=== PATIENT | female | born 1955 | race Caucasian/White ===

== ENCOUNTER → 2024-03-16 10:53 | Outpatient (REF) | payer OTHER, SELFPAY | LOC: RAD 10:53 | PROVIDERS: ATTENDING PHYSICIAN Family Medicine | DX: Z78.9 Other specified health status (principal); R14.0 Abdominal distension (gaseous) | CPT/HCPCS: 76700 ==

== ENCOUNTER 2024-07-06 23:08 | Inpatient (IN) | payer OTHER, SELFPAY ==
[2024-07-06 14:05] VITALS: BP 112/51
[2024-07-06 14:09] VITALS: BP 109/51
--- NOTE | 2024-07-06 14:13 | ED.GENMED ---
ED Provider Triage
<Matt Mitchell PA-C - Last Filed: 07/06/24 14:15>
-
Patient seen by provider in Triage?: Seen in Triage
68 yo female presents due to worsening diffuse edema over the past week or more. Lasix was increased 3d ago by PCP to 80mg daily however edema has not improved. No CP/SOB. Still urinating well. Prior hx of ETOH use, sober since April
Diffuse anasarca from BLE to abdomen. No resp distress. Likely abdominopelvic ascites
Check basic labs. No hx of CHF.
History of Present Illness
<Matt Mitchell PA-C - Last Filed: 07/06/24 14:15>
General
Chief Complaint: Swelling
Time Seen by Provider: 07/06/24 18:56
<Ryan Tuttle MD - Last Filed: 07/07/24 03:02>
General
Source: patient
Exam Limitations: none
History of Present Illness
History of Present Illness:
68-year-old female 2 weeks of progressive leg swelling. Also some swelling in her abdomen. Seen by her primary physician and started on doxycycline and double her dose of Lasix. However symptoms were worse today and was advised to go to the ER.
No chest pain or shortness of breath. No fever.
Past History
<Ryan Tuttle MD - Last Filed: 07/07/24 03:02>
Past History
ED Past Medical History: GERD, HTN, Hypercholesterolemia, Valvular disease, Psychiatric and Other (Neuropathy)
ED Past Surgical History: Gynecological and Other (Cataracts)
Review of Systems
<Ryan Tuttle MD - Last Filed: 07/07/24 03:02>
Review of Systems
All Other Systems: Not applicable
Constitutional: Denies fever
Respiratory: Reports no symptoms
Cardiac: Reports no symptoms
Phy Exam
<Ryan Tuttle MD - Last Filed: 07/07/24 03:02>
Physical Exam
Physical Exam:
GENERAL: Alert and oriented in no apparent distress
EYE: Orbits normal.
NECK: Supple, no significant adenopathy.
ENT: Pharynx without erythema
CARDIAC: Regular rate and rhythm without any obvious murmurs.
LUNGS: Bilateral rales
ABDOMEN: Soft, without focal tenderness or distention
NEUROLOGICAL: Alert and oriented , grossly non-focal
SKIN: Warm and dry, ecchymotic areas shininess to the lower extremity.
MUSCULOSKELETAL: Significant lower extremity pitting edema
PSYCH: Normal and appropriate interaction.
Scores
<Ryan Tuttle MD - Last Filed: 07/07/24 03:02>
Heart Failure Risk
Heart Failure Risk Score: Yes
History of Stroke or TIA: No
History of intubation for respiratory distress: No
Heart rate on ED arrival >/= 110: No
SaO2 <90% on arrival on room air: No
HR >/=110 during 3min walk test (or too ill to perform test): Yes
ECG has acute ischemic changes: No
Urea >/=12mmol/L (BUN 33.6mg/dL): Yes
Serum CO2>/=35mmol/L: No
Troponin I or T elevated to [place] Level (0.4mg/dL): No
NT-proBNP >/=5,000ng/L (5,000pg/ml): No
HF Risk Score: 3
Admission Status: HIGH RISK 15.9% Consider SNF treatment or admission to hospital
Course
<Matt Mitchell PA-C - Last Filed: 07/06/24 14:15>
Orders/Labs/Results
Orders:
Orders
07/06/24 Breakfast
Cholesterol Lowering
At Your Request: Full Participation
Fluid Restriction: 1200 mL/day (40 oz)
Cholesterol Lowering: Sodium, 2 Gram
07/06/24 14:27
Complete Blood Count/With Diff Urgent
Comprehensive Metabolic Panel Urgent
NT-proBNP Urgent
Comment: ADDON
07/06/24 19:03
Add On- LAB Urgent
Tests Added?: probnp
CXR2 [CR Chest - 2 Views ] Urgent
Comment:
Reason For Exam: fluid retention
US Abdomen Complete/Upper Urgent
Comment:
Reason For Exam: Fluid retention/renal insufficiency
07/06/24 19:04
IV Insert/Care/Rem.- Treatment PRN
07/06/24 19:18
Urinalysis Reflex To Culture Urgent
Date Specimen was Collected: 07/06/24
Time Specimen was Collected: 14:16
07/06/24 22:08
Potassium Chloride [KCl] 40 meq Dextrose 5%/Water 250 ml [D5w] 250 ml IV NOW
07/06/24 22:11
Admit/Transfer Patient As Directed
Co-Sign Provider:
Level of Care: Inpatient admission
Assign to:: Telemetry
Physician / Group: shalonda gamble
Diagnosis: ascites
Reason for Telemetry: Other
Other Reason for Telemetry: chf
Date to Stop Telemetry: 07/08/24
Time to Stop Telemetry: 11:00
Reason for Hospitalization: ascites
CHF
Expected length of stay greater than two midnights?: Yes
ELOS- Estimated Length of Stay in days: 3
I certify the patient meets the requirements for IP care: Yes
07/06/24 22:12
Code Status As Directed
Resuscitation Status: Full Code
PRN Pain Medication Management As Directed
May give lesser potent ordered pain med per pt: Yes
preference::
Protocol:: Medication orders for pain may be administered in a
manner that supports deferring to patient preference
when the pt is:
- Requesting an ordered lesser potent pain medication.
Least to most potent pain medications are defined
as: acetaminophen < NSAID < tramadol < opioids
(morphine, oxycodone, hydromorphone).
- Requesting a lesser dose of the same medication IF
ORDERED.
- Requesting a less intrusive route of administration
if both routes are prescribed by the provider (PO <
IV).
07/06/24 22:53
Peripheral Venous Lwr Ext Bilat US [US Periph Venous LOWER Ext Felix] Urgent
Comment:
Reason For Exam: edema
07/06/24 23:17
Echo 2D MMode Color/Doppler Routine
Reason for Study: heart failure
CARDIOLOGY CONSULT Routine
Consulting Provider: Sean Alexander
Was physician already notified: No
Reason for consult: anasarca/CHf
Consult Notification Routine
Specialty to Notify: Cardiology
Consult Notification Routine
Specialty to Notify: IRAD (Interventional Radiology)
Consult Notification Routine
Specialty to Notify: Nephrology
HF DIETARY CONSULT Routine
HF EDUCATOR CONSULT Routine
Comment:
IRAD CONSULT Routine
Consulting Provider: Lizandro Leal
Was physician already notified: No
Reason for Consult/Procedure: paracentesis
Acknowledgement that appropriate orders are entered: Yes
NEPHROLOGY CONSULT Routine
Consulting Provider: Sarah Yen
Was physician already notified: No
Reason for consult: nancy
Body Fluid Albumin Routine
Fluid Source: Peritoneal (Ascites)
Body Fluid Amylase Routine
Fluid Source: Peritoneal (Ascites)
Body Fluid Cell Count Routine
What is the Body Fluid: peritoneal fluid
Comment: post procedure
Body Fluid LDH Routine
Fluid Source: Peritoneal (Ascites)
Body Fluid Protein Routine
Fluid Source: Peritoneal (Ascites)
Fluid Culture with Gram Stain Routine
NORBERTO Source: Peritoneal Fluid
Specimen Description:
Comment: Post Procedure
Gram Stain Routine
NORBERTO Source: Peritoneal Fluid
Specimen Description:
Comment: Post Procedure
Activity As Directed
Activity Level: As Tolerated
Intake/ Output As Directed
Frequency: Per unit guidelines
Patient Education As Directed
Type: CHF folder
Comment: give on admission. Document in Interdisciplinary Education record
Pneumatic Compression Sleeves As Directed
Type: Thigh high
Sleep Apnea Assessment by RN As Directed
Comment:
Physician Instructions:
Vital Signs As Directed
Frequency: Other
Additional Instructions:: Q12 or per unit guidelines if more frequent.
Weight As Directed
Frequency: Daily
Type of Scale: Standing Scale
Comment: Daily morning weight. If unable to stand, use balanced bed scale.
Weight As Directed
Frequency: Once
Type of Scale: Standing Scale
Comment: Upon Admission. If unable to stand, use balanced bed scale.
IRAD Cytology Routine
Source: Peritoneal Fluid
Clinical Impression: ascites
Pulse Ox/cont/shift [RESP] Routine
Quantity: 1
Special Instructions: Daily pulse oximetry at rest. If greater than 92% at rest also obtain pulse oximetry
while ambulating as tolerated.
DX Deep Vein Thrombosis Video Routine
07/07/24 06:00
Cardiovascular Evaluation IN AM
Complete Blood Count/No Diff IN AM
TSH Reflex To Free T4 IN AM
07/07/24 08:00
Metoprolol Xl [Toprol Xl] 50 mg PO DAILY
Pregabalin [Lyrica] 150 mg PO BID
Rosuvastatin Calcium [Crestor] 20 mg PO DAILY
07/07/24 22:00
Melatonin 3 mg PO HS
07/08/24 06:00
Basic Metabolic Panel IN AM
07/08/24 11:00
DC Protocol for Telemetry ONCE
07/09/24 06:00
Basic Metabolic Panel IN AM
Abnormal Lab Results
07/06/24
14:27
RBC 2.69 L 10^6/uL
(4.20-5.40)
Hgb 7.9 L g/dL
(12.0-16.0)
Hct 22.5 L %
(37.0-47.0)
RDW 16.1 H %
(11.5-14.5)
MPV 12.2 H fL
(7.4-10.4)
Absolute Monos (auto) 0.7 H 10^3/uL
(0.1-0.6)
Potassium 2.9 L mmol/L
(3.5-5.1)
Carbon Dioxide 21 L mmol/L
(22-30)
BUN 34 H mg/dl
(7-17)
Creatinine 2.2 H mg/dL
(0.6-1.0)
Calcium 7.7 L mg/dl
(8.4-10.2)
Total Bilirubin 1.5 H mg/dl
(0.2-1.3)
AST 85 H U/L
(14-36)
Alkaline Phosphatase 239 H U/L
(38-126)
Total Protein 6.1 L g/dl
(6.3-8.2)
Albumin 2.9 L g/dl
(3.5-5.0)
07/06/24 14:27
07/06/24 14:27
Vital Signs
Initial and Last Documented VS:
Initial Vital Signs
Temp Pulse BP Pulse Ox
97.9 F 78 112/51 95
07/06/24 14:05 07/06/24 14:05 07/06/24 14:05 07/06/24 14:05
Last Documented Vital Signs
Temp Pulse Resp BP Pulse Ox
98.5 F 78 18 108/49 98
07/06/24 23:30 07/07/24 02:00 07/07/24 02:00 07/07/24 02:00 07/06/24 23:38
<Ryan Tuttle MD - Last Filed: 07/07/24 03:02>
Orders/Labs/Results
Orders:
Orders
07/06/24 Breakfast
Cholesterol Lowering
At Your Request: Full Participation
Fluid Restriction: 1200 mL/day (40 oz)
Cholesterol Lowering: Sodium, 2 Gram
07/06/24 14:27
Complete Blood Count/With Diff Urgent
Comprehensive Metabolic Panel Urgent
NT-proBNP Urgent
Comment: ADDON
07/06/24 19:03
Add On- LAB Urgent
Tests Added?: probnp
CXR2 [CR Chest - 2 Views ] Urgent
Comment:
Reason For Exam: fluid retention
US Abdomen Complete/Upper Urgent
Comment:
Reason For Exam: Fluid retention/renal insufficiency
07/06/24 19:04
IV Insert/Care/Rem.- Treatment PRN
07/06/24 19:18
Urinalysis Reflex To Culture Urgent
Date Specimen was Collected: 07/06/24
Time Specimen was Collected: 14:16
07/06/24 22:08
Potassium Chloride [KCl] 40 meq Dextrose 5%/Water 250 ml [D5w] 250 ml IV NOW
07/06/24 22:11
Admit/Transfer Patient As Directed
Co-Sign Provider:
Level of Care: Inpatient admission
Assign to:: Telemetry
Physician / Group: shalonda gamble
Diagnosis: ascites
Reason for Telemetry: Other
Other Reason for Telemetry: chf
Date to Stop Telemetry: 07/08/24
Time to Stop Telemetry: 11:00
Reason for Hospitalization: ascites
CHF
Expected length of stay greater than two midnights?: Yes
ELOS- Estimated Length of Stay in days: 3
I certify the patient meets the requirements for IP care: Yes
07/06/24 22:12
Code Status As Directed
Resuscitation Status: Full Code
PRN Pain Medication Management As Directed
May give lesser potent ordered pain med per pt: Yes
preference::
Protocol:: Medication orders for pain may be administered in a
manner that supports deferring to patient preference
when the pt is:
- Requesting an ordered lesser potent pain medication.
Least to most potent pain medications are defined
as: acetaminophen < NSAID < tramadol < opioids
(morphine, oxycodone, hydromorphone).
- Requesting a lesser dose of the same medication IF
ORDERED.
- Requesting a less intrusive route of administration
if both routes are prescribed by the provider (PO <
IV).
07/06/24 22:53
Peripheral Venous Lwr Ext Bilat US [US Periph Venous LOWER Ext Felix] Urgent
Comment:
Reason For Exam: edema
07/06/24 23:17
Echo 2D MMode Color/Doppler Routine
Reason for Study: heart failure
CARDIOLOGY CONSULT Routine
Consulting Provider: Sean Alexander
Was physician already notified: No
Reason for consult: anasarca/CHf
Consult Notification Routine
Specialty to Notify: Cardiology
Consult Notification Routine
Specialty to Notify: IRAD (Interventional Radiology)
Consult Notification Routine
Specialty to Notify: Nephrology
HF DIETARY CONSULT Routine
HF EDUCATOR CONSULT Routine
Comment:
IRAD CONSULT Routine
Consulting Provider: Lizandro Leal
Was physician already notified: No
Reason for Consult/Procedure: paracentesis
Acknowledgement that appropriate orders are entered: Yes
NEPHROLOGY CONSULT Routine
Consulting Provider: Sarah Yen
Was physician already notified: No
Reason for consult: nancy
Body Fluid Albumin Routine
Fluid Source: Peritoneal (Ascites)
Body Fluid Amylase Routine
Fluid Source: Peritoneal (Ascites)
Body Fluid Cell Count Routine
What is the Body Fluid: peritoneal fluid
Comment: post procedure
Body Fluid LDH Routine
Fluid Source: Peritoneal (Ascites)
Body Fluid Protein Routine
Fluid Source: Peritoneal (Ascites)
Fluid Culture with Gram Stain Routine
NORBERTO Source: Peritoneal Fluid
Specimen Description:
Comment: Post Procedure
Gram Stain Routine
NORBERTO Source: Peritoneal Fluid
Specimen Description:
Comment: Post Procedure
Activity As Directed
Activity Level: As Tolerated
Intake/ Output As Directed
Frequency: Per unit guidelines
Patient Education As Directed
Type: CHF folder
Comment: give on admission. Document in Interdisciplinary Education record
Pneumatic Compression Sleeves As Directed
Type: Thigh high
Sleep Apnea Assessment by RN As Directed
Comment:
Physician Instructions:
Vital Signs As Directed
Frequency: Other
Additional Instructions:: Q12 or per unit guidelines if more frequent.
Weight As Directed
Frequency: Daily
Type of Scale: Standing Scale
Comment: Daily morning weight. If unable to stand, use balanced bed scale.
Weight As Directed
Frequency: Once
Type of Scale: Standing Scale
Comment: Upon Admission. If unable to stand, use balanced bed scale.
IRAD Cytology Routine
Source: Peritoneal Fluid
Clinical Impression: ascites
Pulse Ox/cont/shift [RESP] Routine
Quantity: 1
Special Instructions: Daily pulse oximetry at rest. If greater than 92% at rest also obtain pulse oximetry
while ambulating as tolerated.
DX Deep Vein Thrombosis Video Routine
07/07/24 06:00
Cardiovascular Evaluation IN AM
Complete Blood Count/No Diff IN AM
TSH Reflex To Free T4 IN AM
07/07/24 08:00
Metoprolol Xl [Toprol Xl] 50 mg PO DAILY
Pregabalin [Lyrica] 150 mg PO BID
Rosuvastatin Calcium [Crestor] 20 mg PO DAILY
07/07/24 22:00
Melatonin 3 mg PO HS
07/08/24 06:00
Basic Metabolic Panel IN AM
07/08/24 11:00
DC Protocol for Telemetry ONCE
07/09/24 06:00
Basic Metabolic Panel IN AM
Abnormal Lab Results
07/06/24
14:27
RBC 2.69 L 10^6/uL
(4.20-5.40)
Hgb 7.9 L g/dL
(12.0-16.0)
Hct 22.5 L %
(37.0-47.0)
RDW 16.1 H %
(11.5-14.5)
MPV 12.2 H fL
(7.4-10.4)
Absolute Monos (auto) 0.7 H 10^3/uL
(0.1-0.6)
Potassium 2.9 L mmol/L
(3.5-5.1)
Carbon Dioxide 21 L mmol/L
(22-30)
BUN 34 H mg/dl
(7-17)
Creatinine 2.2 H mg/dL
(0.6-1.0)
Calcium 7.7 L mg/dl
(8.4-10.2)
Total Bilirubin 1.5 H mg/dl
(0.2-1.3)
AST 85 H U/L
(14-36)
Alkaline Phosphatase 239 H U/L
(38-126)
Total Protein 6.1 L g/dl
(6.3-8.2)
Albumin 2.9 L g/dl
(3.5-5.0)
07/06/24 14:27
07/06/24 14:27
Vital Signs
Initial and Last Documented VS:
Initial Vital Signs
Temp Pulse BP Pulse Ox
97.9 F 78 112/51 95
07/06/24 14:05 07/06/24 14:05 07/06/24 14:05 07/06/24 14:05
Last Documented Vital Signs
Temp Pulse Resp BP Pulse Ox
98.5 F 78 18 108/49 98
07/06/24 23:30 07/07/24 02:00 07/07/24 02:00 07/07/24 02:00 07/06/24 23:38
<Ryan Tuttle MD - Last Filed: 07/07/24 03:02>
MDM/Problems Addressed
Differential Diagnosis Includes:
Increased anasarca/edema. Possible mild CHF. Bump in creatinine. Chronic anemia. Workup in progress.
<Ryan Tuttle MD - Last Filed: 07/07/24 03:02>
*Radiology
Radiology exam reviewed: preliminary read by ED provider (Questionable mild CHF. Questionable right hilar adenopathy) and radiology read reviewed (Moderate ascites)
*Pulse Oximetry
Patient hypoxic: no
*Critical Care Note
Total Time (30-74mins, 75-104mins- exclusive of procedures): Not Applicable
Data Reviewed
Review of Other/Old Records Reveals: Labs, Records and Testing
ED Attending Note
<Matt Mitchell PA-C - Last Filed: 07/06/24 14:15>
-
Portions of this chart may have been created with voice recognition software.� Occasional wrong word or��sound alike� substitutions may have occurred due to the inherent limitations of voice recognition software.
Discharge Plan
Departure
Patient Disposition: Admit
Date of Disposition: 07/06/24
Time of Disposition: 21:45
Presentation/result/management discussed w/ accepting MD/DO: Hospitalist
Discharge Problem:
Anasarca/ascites, New onset renal insufficiency, Possible mild CHF
Interventions
Interventions:
*Risk Screen - Suicide Last Done: 07/06/24 19:40
*General Assessment Last Done: 07/06/24 14:09
*Neglect/Abuse Screening Last Done: 07/06/24 19:40
*ED COVID-19 Vaccine History Last Done: 07/06/24 19:40
ED- Cardiac Assessment Last Done: 07/06/24 19:40
ED- Pulmonary Assessment Last Done: 07/06/24 19:40
ED-Skin Assessment Last Done: 07/06/24 19:39
[2024-07-06 15:04] LABS: % Basophils 0.5 % (0-2); % Eosinophils 1.1 % (0-6); % Immature Granulocytes 0.3 % (0-0.5); % Lymphocytes 27.6 % (20.5-51.1); % Neutrophils 62.5 % (42.2-75.2); ALT (SGPT) 24 U/L (0-35); Absolute Basophils 0.1 10^3/uL (0-0.2); Absolute Eosinophils 0.1 10^3/uL (0-0.7); Absolute Lymphocytes 2.6 10^3/uL (1.2-3.4); Absolute Monocytes 0.7 10^3/uL (0.1-0.6); Absolute Neutrophils 5.8 10^3/uL (1.4-6.5); Albumin 2.9 g/dl (3.5-5.0); Alkaline Phosphatase 239 U/L (38-126); Blood Urea Nitrogen 34 mg/dl (7-17); Calcium 7.7 mg/dl (8.4-10.2); Carbon Dioxide 21 mmol/L (22-30); Chloride 103 mmol/L (98-107); Glucose 92 mg/dl (70-99); Hematocrit 22.5 % (37.0-47.0); Hemoglobin 7.9 g/dL (12.0-16.0); Mean Corp Hgb Conc. 35.1 g/dL (33.0-37.0); Mean Corpuscular Hgb 29.4 pg (27.0-31.0); Mean Corpuscular Volume 83.6 fL (81.0-99.0); Mean Platelet Volume 12.2 fL (7.4-10.4); Nucleated Red Blood Cells % 0 %; Platelet Count 183 10^3/uL (130-400); Potassium 2.9 mmol/L (3.5-5.1); Red Blood Cell Count 2.69 10^6/uL (4.20-5.40); Red Cell Dist. Width 16.1 % (11.5-14.5); Sodium 139 mmol/L (135-145); Total Bilirubin 1.5 mg/dl (0.2-1.3); Total Protein 6.1 g/dl (6.3-8.2); White Blood Cell Count 9.2 10^3/uL (4.8-10.8); eGFR 23.82
[2024-07-06 15:52] LABS: AST (SGOT) 85 U/L (14-36)
[2024-07-06 16:00] VITALS: BP 111/79
[2024-07-06 19:25] LABS: Urine Albumin Negative (Neg - Trace); Urine Bilirubin Negative (Negative); Urine Character Clear (Clear); Urine Color Yellow; Urine Glucose Negative (Negative); Urine Ketone Negative (Negative); Urine Leukocyte Negative (Negative); Urine Nitrite Negative (Negative); Urine Occult Blood Negative (Negative); Urine Urobilinogen Negative (Neg - 1+)
[2024-07-06 19:39] VITALS: BP 123/56
[2024-07-06 19:56] LABS: NT-proBNP 1110 pg/ml
--- NOTE | 2024-07-06 21:48 | HPS.HSE ---
Family Physician
-
Family Physician:
Chief Complaint
-
abdominal distention
History of Present Illness
68-year-old female with past medical history for CHF, GERD, hyperlipidemia, hypertension presented to us with 2 weeks of progressive leg swelling. Also some swelling in her abdomen. Seen by her primary physician and started on doxycycline and
doubled her dose of Lasix on Tuesday. however symptoms were worse today and was advised to go to the ER. No chest pain or shortness of breath. No fever, chills, runny nose or congestion. Patient denied headache, dizziness syncope. Patient denied
abdominal pain, nausea, vomiting, diarrhea. Patient denied dysuria hematuria.
Upon arrival noted to have BNP of 1100. Admitting for further management
Medical History
Past Medical History
Past Medical History: Reports Other
Additional Past Medical History:
Osteoporosis
Anxiety
Anemia
Hypertension
Mood disorder
Fatty liver
Cirrhosis of liver
GERD
Celiac disease alcohol abuse
Past Surgical History: Reports Other
Additional Past Surgical History:
Hysterectomy
Social History
Tobacco: Smoker
Alcohol: Former
Drug: None
Family History
Family History: Not pertinent
Allergies / Home Medications
Allergies reflects when Allergies were last updated in [facility].
Home Medications with original date entered in [facility]
Allergy/Medication List:
Allergies
Allergy/AdvReac Type Severity Reaction Status Date / Time
olmesartan [From Benicar] Allergy anemia Verified 07/06/24 14:12
Sulfa (Sulfonamide Allergy lip Verified 07/06/24 14:12
Antibiotics) Swelling
venlafaxine [From Effexor] Allergy Unknown Verified 07/06/24 14:12
Home Medications
loratadine 10 mg tablet 10 mg PO PRN PRN seasonal 05/30/18
pregabalin 100 mg capsule 150 mg PO BID Pain 04/30/20
furosemide 40 mg tablet 40 mg PO DAILY 30 days #30 tabs 01/05/22
melatonin 3 mg tablet 3 mg PO HS 30 days #0 tabs 01/05/22
pantoprazole 40 mg tablet,delayed release 40 mg PO DAILY 30 days #30 tabs 01/05/22
metoprolol succinate 50 mg tablet,extended release 24 hr 50 mg PO DAILY 07/22/22
rosuvastatin 20 mg tablet 20 mg PO DAILY 07/06/24
Review of Systems
-
Constitutional: Reports No Symptoms
EENT: Reports No Symptoms
Respiratory: Reports No Symptoms
Cardiac: Reports No Symptoms
Abdomen/GI: Reports Other (distention)
: Reports No Symptoms
Musculoskeletal: Reports Other (LE edema)
Skin: Reports No Symptoms
Neurological: Reports No Symptoms
Endocrine: Reports No Symptoms
Hematologic/Lymphatic: Reports No Symptoms
Psych: Reports No Symptoms
Physical Exam
Vital Signs
Vital Signs
Temp Pulse Resp BP Pulse Ox
98.3 F 67 20 123/56 92
07/06/24 19:39 07/06/24 19:39 07/06/24 19:39 07/06/24 19:39 07/06/24 19:39
Physical Exam
General: Well Developed, Well Nourished and No Apparent Distress
HEENT: NormoCephalic, Moist mucous membranes and Atraumatic
Respiratory: Clear
Cardiac: S1/S2 and Regular Rhythm; No Murmur or Rub
GI: Soft, Non Tender, Non Distended and Normal Bowel Sounds; No Organomegaly
Rectal: Deferred by Provider
Musculoskeletal: No Clubbing, No Cyanosis and Other (b/l LE red and swollen)
Skin: No Rash
Neuro: AO x 3 and Nonfocal/grossly intact
Psych: Calm
Laboratory Results
-
07/06/24 14:27
07/06/24 14:27
Laboratory Results
Total Bilirubin 1.5 mg/dl (0.2-1.3) H 07/06/24 14:27
AST 85 U/L (14-36) H 07/06/24 14:27
ALT 24 U/L (0-35) 07/06/24 14:27
Alkaline Phosphatase 239 U/L (38-126) H 07/06/24 14:27
Data Reviewed
-
Diagnostic Radiology: Report Reviewed by me
Lab Data: Labs Reviewed by me
Impression/Plan
-
#anasarca
#questionable CHF
-Chest x-ray pending
-BNP 1110
-hold lasix
-Strict GLEN
-Daily weight
-Fluid restriction
-Cardiology consult
-Obtain echocardiogram
# Moderate ascites
# Hepatic cirrhosis
-Abdominal ultrasound with impression of MODERATE ASCITES.
2. MODERATE HEPATIC CIRRHOSIS.
3. Mild gallbladder distention.
4. Mild chronic bilateral renal disease.
-IR consulted for paracentesis
# Anemia of chronic disease
-Hemoglobin stable at 7.9
-No active bleeding
-Continue to monitor
# Hypokalemia likely from fluid overload/diuretics
-Potassium 2.9
-Repleted with IV KCl
-BMP in am
# Acute kidney injury likely from fluid overload/diuretic
-Creatinine 2.2
-Diuretics
-Monitor BMP in a.m.'
-Nephrology consult
# Hyperlipidemia
-Statin
# Hypertension
-Metoprolol continued
# DVT prophylaxis
-SCDs
# CODE STATUS
-Full code
[2024-07-06 22:35] VITALS: BP 119/62
--- NOTE | 2024-07-06 23:04 | W.PN.UPDATE ---
Update Note
Progress Note Update
This note serves as an addendum to the H&P by basic sciences professor JAMILA
Page [employer]
HPI
68F current smoker HX Chr HFpEF, GERD, hyperlipidemia, hypertension, chr anemia , anxiety , liver cirrhosis, celiac dz , ETOH use disorder, seen at ER:
- 2 weeks of progressive leg swelling and some swelling in her abdomen.
- Seen by PCP started on doxycycline and doubled her dose of Lasix on Tuesday.
- symptoms were worse today and was advised to go to the ER.
ROS
No chest pain or shortness of breath.
No fever, chills, runny nose or congestion.
denied abdominal pain, nausea, vomiting, diarrhea.
Reviewed VS:
Vital Signs
Temp Pulse Resp BP Pulse Ox
98.3 F 73 15 119/62 92
07/06/24 19:39 07/06/24 22:45 07/06/24 22:45 07/06/24 22:35 07/06/24 22:45
01/05/22
07/22/22
07/06/24
Actual Weight 40.687 kg 50.3 kg 53.155 kg
PE
Gen: No Apparent Distress
HEENT:
Neck: supple
Lungs: CTA
Cor: Not oprthopnic, S1 S2 RRR No murmur
Abdomen:
PROBATION MANAGER:
MS: b/l LE erythematous edema
Psych: calm
Abnormal Lab Results
07/06/24
14:27
RBC 2.69 L
Hgb 7.9 L
Hct 22.5 L
RDW 16.1 H
MPV 12.2 H
Absolute Monos (auto) 0.7 H
Potassium 2.9 L
Carbon Dioxide 21 L
BUN 34 H
Creatinine 2.2 H
Calcium 7.7 L
Total Bilirubin 1.5 H
AST 85 H
Alkaline Phosphatase 239 H
Total Protein 6.1 L
Albumin 2.9 L
12/21/21 ECHO
Nl LVEF
Nl RV size and function
Trace-Mild MR
Mild TR
Estimated PASP 41 mmHg is mildly elevated Compared to prior study of 15 days ago (12/06/21) no change.
US Abdomen: MODERATE ASCITES.
ASSESSMENT & PLAN
Complex cardio, hepatorenal pathophysiology
Complex medial decision making
ESTRELLITA
DDx: Over diuresis with intervascular volume contraction vs. Cardio renal syndrome due to Chr HFpEF flare
- Current Creatinine 2.2
- Hold Lasix
- Trend Cr
- Nephrology consult
Progressive Sharon edema but denied dyspnea
Severe hypoalbuminemia Diff origin- synthetic dysfunction +/_ hemodilution due to anasarrca
DDX: suspect anasarca, extra vascular volume exapansion, Chr HFpEF flare
- current pro BNP is less than prior pro BNP
- SHARON US to be thorough
- ECHO
- Hold IV Diuresis for now due to ESTRELLITA
- CBC Card consult
Moderate ascites
Hepatic cirrhosis with synthetic dysfunction , hypoalbuminemia suspect anasarca plus Portal HTN
- IR consulted for paracentesis
Anemia of chronic disease
-Hemoglobin stable at 7.9
-No active bleeding
-Continue to trend Hgb
Hypokalemia likely from fluid overload/diuretics
-Potassium 2.9
-Repleted with IV KCl
-BMP in am
Hyperlipidemia
- Statin
Essential Hypertension
-Metoprolol continued
DVT Px: SCD
Full code
IP TLM
[2024-07-07] VITALS (20 sets, daily range): BP systolic 100–130; BP diastolic 49–65; BMI 20.5
[2024-07-07] MEDS: KCL 270 MEQ IV (00:18)
[2024-07-07] MEDS: MELATONIN 3 MG PO ×2 (01:06→22:42)
[2024-07-07 06:21] LABS: Hematocrit 21.3 % (37.0-47.0); Hemoglobin 7.3 g/dL (12.0-16.0); Mean Corp Hgb Conc. 34.3 g/dL (33.0-37.0); Mean Corpuscular Hgb 29.1 pg (27.0-31.0); Mean Corpuscular Volume 84.9 fL (81.0-99.0); Mean Platelet Volume 12.3 fL (7.4-10.4); Platelet Count 163 10^3/uL (130-400); Red Blood Cell Count 2.51 10^6/uL (4.20-5.40); Red Cell Dist. Width 16.1 % (11.5-14.5); White Blood Cell Count 7.8 10^3/uL (4.8-10.8)
[2024-07-07 06:35] LABS: ALT (SGPT) 22 U/L (0-35); AST (SGOT) 77 U/L (14-36); Albumin 2.5 g/dl (3.5-5.0); Alkaline Phosphatase 236 U/L (38-126); Blood Urea Nitrogen 35 mg/dl (7-17); Calcium 7.4 mg/dl (8.4-10.2); Carbon Dioxide 24 mmol/L (22-30); Chloride 104 mmol/L (98-107); Estimated Creatinine Clearance 18 ml/min; Glucose 72 mg/dl (70-99); HDL Cholesterol 62 mg/dl; LDL Cholesterol, Calculated 70 mg/dl; Potassium 3.4 mmol/L (3.5-5.1); Sodium 138 mmol/L (135-145); Total Bilirubin 2.1 mg/dl (0.2-1.3); Total Cholesterol 159 mg/dl (50-199); Total Protein 5.4 g/dl (6.3-8.2); Triglyceride 136 mg/dl (10-149); Very Low Density Lipoprotein 27 mg/dl (0-30); eGFR 25.19
[2024-07-07 07:05] LABS: TSH Reflex To Free T4 1.02 uIU/ml (0.47-4.68)
[2024-07-07] MEDS: TOPROL XL 50 MG PO (08:26)
[2024-07-07] MEDS: LYRICA 150 MG PO ×2 (08:30→20:37)
[2024-07-07] MEDS: CRESTOR PO (08:30)
--- NOTE | 2024-07-07 12:54 | W.CON.NEPH ---
Consultation
-
Date/Time Consultation Requested: 07/06/24 1857
Date/Time Consultation Performed: 07/07/24 1345
Requesting Provider: Clayton Jacobs
Performing Provider: Sarah Ring
Reason for Consultation: ESTRELLITA
Medical History
-
Chief Complaint: Abd distension
History of Present Illness:
68-year-old female with past medical history for CHF on lasix, GERD on PPI, hyperlipidemia on statin, hypertension metoprolol, liver cirrhosis on lactulose presented to ER on 07/06 with 2 weeks of progressive leg swelling. Also some swelling in her
abdomen, reportedly pt ran out of lactulose for 1week. Was Seen by her primary physician last week and started on doxycycline for cellulitis and doubled her dose of Lasix, resumed lactulose on Tuesday. Cultures were obtained at this visit from
right lower extremity wound which shows Proteus and enterococcus pansensitive. however symptoms were worse and was advised to go to the ER. No chest pain or shortness of breath. No fever, chills, runny nose or congestion. Patient denied headache,
dizziness syncope. Patient denied abdominal pain, nausea, vomiting, diarrhea. Patient denied dysuria hematuria. 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 Reports she is sober since April.
In ER cr noted at 2.2, last cr was 1 in 06/2023. k low at 2.9. hence nephrology consulted. BNP was high 1100.
Past Medical History
Osteoporosis
Anxiety
Anemia
Hypertension
Mood disorder
Cirrhosis of liver
GERD
Celiac disease alcohol abuse
Past Surgical History: Other (Hysterectomy)
Social History
Tobacco: Smoker
Alcohol: Former
Drug: None
Family History
Family History: Not Pertinent
Allergies / Home Medications
Allergy/AdvReac Type Severity Reaction Status Date / Time
olmesartan [From Benicar] Allergy anemia Verified 07/06/24 14:12
Sulfa (Sulfonamide Allergy lip Verified 07/06/24 14:12
Antibiotics) Swelling
venlafaxine [From Effexor] Allergy Unknown Verified 07/06/24 14:12
�Medication �Instructions �Recorded �Confirmed �Type
loratadine 10 mg tablet 10 mg PO PRN PRN seasonal 05/30/18 07/07/24 History
pregabalin 100 mg capsule 150 mg PO BID Pain 04/30/20 07/07/24 History
furosemide 40 mg tablet 40 mg PO DAILY 30 days #30 tabs 01/05/22 07/07/24 Rx
melatonin 3 mg tablet 3 mg PO HS 30 days #0 tabs 01/05/22 07/07/24 Rx
metoprolol succinate 50 mg 50 mg PO DAILY Blood Pressure 07/22/22 07/07/24 History
tablet,extended release 24 hr
rosuvastatin 20 mg tablet 20 mg PO DAILY High Cholesterol 07/06/24 07/07/24 History
alendronate 10 mg tablet 10 mg PO MO osteoporosis 07/07/24 07/07/24 History
cholecalciferol (vitamin D3) 25 25 mcg PO DAILY Supplement 07/07/24 07/07/24 History
mcg (1,000 unit) tablet (Vitamin
D3)
cyanocobalamin (vitamin B-12) 1,000 mcg PO DAILY Supplement 07/07/24 07/07/24 History
1,000 mcg tablet
diphenhydramine HCl 25 mg capsule 25 mg PO HS Allergies 07/07/24 07/07/24 History
(Benadryl)
doxycycline hyclate 100 mg capsule 100 mg PO BID Infection 07/07/24 07/07/24 History
lactulose 10 gram/15 mL oral 20 g PO Q48H hepatic encephalopathy 07/07/24 07/07/24 History
solution
omeprazole 20 mg capsule,delayed 20 mg PO DAILY Gastrointestinal 07/07/24 07/07/24 History
release Issue
Review of Systems
-
All complete 12 point review of system have been inquired and found negative other than stated in HPI
Physical Exam
Vital Signs
Vital Signs
Temp Pulse Resp BP Pulse Ox
98.6 F 90 16 130/64 98
07/07/24 11:17 07/07/24 10:05 07/07/24 10:05 07/07/24 08:26 07/06/24 23:38
Lab Results
WBC 7.8 10^3/uL (4.8-10.8) 07/07/24 05:14
RBC 2.51 10^6/uL (4.20-5.40) L 07/07/24 05:14
Hgb 7.3 g/dL (12.0-16.0) L 07/07/24 05:14
Hct 21.3 % (37.0-47.0) L 07/07/24 05:14
Plt Count 163 10^3/uL (130-400) 07/07/24 05:14
Sodium 138 mmol/L (135-145) 07/07/24 05:14
Potassium 3.4 mmol/L (3.5-5.1) L 07/07/24 05:14
Chloride 104 mmol/L (98-107) 07/07/24 05:14
Carbon Dioxide 24 mmol/L (22-30) 07/07/24 05:14
BUN 35 mg/dl (7-17) H 07/07/24 05:14
Creatinine 2.1 mg/dL (0.6-1.0) H 07/07/24 05:14
eGFR 25.19 07/07/24 05:14
Glucose 72 mg/dl (70-99) 07/07/24 05:14
Calcium 7.4 mg/dl (8.4-10.2) L 07/07/24 05:14
Pab-K-Zwubuwlmljd Pept 1110 pg/ml 07/06/24 14:27
Albumin 2.5 g/dl (3.5-5.0) L 07/07/24 05:14
CXR:
IMPRESSION:
1. Mild acute interstitial pulmonary edema.
2. Mild cardiomegaly.
3. Mild peripheral scarring in the right upper lobe.
4. Mild elevation of the right hemidiaphragm.
5. Multilevel cervical laminectomies and bilateral posterior instrumentation.
US abd:
IMPRESSION:
1. MODERATE ASCITES.
2. MODERATE HEPATIC CIRRHOSIS.
3. Mild gallbladder distention.
4. Mild chronic bilateral renal disease.
Physical Exam
General: Awake, Alert, Oriented, AOx3, No Distress and Nontoxic
HEENT: EOMI, Anicteric, Conjunctivae Clear and Facial Symmetry
Respiratory: Clear, Normal Excursion and Nonlabored Respirations (decreased)
Cardiac: S1/S2 and Regular Rate/Rhythm
Breast: Deferred by me
Abdomen: Soft, Nontender and Other (Distended)
Musculoskeletal: No Cyanosis and Edema (1+)
Skin: Other ( small area of raw skin right lower extremity, weeping noted erythema present but not warm or tender)
Neuro: Nonfocal/Grossly Intact
Psych: Mood/afflect pleasant and Appropriate
Data Reviewed
-
Radiology: Report Reviewed by me, Discussed with Patient and Discussed with Family
Labs: Labs Reviewed by me, Discussed with Patient and Discussed with Family
Assessment/Plan
-
IMP:
ESTRELLITA -cr at 1 in 06/2023
Hypokalemia
Progressive Sharon edema
Lower extremity cellulitis treated outpatient, wound culture shows Proteus, enterococcus from 06/2024
Severe hypoalbuminemia
Moderate ascites
Hepatic cirrhosis
Anemia of chronic disease
Hyperlipidemia
Essential Hypertension
Celiac
Osteoporosis
Anxiety
Plan:
A/w LE edema , abd distension with known h/o cirrhosis
ESTRELLITA-last cr 1 in 06/2023
[place] UA , check fena -suspect cardiorenal vs hepatorenal vs overdiuresis
no hydro on US, MRD changes with slightly small kidneys
will trial IV alb
replace k , hold lasix, low threshold to resume
check echo, CXR Noted wiht mild pulm edema-but she is on RA
BNP high but in setting of ETSRELLITA
paracentesis when able
Bp stable on BB
avoid nephrotoxins
monitor hb, check fe panel, prn transfusion
d/w pt and
--- NOTE | 2024-07-07 13:31 | CON.CAR ---
Consultation
Consultation Request
Date/Time Consultation Requested: 07/07/2024 12:30
Date/Time Consultation Performed: 07/07/2024 13: 00
Requesting Provider: Margo
Performing Provider: Arlet
Reason for Consultation: CHF
Medical History
-
Chief Complaint: Worsening lower extremity edema and abdominal distention
History of Present Illness:
Asha has a history of chronic diastolic CHF, hypertension, alcohol abuse (sober since April 2024). She presents with lower extremity edema and abdominal distention. She is found to have cirrhosis and renal insufficiency. Cardiology is
consulted for CHF. She denies shortness of breath at present. She denies weight gain as well
Past Medical History
Past Medical History: HTN and Other (See HPI, neuropathy, depression, pneumonia, fatty liver, colonic polyps, anemia, celiac disease, anxiety, osteoporosis)
Past Surgical History: Other (Hysterectomy partial due to endometriosis and fibroids, fusion surgery )
Social History
Tobacco: Smoker (3 to 4 cigarettes a day)
Alcohol: Former (Stop drinking April 2024)
Drug: None
Personal:
Living: With Family
Employment: Retired
Family History
Family History: Other (There is no family history of premature coronary artery disease)
Allergies / Home Medications
Allergy/AdvReac Type Severity Reaction Status Date / Time
olmesartan [From Benicar] Allergy anemia Verified 07/06/24 14:12
Sulfa (Sulfonamide Allergy lip Verified 07/06/24 14:12
Antibiotics) Swelling
venlafaxine [From Effexor] Allergy Unknown Verified 07/06/24 14:12
�Medication �Instructions �Recorded �Confirmed �Type
loratadine 10 mg tablet 10 mg PO PRN PRN seasonal 05/30/18 07/07/24 History
pregabalin 100 mg capsule 150 mg PO BID Pain 04/30/20 07/07/24 History
furosemide 40 mg tablet 40 mg PO DAILY 30 days #30 tabs 01/05/22 07/07/24 Rx
melatonin 3 mg tablet 3 mg PO HS 30 days #0 tabs 01/05/22 07/07/24 Rx
metoprolol succinate 50 mg 50 mg PO DAILY Blood Pressure 07/22/22 07/07/24 History
tablet,extended release 24 hr
rosuvastatin 20 mg tablet 20 mg PO DAILY High Cholesterol 07/06/24 07/07/24 History
alendronate 10 mg tablet 10 mg PO MO osteoporosis 07/07/24 07/07/24 History
cholecalciferol (vitamin D3) 25 25 mcg PO DAILY Supplement 07/07/24 07/07/24 History
mcg (1,000 unit) tablet (Vitamin
D3)
cyanocobalamin (vitamin B-12) 1,000 mcg PO DAILY Supplement 07/07/24 07/07/24 History
1,000 mcg tablet
diphenhydramine HCl 25 mg capsule 25 mg PO HS Allergies 07/07/24 07/07/24 History
(Benadryl)
doxycycline hyclate 100 mg capsule 100 mg PO BID Infection 07/07/24 07/07/24 History
lactulose 10 gram/15 mL oral 20 g PO Q48H hepatic encephalopathy 07/07/24 07/07/24 History
solution
omeprazole 20 mg capsule,delayed 20 mg PO DAILY Gastrointestinal 07/07/24 07/07/24 History
release Issue
Review of Systems
-
History Source: Patient
All other systems: Negative unless noted
Constitutional: No Symptoms
EENT: No Symptoms
Respiratory: No Symptoms
Cardiac: No Symptoms
Abdomen/GI: Other (Abdominal distention)
: No Symptoms
Musculoskeletal: Edema
Skin: No Symptoms
Neurological: Other (History of neuropathy)
Endocrine: No Symptoms
Hematologic/Lymphatic: No Symptoms
Physical Exam
Vital Signs
Temp Pulse Resp BP Pulse Ox
98.6 F 90 16 130/64 98
07/07/24 11:17 07/07/24 10:05 07/07/24 10:05 07/07/24 08:26 07/06/24 23:38
Lab Results
07/07/24 05:14
07/07/24 05:14
Vke-L-Yrjjpayfwyd Pept 1110 pg/ml 07/06/24 14:27
General: Well developed, well nourished in NAD.
Neck: Supple, no JVD, HJR, carotids +2 B/L, no bruits bilaterally.
Heart: Non displaced PMI, RRR, 2/6 basal systolic murmur, No S3, S4, no rubs.
Lungs: Scattered rhonchi
Abdomen: Distended
Extremities: Chronic venous stasis changes, mild lower extremity edema
Neuro: Grossly nonfocal, awake, alert and oriented x3.
Impression / Plan
-
Impression:
Anasarca
Cirrhosis of liver
Acute diastolic CHF
Stage IIIb renal insufficiency
Severe anemia
Hyperlipidemia
Hypertension
Echocardiogram 12/21/2021: Ejection fraction normal, PA systolic 41 mmHg
Plan:
Patient is volume overloaded but may be due to cirrhosis. Unclear whether diuretics will be helpful specially given renal insufficiency
Await nephrology input before giving Lasix
Check echocardiogram
Consider paracentesis
Data Reviewed
-
EKG: Tracing Personally Visualized and interpreted
Radiology: Report Reviewed by me
Ultrasound: Report Reviewed by me
Medical Tests (Nuc Med, Echo etc): Report Reviewed by me
Labs: Labs Reviewed by me
Old Records: Reviewed
[2024-07-07 13:57] LABS: Iron 85 ug/dl (37-170)
--- NOTE | 2024-07-07 14:04 | W.PN.HOSP.TC ---
Today's Communication/Plan
-
Monitor vital signs see plan
IR for Thora
Nephrology evaluation
Cardiology evaluation
Monitor volume status closely
Monitor renal function
Assessment / Plan
Assessment / Plan
General: Well Developed, Well Nourished and No Apparent Distress
HEENT: NormoCephalic, Moist mucous membranes and Atraumatic
Respiratory: Clear
Cardiac: S1/S2 and Regular Rhythm; No Murmur or Rub
GI: Soft, Non Tender, Distended and Normal Bowel Sounds
Musculoskeletal: Other (b/l LE red and swollen)
Neuro: AO x 3 and Nonfocal/grossly intact
Psych: Calm
anasarca
#questionable CHF
-Chest x-ray with mild acute interstitial pulmonary edema
-BNP 1110
-Lasix if okay with nephrology
-Strict GLEN
-Daily weight
-Fluid restriction
Cardiology evaluation
Echo
# Moderate ascites
# Hepatic cirrhosis
-Abdominal ultrasound with impression of MODERATE ASCITES.
2. MODERATE HEPATIC CIRRHOSIS.
3. Mild gallbladder distention.
4. Mild chronic bilateral renal disease.
-IR consulted for paracentesis
Patient does follow-up with GI outpatient
# Anemia of chronic disease
-No active bleeding
-Continue to monitor
# Hypokalemia
Replete
# Acute kidney injury likely from fluid overload, concern for hepatorenal
Monitor creatinine
Nephrology evaluation
# Hyperlipidemia
-Statin
# Hypertension
-Metoprolol continued
# DVT prophylaxis
-SCDs
# CODE STATUS
-Full code
I spent a total of 52 minutes with the patient or on the floor. More than 50% of this time involved counseling and coordination of care.
Anticipated Discharge: > 48 hours
Subjective/Interval History
-
Date of Service: July 07, 2024
denies pain
Objective Data
-
Labs:
Laboratory Results
07/07/24
05:14
WBC 7.8
Hgb 7.3 L
Hct 21.3 L
Plt Count 163
Sodium 138
Potassium 3.4 L
Chloride 104
Carbon Dioxide 24
BUN 35 H
Creatinine 2.1 H
Glucose 72
Calcium 7.4 L
Total Bilirubin 2.1 H
AST 77 H
ALT 22
Alkaline Phosphatase 236 H
Vital Signs:
Vital Signs
Temp Pulse Resp BP Pulse Ox
98.6 F 90 16 130/64 98
07/07/24 11:17 07/07/24 10:05 07/07/24 10:05 07/07/24 08:26 07/06/24 23:38
I&O
07/06/24 07/07/24 07/08/24
06:59 06:59 06:59
Intake Total 480 / 480
Balance 480 / 480
[2024-07-07 14:06] LABS: Percent Saturation 41 % (20-50); Total Iron Binding Capacity 205 ug/dl (265-497)
[2024-07-07 14:29] LABS: Ferritin 26.3 ng/ml (11.1-264.0)
[2024-07-07] MEDS: KCL ELIXIR 40 MEQ PO (15:01)
[2024-07-07 15:59] LABS: Folate 5.9 ng/ml (2.76-20); Vitamin B12 950 pg/ml (239-931)
--- NOTE | 2024-07-07 16:07 | CM ---
CM met with pt bedside
Pt resides with her spouse in a [place] with 2 DIANN
Pt notes she ambulates with use of a WW or SPC some days, some dayd she does not need a ADs
Spouse assists with LE care
Pt occasionally needs to be pushed in a wheelchair
Pt has hx at [facility] and [facility] ([place]?)
PCP- Flores Aragon
Rx- [facility]
PT will likely benefit from PT/OT once medically appropriate
Discharge Disposition- anticipate home, likely with VN, watch for higher needs
[2024-07-07] MEDS: FLEXBUMIN 100 IV (17:07)
[2024-07-08] VITALS (17 sets, daily range): BP systolic 88–120; BP diastolic 46–65; BMI 20.5
[2024-07-08] MEDS: FLEXBUMIN 100 IV ×3 (00:41→17:40)
[2024-07-08 06:46] LABS: % Basophils 0.8 % (0-2); % Eosinophils 1.7 % (0-6); % Immature Granulocytes 0.3 % (0-0.5); % Lymphocytes 35.9 % (20.5-51.1); % Monocytes 11.6 % (1.7-9.3); % Neutrophils 49.7 % (42.2-75.2); Absolute Basophils 0.1 10^3/uL (0-0.2); Absolute Eosinophils 0.1 10^3/uL (0-0.7); Absolute Lymphocytes 2.7 10^3/uL (1.2-3.4); Absolute Monocytes 0.9 10^3/uL (0.1-0.6); Absolute Neutrophils 3.8 10^3/uL (1.4-6.5); Hematocrit 19.1 % (37.0-47.0); Hemoglobin 6.8 g/dL (12.0-16.0); Mean Corp Hgb Conc. 35.6 g/dL (33.0-37.0); Mean Corpuscular Hgb 29.3 pg (27.0-31.0); Mean Corpuscular Volume 82.3 fL (81.0-99.0); Mean Platelet Volume 12.6 fL (7.4-10.4); Nucleated Red Blood Cells % 0 %; Platelet Count 128 10^3/uL (130-400); Red Blood Cell Count 2.32 10^6/uL (4.20-5.40); Red Cell Dist. Width 15.8 % (11.5-14.5); White Blood Cell Count 7.6 10^3/uL (4.8-10.8)
[2024-07-08 06:47] LABS: INR 1.53; PT 18.7 Sec (11.4-14.6)
[2024-07-08 06:48] LABS: APTT 42.3 Sec (23.4-35.0)
[2024-07-08 07:01] LABS: ALT (SGPT) 21 U/L (0-35); AST (SGOT) 75 U/L (14-36); Albumin 2.9 g/dl (3.5-5.0); Alkaline Phosphatase 239 U/L (38-126); Blood Urea Nitrogen 32 mg/dl (7-17); Carbon Dioxide 20 mmol/L (22-30); Chloride 106 mmol/L (98-107); Estimated Creatinine Clearance 21 ml/min; Glucose 78 mg/dl (70-99); Potassium 3.4 mmol/L (3.5-5.1); Sodium 136 mmol/L (135-145); Total Bilirubin 1.8 mg/dl (0.2-1.3); Total Protein 5.6 g/dl (6.3-8.2); eGFR 26.71
[2024-07-08] MEDS: CRESTOR 20 MG PO (08:08)
[2024-07-08] MEDS: TOPROL XL PO (08:09)
[2024-07-08] MEDS: LYRICA 150 MG PO (08:22)
--- NOTE | 2024-07-08 09:55 | W.PN.CARDCBS ---
Today's Communication / Plan
-
Nephrology managing diuretics
May be difficult to diurese as volume overload may be due to cirrhosis
Check echo
Impression / Plan
-
Impression:
Anasarca
Cirrhosis of liver
Acute diastolic CHF
Stage IIIb renal insufficiency
Severe anemia
Hyperlipidemia
Hypertension
Echocardiogram 12/21/2021: Ejection fraction normal, PA systolic 41 mmHg
Plan:
Likely volume overload due to cirrhosis
Nephrology is managing diuretic
Creatinine has improved slightly to 2.0
Check echocardiogram
Consider paracentesis
Progress Note - Laboratory Manager
Subjective
Date of Service: July 08, 2024
No complaints
Objective
Labs:
07/08/24 05:21
07/08/24 05:21
Labs
Hgb 6.8 g/dL (12.0-16.0) L* 07/08/24 05:21
Hct 19.1 % (37.0-47.0) L* 07/08/24 05:21
Plt Count 128 10^3/uL (130-400) L D 07/08/24 05:21
PT 18.7 Sec (11.4-14.6) H 07/08/24 05:21
INR 1.53 07/08/24 05:21
APTT 42.3 Sec (23.4-35.0) H 07/08/24 05:21
Sodium 136 mmol/L (135-145) 07/08/24 05:21
Potassium 3.4 mmol/L (3.5-5.1) L 07/08/24 05:21
BUN 32 mg/dl (7-17) H 07/08/24 05:21
Creatinine 2.0 mg/dL (0.6-1.0) H 07/08/24 05:21
Glucose 78 mg/dl (70-99) 07/08/24 05:21
Vital Signs and I&O:
Vital Signs
Temp Pulse Resp BP Pulse Ox
98.2 F 75 13 110/49 91
07/08/24 07:31 07/08/24 09:00 07/08/24 09:00 07/08/24 09:00 07/08/24 08:07
Vital Signs
Temp Pulse Resp BP Pulse Ox
98.2 F 75 13 110/49 91
07/08/24 07:31 07/08/24 09:00 07/08/24 09:00 07/08/24 09:00 07/08/24 08:07
Intake & Output
07/06/24 07/07/24 07/08/24 07/09/24
06:59 06:59 06:59 06:59
Intake Total 1000 / 1000 100 / 100
Balance 1000 / 1000 100 / 100
Physical Exam
Physical Exam
General: Well developed, well nourished in NAD.
Neck: Supple, no JVD, HJR, carotids +2 B/L, no bruits bilaterally.
Heart: Non displaced PMI, RRR, no murmurs, No S3, S4, no rubs.
Lungs: Scattered rhonchi
Extremities: No clubbing, cyanosis or edema bilaterally.
Neuro: Grossly nonfocal, awake, alert and oriented x3.
[2024-07-08 11:48] LABS: Body Fluid WBC 73 /CUMM
[2024-07-08 11:49] LABS: Body Fluid Mononuclear 94.6 %; Body Fluid Polymorphonuclear 5.4 %
[2024-07-08 12:01] LABS: Body Fluid Albumin < 1.0 g/dl; Body Fluid Amylase < 30 U/L; Body Fluid LDH < 90 U/L; Body Fluid Protein < 2.0 g/dl
[2024-07-08] MEDS: XIFAXAN 550 MG PO ×2 (12:38→20:37)
[2024-07-08] MEDS: NSS (PRESERVATIVE FREE) 10 ML IV ×2 (12:38→20:36)
[2024-07-08] MEDS: PROTONIX IV 40 MG IV ×2 (12:38→20:37)
--- NOTE | 2024-07-08 13:03 | W.PN.NEPH.PH ---
Today's Communication / Plan
-
see plan
Assessment/Plan
-
IMP:
ESTRELLITA -cr at 1 in 06/2023
Hypokalemia
Progressive Sharon edema
Lower extremity cellulitis treated outpatient, wound culture shows Proteus, enterococcus from 06/2024
Severe hypoalbuminemia
Moderate ascites
Hepatic cirrhosis
Anemia of chronic disease
Hyperlipidemia
Essential Hypertension
Celiac
Osteoporosis
Anxiety
Plan:
A/w LE edema , abd distension with known h/o cirrhosis
ESTRELLITA-last cr 1 in 06/2023
[place] UA , check fena-not done -suspect cardiorenal vs hepatorenal vs diuresis
no hydro on US, MRD changes with slightly small kidneys
cont IV alb today too
replace k , hold lasix, low threshold to resume
check echo, CXR on admit Noted wiht mild pulm edema-but she is on RA
BNP high but in setting of ESTRELLITA
paracentesis 1.8lit today
Bp stable on BB
avoid nephrotoxins
monitor hb, adequate fe stores, transfusion today
d/w GI-ok for octreotide, with concern of HRS , if FEna low add midodrine
d/w pt and
-
-
Date of Service: July 08, 2024
CC / HPI / ROS
-
Chief Complaint:
ESTRELLITA
History of Present Illness:
cr still high at 2, bicarb 20
BP soft, UOP not measured
wt no change, no fever
hb low 6.8
Review of Systems:
no cp or sob
s/p paracentesis 1.8 lit 07/08
edema improving
has diarrhea today
Labs
-
Labs:
WBC 7.6 10^3/uL (4.8-10.8) 07/08/24 05:21
RBC 2.32 10^6/uL (4.20-5.40) L 07/08/24 05:21
Hgb 6.8 g/dL (12.0-16.0) L* 07/08/24 05:21
Hct 19.1 % (37.0-47.0) L* 07/08/24 05:21
Plt Count 128 10^3/uL (130-400) L D 07/08/24 05:21
Sodium 136 mmol/L (135-145) 07/08/24 05:21
Potassium 3.4 mmol/L (3.5-5.1) L 07/08/24 05:21
Chloride 106 mmol/L (98-107) 07/08/24 05:21
Carbon Dioxide 20 mmol/L (22-30) L 07/08/24 05:21
BUN 32 mg/dl (7-17) H 07/08/24 05:21
Creatinine 2.0 mg/dL (0.6-1.0) H 07/08/24 05:21
eGFR 26.71 07/08/24 05:21
Glucose 78 mg/dl (70-99) 07/08/24 05:21
Calcium 8.0 mg/dl (8.4-10.2) L 07/08/24 05:21
Bsn-D-Vemkcfoqnox Pept 1110 pg/ml 07/06/24 14:27
Albumin 2.9 g/dl (3.5-5.0) L 07/08/24 05:21
Physical Exam
-
Vital Signs:
Vital Signs
Temp Pulse Resp BP Pulse Ox
98.4 F 78 18 106/52 93
07/08/24 11:27 07/08/24 11:25 07/08/24 11:25 07/08/24 11:25 07/08/24 11:27
Cardiovascular:: Regular rate and rhythm
Respiratory:: Bilateral: Rales (at bases)
Lung Excursion:: Normal
Abdomen:: Nontender, Soft and Tender (palpable mass in epigastrium )
Extremity Edema:: +1: Bilateral:
[place] Catheter: No
--- NOTE | 2024-07-08 13:07 | CON.GI ---
Consultation
-
Date/Time Consultation Requested: 07/08/2024 at 10:09am
Date/Time Consultation Performed: 07/08/2024 at 12:00pm
Requesting Provider: Dr Christensen
Performing Provider: Dr Vaca
Reason for Consultation: anemia Hbg 6.8
Medical History
Chief Complaint / HPI
Chief Complaint: swelling of legs and body
History of Present Illness:
Asha is a 68yo W with h/o celiac disease and ETOH cirrhosis decompensated by ascites who presents for progressive swelling of abdomen and legs. She is known to myself last seen in our GI office 06/06/24 by GI [facility] where labs were ordered and EGD
scheduled outpatient basis 07/18/24 for variceal screening. 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 She lives with . She denies seeing blood in stools. She is not on AC or chronic NSAIDs. She does have
h/o reflux and heartburn that was controlled on omeprazole daily basis. She denies odynophagia, dysphagia, nausea/vomiting, or abd pain. She does report 2 episodes of dark green stools today in diaper due to not being able to get out of bed easily
overnight.
Past Medical History
Past Medical History: Other (ETOH cirrhosis, ascites, GERD, Celiac disease, HTN, neuropathy, depression, h/o PSE, cecal AVMS, h/o colonic polyps)
Past Surgical History: Other (Hysterectomy, fusion at [facility] 2018 and 2017, several EGD/colonoscopies)
Social History
Tobacco: Former Smoker
Alcohol: Occasional (last was April 2024)
Drug: None
Personal:
Living: With Family
Family History
Family History: Other (Father dementia, siblings celiac, father and brother bladder cancer)
Allergies / Home Medications
Allergy/AdvReac Type Severity Reaction Status Date / Time
olmesartan [From Benicar] Allergy anemia Verified 07/06/24 14:12
Sulfa (Sulfonamide Allergy lip Verified 07/06/24 14:12
Antibiotics) Swelling
venlafaxine [From Effexor] Allergy Unknown Verified 07/06/24 14:12
�Medication �Instructions �Recorded
loratadine 10 mg tablet 10 mg PO PRN PRN seasonal 05/30/18
pregabalin 100 mg capsule 150 mg PO BID Pain 04/30/20
furosemide 40 mg tablet 40 mg PO DAILY 30 days #30 tabs 01/05/22
melatonin 3 mg tablet 3 mg PO HS 30 days #0 tabs 01/05/22
metoprolol succinate 50 mg 50 mg PO DAILY Blood Pressure 07/22/22
tablet,extended release 24 hr
rosuvastatin 20 mg tablet 20 mg PO DAILY High Cholesterol 07/06/24
alendronate 10 mg tablet 10 mg PO MO osteoporosis 07/07/24
cholecalciferol (vitamin D3) 25 25 mcg PO DAILY Supplement 07/07/24
mcg (1,000 unit) tablet (Vitamin
D3)
cyanocobalamin (vitamin B-12) 1,000 mcg PO DAILY Supplement 07/07/24
1,000 mcg tablet
diphenhydramine HCl 25 mg capsule 25 mg PO HS Allergies 07/07/24
(Benadryl)
doxycycline hyclate 100 mg capsule 100 mg PO BID Infection 07/07/24
lactulose 10 gram/15 mL oral 20 g PO Q48H hepatic encephalopathy 07/07/24
solution
omeprazole 20 mg capsule,delayed 20 mg PO DAILY Gastrointestinal 07/07/24
release Issue
Review of Systems
-
All other systems: A 12 pt ROS was Negative except as stated above in HPI
Vital Signs
Temp Pulse Resp BP Pulse Ox
98.4 F 78 18 106/52 93
07/08/24 11:27 07/08/24 11:25 07/08/24 11:25 07/08/24 11:25 07/08/24 11:27
Physical Exam
Exam
GEN: No acute distress, conversant, thin body habitus
HEENT: mild icteric, extraocular movements intact, clear oropharynx without exudates
GI: soft, non-distended, firm area in the LUQ, not tender to palpation, normal active bowel sounds, no hepatosplenomegaly
EXT: warm, well perfused, 2+ edema bilaterally with erythema up to knees bilaterally
NEURO: AAOx3, non-focal mild asterixis, diffuse spider angiomas over face chest and abdomen
Results
WBC 7.6 10^3/uL (4.8-10.8) 07/08/24 05:21
Hgb 6.8 g/dL (12.0-16.0) L* 07/08/24 05:
Hct 19.1 % (37.0-47.0) L* 07/08/24 05:
MCV 82.3 fL (81.0-99.0) 07/08/24 05:
Plt Count 128 10^3/uL (130-400) L D 07/08/24 05:21
Absolute Neuts (auto) 3.8 10^3/uL (1.4-6.5) 07/08/24 05:
PT 18.7 Sec (11.4-14.6) H 07/08/24 05:21
INR 1.53 07/08/24 05:
APTT 42.3 Sec (23.4-35.0) H 07/08/24 05:
Sodium 136 mmol/L (135-145) 07/08/24 05:21
Potassium 3.4 mmol/L (3.5-5.1) L 07/08/24 05:21
Chloride 106 mmol/L (98-107) 07/08/24 05:
Carbon Dioxide 20 mmol/L (22-30) L 07/08/24 05:21
BUN 32 mg/dl (7-17) H 07/08/24 05:21
Creatinine 2.0 mg/dL (0.6-1.0) H 07/08/24 05:
Calcium 8.0 mg/dl (8.4-10.2) L 07/08/24 05:21
Total Bilirubin 1.8 mg/dl (0.2-1.3) H 07/08/24 05:21
AST 75 U/L (14-36) H 07/08/24 05:21
ALT 21 U/L (0-35) 07/08/24 05:21
Alkaline Phosphatase 239 U/L (38-126) H 07/08/24 05:21
Diagnostic Image Results:
Abd US 07/06/2024 moderate ascites, cirrhosis mild GB distension, chronic bilateral renal disease
Prior GI Procedures:
-03/[address] Thomason, post-mucosectomy scars in the ascending colon; biopsies negative for dysplasia/malignancy, 5mm cecal polyp (tubular adenoma), 5mm AC polyp (tubular adenoma), and 4mm proximal AC polyp (benign tissue); internal
hemorrhoids. Repeat in 1 year
-07/2022 MR elastography cirrhosis normal iron content and fat quantification. Neg for HCC.
-07/[address] Thomason EMR 15mm sessile serrated adenoma of prox AC extending to cautery margin. 11mm polyp in mid AC, 10mm distal AC. Recall 6mo
-04/[address] Vaca gastritis, neg for Hpylori. random bx cannot rule in or out celiac. will check celiac serologies. could also be seen in NSAID injury.
-04/[address] Vaca IH, few ulcers at 30cm from anus on path vascular congestion and hyperplastic changes, 5mm AC TA polyp, 20mm AC polyp across from ICV tattooed and bx show superficial hyperplastic changes, small AVMs in cecum and AC s/p
APC.
Assessment / Plan
-
Asha is a 68yo W with h/o celiac disease and ETOH cirrhosis decompensated by ascites who presents for progressive swelling of abdomen and legs. GI consulted for worsening anemia. Her iron panel is suggestive of anemia of chronic disease and
stools today are dark green.
Impression
- Diffuse anasarca
Likely related to cirrhosis and ESTRELLITA
- ETOH cirrhosis MELD 23
Unfortunately relapsed with ETOH use last 04/2024
- Ascites
Paracentesis 07/08 with 1.6L removed
Neg for SBP
- Hepatic encephalopathy
- GERD
- ESTRELLITA
- Anemia without iron deficiency
Suggestive of anemia of chronic disease
- Celiac disease
- Tobacco use
- Depression
- Neuropathy
- h/o cecal AVMS
- H/o colonic polyps
Recommendations
- Monitor stool output thus far nonbloody
- Serial H/H agree with transfusion 1u PRBC today. Her iron panel more consistent with anemia of chronic disease.
- She has OP EGD scheduled with myself 07/18 can consider sooner if there is signs of bleeding on this admission
- Hold on diuretics given Cr 2.
- Agree with IV albumin
- Await FeNa
- Check celiac panel to ensure compliance to GF diet
- Start xifaximin given mild asterixis on exam today
- Resume PPI BID
- She does have firmness in LUQ upon palpation post paracentesis. Will d/w renal if ok to get MRI with ronald.
Will follow with you
Data Reviewed
-
Ultrasound: Report Reviewed by me
-
-
Thank you for consultation and allowing me to participate in the patient's care. Please call the mobile electronics installer GI physician during the after hours with any questions or concerns.
--- NOTE | 2024-07-08 13:51 | W.PN.HOSP.TC ---
Today's Communication/Plan
-
monitor vitals
See plan
Transfuse 1 unit PRBC and monitor
Continue to monitor renal function
CT ordered by GI
s/p para today
Assessment / Plan
Assessment / Plan
General: Well Developed, Well Nourished and No Apparent Distress
HEENT: NormoCephalic, Moist mucous membranes and Atraumatic
Respiratory: Clear
Cardiac: S1/S2 and Regular Rhythm; No Murmur or Rub
GI: Soft, Non Tender, Distended and Normal Bowel Sounds
Musculoskeletal: Other (b/l LE red and swollen)
Neuro: AO x 3 and Nonfocal/grossly intact
Psych: Calm
anasarca
#questionable CHF
-Chest x-ray with mild acute interstitial pulmonary edema
-BNP 1110
hold lasix for now
-Strict GLEN
-Daily weight
-Fluid restriction
Cardiology following
Echo
# Moderate ascites
# Hepatic cirrhosis
-Abdominal ultrasound with impression of MODERATE ASCITES.
2. MODERATE HEPATIC CIRRHOSIS.
3. Mild gallbladder distention.
4. Mild chronic bilateral renal disease.
-IR consulted for paracentesis; s/p para 1800 milliliters of ascitic fluid
Note GI consulted
# Anemia of chronic disease
Hemoglobin 6.8 today, transfuse 1 unit PRBC
-No active bleeding
-Continue to monitor
CT scheduled for EGD later this month
# Hypokalemia
Replete
Thrombocytopenia likely secondary to cirrhosis
# Acute kidney injury likely from fluid overload, concern for hepatorenal
Monitor creatinine
Nephrology following
Albumin
hold lyrica
Check urine lytes
# Hyperlipidemia
-Statin
# Hypertension
-Metoprolol continued
# DVT prophylaxis
-SCDs
# CODE STATUS
-Full code
I spent a total of 52 minutes with the patient or on the floor. More than 50% of this time involved counseling and coordination of care.
Anticipated Discharge: > 48 hours
Subjective/Interval History
-
Date of Service: July 08, 2024
denies nausea
Objective Data
-
Labs:
Laboratory Results
07/08/24
05:21
WBC 7.6
Hgb 6.8 L*
Hct 19.1 L*
Plt Count 128 L D
PT 18.7 H
INR 1.53
APTT 42.3 H
Sodium 136
Potassium 3.4 L
Chloride 106
Carbon Dioxide 20 L
BUN 32 H
Creatinine 2.0 H
Glucose 78
Calcium 8.0 L
Total Bilirubin 1.8 H
AST 75 H
ALT 21
Alkaline Phosphatase 239 H
Vital Signs:
Vital Signs
Temp Pulse Resp BP Pulse Ox
98.1 F 86 15 120/53 98
07/08/24 13:29 07/08/24 13:29 07/08/24 13:29 07/08/24 13:29 07/08/24 13:29
I&O
07/07/24 07/08/24 07/09/24
06:59 06:59 06:59
Intake Total 1000 / 1000 670 / 670
Balance 1000 / 1000 670 / 670
[2024-07-08] MEDS: KCL ELIXIR 40 MEQ PO (13:57)
[2024-07-08 14:04] LABS: Body Fluid Second Tech CMB
[2024-07-08] MEDS: OMNIPAQUE 50 ML PO (14:07)
[2024-07-08 14:23] LABS: Urine Sodium < 5 mmol/L (30-90)
--- NOTE | 2024-07-08 17:21 | EDRN ---
this pt did NOT receive full 1 unit of pRBCs. The amount of pRBCs volume remaining at 4 hout time limit - 25mls. the pt was off the floor for ordered CT scan imaging study at which time the pRBCs was NOT infusing due to CT scan needing to use this
pts IV access for CT scan imaging study.
[2024-07-08] MEDS: MELATONIN 3 MG PO (21:24)
[2024-07-08 22:11] LABS: Hematocrit 25.3 % (37.0-47.0); Hemoglobin 8.6 g/dL (12.0-16.0)
[2024-07-09] VITALS (7 sets, daily range): BP systolic 93–120; BP diastolic 43–71; BMI 19.3
[2024-07-09] MEDS: FLEXBUMIN 100 IV ×2 (00:04→09:19)
[2024-07-09 08:45] LABS: Ammonia < 9 umol/L (9-30)
[2024-07-09 09:09] LABS: Hematocrit 21.7 % (37.0-47.0); Hemoglobin 7.4 g/dL (12.0-16.0); Mean Corp Hgb Conc. 34.1 g/dL (33.0-37.0); Mean Corpuscular Hgb 28.7 pg (27.0-31.0); Mean Corpuscular Volume 84.1 fL (81.0-99.0); Red Blood Cell Count 2.58 10^6/uL (4.20-5.40); Red Cell Dist. Width 15.1 % (11.5-14.5); White Blood Cell Count 5.5 10^3/uL (4.8-10.8)
[2024-07-09] MEDS: TOPROL XL 50 MG PO (09:21)
[2024-07-09] MEDS: CRESTOR 20 MG PO (09:22)
[2024-07-09] MEDS: PROTONIX IV 40 MG IV ×2 (09:22→20:51)
[2024-07-09] MEDS: NSS (PRESERVATIVE FREE) 10 ML IV ×2 (09:22→20:52)
[2024-07-09] MEDS: XIFAXAN 550 MG PO ×2 (09:22→20:52)
[2024-07-09 09:28] LABS: ALT (SGPT) 18 U/L (0-35); AST (SGOT) 51 U/L (14-36); Albumin 3.2 g/dl (3.5-5.0); Alkaline Phosphatase 167 U/L (38-126); Blood Urea Nitrogen 31 mg/dl (7-17); Calcium 8.2 mg/dl (8.4-10.2); Carbon Dioxide 19 mmol/L (22-30); Chloride 109 mmol/L (98-107); Estimated Creatinine Clearance 23 ml/min; Glucose 79 mg/dl (70-99); Potassium 3.8 mmol/L (3.5-5.1); Sodium 138 mmol/L (135-145); Total Bilirubin 2.7 mg/dl (0.2-1.3); Total Protein 5.5 g/dl (6.3-8.2); eGFR 30.31
--- NOTE | 2024-07-09 09:49 | W.PN.CARDCBS ---
Addendum entered and electronically signed by Cullen Nice MD 07/09/24 15:23:
Echocardiogram unchanged with normal LV function., Sign off
Original Note:
Today's Communication / Plan
-
Nephrology managing diuretics
Check echo and sign off if echo okay
Impression / Plan
-
Impression:
Anasarca
Cirrhosis of liver
Acute diastolic CHF
Stage IIIb renal insufficiency
Severe anemia
Hyperlipidemia
Hypertension
Echocardiogram 12/21/2021: Ejection fraction normal, PA systolic 41 mmHg
Plan:
Volume overload due to cirrhosis and hepatorenal
Nephrology managing diuretics
Will check echocardiogram and sign off if echocardiogram is okay
Progress Note - Storage And Backup Administrator
Subjective
Date of Service: July 09, 2024
Feels better status post paracentesis of 1.8 L. Lost 12 pounds in the past 24 hours
Objective
Labs:
07/09/24 08:23
07/09/24 08:23
Labs
Hgb 7.4 g/dL (12.0-16.0) L 07/09/24 08:23
Hct 21.7 % (37.0-47.0) L 07/09/24 08:23
Plt Count 128 10^3/uL (130-400) L D 07/08/24 05:21
PT 18.7 Sec (11.4-14.6) H 07/08/24 05:21
INR 1.53 07/08/24 05:21
APTT 42.3 Sec (23.4-35.0) H 07/08/24 05:21
Sodium 138 mmol/L (135-145) 07/09/24 08:23
Potassium 3.8 mmol/L (3.5-5.1) 07/09/24 08:23
BUN 31 mg/dl (7-17) H 07/09/24 08:23
Creatinine 1.8 mg/dL (0.6-1.0) H 07/09/24 08:23
Glucose 79 mg/dl (70-99) 07/09/24 08:23
Vital Signs and I&O:
Vital Signs
Temp Pulse Resp BP Pulse Ox
98.1 F 84 14 112/43 97
07/09/24 07:37 07/09/24 09:21 07/09/24 07:37 07/09/24 09:21 07/09/24 07:37
Vital Signs
Temp Pulse Resp BP Pulse Ox
98.1 F 84 14 112/43 97
07/09/24 07:37 07/09/24 09:21 07/09/24 07:37 07/09/24 09:21 07/09/24 07:37
Intake & Output
07/07/24 07/08/24 07/09/24 07/10/24
06:59 06:59 06:59 06:59
Intake Total 1000 / 1000 895 / 895
Balance 1000 / 1000 895 / 895
Physical Exam
Physical Exam
General: Well developed, well nourished in NAD.
Neck: Supple, no JVD, HJR, carotids +2 B/L, no bruits bilaterally.
Heart: Non displaced PMI, RRR, no murmurs, No S3, S4, no rubs.
Lungs: Scattered rhonchi
Extremities: No clubbing, cyanosis or edema bilaterally.
Neuro: Grossly nonfocal, awake, alert and oriented x3.
--- NOTE | 2024-07-09 10:40 | W.PN.NEPH.PH ---
Today's Communication / Plan
-
Holding Lasix
Follow-up BMP
Assessment/Plan
-
IMP:
ESTRELLITA -cr at 1 in 06/2023
Hypokalemia
Progressive Sharon edema
Lower extremity cellulitis treated outpatient, wound culture shows Proteus, enterococcus from 06/2024
Severe hypoalbuminemia
Moderate ascites
Hepatic cirrhosis
Anemia of chronic disease
Hyperlipidemia
Essential Hypertension
Celiac
Osteoporosis
Anxiety
Coagulopathy
Plan:
Creatinine down to 1.8 from 2
Urine output not recorded
A/w LE edema , abd distension with known h/o cirrhosis
ESTRELLITA-last cr 1 in 06/2023
Price UA , check fena-not done -suspect cardiorenal vs hepatorenal vs diuresis
no hydro on US, MRD changes with slightly small kidneys
s/p IV albumin
replace k , holding lasix, low threshold to resume given volume overload
check echo, CXR on admit Noted wiht mild pulm edema-but she is on RA
BNP high but in setting of ESTRELLITA
paracentesis 1.8lit on 07/08/2024
Bp stable on BB
avoid nephrotoxins
monitor hb, adequate fe stores, s/p transfusion
d/w GI-ok for octreotide, with concern of HRS , fractional excretion was predictably low can add midodrine if bp drops
Unsure what else we can really offer at this point, if this is indeed hepatorenal syndrome with progressive renal failure she would not be a dialysis candidate
-
-
Date of Service: July 09, 2024
CC / HPI / ROS
-
Chief Complaint:
ESTRELLITA
History of Present Illness:
cr still high at 1.8, bicarb 20
BP soft, UOP not measured
wt no change, no fever
hb low 7.4
Review of Systems:
no cp or sob
s/p paracentesis 1.8 lit 07/08
edema improving
Labs
-
Labs:
WBC 5.5 10^3/uL (4.8-10.8) 07/09/24 08:23
RBC 2.58 10^6/uL (4.20-5.40) L 07/09/24 08:23
Hgb 7.4 g/dL (12.0-16.0) L 07/09/24 08:23
Hct 21.7 % (37.0-47.0) L 07/09/24 08:23
Sodium 138 mmol/L (135-145) 07/09/24 08:23
Potassium 3.8 mmol/L (3.5-5.1) 07/09/24 08:23
Chloride 109 mmol/L (98-107) H 07/09/24 08:23
Carbon Dioxide 19 mmol/L (22-30) L 07/09/24 08:23
BUN 31 mg/dl (7-17) H 07/09/24 08:23
Creatinine 1.8 mg/dL (0.6-1.0) H 07/09/24 08:23
eGFR 30.31 07/09/24 08:23
Glucose 79 mg/dl (70-99) 07/09/24 08:23
Calcium 8.2 mg/dl (8.4-10.2) L 07/09/24 08:23
Iyv-U-Hhgzidxkrnh Pept 1110 pg/ml 07/06/24 14:27
Albumin 3.2 g/dl (3.5-5.0) L 07/09/24 08:23
Physical Exam
-
Vital Signs:
Vital Signs
Temp Pulse Resp BP Pulse Ox
98.1 F 84 14 112/43 97
07/09/24 07:37 07/09/24 09:21 07/09/24 07:37 07/09/24 09:21 07/09/24 07:37
Cardiovascular:: Regular rate and rhythm
Respiratory:: Bilateral: Coarse
Lung Excursion:: Normal
Abdomen:: Distended
Extremity Edema:: None: Bilateral:
Hoover Catheter: No
[2024-07-09 11:25] LABS: Platelet Count 91 10^3/uL (130-400)
[2024-07-09 11:26] LABS: Mean Platelet Volume 12.4 fL (7.4-10.4)
[2024-07-09 11:27] LABS: % Basophils 0.4 % (0-2); % Immature Granulocytes 0.5 % (0-0.5); % Lymphocytes 27.1 % (20.5-51.1); % Monocytes 8.9 % (1.7-9.3); % Neutrophils 61.1 % (42.2-75.2); Absolute Eosinophils 0.1 10^3/uL (0-0.7); Absolute Lymphocytes 1.5 10^3/uL (1.2-3.4); Absolute Monocytes 0.5 10^3/uL (0.1-0.6); Absolute Neutrophils 3.4 10^3/uL (1.4-6.5); Nucleated Red Blood Cells % 0 %
--- NOTE | 2024-07-09 13:53 | W.PN.GI.CBS2 ---
Today's Communication / Plan
-
Results of CTAP d/w pt
CMP in 1 wk and serial paracentesis arranged for her OP basis
EGD OP on 07/18/2024
Hold diuretics
GI will sign off please call for ?
Assessment / Plan
-
Asha is a 68yo W with h/o celiac disease and ETOH cirrhosis decompensated by ascites who presents for progressive swelling of abdomen and legs. GI consulted for worsening anemia. Her iron panel is suggestive of anemia of chronic disease and
stools today are dark green.
Impression
- Diffuse anasarca
Likely related to cirrhosis and ESTRELLITA
- ETOH cirrhosis MELD 23
Unfortunately relapsed with ETOH use last 04/2024
- Ascites
Paracentesis 07/08 with 1.6L removed
Neg for SBP
- Hepatic encephalopathy
- GERD
- ESTRELLITA
- Anemia without iron deficiency
Suggestive of anemia of chronic disease
- Celiac disease
- Tobacco use
- Depression
- Neuropathy
- h/o cecal AVMS
- H/o colonic polyps
Recommendations
- Monitor stool output thus far nonbloody
- She has EGD scheduled OP 07/18/24
- Hold on diuretics given elevated Cr. Lab slip to be checked 1 wk post hosp d/c provided
- Agree with IV albumin
- C/w xifaximin and PPI BID
- C/w PPI
- CTAP without IV but oral contrast suggestive of colopathy in setting of cirrhosis no acute findings to explain abd firmness. D/w results with patient
Serial paracentesis OP will be arranged for her by my office. Lab slip to do in 1wk provided
She has FU with EGD 07/18 and office visit as well
Above d/w renal
GI will sign off please call for questions
Subjective
Subjective
Date of Service: July 09, 2024
No acute events overnight. Denies abd pain. BM with loose green stools.
Objective
Data Reviewed
Laboratory Data:
Laboratory Results
07/09/24 08:23
07/09/24 08:23
Laboratory Results
PT 18.7 Sec (11.4-14.6) H 07/08/24 05:21
INR 1.53 07/08/24 05:21
APTT 42.3 Sec (23.4-35.0) H 07/08/24 05:21
Total Bilirubin 2.7 mg/dl (0.2-1.3) H 07/09/24 08:23
AST 51 U/L (14-36) H 07/09/24 08:23
ALT 18 U/L (0-35) 07/09/24 08:23
Alkaline Phosphatase 167 U/L (38-126) H 07/09/24 08:23
Vital Signs and I&O:
Vital Signs
Temp Pulse Resp BP Pulse Ox
98.1 F 85 20 100/45 97
07/09/24 11:13 07/09/24 11:13 07/09/24 11:13 07/09/24 11:13 07/09/24 11:17
I&O
07/08/24 07/09/24 07/10/24
06:59 06:59 06:59
Intake Total 1000 / 1000 895 / 895
Balance 1000 / 1000 895 / 895
Physical Exam
Physical Exam
GEN: No acute distress, conversant, pleasant
HEENT: anicteric, extraocular movements intact, clear oropharynx without exudates
GI: soft, mildly-distended, not tender to palpation, normal active bowel sounds, no hepatosplenomegaly
EXT: warm, well perfused, no edema bilaterally
NEURO: AAOx3, non-focal
--- NOTE | 2024-07-09 14:05 | W.PN.HOSP.TC ---
Today's Communication/Plan
-
Hold diuretics, IV albumin per nephrology, BMP
IV PPI twice daily, rifaximin, CBC
Plan for OP EGD if remains stable
Assessment / Plan
Assessment / Plan
#Moderate ascites
#Concern for HRS-NAKI
#Hepatic cirrhosis C/B thrombocytopenia
-History of alcohol induced liver disease, MELD 23; Home regimen includes Lasix, no MRA
-Presented with anasarca, significant ascites, s/p paracentesis with 1.8 L
-Portal hypertensive etiology with SAAG 1.8 and ascites protein <2, no signs of SBP
-Renal function with creatinine near 2.0; urine studies with urine sodium <5
-Was started on IV PPI twice daily, rifaximin by gastroenterology
-Renal function slowly improving on IV albumin, diuretics held
-Has remained hemodynamically stable, no hypotension
-Per nephrology, not dialysis candidate
Plan
-Hold diuretics for now, continue with IV albumin per nephrology
-Consider midodrine/triple therapy if worsening renal function or hypotension
-Continue to trend BMP and UOP very closely
-Avoid nephrotoxic agents such as ARB/ANDREY, NSAIDs, IV contrast
-Trend daily CMP and CBC
#Anemia of chronic disease
#Possible UGIB now resolved
-High risk for UGIB with portal hypertension, no known history of varices
-Had iron studies earlier on hospitalization, consistent with AOCD, no signs of KASSIE
-Status post 1 unit of PRBC here, did have subsequent hemoglobin drop with no dark stools
-Currently on IV PPI therapy as above as well as rifaximin
-Has OP EGD scheduled for 07/18/2024
-Most recent hemoglobin 7.4, stool output green in color
Plan
-Continue IV PPI twice daily
-Trend CBC, supportive transfusion for hemoglobin <7
-Avoid unnecessary anticoagulants, SCDs for DVT prophylaxis
-If signs of rebleeding may need expedited EGD
#Questionable CHF
#Anasarca
-Presented with pulmonary edema and elevated BNP
-Suspect BNP elevated due to ESTRELLITA, anasarca secondary to portal hypertension
-Echocardiogram ordered with results pending
-Follow-up TTE, monitor volume status
-Consider resuming diuretics when renal function improved
#Hyperlipidemia
-No known history of ASCVD
-Home medications include high intensity rosuvastatin
#Hypertension
-Home regimen includes metoprolol succinate and Lasix
-Blood pressure normotensive though on soft side
-Continue to monitor, avoid hypotension
#Celiac's disease
-Diagnosed with serology and pathology previously
-Currently on gluten-free diet
-No clinical signs of flare at this time
#Tobacco use
-Encourage cessation
DVT prophylaxis: SCDs
Diet: Low-cholesterol, gluten-free
CODE STATUS: Full code
Anticipated Discharge: 24 - 48 hours
Subjective/Interval History
-
Date of Service: July 09, 2024
Seen and examined at the bedside. No acute events reported overnight. AFVSS this morning.
Received 1 unit of PRBC yesterday with repeat hemoglobin 8.6. AM CBC showed hemoglobin 7.4. Denies dark stools, states she is having dark green stools
Denies any acute complaints this
Objective Data
-
Labs:
Laboratory Results
07/09/24
08:23
WBC 5.5
Hgb 7.4 L
Hct 21.7 L
Plt Count 91 L D
Sodium 138
Potassium 3.8
Chloride 109 H
Carbon Dioxide 19 L
BUN 31 H
Creatinine 1.8 H
Glucose 79
Calcium 8.2 L
Total Bilirubin 2.7 H
AST 51 H
ALT 18
Alkaline Phosphatase 167 H
Vital Signs:
Vital Signs
Temp Pulse Resp BP Pulse Ox
98.1 F 85 20 100/45 97
07/09/24 11:13 07/09/24 11:13 07/09/24 11:13 07/09/24 11:13 07/09/24 11:17
I&O
07/08/24 07/09/24 07/10/24
06:59 06:59 06:59
Intake Total 1000 / 1000 895 / 895
Balance 1000 / 1000 895 / 895
Review of Systems
-
History Source: Patient
All other systems: Reviewed and negative
Physical Exam
-
General: Well Developed, No Apparent Distress, Comfortable and Other (Thin and frail appearing)
HEENT: Normocephalic, Atraumatic, Moist Mucous Membranes and Anicteric
Respiratory: Clear to Auscultation and Non Labored Respirations
Cardiac: Regular Rhythm and S1/S2; Negative Murmur, Rub or Gallop
GI: Soft, Nontender, Nondistended, Normal Bowel Sounds and No Hepatosplenomegaly
Musculoskeletal: No Clubbing, No Cyanosis and No Edema
Skin: Warm, Dry and Normal Turgor; Negative Rash or Jaundice
Neuro: AO x 3 and Nonfocal/Grossly Intact; Negative Tremors
Psych: Calm
Data Reviewed
-
Labs: Labs Reviewed by me, Discussed with Physician (GI) and Discussed with Patient
[2024-07-09 14:22] LABS: Transferrin 149 mg/dL (200-360)
[2024-07-09 20:26] LABS: Hematocrit 19.7 % (37.0-47.0); Hemoglobin 7.1 g/dL (12.0-16.0); Mean Corpuscular Hgb 29.3 pg (27.0-31.0); Mean Corpuscular Volume 81.4 fL (81.0-99.0); Mean Platelet Volume 12.1 fL (7.4-10.4); Platelet Count 94 10^3/uL (130-400); Red Blood Cell Count 2.42 10^6/uL (4.20-5.40); White Blood Cell Count 7.7 10^3/uL (4.8-10.8)
[2024-07-09] MEDS: MELATONIN 3 MG PO (20:52)
[2024-07-10 03:27] VITALS: BP 100/54
[2024-07-10 05:01] VITALS: BMI 19.1
[2024-07-10 07:00] VITALS: BP 96/42
[2024-07-10 07:46] LABS: % Basophils 0.5 % (0-2); % Eosinophils 2.8 % (0-6); % Immature Granulocytes 0.4 % (0-0.5); % Lymphocytes 31.3 % (20.5-51.1); % Monocytes 9.5 % (1.7-9.3); % Neutrophils 55.5 % (42.2-75.2); Absolute Eosinophils 0.2 10^3/uL (0-0.7); Absolute Lymphocytes 1.8 10^3/uL (1.2-3.4); Absolute Monocytes 0.5 10^3/uL (0.1-0.6); Absolute Neutrophils 3.2 10^3/uL (1.4-6.5); Hematocrit 20.5 % (37.0-47.0); Hemoglobin 7.4 g/dL (12.0-16.0); Mean Corp Hgb Conc. 36.1 g/dL (33.0-37.0); Mean Corpuscular Hgb 29.2 pg (27.0-31.0); Mean Platelet Volume 12.6 fL (7.4-10.4); Nucleated Red Blood Cells % 0 %; Platelet Count 90 10^3/uL (130-400); Red Blood Cell Count 2.53 10^6/uL (4.20-5.40); Red Cell Dist. Width 15.3 % (11.5-14.5); White Blood Cell Count 5.7 10^3/uL (4.8-10.8)
[2024-07-10 07:54] LABS: ALT (SGPT) 17 U/L (0-35); AST (SGOT) 56 U/L (14-36); Alkaline Phosphatase 166 U/L (38-126); Blood Urea Nitrogen 34 mg/dl (7-17); Calcium 7.9 mg/dl (8.4-10.2); Carbon Dioxide 19 mmol/L (22-30); Chloride 110 mmol/L (98-107); Estimated Creatinine Clearance 24 ml/min; Glucose 77 mg/dl (70-99); Potassium 3.8 mmol/L (3.5-5.1); Sodium 139 mmol/L (135-145); Total Bilirubin 2.2 mg/dl (0.2-1.3); Total Protein 5.3 g/dl (6.3-8.2); eGFR 32.46
[2024-07-10] MEDS: PROTONIX IV 40 MG IV ×2 (08:34→20:41)
[2024-07-10] MEDS: NSS (PRESERVATIVE FREE) 10 ML IV ×2 (08:34→20:42)
[2024-07-10] MEDS: TOPROL XL PO (08:36)
[2024-07-10] MEDS: XIFAXAN 550 MG PO ×2 (08:36→20:41)
[2024-07-10] MEDS: CRESTOR 20 MG PO (08:37)
--- NOTE | 2024-07-10 13:02 | CM ---
CM met with pt bedside- she anticipates dc later today
She is reuqesting VN to set up through [facility] for vitals and therapy
Referral made to VN/Maryellen Small
VN order requested
IMM verbally reviewed- copy provided
Discharge Disposition- home with [facility]- family will transport
--- NOTE | 2024-07-10 14:14 | VNURNOTE ---
Home Health Liaison met with patient at bedside to discuss [facility] nurse/therapy, visits, schedule and homebound status. Patient is agreeable and understands that visits at home will be 2-3 x per week to assess and teach medical management. [facility]
brochure provided with contact information. Patient is aware that [facility] will contact them for start of care in 1-2 days after discharge from .
[facility] referral completed in [facility].
--- NOTE | 2024-07-10 14:27 | W.PN.NEPH.PH ---
Today's Communication / Plan
-
Add midodrine 2.5 mg twice daily
Lasix held as patient remains hypotensive
Will reinitiate lower dose of Lasix likely 20 mg daily at discharge possibly tomorrow
Assessment/Plan
-
IMP:
ESTRELLITA -cr at 1 in 06/2023
Hypokalemia
Progressive Sharon edema
Lower extremity cellulitis treated outpatient, wound culture shows Proteus, enterococcus from 06/2024
Severe hypoalbuminemia
Moderate ascites
Hepatic cirrhosis
Anemia of chronic disease
Hyperlipidemia
Essential Hypertension
Celiac
Osteoporosis
Anxiety
Coagulopathy
Plan:
Creatinine down to 1.7 from 2
Patient remains hypotensive
will intiate midodrine 2.5mg BID
Urine output not recorded
A/w LE edema , abd distension with known h/o cirrhosis
[id number] cr 1 in 06/2023
[place] UA , check fena-not done -suspect cardiorenal vs hepatorenal vs diuresis
no hydro on US, MRD changes with slightly small kidneys
s/p IV albumin
check echo, CXR on admit Noted wiht mild pulm edema-but she is on RA
BNP high but in setting of ESTRELLITA
paracentesis 1.8lit on 07/08/2024
Bp stable on BB
avoid nephrotoxins
monitor hb, adequate fe stores, s/p transfusion
d/w GI-ok for octreotide, with concern of HRS , fractional excretion was predictably low can add midodrine if bp drops
Unsure what else we can really offer at this point, if this is indeed hepatorenal syndrome with progressive renal failure she would not be a dialysis candidate
-
-
Date of Service: July 10, 2024
CC / HPI / ROS
-
Chief Complaint:
ESTRELLITA
History of Present Illness:
cr still high at 1.7 bicarb 19
BP soft, UOP not measured
wt no change, no fever
hb low 7.4
Review of Systems:
no cp or sob
s/p paracentesis 1.8 lit 07/08
edema improving
Labs
-
Labs:
WBC 5.7 10^3/uL (4.8-10.8) 07/10/24 06:40
RBC 2.53 10^6/uL (4.20-5.40) L 07/10/24 06:40
Hgb 7.4 g/dL (12.0-16.0) L 07/10/24 06:40
Hct 20.5 % (37.0-47.0) L* 07/10/24 06:40
Plt Count 90 10^3/uL (130-400) L 07/10/24 06:40
Sodium 139 mmol/L (135-145) 07/10/24 06:40
Potassium 3.8 mmol/L (3.5-5.1) 07/10/24 06:40
Chloride 110 mmol/L (98-107) H 07/10/24 06:40
Carbon Dioxide 19 mmol/L (22-30) L 07/10/24 06:40
BUN 34 mg/dl (7-17) H 07/10/24 06:40
Creatinine 1.7 mg/dL (0.6-1.0) H 07/10/24 06:40
eGFR 32.46 07/10/24 06:40
Glucose 77 mg/dl (70-99) 07/10/24 06:40
Calcium 7.9 mg/dl (8.4-10.2) L 07/10/24 06:40
Uhd-L-Fyxazvwvqkn Pept 1110 pg/ml 07/06/24 14:27
Albumin 3.0 g/dl (3.5-5.0) L 07/10/24 06:40
Physical Exam
-
Vital Signs:
Vital Signs
Temp Pulse Resp BP Pulse Ox
97.5 F 74 18 96/42 94
07/10/24 07:00 07/10/24 08:36 07/10/24 07:00 07/10/24 08:36 07/10/24 10:16
Cardiovascular:: Regular rate and rhythm
Respiratory:: Bilateral: Coarse
Lung Excursion:: Normal
Abdomen:: Distended
Extremity Edema:: None: Bilateral:
Hoover Catheter: No
--- NOTE | 2024-07-10 14:44 | W.PN.HOSP.TC ---
Today's Communication/Plan
-
Hold diuretics and trend BMP/UOP
Avoid nephrotoxins
IV albumin/PO midodrine at nephrology's discretion
Case management consult for VN
Assessment / Plan
Assessment / Plan
#Concern for HRS-NAKI
#Moderate ascites S/P Paracentesis
#Hepatic cirrhosis C/B thrombocytopenia
-History of alcohol induced liver disease, MELD 23; Home regimen includes Lasix, no MRA
-S/P 1.8L para; Portal hypertensive etiology with SAAG 1.8, ascites protein <2; no signs of SBP
-Renal function peaked with creatinine near 2.0; urine studies with urine sodium <5
-Renal function now slowly improving; S/P IV albumin, diuretics remain held
-Has remained hemodynamically stable, BP this morning 96/42 mmHg
-Per nephrology, not dialysis candidate
-No signs of recurrent ascites off diuretic
Plan
-Continue to hold Lasix and other diuretics
-Consider midodrine and further IV albumin at nephrology's discretion
-Avoid nephrotoxic agents such as ARB/ANDREY, NSAIDs, IV contrast
-Trend BMP and UOP very close
#Anemia of chronic disease
#Possible UGIB (now resolved)
-High risk for UGIB with portal hypertension though no known history of varices
-Had iron studies earlier on hospitalization, consistent with AOCD, no signs of KASSIE
-Status post 1 unit of PRBC here, did have subsequent hemoglobin drop with no dark stools
-Transition IV PPI therapy to oral PPI therapy, continue rifaximin
-Most recent hemoglobin 7.4, stool output green in color
-Has OP EGD scheduled for 07/18/2024
#Questionable CHF
#Anasarca
-Presented with pulmonary edema and elevated BNP
-Suspect BNP elevated due to ESTRELLITA, anasarca secondary to portal hypertension
-Echocardiogram ordered with results pending
-Follow-up TTE, monitor volume status
-Consider resuming diuretics when renal function improved
#Hyperlipidemia
-No known history of ASCVD
-Home medications include high intensity rosuvastatin
#Hypertension
-Home regimen includes metoprolol succinate and Lasix
-Blood pressure normotensive though on soft side
-Continue to monitor, avoid hypotension
#Celiac's disease
-Diagnosed with serology and pathology previously
-Currently on gluten-free diet
-No clinical signs of flare at this time
#Tobacco use
-Encourage cessation
DVT prophylaxis: SCDs
Diet: Low-cholesterol, gluten-free
CODE STATUS: Full code
Anticipated Discharge: 24 - 48 hours
Subjective/Interval History
-
Date of Service: July 10, 2024
Seen and examined at the bedside. No acute events reported overnight. AFVSS this morning.
Hemoglobin stable, 7.4�7 0.1�7.4 on last 3 lab draw. Denies any dark stools or jarek blood in the stool. Denies any abdomen pain, chest pain or dyspnea.
Denies any acute complaints today. Questions when she is able to leave the hospital
Objective Data
-
Labs:
Laboratory Results
07/10/24
06:40
WBC 5.7
Hgb 7.4 L
Hct 20.5 L*
Plt Count 90 L
Sodium 139
Potassium 3.8
Chloride 110 H
Carbon Dioxide 19 L
BUN 34 H
Creatinine 1.7 H
Glucose 77
Calcium 7.9 L
Total Bilirubin 2.2 H
AST 56 H
ALT 17
Alkaline Phosphatase 166 H
Vital Signs:
Vital Signs
Temp Pulse Resp BP Pulse Ox
97.5 F 74 18 96/42 94
07/10/24 07:00 07/10/24 08:36 07/10/24 07:00 07/10/24 08:36 07/10/24 10:16
I&O
07/09/24 07/10/24 07/11/24
06:59 06:59 06:59
Intake Total
Balance
Review of Systems
-
History Source: Patient
All other systems: Reviewed and negative
Physical Exam
-
General: Well Developed, No Apparent Distress, Comfortable and Other (Thin appearing)
HEENT: Normocephalic, Atraumatic, Moist Mucous Membranes and Anicteric
Respiratory: Clear to Auscultation and Non Labored Respirations
Cardiac: Regular Rhythm, S1/S2 and Murmur (likely flow murmur); Negative Rub or Gallop
GI: Soft, Nontender, Normal Bowel Sounds, Distended (Mild, stable) and No Hepatosplenomegaly
Musculoskeletal: No Clubbing, No Cyanosis and No Edema
Skin: Warm, Dry, Lesions (Spider angioma on chest; no palmar erythema) and Normal Turgor; Negative Rash or Jaundice
Neuro: AO x 3 and Nonfocal/Grossly Intact; Negative Tremors
Psych: Calm
Data Reviewed
-
Labs: Labs Reviewed by me, Discussed with Physician ([employer]) and Discussed with Patient
[2024-07-10 15:00] VITALS: BP 101/48
[2024-07-10] MEDS: ProAmatine 2.5 MG PO (17:27)
[2024-07-10 19:36] VITALS: BP 112/53
[2024-07-10] MEDS: BENADRYL 25 MG PO (20:41)
[2024-07-10] MEDS: MELATONIN 3 MG PO (20:41)
[2024-07-10 23:05] VITALS: BP 113/52
[2024-07-11] MEDS: BENADRYL 25 MG PO (01:43)
[2024-07-11 03:13] VITALS: BP 126/59
[2024-07-11 06:00] VITALS: BMI 19.2
[2024-07-11 08:03] LABS: Hematocrit 20.5 % (37.0-47.0); Hemoglobin 7.2 g/dL (12.0-16.0); Mean Corp Hgb Conc. 35.1 g/dL (33.0-37.0); Mean Corpuscular Hgb 29.3 pg (27.0-31.0); Mean Corpuscular Volume 83.3 fL (81.0-99.0); Mean Platelet Volume 13.1 fL (7.4-10.4); Platelet Count 79 10^3/uL (130-400); Red Blood Cell Count 2.46 10^6/uL (4.20-5.40); Red Cell Dist. Width 15.5 % (11.5-14.5); White Blood Cell Count 5.2 10^3/uL (4.8-10.8)
[2024-07-11 08:06] VITALS: BP 119/60
[2024-07-11 08:20] LABS: ALT (SGPT) 19 U/L (0-35); AST (SGOT) 58 U/L (14-36); Albumin 2.9 g/dl (3.5-5.0); Alkaline Phosphatase 184 U/L (38-126); Blood Urea Nitrogen 30 mg/dl (7-17); Calcium 8.1 mg/dl (8.4-10.2); Carbon Dioxide 18 mmol/L (22-30); Chloride 110 mmol/L (98-107); Estimated Creatinine Clearance 25 ml/min; Glucose 72 mg/dl (70-99); Potassium 3.5 mmol/L (3.5-5.1); Sodium 139 mmol/L (135-145); Total Protein 5.4 g/dl (6.3-8.2); eGFR 34.91
[2024-07-11 09:18] LABS: % Basophils 0.6 % (0-2); % Eosinophils 3.1 % (0-6); % Immature Granulocytes 0.4 % (0-0.5); % Lymphocytes 32.9 % (20.5-51.1); % Monocytes 9.5 % (1.7-9.3); % Neutrophils 53.5 % (42.2-75.2); Absolute Eosinophils 0.2 10^3/uL (0-0.7); Absolute Lymphocytes 1.7 10^3/uL (1.2-3.4); Absolute Monocytes 0.5 10^3/uL (0.1-0.6); Absolute Neutrophils 2.8 10^3/uL (1.4-6.5); Nucleated Red Blood Cells % 0 %
[2024-07-11] MEDS: PROTONIX IV 40 MG IV (09:48)
[2024-07-11] MEDS: ProAmatine 2.5 MG PO ×3 (09:49→17:09)
[2024-07-11] MEDS: TOPROL XL 50 MG PO (09:49)
[2024-07-11] MEDS: CRESTOR 20 MG PO (09:49)
[2024-07-11] MEDS: XIFAXAN 550 MG PO (09:49)
[2024-07-11] MEDS: NSS (PRESERVATIVE FREE) 10 ML IV (09:49)
[2024-07-11 12:00] VITALS: BP 100/59
--- NOTE | 2024-07-11 13:55 | PN.CDI ---
CDI
- -
CDI:
Physician Documentation Request
Admit Date: 07/06/24 23:08
Dear Doctor Dexter,
Patient admitted with hepatic cirrhosis with ascites.
07/11 Nursing skin assessment, 'Stage 1 buttock pressure injury.'
Physician documentation of the type and location of wounds is required for compliant documentation. Based on the above clinical findings and your assessment, please provide the following in your progress note:
Location of the ulcer/wound, including laterality.
Type (etiology) of ulcer/wound:
- Pressure (decubitus) ulcer
- Other
- Unable to determine
For a pressure ulcer, please also include the stage* of the ulcer:
- Stage 1 - Skin intact, non-blanchable redness
- Stage 2 - Partial thickness loss of dermis, includes intact or open blister
- Stage 3 - Full thickness tissue not including bone, tendon or muscle
- Stage 4 - Full thickness tissue loss, including exposed bone, tendon or muscle
- Unstageable - Full thickness loss in which the base of the ulcer is covered by slough (yellow, avila, newberry, green or brown) and/or eschar (avila, brown or black) in the wound bed.
- Unable to determine
Use of terms such as suspected, likely, concern for, or probable (associated with a specific diagnosis that is being evaluated, monitored, or treated as if it exists) are acceptable and can be coded in the inpatient setting, when documented at the
time of discharge.
Thank you,
Caitlyn GAFFNEY,RN,CCDS
CDI Specialist
Available via tiger text
Please use your independent medical judgment in providing your response.
*Source: National Pressure Ulcer Advisory Panel (NPUAP)
--- NOTE | 2024-07-11 14:59 | W.PN.HOSP.TC ---
Addendum entered and electronically signed by Cullen Renteria DO 07/12/24 13:02:
CDI clarification: Stage I buttock pressure injury present
Original Note:
Today's Communication/Plan
-
Resume Lasix 20 mg starting tomorrow
Continue with midodrine 3 times daily
Continue PPI and rifaximin
BMP and CBC as OP
Discharge
Assessment / Plan
Assessment / Plan
#Concern for HRS-NAKI
#Moderate ascites S/P Paracentesis
#Hepatic cirrhosis C/B thrombocytopenia
-History of alcohol induced liver disease, MELD 23; Home regimen includes Lasix, no MRA
-S/P 1.8L para; Portal hypertensive etiology with SAAG 1.8, ascites protein <2; no signs of SBP
-Renal function peaked with creatinine near 2.0; urine studies with urine sodium <5
-Renal function now slowly improving; S/P IV albumin, diuretics remain held
-Has remained hemodynamically stable, BP this morning 96/42 mmHg
-Per nephrology, not dialysis candidate
-No signs of recurrent ascites off diuretic
-Resume Lasix at 20 mg upon discharge
-Continue with midodrine TID upon discharge
-Repeat BMP as OP
-Absolute EtOH cessation
#Anemia of chronic disease
#Possible UGIB (now resolved)
-High risk for UGIB with portal hypertension though no known history of varices
-Had iron studies earlier on hospitalization, consistent with AOCD, no signs of KASSIE
-Status post 1 unit of PRBC here, did have subsequent hemoglobin drop with no dark stools
-Transition IV PPI therapy to oral PPI therapy, continue rifaximin
-Most recent hemoglobin 7.2, stool output green in color
-Has OP EGD scheduled for 07/18/2024
-DC on twice daily pantoprazole and rifaximin
-Repeat CBC as OP
#Anasarca
-Likely associated with portal hypertension and ascites, no evidence of CHF here
#Hyperlipidemia
-No known history of ASCVD
-Home medications include high intensity rosuvastatin
#Hypertension
-Home regimen includes metoprolol succinate and Lasix
-Blood pressure normotensive though on soft side
-Continue to monitor, avoid hypotension
#Celiac's disease
-Diagnosed with serology and pathology previously
-Currently on gluten-free diet
-No clinical signs of flare at this time
#Tobacco use
-Encourage cessation
DVT prophylaxis: SCDs
Diet: Low-cholesterol, gluten-free
CODE STATUS: Full code
Anticipated Discharge: Today
Subjective/Interval History
-
Date of Service: July 11, 2024
Seen and examined at the bedside. No acute events reported overnight. AFVSS this morning
Hemoglobin stable, 7.4�7.1�7.4�7.2. Renal function continues to slowly improve with creatinine down to 1.5.
She denies any acute complaints. Asks when she can leave the hospital
Objective Data
-
Labs:
Laboratory Results
07/11/24
07:09
WBC 5.2
Hgb 7.2 L
Hct 20.5 L*
Plt Count 79 L
Sodium 139
Potassium 3.5
Chloride 110 H
Carbon Dioxide 18 L
BUN 30 H
Creatinine 1.6 H
Glucose 72
Calcium 8.1 L
Total Bilirubin 2.0 H
AST 58 H
ALT 19
Alkaline Phosphatase 184 H
Vital Signs:
Vital Signs
Temp Pulse Resp BP Pulse Ox
98.2 F 70 16 119/60 96
07/11/24 12:00 07/11/24 12:00 07/11/24 12:00 07/11/24 08:06 07/11/24 12:00
I&O
07/10/24 07/11/2407/12/25
06:59 06:59 06:59
Intake Total 480 / 480
Balance 480 / 480
Review of Systems
-
History Source: Patient
All other systems: Reviewed and negative
Physical Exam
-
General: Well Developed, No Apparent Distress, Comfortable, Appears Chronically Ill and Other (Thin)
HEENT: Normocephalic, Atraumatic, Moist Mucous Membranes and Anicteric
Respiratory: Clear to Auscultation and Non Labored Respirations
Cardiac: Regular Rhythm and S1/S2; Negative Murmur, Rub or Gallop
GI: Soft, Nontender, Nondistended, Normal Bowel Sounds and No Hepatosplenomegaly
Musculoskeletal: No Clubbing, No Cyanosis and No Edema
Skin: Warm, Dry, Normal Turgor and Other (Spider angioma); Negative Rash
Neuro: AO x 3 and Nonfocal/Grossly Intact; Negative Tremors
Psych: Calm
Data Reviewed
-
Labs: Labs Reviewed by me, Discussed with Physician (Manager [employer]) and Discussed with Patient
--- NOTE | 2024-07-11 15:41 | W.PN.NEPH.PH ---
Today's Communication / Plan
-
ok to resume lasix 40mg daily -home dose
Assessment/Plan
-
IMP:
ESTRELLITA -cr at 1 in 06/2023
Hypokalemia
Progressive Sharon edema
Lower extremity cellulitis treated outpatient, wound culture shows Proteus, enterococcus from 06/2024
Severe hypoalbuminemia
Moderate ascites
Hepatic cirrhosis
Anemia of chronic disease
Hyperlipidemia
Essential Hypertension
Celiac
Osteoporosis
Anxiety
Coagulopathy
Plan:
Creatinine down to 1.6 from 2
bp low but stable on midodrine 2.5mg BID
edema is much better
[place] UA ,low fena-suspect cardiorenal vs hepatorenal vs diuresis
no hydro on US, MRD changes with slightly small kidneys
s/p IV albumin
echo fine normal EF
BNP high but in setting of ESTRELLITA, on RA, ok to resume previous home dose 40mg lasix daily
paracentesis 1.8lit on 07/08/2024
monitor met acidosis -ok to add po bicarb if worse in out pt
avoid nephrotoxins
monitor hb, adequate fe stores, s/p transfusion
Unsure what else we can really offer at this point, if this is indeed hepatorenal syndrome with progressive renal failure she would not be a dialysis candidate
-
-
Date of Service: July 11, 2024
CC / HPI / ROS
-
Chief Complaint:
ESTRELLITA
History of Present Illness:
cr still high at 1.6 bicarb 18
BP better, UOP not measured
wt slightly up, no fever
hb low 7.2
Review of Systems:
no cp or sob
s/p paracentesis 1.8 lit 07/08
edema resolved
Labs
-
Labs:
WBC 5.2 10^3/uL (4.8-10.8) 07/11/24 07:09
RBC 2.46 10^6/uL (4.20-5.40) L 07/11/24 07:09
Hgb 7.2 g/dL (12.0-16.0) L 07/11/24 07:09
Hct 20.5 % (37.0-47.0) L* 07/11/24 07:09
Plt Count 79 10^3/uL (130-400) L 07/11/24 07:09
Sodium 139 mmol/L (135-145) 07/11/24 07:09
Potassium 3.5 mmol/L (3.5-5.1) 07/11/24 07:09
Chloride 110 mmol/L (98-107) H 07/11/24 07:09
Carbon Dioxide 18 mmol/L (22-30) L 07/11/24 07:09
BUN 30 mg/dl (7-17) H 07/11/24 07:09
Creatinine 1.6 mg/dL (0.6-1.0) H 07/11/24 07:09
eGFR 34.91 07/11/24 07:09
Glucose 72 mg/dl (70-99) 07/11/24 07:09
Calcium 8.1 mg/dl (8.4-10.2) L 07/11/24 07:09
Hyp-A-Zuabzyfbdtq Pept 1110 pg/ml 07/06/24 14:27
Albumin 2.9 g/dl (3.5-5.0) L 07/11/24 07:09
Physical Exam
-
Vital Signs:
Vital Signs
Temp Pulse Resp BP Pulse Ox
98.2 F 70 16 119/60 96
07/11/24 12:00 07/11/24 12:00 07/11/24 12:00 07/11/24 08:06 07/11/24 12:00
Cardiovascular:: Regular rate and rhythm
Lung Excursion:: Normal (decreased)
Abdomen:: Nontender and Soft
Extremity Edema:: None: Bilateral: (tarace)
Hoover Catheter: No
--- NOTE | 2024-07-12 17:54 | W.DCSUMMARY ---
Discharge Summary
Discharge Data
Date of Admission: 07/06/24
Date of Discharge: 07/11/24
-
Pending Results: No
Hospital Course
68-year-old female with hepatic cirrhosis secondary to JH C/B ascites and hepatic encephalopathy that presented to the hospital with acute on chronic anemia as well as ESTRELLITA.
Iron studies consistent with anemia of chronic disease however hemoglobin dropped to 6.8. Suspect multifactorial etiology with likely source of upper GI bleeding in the context of her portal hypertension. No known history of varices. Received 1
unit of PRBC with improvement to her hemoglobin. Had subsequent drop however then stabilized with hemoglobin near 7.4. Started on BID PPI therapy. Evaluated by gastroenterology, did not perform EGD as it appeared her bleeding had stopped, and she
had OP EGD scheduled for 07/18/2024 with her lead setter. At discharge was continued on PPI therapy and encouraged to follow-up with her gastroenterology. CBC was given for after discharge, results to be sent to PCP
ESTRELLITA was concerning for hepatorenal syndrome. Her Lasix was discontinued on arrival, was seen by nephrology who started IV albumin infusions. She subsequently had improvement to her renal function. Was borderline hypotensive secondary to her
hyperdynamic state from cirrhosis. Was started on midodrine with improvement of her blood pressure. Renal function downtrending throughout hospitalization. Following improvement to her hemodynamics she was resumed on Lasix regimen at discharge
with repeat BMP as an outpatient. Dose of Lasix was reduced to 40 mg. Per her senior policy associate she was on 80 mg with reduction to 40 mg just prior to her admission. Should follow-up with PCP and senior policy associate after discharge
Discharge Plan
-
Patient Disposition: Home (Routine Discharge)
Discharge Diagnosis/Procedures: Acute kidney injury
Anemia
Condition: Fair
Diet: No restrictions
Additional Diets: Avoid alcohol
Driving Restrictions: No driving for 24 hours
Bathing Restrictions: None
Blood Work: CBC and BMP to be performed on Tuesday
Other Services: PT and OT
Activity Restrictions/Additional Instructions:
After discharge from the hospital you should have a follow-up appointment with your family doctor. You should be seen in the office within 1 to 2 weeks of your discharge.
After discharge from the hospital you will need to schedule a follow-up appointment with gastroenterology. Referral provided below, please contact office to schedule
Instructions: Diet for adults with cirrhosis, Anemia overview
Referrals:
Jacob Kay DO [Family Provider] -
Miranda Vaca MD [Active] - (07/18/2024 for EGD in [facility] my office will call to let you know time day prior)
Additional Discharge Medication Instructions: Continue Lasix 40 mg daily
Start midodrine 2.5 mg 3 times daily
Stop omeprazole, start pantoprazole 40 mg twice daily
Start Xifaxan 550 mg twice daily
Prescriptions:
New
midodrine 2.5 mg Tablet
2.5 mg PO TID@0800,1300,1800 30 Days Qty: 90 0RF
Xifaxan 550 mg Tablet
550 mg PO BID 30 Days Qty: 60 0RF
pantoprazole 40 mg tablet,delayed release (DR/EC)
40 mg PO BID 30 Days Qty: 60 0RF
furosemide [Lasix] 40 mg tablet
40 mg PO DAILY 30 Days Qty: 30 0RF
Continued
loratadine 10 MG tablet
10 mg PO PRN PRN (Reason: seasonal)
pregabalin 100 MG capsule
150 mg PO BID
melatonin 3 mg Tablet
3 mg PO HS 30 Days Qty: 0 0RF
metoprolol succinate 50 mg Tablet Extended Release 24 Hr
50 mg PO DAILY
rosuvastatin 20 mg Tablet
20 mg PO DAILY
diphenhydramine HCl [Benadryl] 25 mg Capsule
25 mg PO HS
alendronate 10 mg Tablet
10 mg PO MO
cyanocobalamin (vitamin B-12) 1,000 mcg Tablet
1,000 mcg PO DAILY
lactulose 10 gram/15 mL Solution
20 g PO Q48H
cholecalciferol (vitamin D3) [Vitamin D3] 25 mcg (1,000 unit) Tablet
25 mcg PO DAILY
Discontinued
furosemide 40 mg Tablet
40 mg PO DAILY 30 Days Qty: 30 0RF
doxycycline hyclate 100 mg Capsule
100 mg PO BID
omeprazole 20 mg Capsule,Delayed Release(Dr/Ec)
20 mg PO DAILY
Discharge Orders:
Discharge Patient (As Directed); Ordered 07/11/24
Ordered By: Cullen Renteria
Discharge Date and Time
Discharge Date/Time: 07/11/24 18:18
Print Language: GERMAN
== END 2024-07-11 18:18 | disposition home or self-care (01) | DRG 433 ==
LOC: 1 ACUTE 23:08
PROVIDERS: Internal Medicine; Physician Assistant; Radiology Vascular & Interventional Radiology; Registered Nurse; Specialist; ADMITTING PHYSICIAN Internal Medicine; ATTENDING PHYSICIAN Internal Medicine; CONSULT PHYSICIAN Internal Medicine; CONSULT PHYSICIAN Internal Medicine Cardiovascular Disease; CONSULT PHYSICIAN Internal Medicine Gastroenterology; EMERGENCY PHYSICIAN Emergency Medicine; FAMILY PHYSICIAN Internal Medicine
PROC: 0W9G3ZX Drainage of Peritoneal Cavity, Percutaneous Approach, Diagnostic (ICD-10-PCS; 2024-07-08)
DX: K70.31 Alcoholic cirrhosis of liver with ascites (principal); N17.9 Acute kidney failure, unspecified; D63.8 Anemia in other chronic diseases classified elsewhere; E87.6 Hypokalemia; F17.210 Nicotine dependence, cigarettes, uncomplicated; K76.82 Hepatic encephalopathy; L89.301 Pressure ulcer of unspecified buttock, stage 1
CPT/HCPCS: 88305; 36430; 49083; 71046; 74176; 76700; 80053; 80061; 81003; 82042; 82140; 82150; 82248; 82570; 82607; 82728; 82746; 83540; 83550; 83615; 83880; 84157; 84300; 84443; 84466; 85014; 85018; 85025; 85027; 85610; 85730; 86850; 86900; 86901; 86920; 87015; 87070; 87205; 88112; 89051; 93306; 93970; 96365; 96366; 99285; 99406; J2916; P9016; P9047

== ENCOUNTER → 2024-07-18 06:18 | Day surgery (SDC) | payer OTHER, SELFPAY | LOC: GI 06:18 | PROVIDERS: ATTENDING PHYSICIAN Internal Medicine Gastroenterology; FAMILY PHYSICIAN Family Medicine | DX: D64.9 Anemia, unspecified (principal); K74.60 Unspecified cirrhosis of liver; I85.10 Secondary esophageal varices without bleeding; K31.819 Angiodysplasia of stomach and duodenum without bleeding | CPT/HCPCS: 43270; 43244 ==

== ENCOUNTER 2024-08-09 06:18 | Day surgery (SDC) | payer OTHER, SELFPAY | END 2024-08-09 12:24 | disposition home or self-care (01) | LOC: GI 06:18 | PROVIDERS: ATTENDING PHYSICIAN Internal Medicine Gastroenterology | DX: D64.9 Anemia, unspecified (principal); I85.00 Esophageal varices without bleeding; K76.6 Portal hypertension; K31.89 Other diseases of stomach and duodenum; K31.819 Angiodysplasia of stomach and duodenum without bleeding | CPT/HCPCS: 43235 ==

== ENCOUNTER 2024-08-30 12:51 | Inpatient (IN) | payer OTHER, SELFPAY ==
[2024-08-30] VITALS (40 sets, daily range): BP systolic 10–130; BP diastolic 48–70; BMI 19.7; BMI 20.1
[2024-08-30 10:27] LABS: ALT (SGPT) 29 U/L (0-35); AST (SGOT) 97 U/L (14-36); Alkaline Phosphatase 172 U/L (38-126); Blood Urea Nitrogen 31 mg/dl (7-17); Calcium 8.4 mg/dl (8.4-10.2); Carbon Dioxide 27 mmol/L (22-30); Chloride 104 mmol/L (98-107); Glucose 92 mg/dl (70-99); Potassium 4.1 mmol/L (3.5-5.1); Sodium 137 mmol/L (135-145); Total Bilirubin 1.5 mg/dl (0.2-1.3); Total Protein 5.8 g/dl (6.3-8.2); eGFR 28.41
[2024-08-30 10:31] LABS: % Basophils 0.4 % (0-2); % Eosinophils 2.1 % (0-6); % Immature Granulocytes 0.4 % (0-0.5); % Lymphocytes 26.2 % (20.5-51.1); % Monocytes 9.7 % (1.7-9.3); % Neutrophils 61.2 % (42.2-75.2); Absolute Eosinophils 0.1 10^3/uL (0-0.7); Absolute Lymphocytes 1.4 10^3/uL (1.2-3.4); Absolute Monocytes 0.5 10^3/uL (0.1-0.6); Absolute Neutrophils 3.3 10^3/uL (1.4-6.5); Hematocrit 15.3 % (37.0-47.0); Mean Corp Hgb Conc. 32.7 g/dL (33.0-37.0); Mean Corpuscular Hgb 27.9 pg (27.0-31.0); Mean Corpuscular Volume 85.5 fL (81.0-99.0); Mean Platelet Volume 11.2 fL (7.4-10.4); Nucleated Red Blood Cells % 0 %; Platelet Count 184 10^3/uL (130-400); Red Blood Cell Count 1.79 10^6/uL (4.20-5.40); Red Cell Dist. Width 16.6 % (11.5-14.5); White Blood Cell Count 5.3 10^3/uL (4.8-10.8)
--- NOTE | 2024-08-30 11:26 | CON.GI ---
Addendum entered and electronically signed by Sinai Montez MD 08/30/24 19:12:
I saw and examined the patient.
The LOGISTICS ENGINEER's note was reviewed and I agree with the note.
Comment: This is a 68-year-old female with past medical history as listed below including alcohol cirrhosis with ascites, esophageal varices status post banding in July, GAVE status post APC in July and on 08/09/2024 with .Do was sent to the
ER today for outpatient labs showing a hemoglobin of 4.8 and repeated in the ER and was 5. She did report 2 episodes of melena yesterday with dizziness. Today her bowel movement was brown she has been scheduled to receive 2 units of packed red
blood cells and also started on Protonix and octreotide drip. No nausea vomiting or hematemesis. Currently denies any abdominal pain. No signs of encephalopathy currently.
Assessment and plan acute blood loss anemia most likely from portal gastropathy or known GAVE or esophageal varices. Will schedule her for an urgent endoscopy after getting 2 units of packed red blood cells. Continue octreotide and Protonix drip.
Also was started on ceftriaxone will need antibiotics for a total of 7 days for prophylaxis.
Continue lactulose and Xifaxan
Ascites will get ultrasound tomorrow last para was on 07/08/2024 she is on Lasix as outpatient. She does have ESTRELLITA may need to hold Lasix and she was supposed to see renal as outpatient if worsening creatinine may need to see as inpatient unclear if
she was on Aldactone also or not.
GERD continue pantoprazole
Original Note:
Consultation
-
Date/Time Consultation Requested: 08/30/241114
Date/Time Consultation Performed: 08/30/241114
Requesting Provider: Dr Hull
Performing Provider: Dr. Montez/KRYS Moralez
Reason for Consultation: severe anemia, melena
Medical History
Chief Complaint / HPI
Chief Complaint: Hgb 4.8
History of Present Illness:
68-year-old female past medical history of celiac disease, alcoholic cirrhosis decompensated with ascites, (last paracentesis 07/08/2024) varices, portal hypertensive gastropathy, GAVE without bleeding status post APC on most recent endoscopy 08/09/2024
(previously sober) but relapse April 2024 however sober again. GERD, hypertension, neuropathy, depression, cecal AVMs, colon polyps, lower extremity edema who was sent into the emergency room by myself this morning for outpatient labs showing
hemoglobin less than 4.8. I called her this morning and she states that she had 2 episodes of melena yesterday with some dizziness. She was brought to the emergency room by her for further evaluation. This confirmed a hemoglobin of 5.0.
Her baseline hemoglobin is around 7. Her last food consumption was yesterday evening at dinner. The patient states that she had a bowel movement this morning that was brown. She denies any fevers, chills, nausea, vomiting, hematochezia, dysphagia
or dyne aphasia. No early satiety or unintentional weight loss. She denies any chest pain or shortness of breath. The patient was told to come in this morning. She did not take any of her home medications prior to arrival. We discussed prior to
and currently that she will be transfused, started Protonix drip and octreotide drip and plan for EGD today.
Past Medical History
Past Medical History: Other (ETOH cirrhosis, ascites, GERD, Celiac disease, HTN, neuropathy, depression, h/o PSE, cecal AVMS, h/o colonic polyps)
Past Surgical History: Other (Hysterectomy, fusion at [facility] 2019 and 2017, several EGD/colonoscopies)
Social History
Tobacco: Former Smoker
Alcohol: Occasional (last was April 2024)
Drug: None
Personal:
Living: With Family
Family History
Family History: Other (Father dementia, siblings celiac, father and brother bladder cancer)
Allergies / Home Medications
Allergy/AdvReac Type Severity Reaction Status Date / Time
olmesartan [From Benicar] Allergy anemia Verified 08/30/24 09:54
Sulfa (Sulfonamide Allergy lip Verified 08/30/24 09:54
Antibiotics) Swelling
venlafaxine [From Effexor] Allergy Unknown Verified 08/30/24 09:54
�Medication �Instructions �Recorded
loratadine 10 mg tablet 10 mg PO PRN PRN seasonal 05/30/18
pregabalin 100 mg capsule 150 mg PO BID Pain 04/30/20
melatonin 3 mg tablet 3 mg PO HS 30 days #0 tabs 01/05/22
metoprolol succinate 50 mg 50 mg PO DAILY Blood Pressure 07/22/22
tablet,extended release 24 hr
rosuvastatin 20 mg tablet 20 mg PO DAILY High Cholesterol 07/06/24
alendronate 10 mg tablet 10 mg PO MO osteoporosis 07/07/24
cholecalciferol (vitamin D3) 25 25 mcg PO DAILY Supplement 07/07/24
mcg (1,000 unit) tablet (Vitamin
D3)
cyanocobalamin (vitamin B-12) 1,000 mcg PO DAILY Supplement 07/07/24
1,000 mcg tablet
diphenhydramine HCl 25 mg capsule 25 mg PO HS Allergies 07/07/24
(Benadryl)
lactulose 10 gram/15 mL oral 20 g PO Q48H hepatic encephalopathy 07/07/24
solution
furosemide 40 mg tablet (Lasix) 40 mg PO DAILY Gastrointestinal 07/11/24
issue 1 month #30 tabs
midodrine 2.5 mg tablet 2.5 mg PO TID@0800,1300,1800 Blood 07/11/24
pressure 1 month #90 tabs
pantoprazole 40 mg tablet,delayed 40 mg PO BID Gastrointestinal 07/11/24
release issue 1 month #60 tabs
rifaximin 550 mg tablet (Xifaxan) 550 mg PO BID Gastrointestinal 07/11/24
issue 1 month #60 tabs
Review of Systems
-
All other systems: A 12 pt ROS was Negative except as stated above in HPI
Vital Signs
Temp Pulse Resp BP Pulse Ox
98.3 F 73 12 115/57 79
08/30/24 09:51 08/30/24 11:15 08/30/24 11:15 08/30/24 11:12 08/30/24 11:12
Physical Exam
Exam
General: No Apparent Distress
HEENT: Anicteric
Respiratory: Clear
Cardiac: Regular Rhythm
GI: Soft, Non Tender, Non Distended and Normal Bowel Sounds
Musculoskeletal: Edema (+1 lower extremity edema bilaterally)
Skin: Warm and Dry
Neuro: AO x 3
Psych: Calm
Results
WBC 5.3 10^3/uL (4.8-10.8) 08/30/24 10:03
Hgb 5.0 g/dL (12.0-16.0) L* 08/30/24 10:03
Hct 15.3 % (37.0-47.0) L* 08/30/24 10:03
MCV 85.5 fL (81.0-99.0) 08/30/24 10:03
Plt Count 184 10^3/uL (130-400) 08/30/24 10:03
Absolute Neuts (auto) 3.3 10^3/uL (1.4-6.5) 08/30/24 10:03
Sodium 137 mmol/L (135-145) 08/30/24 10:03
Potassium 4.1 mmol/L (3.5-5.1) 08/30/24 10:03
Chloride 104 mmol/L (98-107) 08/30/24 10:03
Carbon Dioxide 27 mmol/L (22-30) 08/30/24 10:03
BUN 31 mg/dl (7-17) H 08/30/24 10:03
Creatinine 1.9 mg/dL (0.6-1.0) H 08/30/24 10:03
Calcium 8.4 mg/dl (8.4-10.2) 08/30/24 10:03
Total Bilirubin 1.5 mg/dl (0.2-1.3) H 08/30/24 10:03
AST 97 U/L (14-36) H 08/30/24 10:03
ALT 29 U/L (0-35) 08/30/24 10:03
Alkaline Phosphatase 172 U/L (38-126) H 08/30/24 10:03
Diagnostic Image Results:
no imaging this admission
Prior GI Procedures:
--08/10/2024 EGD: FU of varices and anemia Findings: Grade I EV small not amenable to banding, PHG, GAVE s/p APC, normal duodenum. recall 4mo
--07/25/2024 EGD Anemia cirrhosis Findings: Grade II EV s/p banding x2, GAVE s/p APC. recall 4wks
--07/19/2024 labs: WBC 7.3, hemoglobin 7.5, hematocrit 22.2, platelets 170, sodium 141, potassium 4.0, chloride 105, CO2 20, BUN 19, creatinine 1.65, glucose 66
--07/11/2024 labs: WBC 5.2, hemoglobin 7.2, hematocrit 20.5, platelets 79, sodium 139, potassium 3.5, BUN 30, creatinine 1.6, calcium 8.1, total bilirubin 2.0, AST 58, ALT 19, alk phos 184, albumin 2.9
--07/08/2024 labs: WBC 7.6, hemoglobin 6.8, hematocrit 19.1, platelets 128, PT 18.7, INR 1.53, sodium 136, potassium 3.4, BUN 32, creatinine 2.0, total bilirubin 1.8, direct 1.0, AST 75, ALT 21, alk phos 239, triglycerides 136, total cholesterol 159,
LDL 70, B12 950, folate 5.9. Blood cultures x 1 negative.
---07/08/2024 CT of the abdomen pelvis without IV contrast: Hepatic cirrhosis with severe enlargement of the left lobe of the liver and mild atrophy of the right lobe of the liver. Moderate diffuse nodular contour. Small to moderate volume of upper
abdominal perihepatic ascites. Moderate edema in the pancreatic head and pancreaticoduodenal groove suggesting acute interstitial edematous pancreatitis. Alternatively this could be edema and non loculated fluid from hepatic cirrhosis. Moderate
pancolitis. Diagnostics are portal colopathy and/or acute infectious colitis. Mild chronic bilateral renal disease. Severe discogenic degenerative disc disease L1/L2. Previous laminectomies and bilateral posterior instrumentation L4-L5.
--07/08/2024 paracentesis: 1800 mL of ascitic fluid. Fluid WBC 73, PMN 5.4, total protein less than 2, albumin less than 1, LDH less than 90, amylase less than 30 .negative for malignancy
--03/2024 US Abdomen: Cirrhosis, trace perihepatic ascites, no suspicious focal hepatic lesion.
--03/[address] Thomason, post-mucosectomy scars in the ascending colon; biopsies negative for dysplasia/malignancy, 5mm cecal polyp (tubular adenoma), 5mm AC polyp (tubular adenoma), and 4mm proximal AC polyp (benign tissue); internal
hemorrhoids. Repeat in 1 year
--07/2022 MR elastography cirrhosis normal iron content and fat quantification. Neg for HCC.
--07/[address] Thomason EMR 15mm sessile serrated adenoma of prox AC extending to cautery margin. 11mm polyp in mid AC, 10mm distal AC. Recall 6mo
--04/[address] Vaca gastritis, neg for Hpylori. random bx cannot rule in or out celiac. will check celiac serologies. could also be seen in NSAID injury
--04/[address] Vaca IH, few ulcers at 30cm from anus on path vascular congestion and hyperplastic changes, 5mm AC TA polyp, 20mm AC polyp across from ICV tattooed and bx show superficial hyperplastic changes, small AVMs in cecum and AC
s/p APC.
Assessment / Plan
-
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
(previously sober) but relapse April 2024 however sober again. GERD, hypertension, neuropathy, depression, cecal AVMs, colon polyps, lower extremity edema who was sent into the emergency room by myself this morning for outpatient labs showing
hemoglobin less than 4.8. I called her this morning and she states that she had 2 episodes of melena yesterday with some dizziness. She was brought to the emergency room by her for further evaluation. This confirmed a hemoglobin of 5.0.
Currently at this time 3 IV lines have been placed. 1 for transfusion of blood products, the other for Protonix bolus and drip, the other for octreotide bolus and drip. Patient remains NPO. She did not take any of her home medications this
morning. Plan is for EGD today after blood products have been transfused. Patient typed crossed screened and blood consent has been signed. Patient's vital signs are stable. Patient's home medications include pantoprazole 40 mg twice a day,
Lasix 40 mg daily, lactulose 20 grams every other day, midodrine 2.5 mg 3 times a day, Xifaxan 550 mg twice a day, metoprolol succinate ER 50 mg daily from a GI perspective.
Impression:
Melena (none since yesterday)
Severe anemia, hemoglobin 5
History of grade 1 varices
History of portal hypertensive gastropathy
History of GAVE
Decompensated alcoholic cirrhosis with ascites (now sober), last paracentesis 07/08/2024
Celiac disease
History of adenomatous polyps due for repeat colonoscopy in December
ESTRELLITA --> patient was supposed to see Dr. Yen as outpatient
Plan:
-Transfused 2 units packed red blood cells
-Protonix bolus followed by drip
-Octreotide bolus followed by drip
-Ceftriaxone 1 g daily x 5 days
-EGD today, added on to schedule.
-Plan on ultrasound tomorrow to check for ascites
-CBC later today
-CBC, BMP, LFTs, PT/INR in a.m.
-Will need to add on patient home meds after EGD performed, has not had any of her meds today. Per IM.
-May require inpatient eval with Renal, consider as did not follow up as outpatient.
-Further recommendations to be forthcoming.
-
-
Thank you for consultation and allowing me to participate in the patient's care. Please call the hospice care transitions coordinator GI physician during the after hours with any questions or concerns.
[2024-08-30 11:35] LABS: INR 1.08; PT 14.6 Sec (11.4-14.6)
--- NOTE | 2024-08-30 11:35 | ED.GENMED ---
History of Present Illness
General
Chief Complaint: Abnormal Lab Value
Source: patient
Time Seen by Provider: 08/30/24 11:05
History of Present Illness
History of Present Illness:
68-year-old female presents to the emergency room after receiving a call at outpatient labs showing significant drop in her hemoglobin. Patient has history of alcoholic cirrhosis with varices. She has been experiencing some black tarry stools
recently. She has no chest pain or shortness of breath. She denies any abdominal pain. Patient is known to GI here and that is actually who called to, to come into the emergency room. Recent endoscopy confirmed the presence of varices.
Past History
Past History
ED Past Medical History: GERD, HTN, Hypercholesterolemia, Valvular disease, Psychiatric and Other (Neuropathy)
ED Past Surgical History: Gynecological and Other (Cataracts)
Phy Exam
Physical Exam
Physical Exam:
General: Awake, Alert, Oriented X3. No acute distress.
Vitals: unremarkable
Head: Atraumatic
Eyes: Pupils equal, EOMI, pale conjunctiva
Throat: Airway intact, no exudates
Neck: Trachea midline
Lungs: Clear and equal b/l
Heart: Regular rate, no murmurs
Abd: Soft, Nontender, No pulsatile mass
Neuro: Nonfocal
Skin: Warm, dry, no rash
Extremities: pulses equal b/l, no edema
Course
Orders/Labs/Results
Orders:
Orders
08/30/24 09:55
Electrocardiogram (*1) Urgent
Reason for Study: Other
Other Reason for Exam: low hgb
EKG- Treatment ONCE
08/30/24 Lunch
NPO
Allow oral meds: Yes
Allow clear liquids: No
08/30/24 10:03
Type+Screen Urgent
Complete Blood Count/With Diff Urgent
Comprehensive Metabolic Panel Urgent
08/30/24 11:17
PT/INR [Prothrombin Time] Urgent
08/30/24 11:25
Octreotide Acetate [Sandostatin] 600 mcg 0.9% Sodium Chloride 500 ml [Nss] 500 ml IV NOW
Pantoprazole [Protonix IV] 80 mg IV NOW STA
08/30/24 11:26
Blood Bank Products [* Blood Bank Products] Urgent
Blood Bank Products: *Packed RBC Leuko(PRBC's)
Quantity: 2
Transfuse Today: Yes
Reason: Bleeding
08/30/24 11:30
Pantoprazole 80 mg/100 ml Nss [Protonix] 80 mg in 100 ml IV Q10H
08/30/24 11:33
Octreotide [Sandostatin] 50 mcg IV NOW STA
Sterile Water [Sterile Water For Injection] 20 ml .ROUTE .STK-MED
08/30/24 11:34
Octreotide Acetate [Sandostatin] 600 mcg 0.9% Sodium Chloride 500 ml [Nss] 500 ml IV NOW
08/30/24 12:00
CefTRIAXone [Rocephin] 1,000 mg IV Q24H
Sterile Water [Sterile Water For Injection] 10 ml IV DAILY@NOON
08/30/24 12:05
Surgical Procedure As Directed
Surgical Procedure: EGD
08/30/24 12:06
Weight As Directed
Frequency: Daily
08/30/24 12:19
Admit/Transfer Patient As Directed
Co-Sign Provider:
Level of Care: Inpatient admission
Assign to:: IMU- Intermediate Care
Physician / Group: ibis lewis
Diagnosis: melana conc upper gi bleed, melena, sever anemia, ESTRELLITA
Reason for Hospitalization: melana conc upper gi bleed, melena, sever anemia, ESTRELLITA
Expected length of stay greater than two midnights?: Yes
ELOS- Estimated Length of Stay in days: 6
I certify the patient meets the requirements for IP care: Yes
Code Status As Directed
Resuscitation Status: Full Code
GASTROINTESTINAL CONSULT Routine
Consulting Provider: Sinai Montez
Was physician already notified: Yes
Reason for consult: gi bleed
08/30/24 12:26
Sterile Water [Sterile Water For Injection] 10 ml .ROUTE .STK-MED ONE
08/30/24 12:27
PRN Pain Medication Management As Directed
May give lesser potent ordered pain med per pt: Yes
preference::
Protocol:: Medication orders for pain may be administered in a
manner that supports deferring to patient preference
when the pt is:
- Requesting an ordered lesser potent pain medication.
Least to most potent pain medications are defined
as: acetaminophen < NSAID < tramadol < opioids
(morphine, oxycodone, hydromorphone).
- Requesting a lesser dose of the same medication IF
ORDERED.
- Requesting a less intrusive route of administration
if both routes are prescribed by the provider (PO <
IV).
08/30/24 22:00
CBC/No Diff [Complete Blood Count/No Diff] Routine
08/31/24 06:00
Basic Metabolic Panel IN AM
Complete Blood Count/No Diff IN AM
[id number] IN AM
Prothrombin Time IN AM
US Abdomen Complete/Upper IN AM
Comment:
Reason For Exam: eval for ascites
Abnormal Lab Results
08/30/24
10:03
RBC 1.79 L 10^6/uL
(4.20-5.40)
Hgb 5.0 L* g/dL
(12.0-16.0)
Hct 15.3 L* %
(37.0-47.0)
MCHC 32.7 L g/dL
(33.0-37.0)
RDW 16.6 H %
(11.5-14.5)
MPV 11.2 H fL
(7.4-10.4)
Monocytes % 9.7 H %
(1.7-9.3)
BUN 31 H mg/dl
(7-17)
Creatinine 1.9 H mg/dL
(0.6-1.0)
Total Bilirubin 1.5 H mg/dl
(0.2-1.3)
AST 97 H U/L
(14-36)
Alkaline Phosphatase 172 H U/L
(38-126)
Total Protein 5.8 L g/dl
(6.3-8.2)
Albumin 3.0 L g/dl
(3.5-5.0)
Crossmatch IS Only See Detail
08/30/24 10:03
08/30/24 10:03
Vital Signs
Initial and Last Documented VS:
Initial Vital Signs
Temp Pulse Resp BP Pulse Ox
98.3 F 76 16 120/50 98
08/30/24 09:51 08/30/24 09:51 08/30/24 09:51 08/30/24 09:51 08/30/24 09:51
Last Documented Vital Signs
Temp Pulse Resp BP Pulse Ox
97.9 F 75 12 98/50 94
08/30/24 12:08 08/30/24 13:15 08/30/24 13:15 08/30/24 13:00 08/30/24 13:15
MDM/Problems Addressed
Differential Diagnosis Includes:
Upper GI bleeding from gastric ulcer, gastritis, varices
MDM/Problems Addressed:
Patient presents with significant drop in hemoglobin as an outpatient. She is hemodynamically stable. She does have black stools suggesting upper GI bleed. Patient had a recent endoscopy which did show varices. Patient does have a history of
cirrhosis from alcohol. Patient is remarkably stable given her low hemoglobin. GI came quickly to the bedside to evaluate the patient. 2 units of blood ordered. Patient signed consent for blood.
Chronic conditions affecting care: Other (Cirrhosis, esophageal varices)
*Pulse Oximetry
Patient hypoxic: no
*EKG
Interpreted by ED Provider?: Yes
Interpretation: normal
Heart Rate: 79
Rate: normal
Rhythm: sinus
[place]inck[place]: normal axis
Interval: normal interval
QRS Pattern: normal QRS
Ischemia: non-specific ST changes
*Eeo Officer Interpretation
Rate: normal
Interpretation: normal
Rhythm: sinus
*Critical Care Note
Total Time (30-74mins, 75-104mins- exclusive of procedures): 33 min
comment:
Critical care statement: A total of 33 minutes of critical care time was provided for this patient. This includes management of unstable vital signs, evaluation of the patient at bedside, reviewing the patient�s pertinent medical records, discussion
with consultants, review of old EKGs and review of pertinent medical records. This time with separate from time utilized to perform the aforementioned documented procedures
ED Attending Note
-
Portions of this chart may have been created with voice recognition software.� Occasional wrong word or��sound alike� substitutions may have occurred due to the inherent limitations of voice recognition software.
Discharge Plan
Departure
Patient Disposition: Admit
Date of Disposition: 08/30/24
Time of Disposition: 11:35
Admit to: IMU
Presentation/result/management discussed w/ accepting MD/DO: Hospitalist
Condition: Serious
Discharge Problem:
Acute upper GI bleed, Cirrhosis
Interventions
Interventions:
*Risk Screen - Suicide Last Done: 08/30/24 09:51
*General Assessment Last Done: 08/30/24 11:15
*Neglect/Abuse Screening Last Done: 08/30/24 09:51
ED- Fall Risk Assessment Last Done: 08/30/24 11:15
*ED COVID-19 Vaccine History Last Done: 08/30/24 11:15
[2024-08-30] MEDS: PROTONIX 100 IV ×2 (11:39→22:28)
[2024-08-30] MEDS: PROTONIX IV 80 MG IV (11:40)
[2024-08-30] MEDS: SANDOSTATIN 50 MCG IV (11:47)
[2024-08-30] MEDS: SANDOSTATIN 500.6 MCG IV ×2 (11:59→22:28)
--- NOTE | 2024-08-30 12:14 | HPS.HSE ---
Addendum entered and electronically signed by Ciro Lopez MD 08/30/24 15:39:
I saw and examined the patient.
The [employer] or PA's note was reviewed and I agree with the note.
Comment:
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
08/09/2024 now presents after outpatient blood work showing hemoglobin of 4.8. Was informed by gastroenterology to arrive at the hospital. Admitted due to dark black stools yesterday and lightheadedness was associated with patient's symptoms.
Otherwise denies hematochezia, hematemesis, abdominal pain, palpitation, shortness of breath, chest pain. states mental status is at baseline. Remains afebrile, pulse 73, respiratory rate 22, blood pressure 104/55, saturating 97% on 2 L.
Hemoglobin in the ED was 5. Creatinine mildly jumped to 1.9 from 1.6 in July. LFTs chronically elevated.
Plan�transfused 2 units, repeat CBC every 12 hours. GI consulted. Continue PPI drip, octreotide drip, ceftriaxone. N.p.o. until after EGD. Resume home medications after EGD if cleared by GI. Ultrasound tomorrow to check for ascites. Follow-up
coags.
Original Note:
Family Physician
-
Family Physician: Erna Aragon
Chief Complaint
-
Anemia, black stools x 2 days
History of Present Illness
60-year-old female who had outpatient blood work showing hemoglobin of 4.8 however was 5 when she arrived in the emergency room. She was called by gastroenterology to come to the hospital for evaluation she did admit to 2 episodes of dark black
stools yesterday with some reported dizziness. She denies history of fevers, chills, nausea, vomiting, hematochezia, dysphagia, abdominal pain, chest pain, palpitations, cough, shortness of breath. She had 1 episode of mild epigastric pain while
in the ED which resolved. 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
08/09/2024 alcohol abuse previously sober relapsed April 2024 however sober since April 2024., Hepatic encephalopathy, fatty liver, GERD, orthostatic HTN/essential HTN, neuropathy, depression/anxiety/mood disorder, cecal AVMs, colon polyps,
chronic lower extremity edema.
Medical History
Past Medical History
Past Medical History: Reports Other
Additional Past Medical History:
Celiac disease
Alcohol abuse previously sober relapse April 2024 currently sober since April 2024
Alcoholic cirrhosis decompensated with Ascites-Last paracentesis 07/08/2024
Fatty liver
Esophageal varices
Portal hypertensive gastropathy
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
GERD
Mood disorder
Orthostatic HTN
Chronic lower extremity edema
Neuropathy
Depression
Anxiety
cecal AVMs
colon polyps
Osteoporosis
Past Surgical History: Reports Other
Additional Past Surgical History:
Hysterectomy
Social History
Tobacco: Smoker (1 quart a pack per day x 1 year prior 52 years 1 pack a day)
Alcohol: Former (Sober since April 2024)
Drug: None
Personal:
Living: With Family ( Kory)
Employment: Retired
Family History
Family History: Other (Both parents in 2021 mother history HTN, dementia, from COVID, father early dementia)
Allergies / Home Medications
Allergies reflects when Allergies were last updated in [facility].
Home Medications with original date entered in [facility]
Allergy/Medication List:
Allergies
Allergy/AdvReac Type Severity Reaction Status Date / Time
olmesartan [From Benicar] Allergy anemia Verified 08/30/24 09:54
Sulfa (Sulfonamide Allergy lip Verified 08/30/24 09:54
Antibiotics) Swelling
venlafaxine [From Effexor] Allergy Unknown Verified 08/30/24 09:54
Home Medications
loratadine 10 mg tablet 10 mg PO DAILYPRN PRN seasonal allergies 05/30/18
pregabalin 100 mg capsule 150 mg PO BID Pain 04/30/20
melatonin 3 mg tablet 3 mg PO HS 30 days #0 tabs 01/05/22
metoprolol succinate 50 mg tablet,extended release 24 hr 50 mg PO DAILY Blood Pressure 07/22/22
rosuvastatin 20 mg tablet 20 mg PO DAILY High Cholesterol 07/06/24
alendronate 10 mg tablet 10 mg PO BOCANEGRA osteoporosis 07/07/24
cholecalciferol (vitamin D3) 25 mcg (1,000 unit) tablet (Vitamin D3) 25 mcg PO DAILY Supplement 07/07/24
cyanocobalamin (vitamin B-12) 1,000 mcg tablet 1,000 mcg PO DAILY Supplement 07/07/24
diphenhydramine HCl 25 mg capsule (Benadryl) 25 mg PO HS Allergies 07/07/24
lactulose 10 gram/15 mL oral solution 20 g PO Q48H hepatic encephalopathy 07/07/24
furosemide 40 mg tablet (Lasix) 40 mg PO DAILY Gastrointestinal issue 1 month #30 tabs 07/11/24
midodrine 2.5 mg tablet 2.5 mg PO TID@0800,1300,1800 Blood pressure 1 month #90 tabs 07/11/24
pantoprazole 40 mg tablet,delayed release 40 mg PO BID Gastrointestinal issue 1 month #60 tabs 07/11/24
rifaximin 550 mg tablet (Xifaxan) 550 mg PO BID Gastrointestinal issue 1 month #60 tabs 07/11/24
escitalopram oxalate 10 mg tablet (Lexapro) 10 mg PO DAILY 08/30/24
Review of Systems
-
History Source: Patient and Family ( Kory at bedside)
A 12 point ROS was completed and negative except as noted: Yes
Constitutional: Denies Fever, Fatigue or Chills
EENT: Denies Sore Throat or Runny Nose
Respiratory: Denies Cough or Trouble Breathing
Cardiac: Denies Diaphoresis or Syncope
Abdomen/GI: Reports Abdominal Pain (1 episode of midepigastric pain while in ER) and Black Stools; Denies Nausea, Vomiting, Diarrhea, Constipated or Bloody Stools
: Denies Dysuria, Frequency, Flank Pain, Incontinence, Difficulty Voiding, Urgency or Dark Urine
Musculoskeletal: Reports Edema (+2 left lower extremity, +1 right lower extremity chronic for patient); Denies Joint Pain
Skin: Denies Itching or Rash
Neurological: Denies Dizzy, Headache or Weakness
Endocrine: Reports No Symptoms
Hematologic/Lymphatic: Reports No Symptoms
Psych: Reports Calm
Physical Exam
Vital Signs
Vital Signs
Temp Pulse Resp BP Pulse Ox
97.9 F 69 16 118/57 98
08/30/24 12:08 08/30/24 12:08 08/30/24 12:08 08/30/24 12:08 08/30/24 12:08
Physical Exam
General: Comfortable and Conversant; No Pain, Fever or Chills
HEENT: NormoCephalic, Anicteric, PERRLA, [place] Conjunctivae, No Ptosis and Other (Pale conjunctiva)
Respiratory: Clear; No Wheezes, Rales or Rhonchi
Cardiac: S1/S2, Regular Rhythm and Peripheral Edema (+2 left lower extremity, +1 right lower extremity chronic for patient); No Murmur, Rub or Gallop
Breast: Deferred by me
GI: Soft, Normal Bowel Sounds, Tender (Epigastric area) and Distended (Slight distention)
Rectal: Hem Positive (Black in ER)
Genito-urinary: Deferred by me
Musculoskeletal: No Clubbing, No Cyanosis, Edema, Left Lower Extremity (+2 chronic) and Edema, Right Lower Extremity (+1 chronic); No Edema, Left Upper Extremity or Edema, Right Upper Extremity
Skin: Warm and Dry; No Rash
Neuro: AO x 3, No Motor Deficits, Nonfocal/grossly intact, Cranial Nerves Intact and No Sensory Deficits; No Slurred Speech, Facial Droop, Tremors or Sedated
Psych: Calm
Laboratory Results
-
08/30/24 10:03
Laboratory Results
PT 14.6 Sec (11.4-14.6) 08/30/24 11:17
INR 1.08 08/30/24 11:17
Total Bilirubin 1.5 mg/dl (0.2-1.3) H 08/30/24 10:03
AST 97 U/L (14-36) H 08/30/24 10:03
ALT 29 U/L (0-35) 08/30/24 10:03
Alkaline Phosphatase 172 U/L (38-126) H 08/30/24 10:03
Impression/Plan
-
Impression/plan:
Admit to IMU
#Severe symptomatic anemia with melena concern GI bleed
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
#Esophageal varices
#Portal hypertensive gastropathy
Hgb 5, PLT 184
-Type and screen obtained, blood consent obtained in ER
-2 units PRBC
-N.p.o.
-IV PPI
-IV octreotide
-IV Rocephin 1 g x 5 days
-N.p.o. for EGD today
--May resume AFTER meds after EGD today
-Ultrasound abdomen complete
-H&H every 12 hours
-Follow CBC, CMP, check INR
#Ascites
#Alcoholic cirrhosis decompensated with Ascites-Last paracentesis 07/08/2024
Hx hepatic encephalopathy
-Plan for ultrasound tomorrow to check for ascites/fluid level 1 g x 5
-May continue lactulose 20 g p.o. every 48 H post EGD , check ammonia level per attending
-Continue Xifaxan 550 mg twice daily
#Orthostatic HTN
BP 118/57
-COnt metoprolol 50 mg daily with hold parameters
-Continue midodrine 2.5 mg
#CKD 3B
Creat 1.9 was 1.6 on 07/11/2024
-Patient follows with Dr. Yen
#Alcohol abuse previously sober relapse April 2024 currently -sober since April 2024
-No current concern for MSAs screen with protocol
-May resume B12 post EGD
#Fatty liver
#Nicotine abuse
07/07 pack/day x 1 year prior 52 years 1 pack/day
-Cessation advised
#GERD
-IV PPI drip
#Celiac disease hx
-When able to resume diet will place celiac diet
#Depression/anxiety
#Mood disorder
-Continue Lexapro 10 mg daily
#Chronic lower extremity edema
-Continue 40 mg Lasix
#Neuropathy
-Lyrica 150 mg twice daily
#HLD
cont Crestor 20 mg daily
Other PMH:
cecal AVMs
colon polyps
Osteoporosis-patient takes alendronate 10 mg p.o. Sundays, vitamin D3 25 mcg p.o. daily
DVT prophylaxis
-SCDs
Full code
[2024-08-30] MEDS: STERILE WATER FOR INJECTION 10 ML IV (12:27)
[2024-08-30] MEDS: ROCEPHIN 1000 MG IV (12:27)
[2024-08-30 16:47] LABS: Ammonia < 9 umol/L (9-30)
--- NOTE | 2024-08-30 19:51 | PTCARENOTE ---
Received phone call from PT's , very upset cursing and yelling at this nurse regarding why no doctor has called him, with results and plan of action regarding his , I explained multiple times that is is doing fine and stable,
however nurses can not give results out as its out of our scope of practice, verona cursed this nurse out and hung up on this nurse, deuce texted doctor asking if he could please call
[2024-08-30] MEDS: ProAmatine PO (20:09)
[2024-08-30] MEDS: XIFAXAN 550 MG PO (22:16)
[2024-08-30] MEDS: BENADRYL 25 MG PO (22:16)
[2024-08-30] MEDS: MELATONIN 3 MG PO (22:17)
[2024-08-30 22:52] LABS: Hematocrit 23.2 % (37.0-47.0); Hemoglobin 7.9 g/dL (12.0-16.0); Mean Corp Hgb Conc. 34.1 g/dL (33.0-37.0); Mean Corpuscular Hgb 28.9 pg (27.0-31.0); Mean Platelet Volume 11.5 fL (7.4-10.4); Platelet Count 156 10^3/uL (130-400); Red Blood Cell Count 2.73 10^6/uL (4.20-5.40); Red Cell Dist. Width 15.1 % (11.5-14.5); White Blood Cell Count 7.8 10^3/uL (4.8-10.8)
[2024-08-31] VITALS (12 sets, daily range): BP systolic 100–127; BP diastolic 48–80
[2024-08-31 06:11] LABS: INR 1.24; PT 16.2 Sec (11.4-14.6)
[2024-08-31 06:28] LABS: Hematocrit 21.4 % (37.0-47.0); Hemoglobin 7.3 g/dL (12.0-16.0); Mean Corp Hgb Conc. 34.1 g/dL (33.0-37.0); Mean Corpuscular Hgb 29.2 pg (27.0-31.0); Mean Corpuscular Volume 85.6 fL (81.0-99.0); Mean Platelet Volume 11.3 fL (7.4-10.4); Platelet Count 144 10^3/uL (130-400); Red Cell Dist. Width 15.2 % (11.5-14.5)
--- NOTE | 2024-08-31 06:49 | PTCARENOTE ---
Received patient from PACU on octreotide and protonix gtt. 3 liters NC. hgb rechecked at 2230 and 7.9. Patient sent with outstanding TAR to be completed. White sheet sent to blood bank.
[2024-08-31 07:11] LABS: ALT (SGPT) 33 U/L (0-35); AST (SGOT) 147 U/L (14-36); Albumin 2.6 g/dl (3.5-5.0); Alkaline Phosphatase 150 U/L (38-126); Blood Urea Nitrogen 28 mg/dl (7-17); Calcium 8.1 mg/dl (8.4-10.2); Carbon Dioxide 22 mmol/L (22-30); Chloride 108 mmol/L (98-107); Direct Bilirubin 0.6 mg/dl (0.0-0.4); Estimated Creatinine Clearance 25 ml/min; Glucose 111 mg/dl (70-99); Potassium 4.2 mmol/L (3.5-5.1); Sodium 137 mmol/L (135-145); Total Bilirubin 2.3 mg/dl (0.2-1.3); Total Protein 5.1 g/dl (6.3-8.2); eGFR 32.46
--- NOTE | 2024-08-31 08:01 | EDRN ---
Unit of blood started in the ED using the TAR on 08/30/2024. Patient was transferred to the GI LAB with blood transfusing. Unit Issue/ Transfusion form provided upon hand-off of care from ED to GI LAB. Unit of PRBC's completed on transfusion form
while in the GI LAB. TAR documentation completed by this RN with use of completed Transfusion Form provided by blood bank.
--- NOTE | 2024-08-31 08:15 | VNURNOTE ---
Chart reviewed. Patient is current with [facility] nursing. Will continue to follow hospital course and DC plans.
[2024-08-31] MEDS: SANDOSTATIN 500.6 MCG IV ×2 (09:57→21:47)
[2024-08-31] MEDS: LASIX PO ×2 (09:59→10:01)
[2024-08-31] MEDS: DUPHALAC/CHRONULAC 20 GRAMS PO (09:59)
[2024-08-31] MEDS: VITAMIN D3 (cholecalciferol) 25 MCG PO (09:59)
[2024-08-31] MEDS: LYRICA 150 MG PO (09:59)
[2024-08-31] MEDS: ProAmatine 2.5 MG PO ×3 (09:59→18:33)
[2024-08-31] MEDS: XIFAXAN 550 MG PO ×2 (09:59→19:41)
[2024-08-31] MEDS: TOPROL XL 50 MG PO (09:59)
[2024-08-31] MEDS: VITAMIN B-12 1000 MCG PO (09:59)
[2024-08-31] MEDS: CRESTOR 20 MG PO (09:59)
[2024-08-31] MEDS: LEXAPRO 10 MG PO (10:00)
[2024-08-31] MEDS: PROTONIX 100 IV (10:36)
[2024-08-31 11:25] LABS: Hemoglobin 7.6 g/dL (12.0-16.0)
[2024-08-31] MEDS: STERILE WATER FOR INJECTION 10 ML IV (12:50)
[2024-08-31] MEDS: ROCEPHIN 1000 MG IV (12:50)
--- NOTE | 2024-08-31 15:30 | W.PN.GI.CBS2 ---
Today's Communication / Plan
-
Full liquid diet
Monitor H&H
Assessment / Plan
-
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
(previously sober) but relapse April 2024 however sober again. GERD, hypertension, neuropathy, depression, cecal AVMs, colon polyps, lower extremity edema who was sent into the emergency room by myself this morning for outpatient labs showing
hemoglobin less than 4.8. I called her this morning and she states that she had 2 episodes of melena yesterday with some dizziness. She was brought to the emergency room by her for further evaluation. This confirmed a hemoglobin of 5.0.
Currently at this time 3 IV lines have been placed. 1 for transfusion of blood products, the other for Protonix bolus and drip, the other for octreotide bolus and drip. Patient remains NPO. She did not take any of her home medications this
morning. Plan is for EGD today after blood products have been transfused. Patient typed crossed screened and blood consent has been signed. Patient's vital signs are stable. Patient's home medications include pantoprazole 40 mg twice a day,
Lasix 40 mg daily, lactulose 20 grams every other day, midodrine 2.5 mg 3 times a day, Xifaxan 550 mg twice a day, metoprolol succinate ER 50 mg daily from a GI perspective.
Impression:
Melena / Severe anemia ( hb 5 )
History of grade 1 varices
History of portal hypertensive gastropathy
History of GAVE
Decompensated alcoholic cirrhosis with ascites (now sober), last paracentesis 07/08/2024
Celiac disease
History of adenomatous polyps due for repeat colonoscopy in December
ESTRELLITA --> patient was supposed to see Dr. Yen as outpatient
EGD 08/30/2024 Dr. Montez
Impression: - Grade I esophageal varices with no bleeding and no
stigmata of recent bleeding.
- Portal hypertensive gastropathy.
- Gastric antral vascular ectasia with
bleeding/oozing. Treated with argon plasma coagulation
(APC).
- A single non-bleeding angioectasia in the duodenum.
Plan:
-Hb stable this a.m. No further bleeding. Okay to advance to full liquid diet
-Will discontinue octreotide.
-Protonix 40 mg twice daily
-Continue antibiotics for total of 5 days
-Ultrasound abdomen-small volume ascites
-Patient is currently on Lasix 40 mg daily. Continue monitor renal function. Recommend nephrology eval while in the hospital
-Follow-up with GI/ hepatology as outpatient on discharge
Total Time Spent with Patient (in minutes): 35
Subjective
Subjective
Date of Service: August 31, 2024
Denies any GI bleeding
Objective
Data Reviewed
Laboratory Data:
Laboratory Results
08/31/24 05:43
Laboratory Results
PT 16.2 Sec (11.4-14.6) H 08/31/24 05:43
INR 1.24 08/31/24 05:43
Total Bilirubin 2.3 mg/dl (0.2-1.3) H D 08/31/24 05:43
AST 147 U/L (14-36) H 08/31/24 05:43
ALT 33 U/L (0-35) 08/31/24 05:43
Alkaline Phosphatase 150 U/L (38-126) H 08/31/24 05:43
Vital Signs and I&O:
Vital Signs
Temp Pulse Resp BP Pulse Ox
98.3 F 71 13 110/62 94
08/31/24 11:19 08/31/24 14:00 08/31/24 14:00 08/31/24 14:00 08/31/24 15:09
I&O
0208/31/24 09/01/24
06:59 06:59 06:59
Intake Total 500 / 500
Balance 500 / 500
Physical Exam
Physical Exam
GI: Soft, Non Distended and Non Tender
--- NOTE | 2024-08-31 15:39 | CM ---
Initial assessment and CM consult completed at bedside
Pharmacy verified: [facility] @ [address] [place]
Patient lives with spouse in [place] w/basement home; 2 steps to enter; railing present; does not go down to basement; bath has tub w/ shower and grab bar
PLOF: reported she is independent with personal care and ADLs; uses a [employer] PRN when ambulating; drives
History of SNF utilization @ [facility] (2022) and [facility] (unable to provide year); and home health w/ [facility] (2018)
DME: has an oxygen concentrator and portable O2 tank but does not use them; pulse oximeter
will transport home
Discharge plan to be determined pending hospital course; CM will monitor for needs
--- NOTE | 2024-08-31 17:00 | PTCARENOTE ---
Pt's assessment as documented. NSR on tele monitor. Sating mid 90's on 3LNC. To and from US via stretcher. updated via phone. Able to make needs known, call ko within reach.
--- NOTE | 2024-08-31 17:43 | W.PN.HOSP.TC ---
Today's Communication/Plan
-
fld
monitor hgb
Assessment / Plan
Assessment / Plan
Physical Exam
General: Comfortable and Conversant; No Pain, Fever or Chills
HEENT: NormoCephalic, Anicteric, PERRLA, [place] Conjunctivae, No Ptosis and Other (Pale conjunctiva)
Respiratory: Clear; No Wheezes, Rales or Rhonchi
Cardiac: S1/S2, Regular Rhythm and Peripheral Edema (+2 left lower extremity, +1 right lower extremity chronic for patient); No Murmur, Rub or Gallop
Breast: Deferred by me
GI: Soft, Normal Bowel Sounds, Tender (Epigastric area) and Distended (Slight distention)
Rectal: Hem Positive (Black in ER)
Genito-urinary: Deferred by me
Musculoskeletal: No Clubbing, No Cyanosis, Edema, Left Lower Extremity (+2 chronic) and Edema, Right Lower Extremity (+1 chronic); No Edema, Left Upper Extremity or Edema, Right Upper Extremity
Skin: Warm and Dry; No Rash
Neuro: AO x 3, No Motor Deficits, Nonfocal/grossly intact, Cranial Nerves Intact and No Sensory Deficits; No Slurred Speech, Facial Droop, Tremors or Sedated
Psych: Calm
# Melena
#Acute blood loss anemia
#History of portal hypertensive gastropathy
#History of GAVE
Status post 2 units PRBC
�Grade I esophageal varices with no bleeding and no stigmata of recent bleeding
- Gastric antral vascular ectasia with bleeding/oozing. Treated with argon plasma coagulation (APC).
-tolerated CLD, adv to FLD
- monitor hgb
-PPI BID
- abx - 5 days
- dc octreotide
-Ultrasound abdomen-small volume ascites
#Ascites
#Alcoholic cirrhosis decompensated with Ascites-Last paracentesis 07/08/2024
Hx hepatic encephalopathy
-May continue lactulose 20 g p.o. every 48 H post EGD , check ammonia level per attending
-Continue Xifaxan 550 mg twice daily
-lasix
#Orthostatic HTN
-2/2 to bleed probable
--COnt metoprolol 50 mg daily with hold parameters
-Continue midodrine 2.5 mg ,
#CKD 3B
Creat 1.9 was 1.6 on 07/11/2024
-Patient follows with Dr. Yen
#Alcohol abuse previously sober relapse April 2024 currently -sober since April 2024
-No current concern for MSAs screen with protocol
-May resume B12 post EGD
#Fatty liver
# Transaminitis
-see plan above
#Nicotine abuse
07/07 pack/day x 1 year prior 52 years 1 pack/day
-Cessation advised
#GERD
-PPI
#Celiac disease hx
-When able to resume diet will place celiac diet
#Depression/anxiety
#Mood disorder
-Continue Lexapro 10 mg daily
#Chronic lower extremity edema
-Continue 40 mg Lasix
#Neuropathy
-Lyrica 150 mg twice daily
#HLD
cont Crestor 20 mg daily
Other PMH:
cecal AVMs
colon polyps
Osteoporosis-patient takes alendronate 10 mg p.o. Sundays, vitamin D3 25 mcg p.o. daily
DVT prophylaxis
-SCDs
Full code
Anticipated Discharge: 24 - 48 hours
Subjective/Interval History
-
Date of Service: August 31, 2024
ful lliquid diet, apc yest
Objective Data
-
Labs:
Laboratory Results
08/31/24 08/31/24
05:43 11:02
WBC 6.0
Hgb 7.3 L 7.6 L
Hct 21.4 L 23.0 L
Plt Count 144
PT 16.2 H
INR 1.24
Sodium 137
Potassium 4.2
Chloride 108 H
Carbon Dioxide 22
BUN 28 H
Creatinine 1.7 H
Glucose 111 H
Calcium 8.1 L
Total Bilirubin 2.3 H D
AST 147 H
ALT 33
Alkaline Phosphatase 150 H
Vital Signs:
Vital Signs
Temp Pulse Resp BP Pulse Ox
99.2 F 71 13 110/62 94
08/31/24 15:53 08/31/24 14:00 08/31/24 14:00 08/31/24 14:00 08/31/24 15:09
I&O
08/30/24 08/31/24 09/01/24
06:59 06:59 06:59
Intake Total 500 / 500
Balance 500 / 500
Review of Systems
-
History Source: Patient
All other systems: Not reviewed unless documented
Physical Exam
-
General: Well Developed, No Apparent Distress, Comfortable, Appears Chronically Ill and Other (Thin)
HEENT: Normocephalic, Atraumatic, Moist Mucous Membranes and Anicteric
Respiratory: Clear to Auscultation and Non Labored Respirations
Cardiac: Regular Rhythm and S1/S2; Negative Murmur, Rub or Gallop
GI: Soft, Nontender, Nondistended, Normal Bowel Sounds and No Hepatosplenomegaly
Musculoskeletal: No Clubbing, No Cyanosis and No Edema
Skin: Warm, Dry, Normal Turgor and Other (Spider angioma); Negative Rash
Neuro: AO x 3 and Nonfocal/Grossly Intact; Negative Tremors
Psych: Calm
Data Reviewed
-
Ultrasound: Report Reviewed by me
Medical Tests (Nuc Med, Echo etc): Report Reviewed by me
Labs: Labs Reviewed by me
[2024-08-31] MEDS: PROTONIX IV 40 MG IV (19:41)
[2024-08-31] MEDS: NSS (PRESERVATIVE FREE) 10 ML IV (19:41)
[2024-08-31] MEDS: MELATONIN 3 MG PO (21:47)
[2024-08-31] MEDS: BENADRYL 25 MG PO (21:47)
[2024-08-31 23:18] LABS: Hemoglobin 7.9 g/dL (12.0-16.0)
--- NOTE | 2024-08-31 23:46 | PTCARENOTE ---
Received pt from [facility]. Pt aaox3, forgetful at times, able to make needs known. Repeat hgb 7.9. No signs of active bleeding. BP stable. Current BP 127/59, HR 77. SaO2 91% on 4LNC. Lungs diminished with scattered crackles. Call ko within
reach. Resting comfortably in bed at this time. Care ongoing.
[2024-09-01] VITALS (10 sets, daily range): BP systolic 110–136; BP diastolic 50–62; BMI 20.4
[2024-09-01 05:21] LABS: Hematocrit 24.2 % (37.0-47.0); Hemoglobin 7.9 g/dL (12.0-16.0); Mean Corp Hgb Conc. 32.6 g/dL (33.0-37.0); Mean Platelet Volume 11.9 fL (7.4-10.4); Platelet Count 159 10^3/uL (130-400); Red Blood Cell Count 2.72 10^6/uL (4.20-5.40); White Blood Cell Count 8.7 10^3/uL (4.8-10.8)
[2024-09-01 05:43] LABS: ALT (SGPT) 33 U/L (0-35); AST (SGOT) 133 U/L (14-36); Albumin 2.6 g/dl (3.5-5.0); Alkaline Phosphatase 146 U/L (38-126); Blood Urea Nitrogen 21 mg/dl (7-17); Calcium 7.9 mg/dl (8.4-10.2); Carbon Dioxide 20 mmol/L (22-30); Chloride 109 mmol/L (98-107); Estimated Creatinine Clearance 27 ml/min; Glucose 106 mg/dl (70-99); Potassium 4.1 mmol/L (3.5-5.1); Sodium 136 mmol/L (135-145); Total Bilirubin 1.4 mg/dl (0.2-1.3); Total Protein 5.2 g/dl (6.3-8.2); eGFR 34.91
[2024-09-01] MEDS: VITAMIN D3 (cholecalciferol) 25 MCG PO (09:28)
[2024-09-01] MEDS: ProAmatine 2.5 MG PO ×3 (09:28→17:49)
[2024-09-01] MEDS: CRESTOR 20 MG PO (09:28)
[2024-09-01] MEDS: XIFAXAN 550 MG PO ×2 (09:28→20:46)
[2024-09-01] MEDS: TOPROL XL 50 MG PO (09:29)
[2024-09-01] MEDS: LASIX 40 MG PO (09:29)
[2024-09-01] MEDS: LYRICA 150 MG PO (09:29)
[2024-09-01] MEDS: LEXAPRO 10 MG PO (09:29)
[2024-09-01] MEDS: VITAMIN B-12 1000 MCG PO (09:29)
[2024-09-01] MEDS: NSS (PRESERVATIVE FREE) 10 ML IV ×2 (09:29→20:46)
[2024-09-01] MEDS: PROTONIX IV 40 MG IV ×2 (09:30→20:46)
--- NOTE | 2024-09-01 11:28 | CM ---
Patient with Dx Melena, Acute blood loss anemia, ascites. O2 4L. Receiving IV Abx.
Patient states she has been renting an O2 concentrator and portable tanks through [employer], however she has not used O2 in years. Patient states she is unsure how many liters she was on and unsure how to use the O2 again- CM agrees to contact
[employer] prior to d/c if O2 needed. Patient wishes to resume [facility] at home.
Plan watch for home O2 needs.
Plan CM may need to contact [employer] to re-setup her home O2.
Plan home with possible O2 and resumption [facility].
[2024-09-01 12:01] LABS: COVID-19 Antigen Negative (Negative)
[2024-09-01] MEDS: ROCEPHIN 1000 MG IV (12:17)
[2024-09-01] MEDS: STERILE WATER FOR INJECTION 10 ML IV (12:17)
--- NOTE | 2024-09-01 13:47 | W.PN.GI.CBS2 ---
Today's Communication / Plan
-
Advance diet
Follow-up with GI ( ) as outpatient
Assessment / Plan
-
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
(previously sober) but relapse April 2024 however sober again. GERD, hypertension, neuropathy, depression, cecal AVMs, colon polyps, lower extremity edema who was sent into the emergency room by myself this morning for outpatient labs showing
hemoglobin less than 4.8. I called her this morning and she states that she had 2 episodes of melena yesterday with some dizziness. She was brought to the emergency room by her for further evaluation. This confirmed a hemoglobin of 5.0.
Currently at this time 3 IV lines have been placed. 1 for transfusion of blood products, the other for Protonix bolus and drip, the other for octreotide bolus and drip. Patient remains NPO. She did not take any of her home medications this
morning. Plan is for EGD today after blood products have been transfused. Patient typed crossed screened and blood consent has been signed. Patient's vital signs are stable. Patient's home medications include pantoprazole 40 mg twice a day,
Lasix 40 mg daily, lactulose 20 grams every other day, midodrine 2.5 mg 3 times a day, Xifaxan 550 mg twice a day, metoprolol succinate ER 50 mg daily from a GI perspective.
Impression:
Melena / Severe anemia ( hb 5 )
History of grade 1 varices
History of portal hypertensive gastropathy
History of GAVE
Decompensated alcoholic cirrhosis with ascites (now sober since 04/2024), last paracentesis 07/08/2024
Celiac disease
History of adenomatous polyps due for repeat colonoscopy in December
ESTRELLITA --> patient was supposed to see Dr. Yen as outpatient
EGD 08/30/2024 Dr. Montez
Impression: - Grade I esophageal varices with no bleeding and no
stigmata of recent bleeding.
- Portal hypertensive gastropathy.
- Gastric antral vascular ectasia with
bleeding/oozing. Treated with argon plasma coagulation
(APC).
- A single non-bleeding angioectasia in the duodenum.
Plan:
-Hb stable this a.m. No further bleeding. Okay to advance to low residual diet
-Protonix 40 mg twice daily
-Continue antibiotics for total of 5 days
-Continue Xifaxan /lactulose
-Ultrasound abdomen-small volume ascites . Patient is currently on Lasix 40 mg daily. Continue monitor renal function- stable. Discussed with medical team-they will arrange follow-up with aquarist as outpatient on discharge.
- No further recommendation at this point. Follow-up with Dr. Vaca as outpatient-message sent to the office. Will sign off.
Total Time Spent with Patient (in minutes): 35
Subjective
Subjective
Date of Service: September 01, 2024
Denies any GI bleeding. Tolerating liquid diet
Objective
Data Reviewed
Laboratory Data:
Laboratory Results
09/01/24 22:00
09/01/24 04:19
Laboratory Results
PT 16.2 Sec (11.4-14.6) H 08/31/24 05:43
INR 1.24 08/31/24 05:43
Total Bilirubin 1.4 mg/dl (0.2-1.3) H 09/01/24 04:19
AST 133 U/L (14-36) H 09/01/24 04:19
ALT 33 U/L (0-35) 09/01/24 04:19
Alkaline Phosphatase 146 U/L (38-126) H 09/01/24 04:19
Vital Signs and I&O:
Vital Signs
Temp Pulse Resp BP Pulse Ox
100.0 F 73 19 123/57 95
09/01/24 11:37 09/01/24 12:17 09/01/24 10:00 09/01/24 12:17 09/01/24 10:00
I&O
08/31/24 09/01/24 09/02/24
06:59 06:59 06:59
Intake Total 500 / 500
Balance 500 / 500
Physical Exam
Physical Exam
GI: Non Distended and Non Tender
--- NOTE | 2024-09-01 14:14 | W.PN.HOSP.TC ---
Today's Communication/Plan
-
LRD
CXR
add probnp
abx
Assessment / Plan
Assessment / Plan
Physical Exam
General: Comfortable and Conversant; No Pain, Fever or Chills
HEENT: NormoCephalic, Anicteric, PERRLA, [place] Conjunctivae, No Ptosis and Other (Pale conjunctiva)
Respiratory: Clear; No Wheezes, Rales or Rhonchi
Cardiac: S1/S2, Regular Rhythm and Peripheral Edema (+2 left lower extremity, +1 right lower extremity chronic for patient); No Murmur, Rub or Gallop
Breast: Deferred by me
GI: Soft, Normal Bowel Sounds, Tender (Epigastric area) and Distended (Slight distention)
Rectal: Hem Positive (Black in ER)
Genito-urinary: Deferred by me
Musculoskeletal: No Clubbing, No Cyanosis, Edema, Left Lower Extremity (+2 chronic) and Edema, Right Lower Extremity (+1 chronic); No Edema, Left Upper Extremity or Edema, Right Upper Extremity
Skin: Warm and Dry; No Rash
Neuro: AO x 3, No Motor Deficits, Nonfocal/grossly intact, Cranial Nerves Intact and No Sensory Deficits; No Slurred Speech, Facial Droop, Tremors or Sedated
Psych: Calm
# Melena
#Acute blood loss anemia
#History of portal hypertensive gastropathy
#History of GAVE
Status post 2 units PRBC
�Grade I esophageal varices with no bleeding and no stigmata of recent bleeding
- Gastric antral vascular ectasia with bleeding/oozing. Treated with argon plasma coagulation (APC).
-Advance to low residue diet
- monitor hgb
-PPI BID
- abx - 5 days
- dc octreotide
-Ultrasound abdomen-small volume ascites
#Ascites
#Alcoholic cirrhosis decompensated with Ascites-Last paracentesis 07/08/2024
Hx hepatic encephalopathy
-May continue lactulose 20 g p.o. every 48 H post EGD , check ammonia level per attending
-Continue Xifaxan 550 mg twice daily
-lasix
#Orthostatic HTN
-2/2 to bleed probable
--COnt metoprolol 50 mg daily with hold parameters
-Continue midodrine 2.5 mg , ,
#CKD 3B
Creat 1.9 was 1.6 on 07/11/2024
-Patient follows with Dr. Yen
�Can follow-up outpatient
#Hypoxia
� New although had O2 question time ago that she has not been using for a while
�Follow-up x-ray
� Wean O2 as tolerated
#Alcohol abuse previously sober relapse April 2024 currently -sober since April 2024
-No current concern for MSAs screen with protocol
-May resume B12 post EGD
#Fatty liver
# Transaminitis
-see plan above
#Nicotine abuse
1/4 pack/day x 1 year prior 52 years 1 pack/day
-Cessation advised
#GERD
-PPI
#Celiac disease hx
-When able to resume diet will place celiac diet
#Depression/anxiety
#Mood disorder
-Continue Lexapro 10 mg daily
#Chronic lower extremity edema
-Continue 40 mg Lasix
#Neuropathy
-Lyrica 150 mg twice daily
#HLD
cont Crestor 20 mg daily
Other PMH:
cecal AVMs
colon polyps
Osteoporosis-patient takes alendronate 10 mg p.o. Sundays, vitamin D3 25 mcg p.o. daily
DVT prophylaxis
-SCDs
Full code
Anticipated Discharge: 24 - 48 hours
Subjective/Interval History
-
Date of Service: September 01, 2024
Tolerating diet, advancing
Objective Data
-
Labs:
Laboratory Results
09/01/24 09/01/24 09/01/24
04:19 10:00 22:00
WBC 8.7
Hgb 7.9 L Cancelled Cancelled
Hct 24.2 L Cancelled Cancelled
Plt Count 159
Sodium 136
Potassium 4.1
Chloride 109 H
Carbon Dioxide 20 L
BUN 21 H
Creatinine 1.6 H
Glucose 106 H
Calcium 7.9 L
Total Bilirubin 1.4 H
AST 133 H
ALT 33
Alkaline Phosphatase 146 H
Vital Signs:
Vital Signs
Temp Pulse Resp BP Pulse Ox
100.0 F 73 19 123/57 95
09/01/24 11:37 09/01/24 12:17 09/01/24 10:00 09/01/24 12:17 09/01/24 10:00
I&O
08/31/24 09/01/24 09/02/24
06:59 06:59 06:59
Intake Total 500 / 500
Balance 500 / 500
Review of Systems
-
History Source: Patient
All other systems: Not reviewed unless documented
Data Reviewed
-
Ultrasound: Report Reviewed by me
Medical Tests (Nuc Med, Echo etc): Report Reviewed by me
Labs: Labs Reviewed by me
--- NOTE | 2024-09-01 16:23 | PTCARENOTE ---
Report given to Miles Crocker. Pt taken byt PCT to CXR then new room 317-1.
[2024-09-01 16:32] LABS: NT-proBNP 4320 pg/ml
[2024-09-01] MEDS: TYLENOL 650 MG PO (17:49)
[2024-09-01] MEDS: BENADRYL 25 MG PO (20:46)
[2024-09-01] MEDS: MELATONIN 3 MG PO (20:46)
[2024-09-01] MEDS: FLUSH (NSS) 1 FLUSH IV (20:47)
[2024-09-02 03:34] VITALS: BP 117/54
[2024-09-02 06:00] VITALS: BMI 20.8
[2024-09-02] MEDS: DUPHALAC/CHRONULAC 20 GRAMS PO (08:05)
[2024-09-02 08:06] LABS: Hematocrit 23.3 % (37.0-47.0); Hemoglobin 7.7 g/dL (12.0-16.0); Mean Corpuscular Hgb 29.4 pg (27.0-31.0); Mean Corpuscular Volume 88.9 fL (81.0-99.0); Mean Platelet Volume 11.9 fL (7.4-10.4); Platelet Count 147 10^3/uL (130-400); Red Blood Cell Count 2.62 10^6/uL (4.20-5.40); Red Cell Dist. Width 16.7 % (11.5-14.5); White Blood Cell Count 8.2 10^3/uL (4.8-10.8)
[2024-09-02] MEDS: XIFAXAN 550 MG PO ×2 (08:06→20:00)
[2024-09-02] MEDS: NSS (PRESERVATIVE FREE) 10 ML IV ×2 (08:06→19:59)
[2024-09-02] MEDS: LYRICA 150 MG PO (08:06)
[2024-09-02] MEDS: VITAMIN D3 (cholecalciferol) 25 MCG PO (08:06)
[2024-09-02] MEDS: CRESTOR 20 MG PO (08:06)
[2024-09-02] MEDS: LASIX 40 MG PO (08:06)
[2024-09-02] MEDS: VITAMIN B-12 1000 MCG PO (08:06)
[2024-09-02] MEDS: TOPROL XL 50 MG PO (08:06)
[2024-09-02] MEDS: ProAmatine 2.5 MG PO ×3 (08:06→17:03)
[2024-09-02] MEDS: PROTONIX IV 40 MG IV ×2 (08:07→19:59)
[2024-09-02] MEDS: LEXAPRO 10 MG PO (08:07)
[2024-09-02] MEDS: FLUSH (NSS) 2 FLUSH IV (08:09)
[2024-09-02 08:25] LABS: ALT (SGPT) 28 U/L (0-35); AST (SGOT) 66 U/L (14-36); Albumin 2.5 g/dl (3.5-5.0); Alkaline Phosphatase 155 U/L (38-126); Blood Urea Nitrogen 22 mg/dl (7-17); Calcium 7.7 mg/dl (8.4-10.2); Carbon Dioxide 22 mmol/L (22-30); Chloride 106 mmol/L (98-107); Estimated Creatinine Clearance 27 ml/min; Glucose 112 mg/dl (70-99); Potassium 3.7 mmol/L (3.5-5.1); Sodium 136 mmol/L (135-145); Total Bilirubin 1.2 mg/dl (0.2-1.3); Total Protein 5.2 g/dl (6.3-8.2); eGFR 34.91
[2024-09-02 08:26] VITALS: BP 119/60
[2024-09-02] MEDS: ROCEPHIN 1000 MG IV (12:02)
[2024-09-02] MEDS: STERILE WATER FOR INJECTION 10 ML IV (12:03)
[2024-09-02] MEDS: FLUSH (NSS) 1 FLUSH IV (12:04)
[2024-09-02 12:54] VITALS: BP 114/52
--- NOTE | 2024-09-02 13:19 | W.PN.HOSP.TC ---
Today's Communication/Plan
-
F/u Cultures
monitor fever curve, wbc
Duonebs
o2
Assessment / Plan
Assessment / Plan
Physical Exam
General: Comfortable and Conversant; No Pain, Fever or Chills
HEENT: NormoCephalic, Anicteric, PERRLA, [place] Conjunctivae, No Ptosis and Other (Pale conjunctiva)
Respiratory: Clear; No Wheezes, Rales or Rhonchi
Cardiac: S1/S2, Regular Rhythm and Peripheral Edema (+2 left lower extremity, +1 right lower extremity chronic for patient); No Murmur, Rub or Gallop
Breast: Deferred by me
GI: Soft, Normal Bowel Sounds, Tender (Epigastric area) and Distended (Slight distention)
Rectal: Hem Positive (Black in ER)
Genito-urinary: Deferred by me
Musculoskeletal: No Clubbing, No Cyanosis, Edema, Left Lower Extremity (+2 chronic) and Edema, Right Lower Extremity (+1 chronic); No Edema, Left Upper Extremity or Edema, Right Upper Extremity
Skin: Warm and Dry; No Rash
Neuro: AO x 3, No Motor Deficits, Nonfocal/grossly intact, Cranial Nerves Intact and No Sensory Deficits; No Slurred Speech, Facial Droop, Tremors or Sedated
Psych: Calm
# Melena
#Acute blood loss anemia
#History of portal hypertensive gastropathy
#History of GAVE
Status post 2 units PRBC
�Grade I esophageal varices with no bleeding and no stigmata of recent bleeding
- Gastric antral vascular ectasia with bleeding/oozing. Treated with argon plasma coagulation (APC).
-Advance to low residue diet
- monitor hgb
-PPI BID
- abx - 5 days
- dc octreotide
-Ultrasound abdomen-small volume ascites
#febrile episode
-unclear etiology
-f/u blood cultures
-no urinary symptoms
- Flu and COVID neg
-with hypoxia and cxr findings - f/u ct chest
#Ascites
#Alcoholic cirrhosis decompensated with Ascites-Last paracentesis 07/08/2024
Hx hepatic encephalopathy
-May continue lactulose 20 g p.o. every 48 H post EGD , check ammonia level per attending
-Continue Xifaxan 550 mg twice daily
-lasix
#Orthostatic HTN
-2/2 to bleed probable
--Cont metoprolol 50 mg daily with hold parameters
-Continue midodrine 2.5 mg , ,
#CKD 3B
Creat 1.9 was 1.6 on 07/11/2024
-Patient follows with Dr. Yen
�Can follow-up outpatient
#Hypoxia
#Tobacco use
#Probable COPD and COPD exacerbation
-1/4 pack/day x 1 year prior 52 years 1 pack/day
-No official dx of COPD
- Duonebs
-wean o2 as tolerated, on 2L
-will likely go on o2 and should be dced on Spiriva and albuterol prn
-cessation advised
#Alcohol abuse previously sober relapse April 2024 currently -sober since April 2024
-No current concern for MSAs screen with protocol
-May resume B12 post EGD
#Fatty liver
# Transaminitis
-see plan above
#GERD
-PPI
#Celiac disease hx
-When able to resume diet will place celiac diet
#Depression/anxiety
#Mood disorder
-Continue Lexapro 10 mg daily
#Chronic lower extremity edema
-Continue 40 mg Lasix
#Neuropathy
-Lyrica 150 mg twice daily
#HLD
cont Crestor 20 mg daily
Other PMH:
cecal AVMs
colon polyps
Osteoporosis-patient takes alendronate 10 mg p.o. Sundays, vitamin D3 25 mcg p.o. daily
DVT prophylaxis
-SCDs
Full code
Anticipated Discharge: Within 24 hours
Subjective/Interval History
-
Date of Service: September 02, 2024
spiked temp yesterday
mild upper lobe wheezing
Objective Data
-
Labs:
Laboratory Results
09/02/24
07:05
WBC 8.2
Hgb 7.7 L
Hct 23.3 L
Plt Count 147
Sodium 136
Potassium 3.7
Chloride 106
Carbon Dioxide 22
BUN 22 H
Creatinine 1.6 H
Glucose 112 H
Calcium 7.7 L
Total Bilirubin 1.2
AST 66 H
ALT 28
Alkaline Phosphatase 155 H
Vital Signs:
Vital Signs
Temp Pulse Resp BP Pulse Ox
98.9 F 68 20 114/52 98
09/02/24 12:54 09/02/24 12:54 09/02/24 12:54 09/02/24 12:54 09/02/24 12:54
I&O
09/01/24 09/02/24 09/03/24
06:59 06:59 06:59
Intake Total 500 / 500
Balance 500 / 500
Review of Systems
-
History Source: Patient
All other systems: Not reviewed unless documented
Physical Exam
-
General: Well Developed, No Apparent Distress, Comfortable, Appears Chronically Ill and Other (Thin)
HEENT: Normocephalic, Atraumatic, Moist Mucous Membranes and Anicteric
Respiratory: Clear to Auscultation and Non Labored Respirations
Cardiac: Regular Rhythm and S1/S2; Negative Murmur, Rub or Gallop
GI: Soft, Nontender, Nondistended, Normal Bowel Sounds and No Hepatosplenomegaly
Musculoskeletal: No Clubbing, No Cyanosis and No Edema
Skin: Warm, Dry, Normal Turgor and Other (Spider angioma); Negative Rash
Neuro: AO x 3 and Nonfocal/Grossly Intact; Negative Tremors
Psych: Calm
Data Reviewed
-
Ultrasound: Report Reviewed by me
Medical Tests (Nuc Med, Echo etc): Report Reviewed by me
Labs: Labs Reviewed by me
[2024-09-02 15:00] VITALS: BP 123/57
[2024-09-02] MEDS: DUONEB 3 ML INH ×2 (15:04→19:10)
[2024-09-02 20:31] VITALS: BP 128/56
[2024-09-02] MEDS: BENADRYL 25 MG PO (21:34)
[2024-09-02] MEDS: MELATONIN 3 MG PO (21:34)
[2024-09-02 23:14] VITALS: BP 104/41
[2024-09-03] MEDS: TYLENOL 650 MG PO ×2 (00:39→16:34)
[2024-09-03 02:58] VITALS: BP 105/37
[2024-09-03 02:59] VITALS: BMI 20.2
[2024-09-03] MEDS: DUONEB 3 ML INH ×4 (05:34→17:33)
[2024-09-03 07:17] LABS: Hematocrit 24.2 % (37.0-47.0); Hemoglobin 7.8 g/dL (12.0-16.0); Mean Corp Hgb Conc. 32.2 g/dL (33.0-37.0); Mean Platelet Volume 10.6 fL (7.4-10.4); Platelet Count 139 10^3/uL (130-400); Red Blood Cell Count 2.69 10^6/uL (4.20-5.40); Red Cell Dist. Width 17.2 % (11.5-14.5); White Blood Cell Count 6.3 10^3/uL (4.8-10.8)
--- NOTE | 2024-09-03 07:24 | W.PN.UPDATE ---
Update Note
Progress Note Update
Hospital follow up made for patient with Dr. Vaca on 10/10/24 at 10:30 am
[2024-09-03 07:30] LABS: ALT (SGPT) 24 U/L (0-35); AST (SGOT) 48 U/L (14-36); Albumin 2.5 g/dl (3.5-5.0); Alkaline Phosphatase 154 U/L (38-126); Blood Urea Nitrogen 18 mg/dl (7-17); Calcium 7.8 mg/dl (8.4-10.2); Carbon Dioxide 24 mmol/L (22-30); Chloride 107 mmol/L (98-107); Estimated Creatinine Clearance 28 ml/min; Glucose 102 mg/dl (70-99); Potassium 3.1 mmol/L (3.5-5.1); Sodium 139 mmol/L (135-145); Total Bilirubin 1.1 mg/dl (0.2-1.3); Total Protein 5.1 g/dl (6.3-8.2); eGFR 37.72
--- NOTE | 2024-09-03 07:39 | W.PN.HOSP.TC ---
Today's Communication/Plan
-
Add Doxycycline
Pulm consulted
Monitor fever curve, WBC
ANDREY Levels, Urine Eos, ESR, CRP
Assessment / Plan
Assessment / Plan
Physical Exam
General: Comfortable and Conversant; No Pain, Fever or Chills
HEENT: NormoCephalic, Anicteric, PERRLA, [place] Conjunctivae, No Ptosis and Other (Pale conjunctiva)
Respiratory: Clear; No Wheezes, Rales or Rhonchi
Cardiac: S1/S2, Regular Rhythm and Peripheral Edema (+2 left lower extremity, +1 right lower extremity chronic for patient); No Murmur, Rub or Gallop
Breast: Deferred by me
GI: Soft, Normal Bowel Sounds, Tender (Epigastric area) and Distended (Slight distention)
Rectal: Hem Positive (Black in ER)
Genito-urinary: Deferred by me
Musculoskeletal: No Clubbing, No Cyanosis, Edema, Left Lower Extremity (+2 chronic) and Edema, Right Lower Extremity (+1 chronic); No Edema, Left Upper Extremity or Edema, Right Upper Extremity
Skin: Warm and Dry; No Rash
Neuro: AO x 3, No Motor Deficits, Nonfocal/grossly intact, Cranial Nerves Intact and No Sensory Deficits; No Slurred Speech, Facial Droop, Tremors or Sedated
Psych: Calm
# Melena
#Acute blood loss anemia
#History of portal hypertensive gastropathy
#History of GAVE
Status post 2 units PRBC
�Grade I esophageal varices with no bleeding and no stigmata of recent bleeding
- Gastric antral vascular ectasia with bleeding/oozing. Treated with argon plasma coagulation (APC).
-Advance to low residue diet
- monitor hgb
-PPI BID
- abx - 5 days
- dc octreotide
-Ultrasound abdomen-small volume ascites
#febrile episode, recurrent
-unclear etiology - possible infectious v inflammatory including drug related
?Ground glass opacities/bronchiolitis on CT imaging
-Cont Ceftriaxone, add Doxycycline for ?bronchiolitis
-Pulm consulted
-Added eosinophils, ACEI, ESR, CRP
-f/u blood cultures
-no urinary symptoms
- Flu and COVID neg
#Ascites
#Alcoholic cirrhosis decompensated with Ascites-Last paracentesis 07/08/2024
Hx hepatic encephalopathy
-May continue lactulose 20 g p.o. every 48 H post EGD , check ammonia level per attending
-Continue Xifaxan 550 mg twice daily
-lasix
#Orthostatic HTN
-2/2 to bleed probable
--Cont metoprolol 50 mg daily with hold parameters
-Continue midodrine 2.5 mg
#CKD 3B
Creat 1.9 was 1.6 on 07/11/2024
-Patient follows with Dr. Yen
�Can follow-up outpatient
#Hypoxia
#Tobacco use
#Probable COPD and COPD exacerbation
#Bronchiolitis
#GGO
-1/4 pack/day x 1 year prior 52 years 1 pack/day
-No official dx of COPD
- Duonebs
-wean o2 as tolerated, on 2L
-will likely go on o2 and should be dced on home inhalers
-cessation advised
#Ground Glass Opacities
-abx
-Pulm consulted
-Added eosinophils, ACEI, ESR, CRP
#Hypokalemia
� Monitor and replete
#Alcohol abuse previously sober relapse April 2024 currently -sober since April 2024
-No current concern for MSAs screen with protocol
-May resume B12 post EGD
#Fatty liver
# Transaminitis
-see plan above
#GERD
-PPI
#Celiac disease hx
-When able to resume diet will place celiac diet
#Depression/anxiety
#Mood disorder
-Continue Lexapro 10 mg daily
#Chronic lower extremity edema
-Continue 40 mg Lasix
#Neuropathy
-Lyrica 150 mg twice daily
#HLD
cont Crestor 20 mg daily
Other PMH:
cecal AVMs
colon polyps
Osteoporosis-patient takes alendronate 10 mg p.o. Sundays, vitamin D3 25 mcg p.o. daily
DVT prophylaxis
-SCDs
Full code
Total time spent on today's encounter was 51 minutes which included time spent in counseling the patient/family regarding diagnosis and treatment plan as listed above, goals of care, and symptom management. Case was discussed with nursing staff,
specialists, and care coordinators/case management. All labs and imaging personally reviewed by me. Remainder the time spent in detailed review of previous records, lab data, imaging, and other medical provider documentation.
Anticipated Discharge: 24 - 48 hours
Subjective/Interval History
-
Date of Service: September 03, 2024
[place] temperature again overnight 101.2
Objective Data
-
Labs:
Laboratory Results
09/03/24
06:42
WBC 6.3
Hgb 7.8 L
Hct 24.2 L
Plt Count 139
Sodium 139
Potassium 3.1 L
Chloride 107
Carbon Dioxide 24
BUN 18 H
Creatinine 1.5 H
Glucose 102 H
Calcium 7.8 L
Total Bilirubin 1.1
AST 48 H
ALT 24
Alkaline Phosphatase 154 H
Vital Signs:
Vital Signs
Temp Pulse Resp BP Pulse Ox
97.6 F 69 18 105/37 94
09/03/24 07:29 09/03/24 07:29 09/03/24 07:29 09/03/24 02:58 09/03/24 07:29
I&O
09/02/24 09/03/24 09/04/24
06:59 06:59 06:59
Intake Total 500 / 500 480 / 480
Balance 500 / 500 480 / 480
Review of Systems
-
History Source: Patient
All other systems: Not reviewed unless documented
Physical Exam
-
General: Well Developed, No Apparent Distress, Comfortable, Appears Chronically Ill and Other (Thin)
HEENT: Normocephalic, Atraumatic, Moist Mucous Membranes and Anicteric
Respiratory: Clear to Auscultation and Non Labored Respirations
Cardiac: Regular Rhythm and S1/S2; Negative Murmur, Rub or Gallop
GI: Soft, Nontender, Nondistended, Normal Bowel Sounds and No Hepatosplenomegaly
Musculoskeletal: No Clubbing, No Cyanosis and No Edema
Skin: Warm, Dry, Normal Turgor and Other (Spider angioma); Negative Rash
Neuro: AO x 3 and Nonfocal/Grossly Intact; Negative Tremors
Psych: Calm
Data Reviewed
-
CT Scan: Report Reviewed by me
Labs: Labs Reviewed by me
[2024-09-03] MEDS: ProAmatine 2.5 MG PO ×3 (07:49→18:15)
[2024-09-03] MEDS: PROTONIX IV 40 MG IV ×2 (07:50→19:36)
[2024-09-03] MEDS: CRESTOR 20 MG PO (07:52)
[2024-09-03] MEDS: LYRICA 150 MG PO (07:52)
[2024-09-03] MEDS: VITAMIN B-12 1000 MCG PO (07:52)
[2024-09-03] MEDS: TOPROL XL 50 MG PO (07:52)
[2024-09-03] MEDS: NSS (PRESERVATIVE FREE) 10 ML IV ×2 (07:53→19:37)
[2024-09-03] MEDS: XIFAXAN 550 MG PO ×2 (07:53→19:37)
[2024-09-03] MEDS: LEXAPRO 10 MG PO (07:53)
[2024-09-03] MEDS: VITAMIN D3 (cholecalciferol) 25 MCG PO (07:53)
[2024-09-03] MEDS: LASIX 40 MG PO (07:53)
[2024-09-03] MEDS: KCL ELIXIR 40 MEQ PO ×2 (09:46→11:41)
[2024-09-03 10:49] VITALS: BP 113/45
[2024-09-03 11:10] LABS: Erythrocyte Sed Rate 46 mm/hour (0-20)
[2024-09-03] MEDS: ROCEPHIN 1000 MG IV (11:24)
[2024-09-03] MEDS: STERILE WATER FOR INJECTION 10 ML IV (11:24)
--- NOTE | 2024-09-03 11:42 | CM ---
Patient per nursing documentation has been functioning at an independent level within room. Will watch for OT/VN needs.
Plan: Case management will continue to follow and assist with discharge planning. Home, will watch for needs.
[2024-09-03] MEDS: VIBRAMYCIN 100 MG PO ×2 (13:06→19:37)
--- NOTE | 2024-09-03 13:53 | CON.PUL ---
Consultation
Consultation Request
Date/Time Consultation Requested: 09/03/24
Date/Time Consultation Performed: 09/03/24
Performing Provider: Karen
Reason for Consultation: H/o hypoxia
Medical History
-
History of Present Illness:
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
08/09/2024 admitted to for OP lab-hemoglobin of 4.8. Was informed by gastroenterology to arrive at the hospital. Admitted due to dark black stools yesterday and lightheadedness was associated with patient's symptoms. Plan�transfused 2 units, s/p
EGD 08/30/24 with two columns of grade I varices, being managed by GI.
She is 94% on RA, borderline hypoxemia noted. She has history of hypoxemia in past on prior admissions, last seen in our office in 2021.
No pulmonary complaints, feels well. Still smoking 4 cigs/day.
Past Medical History
Past Medical History: Other (see list below)
Social History
Tobacco: Smoker
Alcohol: None
Drug: None
Family History
Family History: Reviewed & Not Pertinent
Allergies / Home Medications
Allergies
Allergy/AdvReac Type Severity Reaction Status Date / Time
olmesartan [From Benicar] Allergy anemia Verified 08/30/24 09:54
Sulfa (Sulfonamide Allergy lip Verified 08/30/24 09:54
Antibiotics) Swelling
venlafaxine [From Effexor] Allergy Unknown Verified 08/30/24 09:54
Home Medications
�Medication �Instructions �Recorded �Confirmed �Last Taken �Type
loratadine 10 mg tablet 10 mg PO DAILYPRN PRN seasonal 05/30/18 08/30/24 03/21/23 11:00 History
allergies
pregabalin 100 mg capsule 150 mg PO BID Pain 04/30/20 08/30/24 08/29/24 History
melatonin 3 mg tablet 3 mg PO HS 30 days #0 tabs 01/05/22 08/30/24 08/29/24 Rx
metoprolol succinate 50 mg 50 mg PO DAILY Blood Pressure 07/22/22 08/30/24 08/29/24 History
tablet,extended release 24 hr
rosuvastatin 20 mg tablet 20 mg PO DAILY High Cholesterol 07/06/24 08/30/24 08/29/24 History
alendronate 10 mg tablet 10 mg PO BOCANEGRA osteoporosis 07/07/24 08/30/24 08/26/24 History
cholecalciferol (vitamin D3) 25 25 mcg PO DAILY Supplement 07/07/24 08/30/24 08/29/24 History
mcg (1,000 unit) tablet (Vitamin
D3)
cyanocobalamin (vitamin B-12) 1,000 mcg PO DAILY Supplement 07/07/24 08/30/24 08/29/24 History
1,000 mcg tablet
diphenhydramine HCl 25 mg capsule 25 mg PO HS Allergies 07/07/24 08/30/24 08/29/24 History
(Benadryl)
lactulose 10 gram/15 mL oral 20 g PO Q48H hepatic encephalopathy 07/07/24 08/30/24 Unknown History
solution
furosemide 40 mg tablet (Lasix) 40 mg PO DAILY Gastrointestinal 07/11/24 08/30/24 08/29/24 Rx
issue 1 month #30 tabs
midodrine 2.5 mg tablet 2.5 mg PO TID@0800,1300,1800 Blood 07/11/24 08/30/24 08/29/24 Rx
pressure 1 month #90 tabs
pantoprazole 40 mg tablet,delayed 40 mg PO BID Gastrointestinal 07/11/24 08/30/24 08/29/24 Rx
release issue 1 month #60 tabs
rifaximin 550 mg tablet (Xifaxan) 550 mg PO BID Gastrointestinal 07/11/24 08/30/24 08/29/24 Rx
issue 1 month #60 tabs
escitalopram oxalate 10 mg tablet 10 mg PO DAILY depression/anxiety 08/30/24 08/30/24 08/29/24 History
(Lexapro)
Review of Systems
-
History Source: Patient
All other systems: Negative unless noted
Vitals / Labs / Diagnostic Testing
Vital Signs
Temp Pulse Resp BP Pulse Ox
97.8 F 82 18 113/45 96
09/03/24 10:49 09/03/24 13:42 09/03/24 13:42 09/03/24 10:49 09/03/24 13:42
Lab Data
09/03/24 06:42
09/03/24 06:42
Microbiology
09/01/24 22:06 Blood/Venous Blood Culture - Preliminary
No Growth in 24 hours- Final report to follow
09/01/24 20:58 Blood/Venous Blood Culture - Preliminary
No Growth in 24 hours- Final report to follow
09/01/24 11:37 Nasal Swab Influenza Types A & B (NIKKI) - Final
Negative for Influenza A & B, NAAT
Negative results must be combined with clinical observations
and patient history.
Nucleic Acid Amplification test (NAAT)performed on the
[employer] platform.
Diagnostic Testing:
Physical Exam
-
HEENT: Normocephalic, Anicteric and Moist Mucous Membranes
Cardiovascular: S1/S2 and Regular Rhythm
Respiratory: Clear and Non-Labored Respirations
GI: Soft, Non Distended and Non Tender
Neurology: Awake, Alert, Oriented and No Motor Deficits
Skin: Warm, Dry and Good Color
General: Comfortable and Other (NAD)
Assessment
-
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
08/09/2024 admitted to for OP lab-hemoglobin of 4.8. Was informed by gastroenterology to arrive at the hospital. Admitted due to dark black stools yesterday and lightheadedness was associated with patient's symptoms. Plan�transfused 2 units, s/p
EGD 08/30/24 with two columns of grade I varices, being managed by GI.
She is 94% on RA, borderline hypoxemia noted. She has history of hypoxemia in past on prior admissions, last seen in our office in 2021. No pulmonary complaints, feels well. Still smoking 4 cigs/day.
We are consulted for re-establishing care.
Acute GIB
Acute blood loss anemia
Melena
Lightheadedness, without syncope
Borderline hypoxemia
GGO on CT
Conditions [employer]:
History of vent dependency- Reintubated 12-26; Extubated 12-27-21
Chronic HFpEF, chronic effusions
Chronic anemia
Alcoholic cirrhosis of liver with ascites
HTN
Cervical spine surgery, metallic rods
Smoker -- Ongoing, 50+ pack year
Last appt with dr. love 03/26/22
Hysterectomy:partial due to endometriosis and fibroids
H/o colonic polyps
h/o cecal AVMS
GERD
Pulmonary cachexia
E coli UTI
COVID negative x3 (10/09/19)
Plan:
She has a history of being on o2 intermittently in the past
Not on home O2 constantly
She was last seen in our office in 2021, had 6MWT without hypoxemia
She is 94% on RA
Offers no new complaints, she denies active respiratory complaints
CT Chest reviewed showing new GGOs
proBNP 4320 which could be due to recent transfusions in setting of HFpEF history
If not hypoxemia, can observe for now and follow UO
May consider gentle diuresis or resume on home PO dose
Would repeat imaging as OP to follow findings and w/u if indicated
EGD 08/30/24 - Two columns of grade I varices with no bleeding and no stigmata of recent bleeding were found in the distal esophagus. No red viv signs were present. Stigmata of prior treatment were evident. Mild portal hypertensive gastropathy was
found in the entire examined stomach. Mild gastric antral vascular ectasia with bleeding was present in the gastric antrum. Coagulation for hemostasis using argon plasma was successful. Estimated blood loss was minimal. A single small angioectasia
without bleeding was found in the second portion of the duodenum. The exam of the duodenum was otherwise normal.
GI following
Diet advanced--tolerating
PPI
Current smoker, ongoing use of 4 cigs/day
Smoking cessation encouraged
Would need to re-establish with us as OP again, we reviewed this together
Will place discharge instructions for us in chart
D/c planning when medically cleared by team
We will see again as needed
Diagnostic Data
LDCT 06/02/23- There is no parenchymal mass, discrete focal nodule or consolidation. Widespread areas of parenchymal consolidation bilaterally seen on prior study have virtually completely resolved. There is some mild predominantly bilateral lower
lobe subsegmental atelectasis and/or scarring.
CT Chest 09/02/24- Overall widespread prominence of pulmonary interstitium and widespread bilateral groundglass opacities predominantly centrally, most prominent in the upper lobes, especially the right upper lobe as well as tiny right pleural
effusion. Findings are somewhat nonspecific and may be inflammatory/infectious.. Some of several differential diagnostic possibilities include hypersensitivity pneumonitis, bronchiolitis and sarcoidosis. Small bilateral axillary lymph nodes majority
of which contain morphologically unremarkable fatty walter although some lymph nodes have increased in size in comparison to prior CT. Findings are indeterminate. Clinical correlation recommended.
Chest CT 12-31 IMPRESSION:
1). There is no pulmonary embolism
2). Worsening extensive diffuse bilateral pneumonia most prominent in both lower lobes.
3). Small right pleural effusion
4). Abdominal ascites.
CXR PA/lat 12-25, significant improvement of bilateral interstitial changes and GGOs
CXRs since adm up to 12-20
Abd US - IMPRESSION: Hepatomegaly with diffuse fatty infiltration of the liver. Small amount of ascites in the perihepatic region and in the gallbladder fossa. The gallbladder wall is thickened, likely due to the adjacent ascites fluid. There is
a negative sonographic Brewster's sign. No gallstones. Incomplete visualization of the pancreas. Small right pleural effusion noted during scanning.
CT chest s/c 12-20, no comparison CT IMPRESSION: Widespread pattern of opacities predominantly interlobular opacities and groundglass opacities with more confluent appearance in the upper lobes bilaterally left greater than right as well as smaller
in the lateral right lower lobe with accompanying small bilateral pleural effusions. Overall pattern is nonspecific although not typical for ARDS with the predominant upper lobe involvement. Findings may be inflammatory/infectious including
Pneumocystis and atypical mycobacterial. Some of several additional etiologies include alveolar proteinosis and pulmonary edema. No pneumothorax.
Echo: 12-06, LVEF 60 to 65%, normal regional wall motion. Normal diastolic function. Normal RV size and function. Trace MR. Mild to moderate TR, RVSP 35-40. No prior studies for comparison
Echo 12-21: Normal LV size, wall thickness and systolic function. Trace to mild MR. Mild TR. PASP 41. Normal RV size and function. IVC is of normal size and has normal respiratory variation. Compared to prior study from December 06 there is no
change.
VSE 12-21 IMPRESSION: No upper airway penetration or aspiration.
PFT's: N/A
Reports and relevant images were personally reviewed.
Total time spent on this consultation/encounter __75__ minutes which includes review of history, physical exam, medications, laboratory data, personal review of imaging, extensive review of outpatient records, discussion with care team and
respiratory therapy.
[2024-09-03 15:05] VITALS: BP 132/59
[2024-09-03 19:45] VITALS: BP 128/51
[2024-09-03] MEDS: MELATONIN 3 MG PO (21:17)
[2024-09-03] MEDS: BENADRYL 25 MG PO (21:17)
[2024-09-03 23:10] VITALS: BP 112/53
[2024-09-04] VITALS (10 sets, daily range): BP systolic 102–135; BP diastolic 42–60
--- NOTE | 2024-09-04 04:04 | PTCARENOTE ---
Patient's called, very agitated that attending doctor has not called to give an update regarding patient having fevers. Informed that this RN would pass information along to day shift RN for attending to call patient's . Plan
of care ongoing.
[2024-09-04] MEDS: DUONEB 3 ML INH ×4 (07:28→19:23)
[2024-09-04 07:34] LABS: Hematocrit 21.2 % (37.0-47.0); Hemoglobin 7.1 g/dL (12.0-16.0); Mean Corp Hgb Conc. 33.5 g/dL (33.0-37.0); Mean Corpuscular Hgb 29.3 pg (27.0-31.0); Mean Corpuscular Volume 87.6 fL (81.0-99.0); Mean Platelet Volume 12.3 fL (7.4-10.4); Platelet Count 132 10^3/uL (130-400); Red Blood Cell Count 2.42 10^6/uL (4.20-5.40); Red Cell Dist. Width 17.2 % (11.5-14.5); White Blood Cell Count 6.8 10^3/uL (4.8-10.8)
[2024-09-04 07:52] LABS: ALT (SGPT) 34 U/L (0-35); AST (SGOT) 94 U/L (14-36); Albumin 2.4 g/dl (3.5-5.0); Alkaline Phosphatase 199 U/L (38-126); Blood Urea Nitrogen 17 mg/dl (7-17); Calcium 7.7 mg/dl (8.4-10.2); Carbon Dioxide 24 mmol/L (22-30); Chloride 104 mmol/L (98-107); Estimated Creatinine Clearance 30 ml/min; Glucose 95 mg/dl (70-99); Potassium 4.5 mmol/L (3.5-5.1); Sodium 134 mmol/L (135-145); Total Bilirubin 1.1 mg/dl (0.2-1.3); Total Protein 4.9 g/dl (6.3-8.2); eGFR 40.98
[2024-09-04] MEDS: TYLENOL 650 MG PO ×2 (08:07→22:51)
[2024-09-04] MEDS: NSS (PRESERVATIVE FREE) 10 ML IV ×2 (08:56→20:25)
[2024-09-04] MEDS: XIFAXAN 550 MG PO ×2 (08:56→20:24)
[2024-09-04] MEDS: LYRICA 150 MG PO (08:57)
[2024-09-04] MEDS: LEXAPRO 10 MG PO (08:57)
[2024-09-04] MEDS: VITAMIN D3 (cholecalciferol) 25 MCG PO (08:57)
[2024-09-04] MEDS: ProAmatine 2.5 MG PO ×3 (08:57→17:23)
[2024-09-04] MEDS: CRESTOR 20 MG PO (08:57)
[2024-09-04] MEDS: VIBRAMYCIN 100 MG PO ×2 (08:57→20:24)
[2024-09-04] MEDS: VITAMIN B-12 1000 MCG PO (08:59)
[2024-09-04] MEDS: TOPROL XL PO (09:00)
[2024-09-04] MEDS: PROTONIX IV 40 MG IV ×2 (09:01→20:24)
[2024-09-04] MEDS: DUPHALAC/CHRONULAC 20 GRAMS PO (09:01)
[2024-09-04] MEDS: LASIX PO (09:01)
--- NOTE | 2024-09-04 09:29 | W.PN.HOSP.TC ---
Today's Communication/Plan
-
see A/P
Assessment / Plan
Assessment / Plan
A/P:
# Acute blood loss anemia with GIB/Melena
# History of portal hypertensive gastropathy
# History of GAVE
Status post 2 units PRBC, transfuse additional unit PRBC today 09/04 for drop in Hgb to 7.1
s/p EGD 08/30/2024 Dr. Montez: Grade I esophageal varices with no bleeding and no stigmata of recent bleeding. Gastric antral vascular ectasia with bleeding/oozing. Treated with PC. Portal hypertensive gastropathy. A single non-bleeding
angioectasia in the duodenum.
diet advanced to low residue diet and pt tolerated well
Cont PPI BID
abx ceftriaxone 5 days per GI
Off octreotide
Ultrasound abdomen-small volume ascites, cont Lasix 40 mg daily with holding parameter
# febrile episode, recurrent. Unclear etiology - possible infectious v inflammatory including drug related
# Ground glass opacities/bronchiolitis on CT imaging
Cont Ceftriaxone, added Doxycycline for ?bronchiolitis
Pulm consulted
Blood cultures negative, Flu/COVID negative
HIV was sent, follow up result
eosinophils, ACEI were sent, follow up if able
ID CS for persistent fever
# Ascites
# decompensated Alcoholic cirrhosis with Ascites
# Hx hepatic encephalopathy
# Fatty liver
# Transaminitis
Last paracentesis 07/08/2024
Continue lactulose 20 g p.o. every 48 H post EGD
Continue Xifaxan 550 mg twice daily
Lasix with holding parameter
ammonia level negative
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
metoprolol 50 mg daily with hold parameters
Continue midodrine 2.5 mg TID
# CKD 3B
Creat 1.4 today
Patient follows with Dr. Yen. Can follow-up outpatient
# Hypoxia
# Tobacco use
# Probable COPD and COPD exacerbation
# Bronchiolitis
# GGO
1/4 pack/day x 1 year, prior 52 years 1 pack/day
No official dx of COPD
Duonebs ATC and PRN
weaned to RA
cessation advised
# Hypokalemia
Monitor and replete
# Alcohol abuse
sober since April 2024
No current concern for MSAs screen with protocol
May resume B12 post EGD
# GERD
PPI
# Celiac disease hx
# Depression/anxiety
# Mood disorder
Continue Lexapro 10 mg daily
# Chronic lower extremity edema
Lasix
# Neuropathy
Lyrica 150 mg twice daily
# HLD
Crestor 20 mg daily
Other PMH:
cecal AVMs
colon polyps
Osteoporosis-patient takes alendronate 10 mg p.o. Sundays, vitamin D3 25 mcg p.o. daily
DVT prophylaxis: SCDs
Full code
DW RN
total time spent 51 min
Anticipated Discharge: > 48 hours
Subjective/Interval History
-
Date of Service: September 04, 2024
Objective Data
-
Labs:
Laboratory Results
09/04/24
06:59
WBC 6.8
Hgb 7.1 L
Hct 21.2 L
Plt Count 132
Sodium 134 L
Potassium 4.5 D
Chloride 104
Carbon Dioxide 24
BUN 17
Creatinine 1.4 H
Glucose 95
Calcium 7.7 L
Total Bilirubin 1.1
AST 94 H
ALT 34
Alkaline Phosphatase 199 H
Vital Signs:
Vital Signs
Temp Pulse Resp BP Pulse Ox
38.2 C H 89 14 102/42 90
09/04/24 07:35 09/04/24 07:35 09/04/24 07:35 09/04/24 07:35 09/04/24 07:35
I&O
09/03/24 09/04/24 09/05/24
06:59 06:59 06:59
Intake Total 480 / 480 1200 / 1200
Balance 480 / 480 1200 / 1200
Review of Systems
-
History Source: Patient
All other systems: Reviewed and negative
Physical Exam
-
General: Well Developed, No Apparent Distress, Comfortable, Conversant and Appears Chronically Ill
HEENT: Normocephalic, Atraumatic and Moist Mucous Membranes
Respiratory: Clear to Auscultation and Non Labored Respirations
Cardiac: Regular Rhythm, S1/S2 and Murmur; Negative Rub or Gallop
GI: Soft, Nontender, Nondistended and Normal Bowel Sounds
Musculoskeletal: No Clubbing, No Cyanosis and No Edema
Skin: Warm and Dry
Neuro: Awake, Alert, Oriented and Nonfocal/Grossly Intact
Psych: Calm and Intact Judgement/Insight
Data Reviewed
-
Labs: Labs Reviewed by me
[2024-09-04 11:30] LABS: Angiotensin-1-converting Enzym 58 U/L (16-85)
[2024-09-04] MEDS: STERILE WATER FOR INJECTION IV (11:48)
[2024-09-04 12:39] LABS: Body Fluid for Eosinophils No Eosinophils seen
--- NOTE | 2024-09-04 15:15 | CON.ID ---
Consultation
-
Date/Time Consultation Requested: 09/04/2024 0927
Date/Time Consultation Performed: 09/04/2024 1500
Requesting Provider: Dr. Starks
Performing Provider: Dr. Garcia
Reason for Consultation: Fevers
Chief Complaint / Past History
History of Present Illness
Asha Rosenbaum is a 68-year-old female being evaluated at the request of Dr. Starks in regards to fevers. History is obtained from chart review, along with patient interview.
The patient has a significant past medical history for cirrhosis, fatty liver and esophageal varices. She presented to [facility] on 08/30 secondary to reported anemia. The patient recently had been experiencing some black tarry stools, and
she underwent endoscopy on 08/09. Outpatient blood work revealed a hemoglobin of 4.8 and she was advised to go immediately to the emergency room for further evaluation. At admission she was not found to have a leukocytosis or fever, but developed a
fever on 09/01 to 101.7 degrees. Since that time she has had intermittent fevers, and Infectious Diseases asked to comment upon further workup.
In addition to being followed by GI, pulmonary has been consulted for hypoxemia. She does recall having sweats when fevers were recorded here as an inpatient. Currently she denies any abdominal pain. She denies any nausea or vomiting.
Past History
Additional Past Medical History:
Cirrhosis
Celiac disease
Fatty liver
Esophageal varices
Portal hypertension
Gastropathy
Hepatic encephalopathy
Additional Past Surgical History:
Hysterectomy
EGD
Colonoscopy
Allergy History:
olmesartan [From Benicar] Allergy (Verified 08/30/24 09:54)
anemia
Sulfa (Sulfonamide Antibiotics) Allergy (Verified 08/30/24 09:54)
lip Swelling
venlafaxine [From Effexor] Allergy (Verified 08/30/24 09:54)
Unknown
Medications Reviewed: Yes
Current Antibiotics:
Doxycycline
Xifaxan
Social History
Tobacco: Smoker
Alcohol: Former
Drug: None
Personal:
Living: With Family
Employment: Retired
Family History
Family History: Not Pertinent
Review of Systems
Vital Signs
Temp Pulse Resp BP Pulse Ox
98.2 F 84 16 113/49 95
09/04/24 15:01 09/04/24 15:04 09/04/24 15:04 09/04/24 15:01 09/04/24 15:01
Physical Exam
Physical Exam
Constitutional: No Acute Distress, Comfortable, Chronically Ill and Non-toxic
Eyes: No Conjunctival Hemorrhage and Sclera Anicteric
Oral: No Thrush and No Ulcers
Cardiovascular: S1/S2; Negative S3/S4
Pulmonary: Clear; Negative Wheezes or Rales
Gastrointestinal: Soft, Non Tender, Non Distended (Appears 'full'), Normal Bowel Sounds, No Rebound and No Guarding
Extremities: Negative Cyanosis or Erythema
Neurological: Awake
Psychological: Calm
Lab / Diagnostic Study Results
09/04/24 06:59
09/04/24 06:59
Abs Immat Gran (auto) 0.0 10^3/uL (0-0.05) 08/30/24 10:03
Absolute Neuts (auto) 3.3 10^3/uL (1.4-6.5) 08/30/24 10:03
Absolute Lymphs (auto) 1.4 10^3/uL (1.2-3.4) 08/30/24 10:03
Absolute Monos (auto) 0.5 10^3/uL (0.1-0.6) 08/30/24 10:03
Absolute Basos (auto) 0.0 10^3/uL (0-0.2) 08/30/24 10:03
Immature Gran % 0.4 % (0-0.5) 08/30/24 10:03
Neutrophils % 61.2 % (42.2-75.2) 08/30/24 10:03
Lymphocytes % 26.2 % (20.5-51.1) 08/30/24 10:03
Monocytes % 9.7 % (1.7-9.3) H 08/30/24 10:03
Eosinophils % 2.1 % (0-6) 08/30/24 10:03
Basophils % 0.4 % (0-2) 08/30/24 10:03
ESR 46 mm/hour (0-20) H 09/03/24 10:22
PT 16.2 Sec (11.4-14.6) H 08/31/24 05:43
INR 1.24 08/31/24 05:43
C-Reactive Protein 46.00 mg/L (0.0-10.00) H 09/03/24 10:22
Microbiology Results
Micro:
09/01/24 22:06 Blood Culture - Preliminary
Blood/Venous No Growth in 48 hours- Final report to follow
09/01/24 20:58 Blood Culture - Preliminary
Blood/Venous No Growth in 48 hours- Final report to follow
09/01/24 11:37 Influenza Types A & B (NIKKI) - Final
Nasal Swab Negative for Influenza A & B, NAAT
Negative results must be combined with clinical observations
and patient history.
Nucleic Acid Amplification test (NAAT)performed on the
[employer] platform.
Imaging:
09/02/2024 CT chest without contrast: Overall widespread prominence of pulmonary interstitium and widespread bilateral groundglass opacities predominantly centrally, most prominent in the upper lobes, especially the right upper lobe as well as tiny
right pleural effusion. Findings are somewhat nonspecific and may be inflammatory/infectious.. Some of several differential diagnostic possibilities include hypersensitivity pneumonitis, bronchiolitis and sarcoidosis. See full dictation for
additional detail. Film personally viewed.
Assessment / Plan
GI bleed
Esophageal varices
Profound anemia secondary to above
Fever ; improved.
pulmonary infiltrates
Cirrhosis
Celiac disease
Fatty liver
Portal hypertension
Gastropathy
Hx Hepatic encephalopathy
Recommendations:
At this time, patient has completed a 5-day course of ceftriaxone for prophylaxis given underlying variceal bleed.
It appears patient has been transition to doxycycline following pulm findings on CAT scan, although not clear whether infiltrates are infectious or not.
Temperatures have normalized at this time.
Would consider discontinuing further doxycycline with close observation.
Monitor white count, temperature curve, along with hemoglobin.
[2024-09-04 15:22] LABS: HIV Combo Negative (Negative)
[2024-09-04] MEDS: MELATONIN 3 MG PO (21:18)
[2024-09-04] MEDS: BENADRYL 25 MG PO (21:18)
[2024-09-05] VITALS (8 sets, daily range): BP systolic 102–136; BP diastolic 53–63; PULSE 88; BMI 20.1
[2024-09-05 00:02] LABS: IgE 26 kU/L (<=214)
[2024-09-05 07:21] LABS: % Basophils 0.5 % (0-2); % Eosinophils 4.5 % (0-6); % Immature Granulocytes 0.5 % (0-0.5); % Lymphocytes 21.3 % (20.5-51.1); % Monocytes 12.6 % (1.7-9.3); % Neutrophils 60.6 % (42.2-75.2); Absolute Eosinophils 0.3 10^3/uL (0-0.7); Absolute Lymphocytes 1.6 10^3/uL (1.2-3.4); Absolute Monocytes 0.9 10^3/uL (0.1-0.6); Absolute Neutrophils 4.4 10^3/uL (1.4-6.5); Hematocrit 26.6 % (37.0-47.0); Hemoglobin 8.9 g/dL (12.0-16.0); Mean Corp Hgb Conc. 33.5 g/dL (33.0-37.0); Mean Corpuscular Hgb 29.2 pg (27.0-31.0); Mean Corpuscular Volume 87.2 fL (81.0-99.0); Mean Platelet Volume 11.2 fL (7.4-10.4); Nucleated Red Blood Cells % 0 %; Platelet Count 148 10^3/uL (130-400); Red Blood Cell Count 3.05 10^6/uL (4.20-5.40); Red Cell Dist. Width 17.2 % (11.5-14.5); White Blood Cell Count 7.3 10^3/uL (4.8-10.8)
[2024-09-05] MEDS: DUONEB 3 ML INH ×4 (07:21→19:25)
[2024-09-05 08:14] LABS: ALT (SGPT) 38 U/L (0-35); AST (SGOT) 84 U/L (14-36); Albumin 2.7 g/dl (3.5-5.0); Alkaline Phosphatase 230 U/L (38-126); Blood Urea Nitrogen 17 mg/dl (7-17); Calcium 8.3 mg/dl (8.4-10.2); Carbon Dioxide 23 mmol/L (22-30); Chloride 106 mmol/L (98-107); Estimated Creatinine Clearance 28 ml/min; Glucose 85 mg/dl (70-99); Magnesium 1.5 mg/dl (1.6-2.3); Sodium 139 mmol/L (135-145); Total Bilirubin 1.8 mg/dl (0.2-1.3); Total Protein 5.3 g/dl (6.3-8.2); eGFR 37.72
[2024-09-05] MEDS: ProAmatine 2.5 MG PO ×3 (08:33→17:19)
[2024-09-05] MEDS: LEXAPRO 10 MG PO (08:33)
[2024-09-05] MEDS: VITAMIN D3 (cholecalciferol) 25 MCG PO (08:33)
[2024-09-05] MEDS: VITAMIN B-12 1000 MCG PO (08:33)
[2024-09-05] MEDS: CRESTOR 20 MG PO (08:33)
[2024-09-05] MEDS: VIBRAMYCIN 100 MG PO (08:33)
[2024-09-05] MEDS: XIFAXAN 550 MG PO ×2 (08:33→21:24)
[2024-09-05] MEDS: LASIX 40 MG PO (08:34)
[2024-09-05] MEDS: TOPROL XL 50 MG PO (08:34)
[2024-09-05] MEDS: PROTONIX IV 40 MG IV ×2 (08:35→21:24)
[2024-09-05] MEDS: NSS (PRESERVATIVE FREE) 10 ML IV ×2 (08:35→21:25)
[2024-09-05] MEDS: LYRICA 150 MG PO (08:40)
--- NOTE | 2024-09-05 10:21 | W.PN.HOSP.TC ---
Today's Communication/Plan
-
monitor temp curve (noted spiked fever again last night at 11 pm)
ID recc to observe off Abx
Assessment / Plan
Assessment / Plan
A/P:
# Acute blood loss anemia with GIB/Melena
# History of portal hypertensive gastropathy
# History of GAVE
Status post 2 units PRBC, transfuse additional unit PRBC today 09/04 for drop in Hgb to 7.1
s/p EGD 08/30/2024 Dr. Montez: Grade I esophageal varices with no bleeding and no stigmata of recent bleeding. Gastric antral vascular ectasia with bleeding/oozing. Treated with PC. Portal hypertensive gastropathy. A single non-bleeding
angioectasia in the duodenum.
diet advanced to low residue diet and pt tolerated well
Cont PPI BID
s/p abx ceftriaxone x5 days for ppx for variceal bleed
Off octreotide
Ultrasound abdomen-small volume ascites, cont Lasix 40 mg daily with holding parameter
# febrile episode, recurrent. Unclear etiology - possible infectious v inflammatory including drug related
# Ground glass opacities/bronchiolitis on CT imaging
pt was started with Ceftriaxone and added Doxycycline for ?bronchiolitis
ID consulted and recc to observe off Abx
Pulm consulted
Blood cultures negative, Flu/COVID negative, HIV Ag/Ab negative, ACEI WNL at 58
# Ascites
# decompensated Alcoholic cirrhosis with Ascites
# Hx hepatic encephalopathy
# Fatty liver
# Transaminitis
Last paracentesis 07/08/2024
Continue lactulose 20 g p.o. every 48 H post EGD
Continue Xifaxan 550 mg twice daily
Lasix with holding parameter
ammonia level negative
# Hypomagnesemia
replete IV
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
metoprolol 50 mg daily with hold parameters
Continue midodrine 2.5 mg TID
# CKD 3B
Creat 1.5 today, at baseline
Patient follows with Dr. Yen. Can follow-up outpatient
# Probable COPD and COPD exacerbation
# Bronchiolitis
# GGO
# Tobacco use, cessation advised
# Hypoxia, resolved
1/4 pack/day x 1 year, prior 52 years 1 pack/day
No official dx of COPD
Duonebs ATC and PRN
weaned to RA
# Hypokalemia
Monitor and replete
# Alcohol abuse
sober since April 2024
No current concern for MSAs screen with protocol
May resume B12 post EGD
# GERD
PPI
# Celiac disease hx
# Depression/anxiety
# Mood disorder
Continue Lexapro 10 mg daily
# Chronic lower extremity edema
Lasix
# Neuropathy
Lyrica 150 mg twice daily
# HLD
Crestor 20 mg daily
Other PMH:
cecal AVMs
colon polyps
Osteoporosis-patient takes alendronate 10 mg p.o. Sundays, vitamin D3 25 mcg p.o. daily
DVT prophylaxis: SCDs
Full code
Dispo: PT OT eval
DW ID and GI
d/w on the phone
total time spent 51 min
Anticipated Discharge: > 48 hours
Subjective/Interval History
-
Date of Service: September 05, 2024
Objective Data
-
Labs:
Laboratory Results
09/05/24
07:03
WBC 7.3
Hgb 8.9 L D
Hct 26.6 L
Plt Count 148
Sodium 139
Potassium 4.0
Chloride 106
Carbon Dioxide 23
BUN 17
Creatinine 1.5 H
Glucose 85
Calcium 8.3 L
Total Bilirubin 1.8 H
AST 84 H
ALT 38 H
Alkaline Phosphatase 230 H
Vital Signs:
Vital Signs
Temp Pulse Resp BP Pulse Ox
36.6 C 80 16 134/59 96
09/05/24 07:30 09/05/24 08:34 09/05/24 07:30 09/05/24 08:34 09/05/24 07:30
I&O
09/04/24 09/05/24 09/06/24
06:59 06:59 06:59
Intake Total 1200 / 1200 1869
Balance 1200 / 1200 1869
Review of Systems
-
History Source: Patient
All other systems: Reviewed and negative
Physical Exam
-
General: Well Developed, No Apparent Distress, Comfortable, Conversant and Appears Chronically Ill
HEENT: Normocephalic, Atraumatic and Moist Mucous Membranes
Respiratory: Clear to Auscultation and Non Labored Respirations
Cardiac: Regular Rhythm, S1/S2 and Murmur; Negative Rub or Gallop
GI: Soft, Nontender, Nondistended and Normal Bowel Sounds
Musculoskeletal: No Clubbing, No Cyanosis and No Edema
Skin: Warm and Dry
Neuro: Awake, Alert, Oriented and Nonfocal/Grossly Intact
Psych: Calm and Intact Judgement/Insight
Data Reviewed
-
Labs: Labs Reviewed by me
[2024-09-05] MEDS: MAGNESIUM SULFATE 50 IV (10:54)
--- NOTE | 2024-09-05 11:48 | W.PN.ID1 ---
Date of Service
Date of Service: September 05, 2024
Today's Communication
Monitor off abx.
Assessment / Plan
GI bleed
Esophageal varices
Profound anemia secondary to above
Fever ; improved.
pulmonary infiltrates
Cirrhosis
Celiac disease
Fatty liver
Portal hypertension
Gastropathy
Hx Hepatic encephalopathy
Recommendations:
Single temp noted overnight. WBC normal, with normal diff.
Continue off abx.
Monitor white count, temperature curve, along with hemoglobin.
Chief Complaint
-: Fever
Subjective / Review of Systems
Review of Systems: No Fever, No Chills and No Abdominal Pain
Vital Signs / Physical Exam
Vital Signs
Vital Signs
Temp Pulse Resp BP Pulse Ox
97.9 F 83 16 134/59 93
09/05/24 07:30 09/05/24 11:17 09/05/24 11:17 09/05/24 08:34 09/05/24 11:17
Physical Exam
Constitutional: No Acute Distress, Chronically Ill and Non-toxic
Eyes: Sclera Anicteric
Cardiovascular: S1/S2; Negative S3/S4
Pulmonary: Coarse and Non Labored
Gastrointestinal: Soft, Non Tender and Non Distended
Skin: Negative Rash or Jaundice
Neurological: Awake and Alert
Psychological: Calm
Objective Data
Lab Data
Lab Results
09/05/24 07:03
09/05/24 07:03
ESR 46 mm/hour (0-20) H 09/03/24 10:22
PT 16.2 Sec (11.4-14.6) H 08/31/24 05:43
INR 1.24 08/31/24 05:43
Estimated Creat Clear 28 ml/min 09/05/24 07:03
Total Bilirubin 1.8 mg/dl (0.2-1.3) H 09/05/24 07:03
AST 84 U/L (14-36) H 09/05/24 07:03
ALT 38 U/L (0-35) H 09/05/24 07:03
Alkaline Phosphatase 230 U/L (38-126) H 09/05/24 07:03
C-Reactive Protein 46.00 mg/L (0.0-10.00) H 09/03/24 10:22
Most recent labs reviewed.
Micro Results:
09/01/24 22:06 Blood Culture - Preliminary
Blood/Venous No Growth in 72 hours- Final report to follow
09/01/24 20:58 Blood Culture - Preliminary
Blood/Venous No Growth in 72 hours- Final report to follow
09/01/24 11:37 Influenza Types A & B (NIKKI) - Final
Nasal Swab Negative for Influenza A & B, NAAT
Negative results must be combined with clinical observations
and patient history.
Nucleic Acid Amplification test (NAAT)performed on the
[employer] platform.
Imaging:
09/02/2024 CT chest without contrast: Overall widespread prominence of pulmonary interstitium and widespread bilateral groundglass opacities predominantly centrally, most prominent in the upper lobes, especially the right upper lobe as well as tiny
right pleural effusion. Findings are somewhat nonspecific and may be inflammatory/infectious.. Some of several differential diagnostic possibilities include hypersensitivity pneumonitis, bronchiolitis and sarcoidosis. See full dictation for
additional detail. Film personally viewed.
--- NOTE | 2024-09-05 13:28 | PTCARENOTE ---
patient with episode of epistaxis with clot that resolved after a few seconds without intervention, tolerating diet, sat oob in chair for about 2 hours, vss, will continue to monitor.
--- NOTE | 2024-09-05 15:13 | CM ---
Patient still requiring acute level of care. At baseline physically.
Plan: Case management will continue to follow and assist with discharge planning. Home when stable.
[2024-09-05] MEDS: BENADRYL 25 MG PO (21:27)
[2024-09-05] MEDS: MELATONIN 3 MG PO (21:27)
[2024-09-06 03:16] VITALS: BP 116/52
[2024-09-06 07:15] VITALS: BP 125/102
[2024-09-06 07:16] LABS: % Basophils 0.8 % (0-2); % Eosinophils 5.4 % (0-6); % Immature Granulocytes 0.4 % (0-0.5); % Lymphocytes 20.5 % (20.5-51.1); % Neutrophils 59.9 % (42.2-75.2); Absolute Basophils 0.1 10^3/uL (0-0.2); Absolute Eosinophils 0.4 10^3/uL (0-0.7); Absolute Lymphocytes 1.6 10^3/uL (1.2-3.4); Absolute Neutrophils 4.7 10^3/uL (1.4-6.5); Hematocrit 26.3 % (37.0-47.0); Hemoglobin 8.8 g/dL (12.0-16.0); Mean Corp Hgb Conc. 33.5 g/dL (33.0-37.0); Mean Corpuscular Volume 86.8 fL (81.0-99.0); Mean Platelet Volume 11.4 fL (7.4-10.4); Nucleated Red Blood Cells % 0 %; Platelet Count 162 10^3/uL (130-400); Red Blood Cell Count 3.03 10^6/uL (4.20-5.40); Red Cell Dist. Width 17.1 % (11.5-14.5); White Blood Cell Count 7.8 10^3/uL (4.8-10.8)
[2024-09-06] MEDS: DUONEB 3 ML INH (07:37)
[2024-09-06] MEDS: DUPHALAC/CHRONULAC 20 GRAMS PO (07:40)
[2024-09-06] MEDS: VITAMIN B-12 1000 MCG PO (07:42)
[2024-09-06] MEDS: LASIX 40 MG PO (07:42)
[2024-09-06] MEDS: CRESTOR 20 MG PO (07:42)
[2024-09-06] MEDS: TOPROL XL 50 MG PO (07:42)
[2024-09-06] MEDS: VITAMIN D3 (cholecalciferol) 25 MCG PO (07:42)
[2024-09-06] MEDS: XIFAXAN 550 MG PO (07:42)
[2024-09-06] MEDS: LYRICA 150 MG PO (07:43)
[2024-09-06] MEDS: LEXAPRO 10 MG PO (07:43)
[2024-09-06] MEDS: NSS (PRESERVATIVE FREE) 10 ML IV (07:48)
[2024-09-06] MEDS: PROTONIX IV 40 MG IV (07:48)
[2024-09-06] MEDS: ProAmatine 2.5 MG PO (07:57)
[2024-09-06 08:01] VITALS: BMI 19.5
[2024-09-06 08:11] LABS: ALT (SGPT) 40 U/L (0-35); AST (SGOT) 69 U/L (14-36); Albumin 2.4 g/dl (3.5-5.0); Alkaline Phosphatase 254 U/L (38-126); Blood Urea Nitrogen 20 mg/dl (7-17); Calcium 8.3 mg/dl (8.4-10.2); Carbon Dioxide 26 mmol/L (22-30); Chloride 104 mmol/L (98-107); Estimated Creatinine Clearance 27 ml/min; Glucose 81 mg/dl (70-99); Potassium 4.1 mmol/L (3.5-5.1); Sodium 136 mmol/L (135-145); Total Bilirubin 1.7 mg/dl (0.2-1.3); eGFR 37.72
--- NOTE | 2024-09-06 08:21 | W.PN.HOSP.TC ---
Addendum entered and electronically signed by Rosemarie Starks MD 09/06/24 13:47:
total DC time 40 min
Original Note:
Today's Communication/Plan
-
see A/P
Assessment / Plan
Assessment / Plan
A/P:
# Acute blood loss anemia with GIB/Melena
# History of portal hypertensive gastropathy
# History of GAVE
Status post 2 units PRBC, transfuse additional unit PRBC today 09/04 for drop in Hgb to 7.1
s/p EGD 08/30/2024 Dr. Montez: Grade I esophageal varices with no bleeding and no stigmata of recent bleeding. Gastric antral vascular ectasia with bleeding/oozing. Treated with PC. Portal hypertensive gastropathy. A single non-bleeding
angioectasia in the duodenum.
diet advanced to low residue diet and pt tolerated well
Cont PPI BID
s/p abx ceftriaxone x5 days for variceal bleed ppx
Off octreotide
Ultrasound abdomen-small volume ascites, cont Lasix 40 mg daily with holding parameter
# febrile episode, recurrent. Unclear etiology - possible infectious v inflammatory including drug related
# Ground glass opacities/bronchiolitis on CT imaging
pt was on Ceftriaxone and added Doxycycline for ?bronchiolitis on CT
ID recc to observe off Abx
fever has resolved
Of note, blood cultures negative, Flu/COVID negative, HIV Ag/Ab negative, ACEI WNL at 58
# Ascites
# decompensated Alcoholic cirrhosis with Ascites
# Hx hepatic encephalopathy
# Fatty liver
# Transaminitis
Last paracentesis 07/08/2024
Continue lactulose 20 g p.o. every 48 H post EGD
Continue Xifaxan 550 mg twice daily
Lasix with holding parameter
ammonia level negative
# Hypomagnesemia
replete IV
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
metoprolol 50 mg daily with hold parameters
Continue midodrine 2.5 mg TID
# CKD 3B
Creat 1.5 today, at baseline
Patient follows with Dr. Yen. Can follow-up outpatient
# Probable COPD and COPD exacerbation
# Bronchiolitis
# GGO
# Tobacco use, cessation advised
# Hypoxia, resolved
1/4 pack/day x 1 year, prior 52 years 1 pack/day
No official dx of COPD
Duonebs ATC and PRN
weaned to RA
# Hypokalemia
Monitor and replete
# Alcohol abuse
sober since April 2024
No current concern for MSAs screen with protocol
May resume B12 post EGD
# GERD
PPI
# Celiac disease hx
# Depression/anxiety
# Mood disorder
Continue Lexapro 10 mg daily
# Chronic lower extremity edema
Lasix
# Neuropathy
Lyrica 150 mg twice daily
# HLD
Crestor 20 mg daily
Other PMH:
cecal AVMs
colon polyps
Osteoporosis-patient takes alendronate 10 mg p.o. Sundays, vitamin D3 25 mcg p.o. daily
DVT prophylaxis: SCDs
Full code
Dispo: HH
d/w
Anticipated Discharge: Today
Subjective/Interval History
-
Date of Service: September 06, 2024
Objective Data
-
Labs:
Laboratory Results
09/06/24
06:45
WBC 7.8
Hgb 8.8 L
Hct 26.3 L
Plt Count 162
Sodium 136
Potassium 4.1
Chloride 104
Carbon Dioxide 26
BUN 20 H
Creatinine 1.5 H
Glucose 81
Calcium 8.3 L
Total Bilirubin 1.7 H
AST 69 H
ALT 40 H
Alkaline Phosphatase 254 H
Vital Signs:
Vital Signs
Temp Pulse Resp BP Pulse Ox
36.9 C 89 16 125/102 91
09/06/24 07:15 09/06/24 07:39 09/06/24 07:39 09/06/24 07:15 09/06/24 07:39
I&O
09/05/24 09/06/24 09/07/24
06:59 06:59 06:59
Intake Total 1869 890 / 890
Balance 1869 890 / 890
Review of Systems
-
History Source: Patient
All other systems: Reviewed and negative
Physical Exam
-
General: Well Developed, No Apparent Distress, Comfortable, Conversant and Appears Chronically Ill
HEENT: Normocephalic, Atraumatic and Moist Mucous Membranes
Respiratory: Clear to Auscultation and Non Labored Respirations
Cardiac: Regular Rhythm, S1/S2 and Murmur; Negative Rub or Gallop
GI: Soft, Nontender, Nondistended and Normal Bowel Sounds
Musculoskeletal: No Clubbing, No Cyanosis and No Edema
Skin: Warm and Dry
Neuro: Awake, Alert, Oriented and Nonfocal/Grossly Intact
Psych: Calm and Intact Judgement/Insight
Data Reviewed
-
Labs: Labs Reviewed by me
--- NOTE | 2024-09-06 09:37 | CM ---
MD entered order for discharge.
Spoke with pt she said she was ready.
She said her Kory will drive her home.
Reviewed IMM pt agrees with dc and all questions answered regarding IMM.
PLAN Home with [facility]
[2024-09-06 10:12] VITALS: BP 133/44
--- NOTE | 2024-09-06 12:30 | W.DCSUMMARY ---
Discharge Summary
Discharge Data
Date of Admission: 08/30/24
Date of Discharge: 09/06/24
-
Pending Results: No
Hospital Course
Principal Diagnosis:
Acute blood loss anemia with GI bleed / melena likely due to gastric antral vascular ectasia with bleeding/oozing, treated with APC
Fever of unknown origin, resolved
Chronic Diagnoses:�
Decompensated Alcoholic cirrhosis with Ascites
History of portal hypertensive gastropathy
History of hepatic encephalopathy
Chronic kidney disease stage IIIb, creatinine at 1.5 which is at baseline
Probable COPD and COPD exacerbation
Bronchiolitis
Tobacco use, cessation advised
Alcohol abuse
Gastroesophageal reflux disease
Celiac disease
Depression/anxiety
Mood disorder, on Lexapro 10 mg daily
Chronic lower extremity edema
Neuropathy, on Lyrica 150 mg twice daily
Hyperlipidemia, on Crestor
Consultations:�
Infectious disease
Gastroenterology
Pulmonary
Procedures:�
s/p EGD 08/30/2024 Dr. Montez: Grade I esophageal varices with no bleeding and no stigmata of recent bleeding. Gastric antral vascular ectasia with bleeding/oozing. Treated with PC. Portal hypertensive gastropathy. A single non-bleeding
angioectasia in the duodenum.
Clinical course:�
This is a 68-year-old female, with past medical history as stated above, who presented with dark black stool.
Problem 1:
Acute blood loss anemia with GIB/Melena.
She received 3 units PRBC transfusion this admission. Her hemoglobin has improved to 8.8 on the day of discharge.
She underwent EGD on 08/30/[address] Montez.
EGD noted grade I esophageal varices with no bleeding and no stigmata of recent bleeding. Gastric antral vascular ectasia with bleeding/oozing, treated with APC. Portal hypertensive gastropathy. A single non-bleeding angioectasia in the duodenum.
Her diet was advanced back to solid low residue which she tolerated well.
She can continue with Protonix 40 mg twice daily going forward.
She received IV antibiotic ceftriaxone x5 days for variceal bleed prophylaxis while in the hospital.
Problem 2:
Fever of unknown origin, resolved.
Her blood cultures x2 were negative, Flu/COVID negative, HIV Ag/Ab negative.
Her CT chest noted groundglass opacities/possible bronchiolitis. Of note, ACEI was checked which was WNL at 58.
She was started with empiric doxycycline, and received it for 3 days while in the hospital.
Infectious disease was consulted, and recommended her to be observe off further antibiotic.
Her fever resolved uneventfully, and she was cleared to be discharged home.
As for the rest of her medical problems, they were stable during her hospital stay.
Discharge Plan
-
Patient Disposition: Home with Home Care
Discharge Diagnosis/Procedures: Acute blood loss anemia status post 3 units PRBC transfusion, status post EGD 08/30/2024 which noted Grade I esophageal varices with no bleeding and no stigmata of recent bleeding, Gastric antral vascular ectasia with
bleeding/oozing- treated with PC, Portal hypertensive gastropathy, A single non-bleeding angioectasia in the duodenum;
Fever (unclear etiology)- resolved;
Decompensated Alcoholic cirrhosis with Ascites
Condition: Fair
Diet: As tolerated
Activity: As tolerated
Driving Restrictions: Not until seen by your Dr
Referrals:
Erna Aragon DO [Family Provider] - in less than 1 week
Miranda Vaca MD [Active] - 10/10/24 10:30 am (hospital follow up)
Maura Jones DO [Active] - in six weeks (PFT)
Prescriptions:
Continued
loratadine 10 MG tablet
10 mg PO DAILYPRN PRN (Reason: seasonal allergies)
pregabalin 100 MG capsule
150 mg PO BID
melatonin 3 mg Tablet
3 mg PO HS 30 Days Qty: 0 0RF
metoprolol succinate 50 mg Tablet Extended Release 24 Hr
50 mg PO DAILY
rosuvastatin 20 mg Tablet
20 mg PO DAILY
diphenhydramine HCl [Benadryl] 25 mg Capsule
25 mg PO HS
alendronate 10 mg Tablet
10 mg PO BOCANEGRA
cyanocobalamin (vitamin B-12) 1,000 mcg Tablet
1,000 mcg PO DAILY
lactulose 10 gram/15 mL Solution
20 g PO Q48H
cholecalciferol (vitamin D3) [Vitamin D3] 25 mcg (1,000 unit) Tablet
25 mcg PO DAILY
midodrine 2.5 mg Tablet
2.5 mg PO TID@0800,1300,1800 30 Days Qty: 90 0RF
Xifaxan 550 mg Tablet
550 mg PO BID 30 Days Qty: 60 0RF
pantoprazole 40 mg tablet,delayed release (DR/EC)
40 mg PO BID 30 Days Qty: 60 0RF
furosemide [Lasix] 40 mg tablet
40 mg PO DAILY 30 Days Qty: 30 0RF
escitalopram oxalate [Lexapro] 10 mg Tablet
10 mg PO DAILY
Discharge Orders:
Discharge Patient (As Directed); Ordered 09/06/24
Ordered By: Rosemarie Starks
Discharge Date and Time
Discharge Date/Time: 09/06/24 10:45
Print Language: [place]AST [place]
== END 2024-09-06 10:45 | disposition home health service (06) | DRG 378 ==
LOC: 3 WEST ACU 12:51
PROVIDERS: Clinical Nurse Specialist Family Health; Nurse Practitioner; ADMITTING PHYSICIAN Internal Medicine; ATTENDING PHYSICIAN Internal Medicine; CONSULT PHYSICIAN Internal Medicine; CONSULT PHYSICIAN Internal Medicine Gastroenterology; EMERGENCY PHYSICIAN Emergency Medicine; FAMILY PHYSICIAN Family Medicine; OTHER PHYSICIAN Internal Medicine Infectious Disease
PROC: 0W3P8ZZ Control Bleeding in Gastrointestinal Tract, Via Natural or Artificial Opening Endoscopic (ICD-10-PCS; 2024-08-30)
PROC: 30233N1 Transfusion of Nonautologous Red Blood Cells into Peripheral Vein, Percutaneous Approach (ICD-10-PCS; 2024-08-30)
DX: K31.811 Angiodysplasia of stomach and duodenum with bleeding (principal); D62 Acute posthemorrhagic anemia; K76.6 Portal hypertension; I50.32 Chronic diastolic (congestive) heart failure; I13.0 Hypertensive heart and chronic kidney disease with heart failure and stage 1 through stage 4 chronic kidney disease, or unspecified chronic kidney disease; J44.1 Chronic obstructive pulmonary disease with (acute) exacerbation; N17.9 Acute kidney failure, unspecified; N39.0 Urinary tract infection, site not specified; R64 Cachexia; Z68.1 Body mass index [BMI] 19.9 or less, adult; F17.210 Nicotine dependence, cigarettes, uncomplicated; K70.31 Alcoholic cirrhosis of liver with ascites; K31.89 Other diseases of stomach and duodenum; N18.32 Chronic kidney disease, stage 3b; F10.10 Alcohol abuse, uncomplicated; K76.0 Fatty (change of) liver, not elsewhere classified; K21.9 Gastro-esophageal reflux disease without esophagitis; K90.0 Celiac disease; F32.A Depression, unspecified; F41.9 Anxiety disorder, unspecified; I85.10 Secondary esophageal varices without bleeding; G62.9 Polyneuropathy, unspecified; M81.0 Age-related osteoporosis without current pathological fracture; K63.5 Polyp of colon; E87.6 Hypokalemia; E78.00 Pure hypercholesterolemia, unspecified; E83.42 Hypomagnesemia; Z79.899 Other long term (current) drug therapy; Z80.52 Family history of malignant neoplasm of bladder
CPT/HCPCS: 36430; 71046; 71250; 76705; 80053; 81099; 82140; 82164; 82248; 82785; 83735; 83880; 85014; 85018; 85025; 85027; 85610; 85652; 86140; 86850; 86900; 86901; 86920; 87040; 87389; 87502; 87811; 93005; 94640; 96374; 96375; 97162; 97166; 99291; 99406; P9016

== ENCOUNTER 2024-10-17 20:58 | Inpatient (IN) | payer OTHER, SELFPAY ==
[2024-10-17] VITALS (11 sets, daily range): BP systolic 99–127; BP diastolic 47–73; BMI 20.4; BMI 21.8
[2024-10-17 19:42] LABS: % Basophils 0.2 % (0-2); % Eosinophils 2.7 % (0-6); % Immature Granulocytes 0.9 % (0-0.5); % Lymphocytes 20.6 % (20.5-51.1); % Monocytes 11.3 % (1.7-9.3); % Neutrophils 64.3 % (42.2-75.2); Absolute Eosinophils 0.2 10^3/uL (0-0.7); Absolute Immature Granulocytes 0.1 10^3/uL (0-0.05); Absolute Lymphocytes 1.4 10^3/uL (1.2-3.4); Absolute Monocytes 0.7 10^3/uL (0.1-0.6); Absolute Neutrophils 4.2 10^3/uL (1.4-6.5); Hematocrit 10.6 % (37.0-47.0); Hemoglobin 3.2 g/dL (12.0-16.0); Mean Corp Hgb Conc. 30.2 g/dL (33.0-37.0); Mean Corpuscular Volume 82.8 fL (81.0-99.0); Nucleated Red Blood Cells % 0 %; Platelet Count 120 10^3/uL (130-400); Red Blood Cell Count 1.28 10^6/uL (4.20-5.40); Red Cell Dist. Width 17.5 % (11.5-14.5); White Blood Cell Count 6.6 10^3/uL (4.8-10.8)
[2024-10-17 19:46] LABS: ALT (SGPT) 36 U/L (0-35); AST (SGOT) 73 U/L (14-36); Albumin 3.4 g/dl (3.5-5.0); Alkaline Phosphatase 148 U/L (38-126); Blood Urea Nitrogen 34 mg/dl (7-17); Calcium 8.5 mg/dl (8.4-10.2); Carbon Dioxide 20 mmol/L (22-30); Chloride 104 mmol/L (98-107); Glucose 97 mg/dl (70-99); Potassium 3.8 mmol/L (3.5-5.1); Sodium 138 mmol/L (135-145); Total Bilirubin 0.8 mg/dl (0.2-1.3); Total Protein 5.6 g/dl (6.3-8.2); eGFR 32.46
--- NOTE | 2024-10-17 19:56 | ED.GENMED ---
History of Present Illness
General
Chief Complaint: Rectal Bleeding
Source: patient and records
Exam Limitations: none
Time Seen by Provider: 10/17/24 19:38
History of Present Illness
History of Present Illness:
68yoF with a history of cirrhosis, CKD, COPD, and hyperlipidemia presenting for evaluation of rectal bleeding. Patient reports 2 large episodes of bright red rectal bleeding today. Patient has been feeling unwell over the past several days with
fatigue and thought that she may be catching a cold from her . She is also been experiencing exertional dyspnea and lightheadedness. No syncope. She denies any abdominal pain or rectal pain. No episodes of vomiting. Patient was
hospitalized in August 2024 for a GI bleed. Endoscopy at that time showed grade 1 esophageal varices as well as gastric antral vascular ectasia with bleeding/oozing.
Past History
Past History
ED Past Medical History: GERD, HTN, Hypercholesterolemia, Valvular disease, Psychiatric and Other (Neuropathy)
ED Past Surgical History: Gynecological and Other (Cataracts)
Phy Exam
General Physical Exam
General Presentation: mild distress
General Skin: warm, dry and pale
General Habitus: elderly
General Mental: alert
ENT Exam
ENT Exam: normocephalic
Cardiovascular Exam
Cardiovascular Exam: regular rate/rhythm
Pulmonary Exam
Pulmonary Exam: lungs clear, no respiratory distress, no rales, no crackles and no rhonchi
Gastrointestinal Exam
Gastrointestinal Exam: non tender, soft and non distended
Guaiac Status: trace positive (Stool light brown, hemoccult positive )
Neurological Exam
Neurological Exam: alert
Katie Coma Scale
Eye Opening: Spontaneous
Verbal Response: Oriented
Motor Response: Obeys Commands
GCS Total Score: 15
Skin Exam
Skin Exam: pallor
Psychiatric Exam
Psychiatric Exam: normal mood/affect
Course
Orders/Labs/Results
Orders:
Orders
10/17/24 Dinner
NPO
Allow oral meds: Yes
Allow clear liquids: Sips of Clears
10/17/24 19:17
Type+Screen Urgent
Complete Blood Count/With Diff Urgent
Comprehensive Metabolic Panel Urgent
10/17/24 19:48
Cardiac Monitoring- Treatment ONCE
10/17/24 19:54
Blood Bank Products [* Blood Bank Products] Urgent
Blood Bank Products: *Packed RBC Leuko(PRBC's)
Quantity: 2
Transfuse Today: Yes
Reason: Anemia
CefTRIAXone [Rocephin] 1,000 mg IV NOW STA
Pantoprazole [Protonix IV] 80 mg IV NOW STA
10/17/24 20:18
Octreotide Acetate [Sandostatin] 600 mcg 0.9% Sodium Chloride 500 ml [Nss] 500 ml IV NOW
10/17/24 20:20
PT/INR [Prothrombin Time] Urgent
PTT Urgent
10/17/24 20:32
Admit/Transfer Patient As Directed
Co-Sign Provider:
Level of Care: Inpatient admission
Assign to:: IMU- Intermediate Care
Physician / Group: hospitalist
Diagnosis: GI bleed
Reason for Hospitalization: GI bleed
Expected length of stay greater than two midnights?: Yes
ELOS- Estimated Length of Stay in days: 2
I certify the patient meets the requirements for IP care: Yes
PRN Pain Medication Management As Directed
May give lesser potent ordered pain med per pt: Yes
preference::
Protocol:: Medication orders for pain may be administered in a
manner that supports deferring to patient preference
when the pt is:
- Requesting an ordered lesser potent pain medication.
Least to most potent pain medications are defined
as: acetaminophen < NSAID < tramadol < opioids
(morphine, oxycodone, hydromorphone).
- Requesting a lesser dose of the same medication IF
ORDERED.
- Requesting a less intrusive route of administration
if both routes are prescribed by the provider (PO <
IV).
10/17/24 20:34
Code Status As Directed
Resuscitation Status: Full Code
10/17/24 21:41
Dextrose 5%/Lactringers 1000ML [D5lr] 1,000 ml IV 60 mls/hr
Ondansetron Injectable [Zofran] 4 mg IV Q6HPRN PRN
Pantoprazole 80 mg/100 ml Nss [Protonix] 80 mg in 100 ml IV Q10H
10/17/24 21:41
GASTROINTESTINAL CONSULT Routine
Consulting Provider: Ria Olson
Was physician already notified: Yes
Activity As Directed
Activity Level: With Assistance
INT (Intravenous Needle Therapy) As Directed
Comment: Place 2 IV catheters of the largest bore possible until stable
Pneumatic Compression Sleeves As Directed
Type: Knee high
Vital Signs As Directed
Frequency: Per unit guidelines
DX Deep Vein Thrombosis Video Routine
10/17/24 22:00
Lactulose [Duphalac/Chronulac] 20 grams PO Q48H
10/17/24 23:30
CBC/No Diff [Complete Blood Count/No Diff] Routine
10/18/24 06:00
Basic Metabolic Panel IN AM
Complete Blood Count/No Diff IN AM
Ferritin IN AM
Iron IN AM
Prothrombin Time IN AM
Total Iron Binding IN AM
10/18/24 08:00
Midodrine [ProAmatine] 2.5 mg PO TID@0800,1300,1800
Rifaximin [Xifaxan] 550 mg PO BID
10/18/24 11:55
H&H Q6H
10/18/24 17:55
H&H Q6H
10/18/24 20:00
CefTRIAXone [Rocephin] 1,000 mg IV Q24H
Abnormal Lab Results
10/17/24 10/17/24
19:17 20:20
RBC 1.28 L 10^6/uL
(4.20-5.40)
Hgb 3.2 L* g/dL
(12.0-16.0)
Hct 10.6 L* %
(37.0-47.0)
MCH 25.0 L pg
(27.0-31.0)
MCHC 30.2 L g/dL
(33.0-37.0)
RDW 17.5 H %
(11.5-14.5)
Plt Count 120 L 10^3/uL
(130-400)
MPV 13.0 H fL
(7.4-10.4)
Abs Immat Gran (auto) 0.1 H 10^3/uL
(0-0.05)
Absolute Monos (auto) 0.7 H 10^3/uL
(0.1-0.6)
Immature Gran % 0.9 H %
(0-0.5)
Monocytes % 11.3 H %
(1.7-9.3)
PT 15.8 H Sec
(11.4-14.6)
Carbon Dioxide 20 L mmol/L
(22-30)
BUN 34 H mg/dl
(7-17)
Creatinine 1.7 H mg/dL
(0.6-1.0)
AST 73 H U/L
(14-36)
ALT 36 H U/L
(0-35)
Alkaline Phosphatase 148 H U/L
(38-126)
Total Protein 5.6 L g/dl
(6.3-8.2)
Albumin 3.4 L g/dl
(3.5-5.0)
Crossmatch IS Only See Detail
10/17/24 19:17
10/17/24 19:17
Vital Signs
Initial and Last Documented VS:
Initial Vital Signs
Temp Pulse Resp BP Pulse Ox
98.8 F 92 16 122/47 95
10/17/24 19:10 10/17/24 19:10 10/17/24 19:10 10/17/24 19:10 10/17/24 19:10
Last Documented Vital Signs
Temp Pulse Resp BP Pulse Ox
100.2 F 90 22 116/55 94
10/17/24 22:53 10/17/24 22:26 10/17/24 22:26 10/17/24 22:26 10/17/24 22:26
MDM/Problems Addressed
Differential Diagnosis Includes:
68yoF here with BRBPR x2 today. C/o fatigue, exertional dyspnea, and lightheadedness. Hx of GI bleeds and cirrhosis. Vital signs stable. Patient is ill-appearing and pale but fortunately non-toxic. Stool is light brown on rectal exam.
Differential diagnosis includes but is not limited to: Lower GI bleed, brisk upper GI bleed, acute blood loss anemia
Labs obtained in triage and hemoglobin is 3.2. Creatinine 1.7 which is near baseline. Consent obtained and 2 units PRBCs ordered for transfusion. She was also initiated on IV Protonix, Rocephin, and an octreotide drip. GI notified and patient
admitted for further management.
*Critical Care Note
Total Time (30-74mins, 75-104mins- exclusive of procedures): 35
ED Attending Note
-
Portions of this chart may have been created with voice recognition software.� Occasional wrong word or��sound alike� substitutions may have occurred due to the inherent limitations of voice recognition software.
Discharge Plan
Departure
Patient Disposition: Admit
Date of Disposition: 10/17/24
Time of Disposition: 19:59
Presentation/result/management discussed w/ accepting MD/DO: Hospitalist
Discharge Problem:
GI bleed, Symptomatic anemia
Interventions
Interventions:
*Risk Screen - Suicide Last Done: 10/17/24 19:13
*General Assessment Last Done: 10/17/24 20:01
*Neglect/Abuse Screening Last Done: 10/17/24 19:13
*ED COVID-19 Vaccine History Last Done: 10/17/24 20:01
*Nursing Disposition Last Done: 10/17/24 21:52
FL-Daxyiy-Rcnhmnueaa Assessment Last Done: 10/17/24 20:35
ED- Cardiac Assessment Last Done: 10/17/24 20:35
ED- Pulmonary Assessment Last Done: 10/17/24 20:35
Discharge Date and Time
Discharge Date/Time: 10/17/24 21:52
--- NOTE | 2024-10-17 20:22 | HPS.HSE ---
Family Physician
-
Family Physician: Erna Aragon
Chief Complaint
-
Rectal bleeding
History of Present Illness
This is a 68-year-old with history of hepatic cirrhosis complicated by portal hypertensive gastropathy, hepatic encephalopathy, will as well as history of GERD, celiac disease, CKD with baseline creatinine of around 1.5, COPD, recent admission for
upper GI bleed found to have gastric antral vascular ectasia with patient had oozing treated with APC and on pantoprazole twice daily who presents to the emergency department today with 2 episodes of rectal bleeding.
Patient reported that she had 2 BMs that were bloody. She reports that it was blood mixed with stool. She did not see any melena. She denies any abdominal pain. She denies any nausea or vomiting. She reports feeling lightheaded now. There was
no loss of consciousness. After BMs she called her physician who were requested that she go to the emergency department. Patient reported that she took 1 dose of NSAIDs today but generally does not take NSAIDs. She denies any other thinners.
In the emergency department blood pressure was 122/70 pulse of 92 with oxygen saturation of 98. She was afebrile. She had a hemoglobin of 3.2 normal white count, platelets of 120. BUN and creatinine without formal 0.7, electrolytes were stable.
Medical History
Past Medical History
Past Medical History: Reports Other
Additional Past Medical History:
Celiac disease
Alcohol abuse previously sober relapse April 2024 currently sober since April 2024
Alcoholic cirrhosis decompensated with Ascites-Last paracentesis 07/08/2024
Fatty liver
Esophageal varices
Portal hypertensive gastropathy
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
GERD
Mood disorder
Orthostatic HTN
Chronic lower extremity edema
Neuropathy
Depression
Anxiety
cecal AVMs
colon polyps
Osteoporosis
Past Surgical History: Reports Other
Additional Past Surgical History:
Hysterectomy
Social History
Tobacco: Smoker (1 quart a pack per day x 1 year prior 52 years 1 pack a day)
Alcohol: Former (Sober since April 2024)
Drug: None
Personal:
Living: With Family ( Kory)
Employment: Retired
Family History
Family History: Other (Both parents in 2021 mother history HTN, dementia, from COVID, father early dementia)
Allergies / Home Medications
Allergies reflects when Allergies were last updated in [facility].
Home Medications with original date entered in [facility]
Allergy/Medication List:
Allergies
Allergy/AdvReac Type Severity Reaction Status Date / Time
olmesartan [From Benicar] Allergy anemia Verified 08/30/24 09:54
Sulfa (Sulfonamide Allergy lip Verified 08/30/24 09:54
Antibiotics) Swelling
venlafaxine [From Effexor] Allergy Unknown Verified 08/30/24 09:54
Home Medications
loratadine 10 mg tablet 10 mg PO DAILYPRN PRN seasonal allergies 05/30/18
melatonin 3 mg tablet 3 mg PO HS 30 days #0 tabs 01/05/22
metoprolol succinate 50 mg tablet,extended release 24 hr 50 mg PO DAILY Blood Pressure 07/22/22
rosuvastatin 20 mg tablet 20 mg PO HS High Cholesterol 07/06/24
alendronate 10 mg tablet 10 mg PO BOCANEGRA osteoporosis 07/07/24
cholecalciferol (vitamin D3) 25 mcg (1,000 unit) tablet (Vitamin D3) 25 mcg PO DAILY Supplement 07/07/24
cyanocobalamin (vitamin B-12) 1,000 mcg tablet 1,000 mcg PO DAILY Supplement 07/07/24
diphenhydramine HCl 25 mg capsule (Benadryl) 25 mg PO HS Allergies 07/07/24
lactulose 10 gram/15 mL oral solution 20 g PO Q48H hepatic encephalopathy 07/07/24
furosemide 40 mg tablet (Lasix) 40 mg PO DAILY Gastrointestinal issue 1 month #30 tabs 07/11/24
midodrine 2.5 mg tablet 2.5 mg PO TID@0800,1300,1800 Blood pressure 1 month #90 tabs 07/11/24
pantoprazole 40 mg tablet,delayed release 40 mg PO BID Gastrointestinal issue 1 month #60 tabs 07/11/24
rifaximin 550 mg tablet (Xifaxan) 550 mg PO BID Gastrointestinal issue 1 month #60 tabs 07/11/24
escitalopram oxalate 10 mg tablet (Lexapro) 10 mg PO DAILY depression/anxiety 08/30/24
folic acid 1 mg tablet 1 mg PO DAILY 10/17/24
pregabalin 150 mg capsule 150 mg PO BID 10/17/24
Review of Systems
-
History Source: Patient
Constitutional: Reports No Symptoms
EENT: Reports No Symptoms
Respiratory: Reports No Symptoms
Cardiac: Reports No Symptoms
Abdomen/GI: Reports Bloody Stools
: Reports No Symptoms
Musculoskeletal: Reports No Symptoms
Skin: Reports No Symptoms
Neurological: Reports No Symptoms
Endocrine: Reports No Symptoms
Hematologic/Lymphatic: Reports No Symptoms
Psych: Reports No Symptoms
Physical Exam
Vital Signs
Vital Signs
Temp Pulse Resp BP Pulse Ox
98.8 F 92 16 122/47 95
10/17/24 19:10 10/17/24 19:10 10/17/24 19:10 10/17/24 19:10 10/17/24 19:10
Physical Exam
General: Well Developed and No Apparent Distress
HEENT: NormoCephalic, Anicteric and Moist mucous membranes
Respiratory: Clear
Cardiac: S1/S2 and Regular Rhythm
Breast: Deferred by me
GI: Soft, Non Tender, Non Distended and Normal Bowel Sounds
Rectal: Brown and Hem Positive
Genito-urinary: Deferred by me
Musculoskeletal: No Clubbing, No Cyanosis and No Edema
Skin: Warm
Neuro: AO x 3 and Nonfocal/grossly intact
Hematologic/Lymphatic: No Lymphadenopathy
Psych: Calm
Laboratory Results
-
10/17/24 19:17
10/17/24 19:17
Laboratory Results
Total Bilirubin 0.8 mg/dl (0.2-1.3) 10/17/24 19:17
AST 73 U/L (14-36) H 10/17/24 19:17
ALT 36 U/L (0-35) H 10/17/24 19:17
Alkaline Phosphatase 148 U/L (38-126) H 10/17/24 19:17
Data Reviewed
-
Lab Data: Labs Reviewed by me
Old Records: Reviewed
Impression/Plan
-
IMPRESSION:
68 y.o female with cirrhosis, portal hypertension, grade I varices, recent admission for GI bleed with melena found to have gastric antral vascular ectasia with bleeding and oozing s/p APC who now presents with Hgb of 3.2 after 2 episodes of bloody
bowel movements. BP 120 systolic and non-tachycardic. She is alert and oriented x 3. Heme + brown on rectal exam. No additional BM here in ED. NO abdominal pain, nausea or vomiting. No abdominal distension. No encephalopathy.
PLAN:
Rectal Bleeding - Suspect lower Gi bleed. No thinners, not particularly coagulopathic. HD stable so far.
- admit to IMU
- transfusing 2 units prbc stat
- goal Hgb 7, will repeat cbc in 3 - 4 hours and transfuse prn
- ppi gtt
- continue octreotide for now
- NPO, IV fluids
- ceftriaxone for GI bleed ppx in cirrhosis
- holding po meds for now unless stated otherwise
- d5 lr 75/hr for now, holding lasix
- GI consulted and aware
Cirrhosis - rectal bleeding less likely gastric varices, no significant ascites
- management as above
- holding lasix
- lactulose/rifaximin continued for now
DVT PPX - SCD
Code status - full code
[2024-10-17] MEDS: PROTONIX IV 80 MG IV (20:27)
[2024-10-17] MEDS: ROCEPHIN 1000 MG IV (20:27)
[2024-10-17 20:36] LABS: INR 1.21; PT 15.8 Sec (11.4-14.6)
[2024-10-17 20:37] LABS: APTT 29.6 Sec (23.4-35.0)
[2024-10-17] MEDS: SANDOSTATIN 500.6 MCG IV (20:41)
[2024-10-17] MEDS: DUPHALAC/CHRONULAC 20 GRAMS PO (22:29)
[2024-10-17] MEDS: PROTONIX 100 IV (22:32)
[2024-10-17] MEDS: TYLENOL 650 MG PO (23:48)
[2024-10-18] VITALS (23 sets, daily range): BP systolic 83–133; BP diastolic 44–67
--- NOTE | 2024-10-18 00:06 | PTCARENOTE ---
pt noted to have fever just prior to hanging second unit of blood. TT nightshift LOCATION MANAGER Dagoberto Francois, orders obtained for tylenol, LOCATION MANAGER gave 'ok' to hang second unit. 15min vitals obtained and stable, no change in temperature noted.
[2024-10-18] MEDS: D5LR 1000 IV (02:33)
[2024-10-18 04:44] LABS: Hematocrit 14.4 % (37.0-47.0); Hemoglobin 4.7 g/dL (12.0-16.0); Mean Corp Hgb Conc. 32.6 g/dL (33.0-37.0); Mean Corpuscular Hgb 26.4 pg (27.0-31.0); Mean Corpuscular Volume 80.9 fL (81.0-99.0); Red Blood Cell Count 1.78 10^6/uL (4.20-5.40); Red Cell Dist. Width 16.7 % (11.5-14.5); White Blood Cell Count 8.2 10^3/uL (4.8-10.8)
[2024-10-18 04:48] LABS: INR 1.28; PT 16.6 Sec (11.4-14.6)
[2024-10-18 04:54] LABS: Blood Urea Nitrogen 35 mg/dl (7-17); Calcium 7.8 mg/dl (8.4-10.2); Carbon Dioxide 23 mmol/L (22-30); Chloride 109 mmol/L (98-107); Estimated Creatinine Clearance 20 ml/min; Glucose 128 mg/dl (70-99); Iron 62 ug/dl (37-170); Potassium 4.3 mmol/L (3.5-5.1); Sodium 140 mmol/L (135-145); eGFR 28.41
[2024-10-18 05:04] LABS: Percent Saturation 17 % (20-50); Total Iron Binding Capacity 352 ug/dl (265-497)
--- NOTE | 2024-10-18 05:12 | PTCARENOTE ---
Addendum entered by Coty Ornelas RN 10/18/24 05:14:
No bloody BMs this shift. VSS at this time
Original Note:
hgb noted to be critical at 4.7, major assembly lineman SAIL FINISHER HAND notified. 2 units PRBCs to be ordered per SAIL FINISHER HAND
[2024-10-18 05:29] LABS: Ferritin 9.2 ng/ml (11.1-264.0)
[2024-10-18 06:51] LABS: Mean Platelet Volume 12.3 fL (7.4-10.4); Platelet Count 79 10^3/uL (130-400)
--- NOTE | 2024-10-18 07:30 | PTCARENOTE ---
Order received for stat labs. Unable to obtain at this time due to unit of blood currently infusing- Dr Francois notified.
[2024-10-18] MEDS: PROTONIX 100 IV ×2 (07:34→17:00)
--- NOTE | 2024-10-18 08:17 | CON.GI ---
Addendum entered and electronically signed by Ria Olson MD 10/18/24 16:48:
I saw and examined the patient.
The PA's note was reviewed and I agree with the note.
-- Rectal bleeding/severe acute anemia/multiple admissions with GI bleed-admission Hb 3.2 ( prior hb 09/2024- 8.8 ) . s/p 4 units PRBC since admission. Likely lower GI bleeding- prior hx of cecal AVM . last colonoscopy 2022. Last EGD
08/2024-reviewed. Grade 1 varices. Bleeding GAVE+. BUN normal this admission.
-- Decompensated liver cirrhosis secondary to alcohol -ascites/varices/GAVE /HE in the past. MELD-Na 10/18- . follow with
-- Fever spike+
-- ESTRELLITA on CKD
-- Elevated lipase. Denies any abdominal pain. Denies any recent alcohol use. Getting CT abdomen/pelvis
plan
Continue monitor H&H. Maintain Hb above 7
Daily MELD score
Continue Protonix drip/octreotide started by medical team for now
Waiting on CT abdomen ordered by medical team. If ascites will recommend paracentesis to rule out SBP
Continue IV antibiotics
Sepsis workup as per medical team
NPO for now
Continue monitor renal function. Nephrology evaluation if worsening
Hold off on diuretic
Continue rifaximin for now. Hold off on lactulose with lower GI bleeding.
Patient requires repeat EGD/colonoscopy with severe anemia. Currently holding off on it with fever spikes and requiring more transfusion today (waiting 4th unit. Last Hb 4.7). Timing to be determined
(Currently scheduled to have outpatient EGD/colonoscopy with Dr. Vaca next month)
Original Note:
Consultation
-
Date/Time Consultation Requested: 10/17/242140
Date/Time Consultation Performed: 10/18/24 55
Requesting Provider: Dr. Cosntantino
Performing Provider: Dr. Olson / Ekaterina Huerta PA-C
Reason for Consultation: anemia
Medical History
Chief Complaint / HPI
Chief Complaint: anemia
History of Present Illness:
This is a 68-year-old female with a past medical history of alcoholic cirrhosis decompensated with ascites, (last paracentesis 07/08/2024), esophageal varices, portal hypertensive gastropathy, GAVE, GERD, celiac disease, HTN, CKD, neuropathy,
depression, cecal AVMs, and colon polyps who was recently admitted at the end of August into September (08/29 to 09/06/2024) for GI bleed secondary to GAVE with bleeding seen on EGD 08/30/24, treated with APC, with hemoglobin at that time as low as 4.8
requiring transfusion with 3 units PRBCs. Hgb had improved to 8.8 on discharge then. She had 2 episodes of rectal bleeding yesterday and felt very weak with dyspnea on exertion so returned to the ER where labs showed a profound anemia with
hemoglobin of 3.2. The bleeding was described as bright red blood, mixed with stool, and 'filled the toilet bowl with blood.' Patient was transfused 2 units PRBCs, repeat Hgb 4.7. A third unit is transfusing at the time of my exam, and a fourth unit
has been ordered as well. She had no further episodes of rectal bleeding since admission. She has remained hemodynamically stable. Labs showed no leukocytosis, although patient did have a fever (up to 102.9) earlier today; now normal temperature.
Interestingly, she had a similar presentation with fever of unknown origin during her last admission with all infectious workup negative, and she was consulted by ID. Rocephin already initiated now, for SBP prophylaxis. Lactic acid pending. Other
labs showing a mild transaminitis (AST 73, ALT 36), and elevation in alk phos (148) with normal total bilirubin (0.8). CBC showed no leukocytosis, WBC 6.6, platelets 120, PT 15.8 and INR 1.21. BUN mildly elevated (34) and creatinine 1.7 (close to
her baseline). Vitamin B12/folate normal.
She has been started on PPI gtt, octreotide. Lactulose and Xifaxan continued as well. She currently has no abdominal pain, nausea, vomiting or diarrhea. She takes no blood thinners and generally avoids NSAIDs, but admits to taking Advil yesterday
for a headache.
Past Medical History
Past Medical History: Other (ETOH cirrhosis, ascites, GERD, Celiac disease, HTN, neuropathy, depression, h/o PSE, cecal AVMS, h/o colonic polyps)
Past Surgical History: Other (Hysterectomy, fusion at [place] 2018 and 2017, several EGD/colonoscopies)
Social History
Tobacco: Former Smoker
Alcohol: None (last was April 2024)
Drug: None
Personal:
Living: With Family
Family History
Family History: Other (Father dementia, siblings celiac, father and brother bladder cancer)
Allergies / Home Medications
Allergy/AdvReac Type Severity Reaction Status Date / Time
olmesartan [From Benicar] Allergy anemia Verified 08/30/24 09:54
Sulfa (Sulfonamide Allergy lip Verified 08/30/24 09:54
Antibiotics) Swelling
venlafaxine [From Effexor] Allergy patient Verified 10/17/24 21:43
states
this may
have
caused
respiratory
failure
�Medication �Instructions �Recorded
loratadine 10 mg tablet 10 mg PO DAILYPRN PRN seasonal 05/30/18
allergies
melatonin 3 mg tablet 3 mg PO HS 30 days #0 tabs 01/05/22
metoprolol succinate 50 mg 50 mg PO DAILY Blood Pressure 07/22/22
tablet,extended release 24 hr
rosuvastatin 20 mg tablet 20 mg PO HS High Cholesterol 07/06/24
alendronate 10 mg tablet 10 mg PO BOCANEGRA osteoporosis 07/07/24
cholecalciferol (vitamin D3) 25 25 mcg PO DAILY Supplement 07/07/24
mcg (1,000 unit) tablet (Vitamin
D3)
cyanocobalamin (vitamin B-12) 1,000 mcg PO DAILY Supplement 07/07/24
1,000 mcg tablet
diphenhydramine HCl 25 mg capsule 25 mg PO HS Allergies 07/07/24
(Benadryl)
lactulose 10 gram/15 mL oral 20 g PO Q48H hepatic encephalopathy 07/07/24
solution
furosemide 40 mg tablet (Lasix) 40 mg PO DAILY Gastrointestinal 07/11/24
issue 1 month #30 tabs
midodrine 2.5 mg tablet 2.5 mg PO TID@0800,1300,1800 Blood 07/11/24
pressure 1 month #90 tabs
pantoprazole 40 mg tablet,delayed 40 mg PO BID Gastrointestinal 07/11/24
release issue 1 month #60 tabs
rifaximin 550 mg tablet (Xifaxan) 550 mg PO BID Gastrointestinal 07/11/24
issue 1 month #60 tabs
escitalopram oxalate 10 mg tablet 10 mg PO DAILY depression/anxiety 08/30/24
(Lexapro)
folic acid 1 mg tablet 1 mg PO DAILY 10/17/24
pregabalin 150 mg capsule 150 mg PO BID 10/17/24
Review of Systems
-
History Source: Patient
All other systems: A 12 pt ROS was Negative except as stated above in HPI
Vital Signs
Temp Pulse Resp BP Pulse Ox
98.4 F 80 17 91/47 96
10/18/24 07:38 10/18/24 07:38 10/18/24 07:38 10/18/24 07:38 10/18/24 06:04
Physical Exam
Exam
General: No Apparent Distress and Comfortable
Respiratory: Clear
Cardiac: Regular Rhythm
GI: Soft, Non Tender, Non Distended and Normal Bowel Sounds
Rectal: Other (brown, heme positive stool on ER exam)
Skin: Warm and Dry
Neuro: AO x 3
Psych: Calm
Results
WBC 8.2 10^3/uL (4.8-10.8) 10/18/24 04:16
Hgb 4.7 g/dL (12.0-16.0) L* D 10/18/24 04:16
Hct 14.4 % (37.0-47.0) L* 10/18/24 04:16
MCV 80.9 fL (81.0-99.0) L 10/18/24 04:16
Plt Count 79 10^3/uL (130-400) L D 10/18/24 04:16
Absolute Neuts (auto) 4.2 10^3/uL (1.4-6.5) 10/17/24 19:17
PT 16.6 Sec (11.4-14.6) H 10/18/24 04:16
INR 1.28 10/18/24 04:16
APTT 29.6 Sec (23.4-35.0) 10/17/24 20:20
Sodium 140 mmol/L (135-145) 10/18/24 04:16
Potassium 4.3 mmol/L (3.5-5.1) 10/18/24 04:16
Chloride 109 mmol/L (98-107) H 10/18/24 04:16
Carbon Dioxide 23 mmol/L (22-30) 10/18/24 04:16
BUN 35 mg/dl (7-17) H 10/18/24 04:16
Creatinine 1.9 mg/dL (0.6-1.0) H 10/18/24 04:16
Calcium 7.8 mg/dl (8.4-10.2) L 10/18/24 04:16
Total Bilirubin 0.8 mg/dl (0.2-1.3) 10/17/24 19:17
AST 73 U/L (14-36) H 10/17/24 19:17
ALT 36 U/L (0-35) H 10/17/24 19:17
Alkaline Phosphatase 148 U/L (38-126) H 10/17/24 19:17
Diagnostic Image Results:
No imaging this admission
Prior GI Procedures:
--08/30/2024 EGD: Acute post hemorrhagic anemia, Melena, h/o cirrhosis and varices s/p banding in 07/2024 and GAVE s/p APC 08/09/2425. Grade I esophageal varices with no bleeding and no stigmata of recent bleeding. Portal hypertensive gastropathy. Gastric
antral vascular ectasia with bleeding/oozing. Treated with APC. Non-bleeding duodenal AVM.
--08/10/2024 EGD: FU of varices and anemia Findings: Grade I EV small not amenable to banding, PHG, GAVE s/p APC, normal duodenum. recall 4mo
--07/25/2024 EGD Anemia cirrhosis Findings: Grade II EV s/p banding x2, GAVE s/p APC. recall 4wks
--07/19/2024 labs: WBC 7.3, hemoglobin 7.5, hematocrit 22.2, platelets 170, sodium 141, potassium 4.0, chloride 105, CO2 20, BUN 19, creatinine 1.65, glucose 66
--07/11/2024 labs: WBC 5.2, hemoglobin 7.2, hematocrit 20.5, platelets 79, sodium 139, potassium 3.5, BUN 30, creatinine 1.6, calcium 8.1, total bilirubin 2.0, AST 58, ALT 19, alk phos 184, albumin 2.9
--07/08/2024 labs: WBC 7.6, hemoglobin 6.8, hematocrit 19.1, platelets 128, PT 18.7, INR 1.53, sodium 136, potassium 3.4, BUN 32, creatinine 2.0, total bilirubin 1.8, direct 1.0, AST 75, ALT 21, alk phos 239, triglycerides 136, total cholesterol 159,
LDL 70, B12 950, folate 5.9. Blood cultures x 1 negative.
---07/08/2024 CT of the abdomen pelvis without IV contrast: Hepatic cirrhosis with severe enlargement of the left lobe of the liver and mild atrophy of the right lobe of the liver. Moderate diffuse nodular contour. Small to moderate volume of upper
abdominal perihepatic ascites. Moderate edema in the pancreatic head and pancreaticoduodenal groove suggesting acute interstitial edematous pancreatitis. Alternatively this could be edema and non loculated fluid from hepatic cirrhosis. Moderate
pancolitis. Diagnostics are portal colopathy and/or acute infectious colitis. Mild chronic bilateral renal disease. Severe discogenic degenerative disc disease L1/L2. Previous laminectomies and bilateral posterior instrumentation L4-L5.
--07/08/2024 paracentesis: 1800 mL of ascitic fluid. Fluid WBC 73, PMN 5.4, total protein less than 2, albumin less than 1, LDH less than 90, amylase less than 30 .negative for malignancy
--03/2024 US Abdomen: Cirrhosis, trace perihepatic ascites, no suspicious focal hepatic lesion.
--03/[address] Thomason, post-mucosectomy scars in the ascending colon; biopsies negative for dysplasia/malignancy, 5mm cecal polyp (tubular adenoma), 5mm AC polyp (tubular adenoma), and 4mm proximal AC polyp (benign tissue); internal
hemorrhoids. Repeat in 1 year
--07/2022 MR elastography cirrhosis normal iron content and fat quantification. Neg for HCC.
--07/[address] Thomason EMR 15mm sessile serrated adenoma of prox AC extending to cautery margin. 11mm polyp in mid AC, 10mm distal AC. Recall 6mo
--04/[address] Vaca gastritis, neg for Hpylori. random bx cannot rule in or out celiac. will check celiac serologies. could also be seen in NSAID injury
--04/[address] Vaca IH, few ulcers at 30cm from anus on path vascular congestion and hyperplastic changes, 5mm AC TA polyp, 20mm AC polyp across from ICV tattooed and bx show superficial hyperplastic changes, small AVMs in cecum and AC
s/p APC.
Assessment / Plan
-
68-year-old female with a past medical history of alcoholic cirrhosis decompensated with ascites, (last paracentesis 07/08/2024), esophageal varices, portal hypertensive gastropathy, GAVE, GERD, celiac disease, HTN, CKD, neuropathy, depression, cecal
AVMs, and colon polyps who was recently admitted at the end of August into September (08/29 to 09/06/2024) for GI bleed secondary to GAVE with bleeding seen on EGD 08/30/24, treated with APC, who now presents with rectal bleeding and significant
symptomatic anemia with Hgb of 3.2. At this time, 4 units of PRBCs have been ordered. Repeat Hgb pending.
IMPRESSION / PLAN:
Acute blood loss anemia - secondary to GAVE/portal gastropathy vs esophageal varices vs possible lower GI bleeding as well due to cecal AVMs
- transfuse to try to keep Hgb above 7
- trend Hgb closely; monitor for recurrent bleeding
- continue PPI gtt, octreotide, Rocephin IV
- endoscopic evaluation when stable - await pending repeat Hgb after transfusion complete - to discuss timing further with Dr. Olson
Fever - 102.9 earlier today, now 98.8
- continue infectious workup; consider ID consult
History of HE
- no evidence of hepatic encephalopathy at this time
- continue lactulose and Xifaxan
All other medical issues managed per hospitalist team. We will follow.
-
-
Thank you for consultation and allowing me to participate in the patient's care. Please call the section gang GI physician during the after hours with any questions or concerns.
--- NOTE | 2024-10-18 08:23 | W.PN.HOSP.TC ---
Today's Communication/Plan
-
see PN
Assessment / Plan
Assessment / Plan
68yo F with PMHx of osteoporosis, alcoholic livwer cirrhosis, hepatic encephalopathy, chronic hypotension, HLD, varices, GAVE, GERD, cecal AVM, lower extremety chonic edema came with 2 episodes of bloody bowel movement and found Hgb of 3.2 with
dissiness on ambulation. Also complained of few days feeling generally unwell, contributing it to possible common cold since her was sick with the same symptoms 1 week ago.
A/P:
#Acute blood loss symptomatic anemia with PMHx of GAVE anc cecal AVM with iron deficiency and Hx of b12 and folate deficiency
#Esophageal varicies
#Chronic transaminitits and Alk.phos elevation
#Hx of hepatic encephalopathy
Serial Hgb, transfuse to keep Hgb >7
PPI drip, Octreotide drip
GI consult
Iron, Folate IV
CHeck B12, folate
Ceftriaxone for SBP ppx
FOllow LFT
Bili WNL, mo abd pain at this time
cont lactulose
check ammonia
avoid antiplatelets, anticoag and NSAIDs
check lipase and lactate
#Thrombocytopenia
recurrent 2/2 liver cirrhosis
#Fever
with Hx of pulmonary infiltrates and possible FUO on last admission with lymphadenopathy
patient is unaware of fever, so questionable duration
Check XR, UA, Bcx, US abd for ascites and will schedule paracentesis if present
Pansca, ID consult if unremarkable
#ESTRELLITA on CKD stage 3b
Most likely 2/2 anemia
Cr baseline 1.9
Hydrate, transfuse and follow Cr
#Chronic hypotension
increase midodrine
#Osteoporosis
#HLD
#Neuropathy
cont home meds
DVT ppx SCDs
Full code
I have spent at least 55min reviewing chart, test results, communication with consultants and providing direct patient care
Anticipated Discharge: > 48 hours
Subjective/Interval History
-
Date of Service: October 18, 2024
Objective Data
-
Labs:
Laboratory Results
10/17/24 10/17/24 10/18/24
20:20 23:30 04:16
WBC Cancelled 8.2
Hgb Cancelled 4.7 L* D
Hct Cancelled 14.4 L*
Plt Count Cancelled 79 L D
PT 15.8 H 16.6 H
INR 1.21 1.28
APTT 29.6
Sodium 140
Potassium 4.3
Chloride 109 H
Carbon Dioxide 23
BUN 35 H
Creatinine 1.9 H
Glucose 128 H
Calcium 7.8 L
10/18/24 10/18/24
11:55 17:55
WBC
Hgb Pending Pending
Hct Pending Pending
Plt Count
PT
INR
APTT
Sodium
Potassium
Chloride
Carbon Dioxide
BUN
Creatinine
Glucose
Calcium
Vital Signs:
Vital Signs
Temp Pulse Resp BP Pulse Ox
98.4 F 80 17 91/47 96
10/18/24 07:38 10/18/24 07:38 10/18/24 07:38 10/18/24 07:38 10/18/24 06:04
I&O
10/17/24 10/18/24 10/19/24
06:59 06:59 06:59
Intake Total 1490 / 1490 0 / 0
Balance 1490 / 1490 0 / 0
Review of Systems
-
History Source: Patient
All other systems: Reviewed and negative
Physical Exam
-
General: No Apparent Distress and Comfortable
HEENT: Other (chronic anisocoria - L>R pupil)
Respiratory: Negative Wheezes
Cardiac: Regular Rhythm
GI: Soft, Nontender and Distended
Genito-urinary: No Costovertebral Tender
Musculoskeletal: No Clubbing, No Cyanosis, Edema, Right Lower Extrem and Edema, Left Lower Extrem
Skin: Warm
Neuro: Awake, Alert, Oriented and AO x 3
Psych: Calm and Confused (mildly)
[2024-10-18] MEDS: NSS 500 IV (08:36)
[2024-10-18] MEDS: SANDOSTATIN 500.6 MCG IV ×2 (09:05→20:54)
[2024-10-18] MEDS: XIFAXAN 550 MG PO ×2 (09:06→19:44)
--- NOTE | 2024-10-18 09:16 | VNURNOTE ---
Chart reviewed. Patient is current with [facility] nursing, PT. Will continue to follow hospital course and DC plans.
[2024-10-18] MEDS: FOLVITE 50.2 MG IV (09:44)
[2024-10-18 11:12] LABS: COVID-19 Antigen Negative (Negative)
[2024-10-18 12:14] LABS: Folate > 20.0 ng/ml (2.76-20); Vitamin B12 941 pg/ml (239-931)
[2024-10-18] MEDS: FERRLECIT 110 MG IV (13:26)
[2024-10-18] MEDS: ProAmatine 5 MG PO ×2 (13:26→18:25)
--- NOTE | 2024-10-18 14:16 | PTCARENOTE ---
2U of PRBC's infused; pt tolerated well. BP labile, MD aware. Weaned to 4L NC, sats in the mid 90's. IVF, Octreotide and Protonix gtts infusing. Remains NPO. Pt educated on plan of care. updated via phone. Ringing appropriately, call ko
within reach. Bed alarm in place for safety.
[2024-10-18 14:47] LABS: Lipase 933 U/L (23-300)
--- NOTE | 2024-10-18 15:10 | W.PN.UPDATE ---
Update Note
Progress Note Update
Elevated lipase without abdominal pain. Will order CT abd to confirm or r/o pancreatitis. With ascites and signs of pulmonary edema on XR - will postpone fluids until criteria for pancreatitis met
--- NOTE | 2024-10-18 15:41 | PHA.VAN.IN ---
Assessment
- Assessment
Renal Function: Unknown baseline
Concomitant Antimicrobials: piperacillin/tazobactam
Plan
- Plan
Initial / Loading Dose: 1500mg - once after blood cultures collected
Maintenance Regimen: dosing by level
Monitoring: random 10/19 0600
MRSA Screen: Ordered per protocol
Pharmacokinetics Vancomycin I
- -
Patient Age: 68
Patient Sex: Female
Vancomycin Day #: 1
Indication: Other
Requesting Provider: Dr. Francois
Pertinent Antimicrobial Allergies:
sulfonamide antibiotics - lip swelling
Height / Weight:
Height 5 ft
Actual Weight 50.6 kg
Pertinent Past Medical History: CKD
- Vital Signs / Lab Results
Temp Pulse Resp BP Pulse Ox
99.7 F 83 22 100/53 98
10/18/24 13:13 10/18/24 14:00 10/18/24 14:00 10/18/24 14:00 10/18/24 14:00
Lab Results - Hematology
10/17/24 10/17/24 10/18/24
19:17 23:30 04:16
WBC 6.6 Cancelled 8.2
Lab Results - Chemistry
10/17/24 10/18/24
19:17 04:16
BUN 34 H 35 H
Creatinine 1.7 H 1.9 H
Estimated Creat Clear 20
Albumin 3.4 L
Microbiology Results
10/18/24 10:39 Influenza Types A & B (NIKKI) - Final
Nasal Swab Negative for Influenza A & B, NAAT
Negative results must be combined with clinical observations
and patient history.
Nucleic Acid Amplification test (NAAT)performed on the
[employer] platform.
[2024-10-18 16:05] LABS: Hematocrit 26.3 % (37.0-47.0); Hemoglobin 8.9 g/dL (12.0-16.0)
[2024-10-18] MEDS: D5LR IV (16:09)
[2024-10-18 16:10] LABS: Ammonia 24 umol/L (9-30); Lactic Acid 2.7 mmol/L (0.7-2.0)
--- NOTE | 2024-10-18 16:30 | CM ---
Patient with Dx Acute blood loss symptomatic anemia s/p transfusions. O2 4L. NPO. Receiving IVF, IV Abx, IV Iron, IV Octreotide.
Spoke with patient's Cullen;
Pt resides with her spouse in a with 2 [address].
Pt is independent for ADLs and ambulates using her RW, however she is weak and not walking well due to neuropathey.
assists her as needed.
DME - RW, SPC, w/c, portable O2.
[facility] with [facility]
Prior [facility]
PCP- Flores Aragon
Rx- [facility]
Patient will need PT/OT Evals when stabilized---> message to Dr Francois.
Plan follow patient's diet status and mobility.
Plan TBD.
[2024-10-18] MEDS: D5/0.9% SODIUM CHLORIDE 1000 IV (16:54)
[2024-10-18] MEDS: VANCOCIN 530 MG IV (16:55)
--- NOTE | 2024-10-18 17:11 | PTCARENOTE ---
Pt to CT and US via stretcher.
[2024-10-18] MEDS: ZOSYN 50 IV ×2 (18:23→23:01)
[2024-10-18] MEDS: LYRICA 150 MG PO (19:44)
[2024-10-18] MEDS: TESSALON PERLES 200 MG PO (20:56)
[2024-10-18] MEDS: TYLENOL 650 MG PO (20:59)
[2024-10-18] MEDS: CRESTOR 20 MG PO (21:00)
[2024-10-18 21:31] LABS: Hematocrit 22.2 % (37.0-47.0); Hemoglobin 7.7 g/dL (12.0-16.0)
[2024-10-18 21:39] LABS: Lactic Acid 1.5 mmol/L (0.7-2.0)
[2024-10-19] VITALS (25 sets, daily range): BP systolic 16–145; BP diastolic 43–87; BMI 21.8
[2024-10-19] MEDS: ProAmatine 10 MG PO (00:25)
--- NOTE | 2024-10-19 02:12 | PTCARENOTE ---
IVF, octreotide, protonix gtts running per orders. Pt maintained NPO, but was able to tolerate meds whole with sips of water per orders. BPs soft, stat dose midodrine given per [employer] orders. Continues with MAP <65, [employer] notified. Pt denies symptoms
at this time. Continues with 4L O2, SaO2 93%.
[2024-10-19] MEDS: PROTONIX 100 IV (03:51)
[2024-10-19 04:25] LABS: % Basophils 0.4 % (0-2); % Eosinophils 3.7 % (0-6); % Immature Granulocytes 0.8 % (0-0.5); % Lymphocytes 11.2 % (20.5-51.1); % Monocytes 7.6 % (1.7-9.3); % Neutrophils 76.3 % (42.2-75.2); Absolute Eosinophils 0.3 10^3/uL (0-0.7); Absolute Immature Granulocytes 0.1 10^3/uL (0-0.05); Absolute Lymphocytes 0.9 10^3/uL (1.2-3.4); Absolute Monocytes 0.6 10^3/uL (0.1-0.6); Absolute Neutrophils 6.4 10^3/uL (1.4-6.5); Hematocrit 22.2 % (37.0-47.0); Hemoglobin 7.3 g/dL (12.0-16.0); Mean Corp Hgb Conc. 32.9 g/dL (33.0-37.0); Mean Corpuscular Hgb 28.3 pg (27.0-31.0); Mean Platelet Volume 12.8 fL (7.4-10.4); Nucleated Red Blood Cells % 0 %; Platelet Count 88 10^3/uL (130-400); Red Blood Cell Count 2.58 10^6/uL (4.20-5.40); Red Cell Dist. Width 16.6 % (11.5-14.5); White Blood Cell Count 8.3 10^3/uL (4.8-10.8)
[2024-10-19 04:49] LABS: ALT (SGPT) 27 U/L (0-35); AST (SGOT) 47 U/L (14-36); Albumin 2.4 g/dl (3.5-5.0); Alkaline Phosphatase 103 U/L (38-126); Blood Urea Nitrogen 40 mg/dl (7-17); Calcium 7.2 mg/dl (8.4-10.2); Carbon Dioxide 20 mmol/L (22-30); Chloride 113 mmol/L (98-107); Estimated Creatinine Clearance 18 ml/min; Glucose 123 mg/dl (70-99); Lipase 868 U/L (23-300); Potassium 3.9 mmol/L (3.5-5.1); Sodium 142 mmol/L (135-145); Total Protein 4.5 g/dl (6.3-8.2); eGFR 25.19
[2024-10-19 04:50] LABS: Vancomycin Random 19.1 ug/ml
[2024-10-19] MEDS: ZOSYN 50 IV ×4 (05:20→23:11)
[2024-10-19] MEDS: CALCIUM GLUCONATE 100 IV (06:14)
[2024-10-19 06:47] LABS: Reticulocyte Count 2.2 % (0.4-2.8)
[2024-10-19 07:07] LABS: Direct Bilirubin 0.9 mg/dl (0.0-0.4); LDH 243 U/L (120-246)
[2024-10-19 07:44] LABS: Urine Albumin 2+ (Neg - Trace); Urine Bilirubin Negative (Negative); Urine Character Clear (Clear); Urine Color Amber; Urine Glucose Negative (Negative); Urine Ketone Negative (Negative); Urine Leukocyte Negative (Negative); Urine Nitrite Negative (Negative); Urine Occult Blood 1+ (Negative); Urine Urobilinogen Negative (Neg - 1+)
[2024-10-19] MEDS: DUONEB 3 ML INH (08:01)
[2024-10-19] MEDS: LASIX 40 MG IV (08:09)
[2024-10-19] MEDS: FOLVITE 50.2 MG IV (08:10)
[2024-10-19] MEDS: LYRICA 150 MG PO ×2 (08:10→21:22)
[2024-10-19] MEDS: XIFAXAN 550 MG PO ×2 (08:10→21:22)
[2024-10-19] MEDS: ProAmatine 5 MG PO ×3 (08:10→18:11)
[2024-10-19] MEDS: D5/0.9% SODIUM CHLORIDE IV (08:20)
[2024-10-19 08:53] LABS: Urine Sodium 6 mmol/L (30-90)
[2024-10-19 08:54] LABS: Urine Squamous Cell 21-25 /LPF (Few)
[2024-10-19 08:55] LABS: Urine Amorphous Seen
[2024-10-19 08:57] LABS: Urine Red Blood Cell 0-2 /HPF (0-2); Urine White Cell 0-2 /HPF (0-5)
[2024-10-19] MEDS: SANDOSTATIN 500.6 MCG IV (09:51)
--- NOTE | 2024-10-19 10:42 | W.PN.GI.CBS2 ---
Today's Communication / Plan
-
Plan for tentative EGD today. Agree with continuing IV abx and pursuing MRI/MRCP for further evaluation. Rest of care as outlined below.
Assessment / Plan
-
Ms. Putnam is a 68-year-old female with a past medical history of alcoholic cirrhosis decompensated with ascites, (last paracentesis 07/08/2024), esophageal varices, portal hypertensive gastropathy, GAVE, GERD, celiac disease, HTN, CKD, neuropathy,
depression, cecal AVMs, and colon polyps who was recently admitted at the end of August into September (08/29 to 09/06/2024) for GI bleed secondary to GAVE with bleeding seen on EGD 08/30/24, treated with APC, who now presents with rectal bleeding and
significant symptomatic anemia with Hgb of 3.2. At this time, 4 units of PRBCs have been ordered. Repeat Hgb pending.
#Severe Acute Anemia
#Acute Blood Loss Anemia
#Multiple Admissions with GI Bleeding
#Hx of GAVE (s/p prior endoscopic therapy)
#Hx of Grade 1 EV
Rectal bleeding/severe acute anemia/multiple admissions with GI bleed-admission Hb 3.2 ( prior hb 09/2024- 8.8 ) . s/p 4 units PRBC since admission. Likely lower GI bleeding- prior hx of cecal AVM . last colonoscopy 2022. Last EGD 08/2024-reviewed.
Grade 1 varices. Bleeding GAVE+. Doubt brisk UGIB however given her history of cirrhosis and multiple transfusions would consider an EGD to definitively r/o UGIB.
Recommendations:
- Keep NPO
- Ensure two large bore IVs
- Trend Hgb with serial CBC, transfuse for goal Hgb > 7.0
- Continue IV Protonix and IV Octreotide gtt
- IV antibiotics
- Given that patient has received total of 4 uPRBCs will consider sooner EGD to r/o brisk UGIB
- Consider tentative EGD pending clinical course once patient comes back from IR for potential paracentesis
#Fevers
#Biliary Dilation
Concern for sepsis given persistent fevers and now slight bump in LFTs and recent CT imaging revealing mild CBD dilatation concerning for choledocholihtiasis although denies any abdominal pain. However, given previously elevated lipase and bump in
LFTs concern for potential biliary source
- Monitor fever curve
- Continue IV Abx, monitor blood cultures
- Continue to trend serial LFTs with fractionated T Bili
- Doubt SBP as without significant ascites on US and CT imaging
- Agree with MRI/MRCP WWO contrast for further evaluation
#Decompensated EtOH Cirrhosis
Decompensations include-ascites/varices/GAVE /HE in the past. MELD-Na . follow with
- Trend daily MELD 3.0 labs q daily
- Hold diuretics, monitor renal function
- Consider IV albumin along with Nephrology consult if renal function worsens
- Hold off on lactulose for now, continue rifaximin
- Plan for EGD pending her clinical course
- Strict avoidance of all NSAIDs, minimize/avoid benzos/narcotics
Subjective
Subjective
Date of Service: October 19, 2024
- Fever of 100.5 yesterday evening around 1900
- CT Abd/pelvis w/out contrast 10/18/24: Bibasilar consolidations, more pronounced on the right and favored to represent pneumonia, cirrhotic morphology of the liver with small volume ascites and splenomegaly, mildly distended CBD up to 8.5 mm,
cardiomegaly
- Slight rise in T Bili on AM labs
Resting comfortably in bed, denies any melena or overtly bloody stools overnight. Still with fevers but no other chills or other constitutional symptoms. Remains on IV Protonix and IV Octreotide. Continues to deny any abdominal pain or
nausea/vomiting.
Objective
Data Reviewed
Laboratory Data:
Laboratory Results
PT 16.6 Sec (11.4-14.6) H 10/18/24 04:16
INR 1.28 10/18/24 04:16
APTT 29.6 Sec (23.4-35.0) 10/17/24 20:20
Total Bilirubin 2.0 mg/dl (0.2-1.3) H D 10/19/24 04:09
AST 47 U/L (14-36) H 10/19/24 04:09
ALT 27 U/L (0-35) 10/19/24 04:09
Alkaline Phosphatase 103 U/L (38-126) 10/19/24 04:09
Lipase 868 U/L (23-300) H 10/19/24 04:09
Vital Signs and I&O:
Vital Signs
Temp Pulse Resp BP Pulse Ox
98.5 F 90 24 126/66 98
10/19/24 10:30 10/19/24 10:30 10/19/24 10:30 10/19/24 10:30 10/19/24 10:30
I&O
10/18/24 10/19/24 10/20/24
06:59 06:59 06:59
Intake Total 1490 / 1490 3232 / 3232
Balance 1490 / 1490 3232 / 3232
Physical Exam
Physical Exam
HEENT: Anicteric, Moist mucous membranes and Other
Cardiology: Other (Tachycardic on tele)
Pulmonary: Other (Normal WOB)
GI: Soft, Non Distended and Non Tender
Extremities: No Edema
Neuro: Non Focal
--- NOTE | 2024-10-19 11:43 | W.CON.NEPH ---
Consultation
-
Date/Time Consultation Requested: 10/19/24 0550
Date/Time Consultation Performed: 10/19/24 1130
Requesting Provider: Gary Grimes
Performing Provider: Sarah Ring
Reason for Consultation: ESTRELLITA with CKD
Medical History
-
Chief Complaint: Rectal bleeding
History of Present Illness:
68-year-old female with past medical history of hepatic cirrhosis complicated by portal hypertensive gastropathy on metoprolol, hepatic encephalopathy on lactulose, Xifaxan, as well as history of GERD, celiac disease, CKD with baseline creatinine of
around 1.5, COPD, recent admission for upper GI bleed found to have gastric antral vascular ectasia with patient had oozing treated with APC and on pantoprazole twice daily who presents to the emergency department on 10/17 with 2 episodes of rectal
bleeding. On admit hb was low at 3.2 and total had 4 PRBC so far. Her cr on admit was at 1.7 now at 2.1 hence nephrology consulted.
She also maintained on midodrine low dose, also takes metoprolol too. BP were low on 10/18 and now improved.
She is planning for EGD today. She also has fever since admit with out definitive source currently on abx. Blood cx neg. Marika also have mild pancreatitis lipase at 933 on admit and maintains on IVF.
She offers no cp or sob. No active abd pain. no n/v.
Past Medical History
Osteoporosis
Anxiety
Anemia
Hypertension
Mood disorder
Cirrhosis of liver
GERD
Celiac disease alcohol abuse
Past Surgical History: Other (Hysterectomy)
Social History
Tobacco: Smoker
Alcohol: Former (since apr 2024)
Drug: None
Personal:
Living: With Family
Employment: Retired
Family History
Both parents in 2021 mother history HTN, dementia, from [facility], father early dementia
Family History: Not Pertinent
Allergies / Home Medications
Allergy/AdvReac Type Severity Reaction Status Date / Time
olmesartan [From Benicar] Allergy anemia Verified 08/30/24 09:54
Sulfa (Sulfonamide Allergy lip Verified 08/30/24 09:54
Antibiotics) Swelling
venlafaxine [From Effexor] Allergy patient Verified 10/17/24 21:43
states
this may
have
caused
respiratory
failure
�Medication �Instructions �Recorded �Confirmed �Type
loratadine 10 mg tablet 10 mg PO DAILYPRN PRN seasonal 05/30/18 10/17/24 History
allergies
melatonin 3 mg tablet 3 mg PO HS 30 days #0 tabs 01/05/22 10/17/24 Rx
metoprolol succinate 50 mg 50 mg PO DAILY Blood Pressure 07/22/22 10/17/24 History
tablet,extended release 24 hr
rosuvastatin 20 mg tablet 20 mg PO HS High Cholesterol 07/06/24 10/17/24 History
alendronate 10 mg tablet 10 mg PO BOCANEGRA osteoporosis 07/07/24 10/17/24 History
cholecalciferol (vitamin D3) 25 25 mcg PO DAILY Supplement 07/07/24 10/17/24 History
mcg (1,000 unit) tablet (Vitamin
D3)
cyanocobalamin (vitamin B-12) 1,000 mcg PO DAILY Supplement 07/07/24 10/17/24 History
1,000 mcg tablet
diphenhydramine HCl 25 mg capsule 25 mg PO HS Allergies 07/07/24 10/17/24 History
(Benadryl)
lactulose 10 gram/15 mL oral 20 g PO Q48H hepatic encephalopathy 07/07/24 10/17/24 History
solution
furosemide 40 mg tablet (Lasix) 40 mg PO DAILY Gastrointestinal 07/11/24 10/17/24 Rx
issue 1 month #30 tabs
midodrine 2.5 mg tablet 2.5 mg PO TID@0800,1300,1800 Blood 07/11/24 10/17/24 Rx
pressure 1 month #90 tabs
pantoprazole 40 mg tablet,delayed 40 mg PO BID Gastrointestinal 07/11/24 10/17/24 Rx
release issue 1 month #60 tabs
rifaximin 550 mg tablet (Xifaxan) 550 mg PO BID Gastrointestinal 07/11/24 10/17/24 Rx
issue 1 month #60 tabs
escitalopram oxalate 10 mg tablet 10 mg PO DAILY depression/anxiety 08/30/24 10/17/24 History
(Lexapro)
folic acid 1 mg tablet 1 mg PO DAILY Supplement 10/17/24 10/17/24 History
pregabalin 150 mg capsule 150 mg PO BID Neurological 10/17/24 10/17/24 History
Condition
Review of Systems
-
All other systems: Negative unless noted
Physical Exam
Vital Signs
Vital Signs
Temp Pulse Resp BP Pulse Ox
98.5 F 90 24 126/66 98
10/19/24 10:30 10/19/24 10:30 10/19/24 10:30 10/19/24 10:30 10/19/24 10:30
Lab Results
WBC 8.3 10^3/uL (4.8-10.8) 10/19/24 04:09
RBC 2.58 10^6/uL (4.20-5.40) L 10/19/24 04:09
Plt Count 88 10^3/uL (130-400) L 10/19/24 04:09
eGFR 25.19 10/19/24 04:09
Albumin 2.4 g/dl (3.5-5.0) L 10/19/24 04:09
Abnormal Lab Results
10/18/24 10/19/24 10/19/24
21:20 04:09 04:39
RBC 2.58 L
Hgb 7.7 L 7.3 L
Hct 22.2 L 22.2 L
MCHC 32.9 L
RDW 16.6 H
Plt Count 88 L
MPV 12.8 H
Abs Immat Gran (auto) 0.1 H
Absolute Lymphs (auto) 0.9 L
Immature Gran % 0.8 H
Neutrophils % 76.3 H
Lymphocytes % 11.2 L
Chloride 113 H
Carbon Dioxide 20 L
BUN 40 H
Creatinine 2.1 H
Glucose 123 H
Calcium 7.2 L
Total Bilirubin 2.0 H D
Direct Bilirubin 0.9 H
AST 47 H
Total Protein 4.5 L
Albumin 2.4 L
Lipase 868 H
Ur Occult Blood Reflex 1+ A
Urine Sodium 6 L
Urine Albumin (Reflex) 2+ A
10/19/24
15:45
RBC
Hgb 8.0 L
Hct 24.6 L
MCHC
RDW
Plt Count
MPV
Abs Immat Gran (auto)
Absolute Lymphs (auto)
Immature Gran %
Neutrophils %
Lymphocytes %
Chloride 112 H
Carbon Dioxide 20 L
BUN 40 H
Creatinine 2.1 H
Glucose 127 H
Calcium 7.5 L
Total Bilirubin
Direct Bilirubin
AST
Total Protein
Albumin
Lipase
Ur Occult Blood Reflex
Urine Sodium
Urine Albumin (Reflex)
Physical Exam
General: Awake, Alert, Oriented, AOx3, No Distress and Nontoxic
HEENT: EOMI, Conjunctivae Clear, Ear/Nose Intact and Facial Symmetry
Respiratory: Clear, Normal Excursion and Nonlabored Respirations
Cardiac: S1/S2 and Regular Rate/Rhythm
Breast: Deferred by me
Abdomen: Soft, Nontender and Nondistended
Musculoskeletal: No Cyanosis and No Edema
Skin: No Rash
Neuro: Nonfocal/Grossly Intact
Psych: Appropriate
Data Reviewed
-
Labs: Labs Reviewed by me and Discussed with Patient
Assessment/Plan
-
IMP:
Estrellita with CKD3-baseline cr mid 1s-1.5
Acute blood loss symptomatic anemia with
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
Hx of b12 and folate deficiency
Esophageal varicies
liver cirrhosis
Chronic transaminitis and Alk.phos elevation
Hx of hepatic encephalopathy
Acute pancreatitis
Indirect bilirubinemia
Thrombocytopenia
Chronic hypotension
Neuropathy
hypoalbuminemia
Hyperlipidemia
Osteoporosis
Anxiety
Plan:
A/w GIB, anemia hb 3.2 s/p 4 PRBCs
UA bland with low U na suggest prerenal, can not r/o HRS
CT with out hydro, follow bladder scan
cotn IVF, could try alb too
Bp are better today, midodrine dose up at 5mg TID and holding BB
holding lasix too
mild non gap met acidosis -stable
for EGD today
abx per primary
follow labs in am
d/w pt
avoid nephrotoxins
--- NOTE | 2024-10-19 11:56 | CM ---
Addendum entered by Breann Argueta RN 10/19/24 12:04:
Plan watch for any O2 needs at d/c.
Plan follow patient's diet status and mobility.
Plan follow up after seen by PT/OT.
Original Note:
Patient with Dx Acute blood loss anemia s/p transfusions, concern for sepsis, Decompensated EtOH Cirrhosis. Plan EGD today. O2 4L. NPO. Receiving IVF, IV Abx, IV Iron, IV Octreotide. Per nursing; forgetful. PT/OT Evals pending.
CM Consult: Advanced Directive
Met with patient and provided Advanced Directive - left at bedside.
Patient is current with [facility].
CM continuing to follow for d/c needs.
Plan follow patient's diet status and mobility.
Plan follow up after seen by PT/OT.
--- NOTE | 2024-10-19 12:35 | PHA.VAN.FU ---
Vancomycin Assessment / Plan
- Assessment
Renal Function: SCR Increasing (1.9->2.1)
WBC's are: WNL (8.3)
In the past 24 hrs, patient has been: Febrile (100.5)
Concomitant Antimicrobials: Piperacillin/Tazobactam, Rifaximin
- Assessment - Therapeutic Drug Monitoring
Random Level: 19.1 ~11H after 1500mg loading dose 10/18/24
- Dosing Plan
Dosing by Level: Hold off on dosing today
- Monitoring Plan
Random Level: 10/20/24 0600
- Follow Up
Pharmacy will continue to follow.
Vancomycin Follow UP
- -
Patient Age: 68
Patient Sex: Female
Vancomycin Day #: 2
Indication: Other
Requesting Provider: Dr. Francois
Pertinent Antimicrobial Allergies:
sulfonamide antibiotics - lip swelling
Height / Weight:
Height 5 ft
Actual Weight 50.6 kg
Pertinent Past Medical History: CKD
- Vital Signs / Lab Results
Temp Pulse Resp BP Pulse Ox
99.0 F 90 24 126/66 98
10/19/24 11:51 10/19/24 10:30 10/19/24 10:30 10/19/24 10:30 10/19/24 10:30
Lab Results - Hematology
10/17/24 10/17/24 10/18/24
19:17 23:30 04:16
WBC 6.6 Cancelled 8.2
10/19/24
04:09
WBC 8.3
Lab Results - Chemistry
10/17/24 10/18/24 10/19/24
19:17 04:16 04:09
BUN 34 H 35 H 40 H
Creatinine 1.7 H 1.9 H 2.1 H
Estimated Creat Clear 20 18
Albumin 3.4 L 2.4 L
10/18/24 10/18/24
15:46 21:20
Lactic Acid 2.7 H 1.5
Lab Results - Urine
10/19/24
04:39
Urine Nitrite (Reflex) Negative
Leukocyte Esterase Rfl Negative
Ur Squamous Epith Cells 21-25
Microbiology Results
10/18/24 21:01 Nasal Screen MRSA (PCR) - Final
Nose
10/19/24 04:39 Legionella Urinary Antigen - Final
Urine Negative for Legionella pneumophila Serogroup 1 antigen.
A negative result does not rule out the possiblity of
Legionella infection due to other serogroups or species of
Legionella. Clinical correlation is recommended.
Streptococcus pneumoniae Antigen (M - Final
Negative for Streptococcus pneumoniae antigen.
A negative result does not exclude infection with
Streptococcus pneumoniae. Clinical correlation is
recommended.
10/18/24 10:39 Influenza Types A & B (NIKKI) - Final
Nasal Swab Negative for Influenza A & B, NAAT
Negative results must be combined with clinical observations
and patient history.
Nucleic Acid Amplification test (NAAT)performed on the
[employer] platform.
Therapeutic Drug Monitoring
Random Vancomycin 19.1 ug/ml 10/19/24 04:09
--- NOTE | 2024-10-19 13:44 | PTCARENOTE ---
pt returned from EGD, no signs of active bleeding. Spoke w/ dr. baez, after recheck H&H, give 1unit PRBCs if HGB if 7.3 or less
--- NOTE | 2024-10-19 14:17 | W.PN.HOSP.TC ---
Today's Communication/Plan
-
Stop Vanco
follow fever curve
MRCP
cont PPI
Assessment / Plan
Assessment / Plan
68yo F with PMHx of osteoporosis, alcoholic livwer cirrhosis, hepatic encephalopathy, chronic hypotension, HLD, varices, GAVE, GERD, cecal AVM, lower extremety chonic edema came with 2 episodes of bloody bowel movement and found Hgb of 3.2 with
dissiness on ambulation. Also complained of few days feeling generally unwell, contributing it to possible common cold since her was sick with the same symptoms 1 week ago.
A/P:
#Acute blood loss symptomatic anemia with PMHx of GAVE anc cecal AVM with iron deficiency and Hx of b12 and folate deficiency
#Esophageal varicies
#Chronic transaminitis and Alk.phos elevation
#Hx of hepatic encephalopathy
Serial Hgb, transfuse to keep Hgb >7
PPI drip, Octreotide drip
GI consult: S/P EGD on 10/19/24 - no bleeding seen
Iron, Folate IV
not deficient in B12, folate
FOllow LFT
Bili WNL, mo abd pain at this time
ammonia WNL
Cont Rifaximin
avoid antiplatelets, anticoag and NSAIDs
#Acute pancreatitis
IVF
follow Lipase
#Indirect bilirubinemia
#Thrombocytopenia
recurrent 2/2 liver cirrhosis
MRCP
Zosyn
#Fever, cannot exclude CAP with unspecified organism
MRSA neg -stop Vanco
with Hx of pulmonary infiltrates and possible FUO on last admission with lymphadenopathy
patient is unaware of fever, so questionable duration
Not enough fluid for paracentesis
XR with possible pneumonitis
UA neg for UTI
#ESTRELLITA on CKD stage 3b
Most likely 2/2 anemia
Cr baseline 1.9
Hydrate, transfuse and follow Cr
#Chronic hypotension
increase midodrine
#Osteoporosis
#HLD
#Neuropathy
cont home meds
DVT ppx SCDs
Full code
I have spent at least 55min reviewing chart, test results, communication with consultants, family and providing direct patient care
Anticipated Discharge: > 48 hours
Subjective/Interval History
-
Date of Service: October 19, 2024
Objective Data
-
Labs:
Laboratory Results
10/19/24 10/19/24 10/19/24
04:09 14:00 22:00
WBC 8.3
Hgb 7.3 L Pending Pending
Hct 22.2 L Pending Pending
Plt Count 88 L
Sodium 142 Pending
Potassium 3.9 Pending
Chloride 113 H Pending
Carbon Dioxide 20 L Pending
BUN 40 H Pending
Creatinine 2.1 H Pending
Glucose 123 H Pending
Calcium 7.2 L Pending
Total Bilirubin 2.0 H D
AST 47 H
ALT 27
Alkaline Phosphatase 103
Vital Signs:
Vital Signs
Temp Pulse Resp BP Pulse Ox
100.8 F H 90 24 124/58 97
10/19/24 13:13 10/19/24 13:15 10/19/24 13:15 10/19/24 13:15 10/19/24 13:15
I&O
10/18/24 10/19/24 10/20/24
06:59 06:59 06:59
Intake Total 1490 / 1490 3232 / 3232
Balance 1490 / 1490 3232 / 3232
Review of Systems
-
History Source: Patient
All other systems: Reviewed and negative
Physical Exam
-
General: Comfortable
HEENT: Normocephalic
Respiratory: Clear to Auscultation
GI: Soft, Nontender and Distended
Neuro: Awake, Alert, Oriented and AO x 3
Psych: Calm
[2024-10-19] MEDS: PROTONIX IV (14:31)
[2024-10-19] MEDS: FERRLECIT 110 MG IV (15:01)
[2024-10-19 16:04] LABS: Blood Urea Nitrogen 40 mg/dl (7-17); Calcium 7.5 mg/dl (8.4-10.2); Carbon Dioxide 20 mmol/L (22-30); Chloride 112 mmol/L (98-107); Estimated Creatinine Clearance 18 ml/min; Glucose 127 mg/dl (70-99); Potassium 3.8 mmol/L (3.5-5.1); Sodium 143 mmol/L (135-145); eGFR 25.19
[2024-10-19 16:06] LABS: Hematocrit 24.6 % (37.0-47.0)
[2024-10-19] MEDS: NSS (PRESERVATIVE FREE) 10 ML IV (18:10)
[2024-10-19] MEDS: PROTONIX IV 40 MG IV (18:11)
[2024-10-19] MEDS: D5/0.9% SODIUM CHLORIDE 1000 IV (21:21)
[2024-10-19] MEDS: TYLENOL 650 MG PO (21:22)
[2024-10-19] MEDS: CRESTOR 20 MG PO (21:22)
[2024-10-19] MEDS: DUPHALAC/CHRONULAC 20 GRAMS PO (21:23)
[2024-10-19] MEDS: MELATONIN 5 MG PO (22:04)
[2024-10-19 22:56] LABS: Hematocrit 21.5 % (37.0-47.0); Hemoglobin 7.3 g/dL (12.0-16.0)
[2024-10-20] VITALS (16 sets, daily range): BP systolic 97–135; BP diastolic 44–84; PULSE 81; O2SAT 98–99
[2024-10-20] MEDS: SANDOSTATIN 500.6 MCG IV ×2 (00:57→08:57)
--- NOTE | 2024-10-20 02:15 | PTCARENOTE ---
Pt maintained on IVF, octreotide gtt. Transported to MRI and back accompanied by this RN. Pt with lg liq brown stool on BP. Hygiene care performed. Pt c/o inability to sleep, states that she normally takes benadryl and melatonin KRYS SANDRA notified,
melatonin given per MAR. Call ko within reach. Pt able to make needs known.
[2024-10-20 04:23] LABS: % Basophils 0.6 % (0-2); % Immature Granulocytes 0.6 % (0-0.5); % Lymphocytes 16.9 % (20.5-51.1); % Monocytes 9.1 % (1.7-9.3); % Neutrophils 69.8 % (42.2-75.2); Absolute Eosinophils 0.2 10^3/uL (0-0.7); Absolute Lymphocytes 1.1 10^3/uL (1.2-3.4); Absolute Monocytes 0.6 10^3/uL (0.1-0.6); Absolute Neutrophils 4.6 10^3/uL (1.4-6.5); Hematocrit 23.8 % (37.0-47.0); Hemoglobin 7.6 g/dL (12.0-16.0); Mean Corp Hgb Conc. 31.9 g/dL (33.0-37.0); Mean Corpuscular Hgb 27.5 pg (27.0-31.0); Mean Corpuscular Volume 86.2 fL (81.0-99.0); Mean Platelet Volume 11.9 fL (7.4-10.4); Nucleated Red Blood Cells % 0.3 %; Platelet Count 96 10^3/uL (130-400); Red Blood Cell Count 2.76 10^6/uL (4.20-5.40); Red Cell Dist. Width 17.3 % (11.5-14.5); White Blood Cell Count 6.6 10^3/uL (4.8-10.8)
[2024-10-20 04:49] LABS: ALT (SGPT) 24 U/L (0-35); AST (SGOT) 39 U/L (14-36); Albumin 2.5 g/dl (3.5-5.0); Alkaline Phosphatase 108 U/L (38-126); Blood Urea Nitrogen 39 mg/dl (7-17); Calcium 7.2 mg/dl (8.4-10.2); Carbon Dioxide 19 mmol/L (22-30); Chloride 116 mmol/L (98-107); Estimated Creatinine Clearance 18 ml/min; Glucose 139 mg/dl (70-99); Potassium 3.5 mmol/L (3.5-5.1); Sodium 146 mmol/L (135-145); Total Bilirubin 1.7 mg/dl (0.2-1.3); Total Protein 4.7 g/dl (6.3-8.2); eGFR 23.82
[2024-10-20] MEDS: NSS (PRESERVATIVE FREE) 10 ML IV ×2 (05:18→17:36)
[2024-10-20] MEDS: PROTONIX IV 40 MG IV ×2 (05:18→17:36)
[2024-10-20] MEDS: ZOSYN 50 IV ×3 (05:18→21:03)
[2024-10-20] MEDS: ROBITUSSIN 200 MG PO (06:28)
[2024-10-20] MEDS: FLEXBUMIN 100 IV ×3 (08:15→19:40)
[2024-10-20] MEDS: D5W 1000 IV (08:16)
[2024-10-20] MEDS: FOLVITE 50.2 MG IV (08:20)
--- NOTE | 2024-10-20 08:51 | VATNOTE ---
Right arm swelling, two PIV's leaking, one painful. All d/c'd limb alert bracelet applied. Primary RN to contact md for ultrasound. Distal circulation intact.
[2024-10-20] MEDS: LYRICA 150 MG PO ×2 (09:12→19:40)
[2024-10-20] MEDS: XIFAXAN 550 MG PO ×2 (09:13→19:40)
[2024-10-20] MEDS: ProAmatine 5 MG PO (09:13)
--- NOTE | 2024-10-20 10:03 | W.PN.NEPH.PH ---
Today's Communication / Plan
-
follow labs
monitor UOP
Assessment/Plan
-
IMP:
Izzy with CKD3-baseline cr mid 1s-1.5
Acute blood loss symptomatic anemia with
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
Hx of b12 and folate deficiency
Esophageal varicies
liver cirrhosis
Chronic transaminitis and Alk.phos elevation
Hx of hepatic encephalopathy
Acute pancreatitis
Indirect bilirubinemia
Thrombocytopenia
Chronic hypotension
Neuropathy
hypoalbuminemia
Hyperlipidemia
Osteoporosis
Anxiety
Plan:
A/w GIB, anemia hb 3.2 s/p 4 PRBCs
UA bland with low U na suggest prerenal, can not r/o HRS
CT with out hydro, follow bladder scan
cr cont to increase slowly to 2.2, UOP not measured
wheezing on exam today, CXR no sig change await for report, BNP pending
s/p lasix per primary and off IVF , agree IV alb per GI
Bp stable, cont midodrine 5mg TID and holding BB
mild non gap met acidosis -stable
evolving mild hypernatremia-monitor , encourage free water intake
follow h/h , s/p EGD no active bleeding
avoid nephrotoxins
abx per primary
dose meds renally
follow labs in am
d/w pt and GI
-
-
Date of Service: October 20, 2024
CC / HPI / ROS
-
Chief Complaint:
IZZY with CKD
History of Present Illness:
cr up at 2.2, UOP not measured
BP stable , low grade fever last night
bicarb at 19
Review of Systems:
no cp or sob
no abd pain
no n/v
Labs
-
Labs:
WBC 6.6 10^3/uL (4.8-10.8) 10/20/24 03:59
RBC 2.76 10^6/uL (4.20-5.40) L 10/20/24 03:59
Plt Count 96 10^3/uL (130-400) L 10/20/24 03:59
Sodium 146 mmol/L (135-145) H 10/20/24 03:59
Potassium 3.5 mmol/L (3.5-5.1) 10/20/24 03:59
Chloride 116 mmol/L (98-107) H 10/20/24 03:59
Carbon Dioxide 19 mmol/L (22-30) L 10/20/24 03:59
BUN 39 mg/dl (7-17) H 10/20/24 03:59
Creatinine 2.2 mg/dL (0.6-1.0) H 10/20/24 03:59
eGFR 23.82 10/20/24 03:59
Glucose 139 mg/dl (70-99) H 10/20/24 03:59
Calcium 7.2 mg/dl (8.4-10.2) L 10/20/24 03:59
Albumin 2.5 g/dl (3.5-5.0) L 10/20/24 03:59
Physical Exam
-
Vital Signs:
Vital Signs
Temp Pulse Resp BP Pulse Ox
97.7 F 71 14 106/61 98
10/20/24 07:00 10/20/24 06:00 10/20/24 06:00 10/20/24 06:00 10/20/24 06:00
Cardiovascular:: Regular rate and rhythm
Respiratory:: Bilateral: Wheeze
Lung Excursion:: Normal
Abdomen:: Nontender and Soft
Extremity Edema:: None: Bilateral:
Hoover Catheter: No
[2024-10-20] MEDS: LASIX 40 MG IV (10:04)
--- NOTE | 2024-10-20 11:05 | W.PN.GI.CBS2 ---
Today's Communication / Plan
-
MRI/MRCP (-) for large CBD stone, LFTs improving and continue IV abx. Concern for worsening renal function and started 48 hr IV albumin challenge and discussed with Nephrology this AM. No signs of recurrent GI bleeding. See rest of note as detailed
below.
Assessment / Plan
-
Ms. Putnam is a 68-year-old female with a past medical history of alcoholic cirrhosis decompensated with ascites, (last paracentesis 07/08/2024), esophageal varices, portal hypertensive gastropathy, GAVE, GERD, celiac disease, HTN, CKD, neuropathy,
depression, cecal AVMs, and colon polyps who was recently admitted at the end of August into September (08/29 to 09/06/2024) for GI bleed secondary to GAVE with bleeding seen on EGD 08/30/24, treated with APC, who now presents with rectal bleeding and
significant symptomatic anemia with Hgb of 3.2.
#Severe Acute Anemia
#Acute Blood Loss Anemia
#Multiple Admissions with GI Bleeding
#Hx of GAVE (s/p prior endoscopic therapy)
#Hx of Grade 1 EV
Rectal bleeding/severe acute anemia/multiple admissions with GI bleed-admission Hb 3.2 ( prior hb 09/2024- 8.8 ) and s/p 4 units PRBC since admission. Likely lower GI bleeding- prior hx of cecal AVM given her presentation and last colonoscopy 2022
with previous cecal AVM. Last EGD 08/2024-reviewed. Grade 1 varices. Bleeding GAVE+. S/p recent EGD on 10/19 which was unrevealing given her transfusion requirements and without any bleeding varices, old/fresh blood or other significant findings
throughout the examined upper GI tract to account for her blood loss. No further signs of recurrent hematochezia or rectal bleeding since admission.
Recommendations:
- Okay for CLD today, may ADAT to 2 gm Na+ restricted diet
- Trend Hgb with serial CBC, transfuse for goal Hgb > 7.0
- Continue IV Protonix and empiric IV Octreotide gtt
- IV antibiotics for 7-day course given GIB
- If recurrent hematochezia, would consider tagged RBC scan as would avoid further IV contrast with CTA given her renal function
- Would benefit from a colonoscopy this admission, however given her persistent fevers and tenuous renal function would defer pursuing this at this time
- Currently, is scheduled to have an outpatient EGD/Colonoscopy with Dr. Vaca next month
- Monitor for signs of recurrent GI bleeding while inpatient and notify GI on-call
- Strict avoidance of all NSAIDs
#Fevers
#Biliary Dilation
Concern for sepsis given persistent fevers and now slight bump in LFTs and recent CT imaging revealing mild CBD dilatation concerning for choledocholithiasis although denies any abdominal pain. However, given previously elevated lipase and bump in
LFTs concern for potential biliary source.
- S/p MRI/MRCP 10/19/24 (limited due to patient movement) distended gallbladder and CBD dilation up to 9 mm without intrahepatic biliary ductal dilatation; no obvious intraluminal filling defect within the CBD, however small filling defects or CBD
stenosis difficult to exclude; cirrhotic liver morphology with mild ascites and splenomegaly, no hydronephrosis; R pleural effusion and bibasilar pulmonary consolidation
- LFTs improving along with T Bili
- Elevated lipase, but without abdominal pain or imaging. Thus, does not meet criteria for pancreatitis
- Rest of infectious w/u has been unrevealing with (-) blood cultures, and unremarkable prior imaging. No appreciable ascites on US to r/o SBP and much less likely
- Continue IV Zosyn, ensure renally-dosed
- Would consider eventual EUS this admission pending her clinical course, will discuss with Dr. Thomason
- No plans for an ERCP at this time
#Decompensated EtOH Cirrhosis
Patient follows closely with Dr. Vaca and felt to have decompensated EtOH cirrhosis but has been abstaining since 04/2024. MELD-Na on admission 10/18. Main decompensations largely driven by ascites, varices (previous badning), GAVE, along with
HE. No other new decompensations although concern for worsening renal function
- Trend daily MELD 3.0 labs q daily
- HOLD all diuretics given worsening renal function
- Started IV Albumin challenge 25% 25 grams q 6 hrs for 48 hour challenge
- Continue Midodrine 5 mg TiD for chronic hypotension, defer starting Octreotide until 48 albumin challenge completed
- No appreciable ascites to perform paracentesis, thus low c/f SBP
- HCC: No suspicious lesions on recent MRI although limited due to motion, will obtain AFP
- HE: Continue Rifaximin for now, will restart lactulose if without further signs of overt GI bleeding tomorrow
- Will review prior outpatient GI records as it appears she has not had a formal OLT evaluation in the past
- Strict avoidance of all NSAIDs, minimize/avoid benzos/narcotics
- Would benefit from formal OLT evaluation as well as outpatient
#ESTRELLITA on CKD
Baseline Home Theater Expert appears to have fluctuated between 1s -1.5. Etiology seems suspicious for pre-renal given urine studies (low U Na) along with GI bleeding and previous received diuretics versus sepsis. Much less likely ATN. Given worsening renal
function some concern for HRS.
- Started IV Albumin challenge (10/20 - )
- IV 25% Albumin 25 grams q 6 hours for 48 hours
- Hold of on further IVF given pulmonary edema seen on recent MRI and CXR
- Continue Midodrine 5 mg TiD given chronic hypotension, but defer Octreotide at this time until completion of IV Albumin
- HOLD all diuretics, stop lasix
- Please track strict I/Os while inpatient
- Ensure all medications are renally-dosed
- Nephrology consulted, appreciate recs. D/w Nephrology as well this AM given worsening renal function, would defer transfer at this time pending completion of IV albumin challenge. However, if renal function continues to decline and concern for
evolving HRS would have low threshold to transfer to OLT center
Discussed plan with both patient, Nephrology along with primary internal medicine team this AM.
Subjective
Subjective
Date of Service: October 20, 2024
- S/p previous EGD 10/19 without any obvious EV or signs of GI bleeding
- MRI/MRCP 10/19/24- Impression: (limited due to patient movement) distended gallbladder and CBD dilation up to 9 mm without intrahepatic biliary ductal dilatation; no obvious intraluminal filling defect within the CBD, however small filling defects
or CBD stenosis difficult to exclude; cirrhotic liver morphology with mild ascites and splenomegaly, no hydronephrosis; R pleural effusion and bibasilar pulmonary consolidation
- Worsening renal function based on labs with Home Theater Expert 2.2, no recent I/Os
- Still persistently febrile without leukocytosis, down-trending LFTs
- Otherwise, no acute events overnight
Resting comfortably and reports feeling better this AM. Denies any abdominal pain, nausea/vomiting, or any further bloody stools. Reports having brown bowel movements. Reports making urine and using the bathroom but no recent I/Os. No other fevers,
chills, or other constitutional and/or localizing symptoms.
Objective
Data Reviewed
Laboratory Data:
Laboratory Results
10/20/24 03:59
Laboratory Results
PT 16.6 Sec (11.4-14.6) H 10/18/24 04:16
INR 1.28 10/18/24 04:16
APTT 29.6 Sec (23.4-35.0) 10/17/24 20:20
Total Bilirubin 1.7 mg/dl (0.2-1.3) H 10/20/24 03:59
AST 39 U/L (14-36) H 10/20/24 03:59
ALT 24 U/L (0-35) 10/20/24 03:59
Alkaline Phosphatase 108 U/L (38-126) 10/20/24 03:59
Lipase 868 U/L (23-300) H 10/19/24 04:09
Vital Signs and I&O:
Vital Signs
Temp Pulse Resp BP Pulse Ox
97.7 F 71 14 106/61 98
10/20/24 07:00 10/20/24 06:00 10/20/24 06:00 10/20/24 06:00 10/20/24 06:00
I&O
10/19/24 10/20/24 10/21/24
06:59 06:59 06:59
Intake Total 3232 / 3232 1612 / 1612
Balance 323 / 3232 1612 / 161
Physical Exam
Physical Exam
HEENT: Anicteric and Other (Dry MM)
Cardiology: Normal Sinus Rhythm
Pulmonary: Other (Normal WOB on room air)
GI: Soft, Non Distended and Non Tender
Extremities: No Edema and Warm
Neuro: Non Focal and Other (AAOx3 ; no asterixis)
[2024-10-20 11:31] LABS: NT-proBNP 18000 pg/ml
[2024-10-20] MEDS: DUONEB 3 ML INH ×3 (11:31→18:26)
--- NOTE | 2024-10-20 12:23 | W.PN.HOSP.TC ---
Today's Communication/Plan
-
lasix
watch electrolytes and kidney function
duoneb
cont Abx
Assessment / Plan
Assessment / Plan
68yo F with PMHx of osteoporosis, alcoholic livwer cirrhosis, hepatic encephalopathy, chronic hypotension, HLD, varices, GAVE, GERD, cecal AVM, lower extremety chonic edema came with 2 episodes of bloody bowel movement and found Hgb of 3.2 with
dissiness on ambulation. Also complained of few days feeling generally unwell, contributing it to possible common cold since her was sick with the same symptoms 1 week ago.
Developed ESTRELLITA with pulmonary edema, concern for hepatorenal vs cardiorenal syndrome
A/P:
#Acute blood loss symptomatic anemia with PMHx of GAVE anc cecal AVM with iron deficiency and Hx of b12 and folate deficiency
#Esophageal varicies
#Chronic transaminitis and Alk.phos elevation
#Hx of hepatic encephalopathy
Serial Hgb, transfuse to keep Hgb >7
PPI drip, Octreotide drip
GI consult: S/P EGD on 10/19/24 - no bleeding seen. Colonoscopy deferred due to fevers, ESTRELLITA and stable Hgb. Might need EUS
Iron, Folate IV
not deficient in B12, folate
FOllow LFT
Bili WNL, mo abd pain at this time
ammonia WNL
Cont Rifaximin
avoid antiplatelets, anticoag and NSAIDs
#Acute respiratory insufficiency with pulmonary edema
Lasix
follow Cr
Echo
Daily weight and follow electrolytes
#ESTRELLITA on CKD stage 3b
Mild hypernatremia
cannot r/o HRS vs cardiorenal - for albumin infusion. If worsening - GI recommended transfer to tertiary facility
Most likely 2/2 anemia
Cr baseline 1.5 as per foamite mixer
#Acute pancreatitis
resolving. No abd pain
#Indirect bilirubinemia
#Thrombocytopenia
recurrent 2/2 liver cirrhosis
MRCP
Zosyn
#Fever, cannot exclude CAP with unspecified organism
MRSA neg -stop Vanco
with Hx of pulmonary infiltrates and possible FUO on last admission with lymphadenopathy
patient is unaware of fever, so questionable duration
Not enough fluid for paracentesis
XR with possible pneumonitis
UA neg for UTI
#Chronic hypotension
increase midodrine
#Osteoporosis
#HLD
#Neuropathy
cont home meds
DVT ppx SCDs
Full code
I have spent at least 55min reviewing chart, test results, communication with consultants, family and providing direct patient care
Anticipated Discharge: > 48 hours
Subjective/Interval History
-
Date of Service: October 20, 2024
Objective Data
-
Labs:
Laboratory Results
10/20/24
03:59
WBC 6.6
Hgb 7.6 L
Hct 23.8 L
Plt Count 96 L
Sodium 146 H
Potassium 3.5
Chloride 116 H
Carbon Dioxide 19 L
BUN 39 H
Creatinine 2.2 H
Glucose 139 H
Calcium 7.2 L
Total Bilirubin 1.7 H
AST 39 H
ALT 24
Alkaline Phosphatase 108
Vital Signs:
Vital Signs
Temp Pulse Resp BP Pulse Ox
97.4 F 79 16 125/64 99
10/20/24 11:05 10/20/24 11:32 10/20/24 11:32 10/20/24 10:00 10/20/24 11:32
I&O
10/19/24 10/20/24 10/21/24
06:59 06:59 06:59
Intake Total 3232 / 3232 1612 / 1612
Balance 3232 / 3232 1612 / 1612
Review of Systems
-
History Source: Patient
All other systems: Reviewed and negative
Respiratory: Reports Trouble Breathing
Physical Exam
-
General: Respiratory Distress
HEENT: Normocephalic
Respiratory: Rales and Crackles
GI: Soft, Nontender and Nondistended
Musculoskeletal: No Clubbing, No Cyanosis and No Edema
Skin: Warm
Neuro: Awake, Alert, Oriented and AO x 3
Psych: Calm
[2024-10-20 12:56] LABS: Lipase 646 U/L (23-300)
[2024-10-20] MEDS: ProAmatine PO ×2 (14:42→17:13)
[2024-10-20] MEDS: FERRLECIT 110 MG IV (16:09)
[2024-10-20] MEDS: MELATONIN 5 MG PO (19:45)
--- NOTE | 2024-10-20 20:00 | PTCARENOTE ---
Received patient at 1900. Pt. currently in bed. Awake, alert, and oriented. Denies pain/discomfort. Afebrile. Heart rhythm sinus. Blood pressure normotensive. Currently on nasal cannula. Lungs sound diminished. Clear liquid diet. Voiding without
issue. Skin as documented. Discussed plan of care. Vital signs stable at this time.
[2024-10-20] MEDS: CRESTOR 20 MG PO (21:10)
[2024-10-21] VITALS (17 sets, daily range): BP systolic 120–188; BP diastolic 59–82; BMI 24.2
[2024-10-21] MEDS: FLEXBUMIN 100 IV ×4 (01:09→18:04)
[2024-10-21] MEDS: ZOSYN 50 IV ×3 (03:07→19:55)
[2024-10-21 04:49] LABS: Hematocrit 21.7 % (37.0-47.0); Mean Corp Hgb Conc. 32.3 g/dL (33.0-37.0); Mean Corpuscular Hgb 27.9 pg (27.0-31.0); Mean Corpuscular Volume 86.5 fL (81.0-99.0); Mean Platelet Volume 11.3 fL (7.4-10.4); Platelet Count 88 10^3/uL (130-400); Red Blood Cell Count 2.51 10^6/uL (4.20-5.40); Red Cell Dist. Width 17.9 % (11.5-14.5)
[2024-10-21] MEDS: PROTONIX IV 40 MG IV ×2 (05:05→18:04)
[2024-10-21] MEDS: NSS (PRESERVATIVE FREE) 10 ML IV (05:05)
[2024-10-21 05:15] LABS: ALT (SGPT) 20 U/L (0-35); AST (SGOT) 30 U/L (14-36); Albumin 3.6 g/dl (3.5-5.0); Alkaline Phosphatase 89 U/L (38-126); Blood Urea Nitrogen 31 mg/dl (7-17); Calcium 7.5 mg/dl (8.4-10.2); Carbon Dioxide 19 mmol/L (22-30); Chloride 112 mmol/L (98-107); Estimated Creatinine Clearance 20 ml/min; Glucose 97 mg/dl (70-99); Magnesium 1.8 mg/dl (1.6-2.3); Sodium 145 mmol/L (135-145); Total Bilirubin 1.8 mg/dl (0.2-1.3); Total Protein 5.4 g/dl (6.3-8.2); eGFR 28.41
[2024-10-21] MEDS: CALCIUM GLUCONATE 100 IV (05:54)
--- NOTE | 2024-10-21 05:59 | W.PN.UPDATE ---
Update Note
Progress Note Update
lab results noted, repleted potassium and calcium. Hgb noted to be 7.0, no active bleeding. stable VS. Consent in chart, type and screen, will order 1 unit of PRBC's.
[2024-10-21] MEDS: KCL 270 MEQ IV ×2 (06:28→12:57)
--- NOTE | 2024-10-21 06:47 | W.PN.GI.CBS2 ---
Today's Communication / Plan
-
Renal function improving with IV albumin challenge. Stop any further IVF given pulmonary edema/anasarca. Cautious with over transfusions as without signs of recurrent overt GI bleeding. Continue infectious w/u and empiric IV abx. See rest of care as
outlined below.
Assessment / Plan
-
Ms. Putnam is a 68-year-old female with a past medical history of alcoholic cirrhosis decompensated with ascites, (last paracentesis 07/08/2024), esophageal varices, portal hypertensive gastropathy, GAVE, GERD, celiac disease, HTN, CKD, neuropathy,
depression, cecal AVMs, and colon polyps who was recently admitted at the end of August into September (08/29 to 09/06/2024) for GI bleed secondary to GAVE with bleeding seen on EGD 08/30/24, treated with APC, who now presents with rectal bleeding and
significant symptomatic anemia with Hgb of 3.2.
#Severe Acute Anemia
#Acute Blood Loss Anemia
#Multiple Admissions with GI Bleeding
#Hx of GAVE (s/p prior endoscopic therapy)
#Hx of Grade 1 EV
Rectal bleeding/severe acute anemia/multiple admissions with GI bleed-admission Hb 3.2 ( prior hb 09/2024- 8.8 ) and s/p 4 units PRBC since admission. Likely lower GI bleeding- prior hx of cecal AVM given her presentation and last colonoscopy 2022
with previous cecal AVM. Last EGD 08/2024-reviewed. Grade 1 varices. Bleeding GAVE+. S/p recent EGD on 10/19 which was unrevealing given her transfusion requirements and without any bleeding varices, old/fresh blood or other significant findings
throughout the examined upper GI tract to account for her blood loss. No further signs of recurrent hematochezia or rectal bleeding since admission.
Recommendations:
- Okay for CLD today, may ADAT to 2 gm Na+ restricted diet
- Trend Hgb with serial CBC, transfuse for goal Hgb > 7.0
- Continue IV Protonix, stop IV Octreotide
- IV antibiotics for 7-day course given GIB
- Ordered additional 1 uPRBC given Hgb of 7. Would avoid over-transfusions given c/f anasarca and pulmonary edema
- If recurrent hematochezia, would consider tagged RBC scan as would avoid further IV contrast with CTA given her renal function
- Would benefit from a colonoscopy this admission, however given her persistent fevers and tenuous renal function would defer pursuing this at this time along with her respiratory status. Would consider an eventual colonoscopy later this week
- Currently, is scheduled to have an outpatient EGD/Colonoscopy with Dr. Vaca next month
- Monitor for signs of recurrent GI bleeding while inpatient and notify GI on-call
- Strict avoidance of all NSAIDs
#Fevers
#C/f CAP
#Biliary Dilation
Concern for sepsis given persistent fevers and now slight bump in LFTs and recent CT imaging revealing mild CBD dilatation concerning for choledocholithiasis although denies any abdominal pain. However, given previously elevated lipase and bump in
LFTs concern for potential biliary source versus CAP given previous pulmonary infiltrates and possible FUO on last admission with lymphadenopathy. CXR with concern for potential pneumonitis
- S/p MRI/MRCP 10/19/24 (limited due to patient movement) distended gallbladder and CBD dilation up to 9 mm without intrahepatic biliary ductal dilatation; no obvious intraluminal filling defect within the CBD, however small filling defects or CBD
stenosis difficult to exclude; cirrhotic liver morphology with mild ascites and splenomegaly, no hydronephrosis; R pleural effusion and bibasilar pulmonary consolidation
- LFTs improving along with T Bili
- Elevated lipase, but without abdominal pain or imaging. Thus, does not meet criteria for pancreatitis
- Rest of infectious w/u has been unrevealing with (-) blood cultures, and unremarkable prior imaging. No appreciable ascites on US to r/o SBP and much less likely
- Continue IV Zosyn, ensure renally-dosed
- No plans for an ERCP at this time, would consider EUS an eventual this admission if LFTs rise or ongoing concern for potential biliary source
- ID has been consulted appreciate recs
#Decompensated EtOH Cirrhosis
Patient follows closely with Dr. Vaca and felt to have decompensated EtOH cirrhosis but has been abstaining since 04/2024. MELD-Na on admission 10/18. Main decompensations largely driven by ascites, varices (previous badning), GAVE, along with
HE. No other new decompensations although concern for worsening renal function
- Trend daily MELD 3.0 labs q daily
- HOLD all diuretics given worsening renal function
- Continue IV Albumin challenge 25% 25 grams q 6 hrs for 48 hour challenge
- Stop all IVF given anasarca and pulmonary edema
- Continue Midodrine 5 mg TiD for chronic hypotension, defer starting Octreotide until 48 albumin challenge completed
- No appreciable ascites to perform paracentesis, thus low c/f SBP
- HCC: No suspicious lesions on recent MRI although limited due to motion, will obtain AFP
- HE: Continue Rifaximin for now, okay to resume lactulose. Titrate to 2-3 BMs while inpatient
- Will review prior outpatient GI records as it appears she has not had a formal OLT evaluation in the past
- Strict avoidance of all NSAIDs, minimize/avoid benzos/narcotics
- Would benefit from formal OLT evaluation as well as outpatient
#ESTRELLITA on CKD- Improving
Baseline Tape Recording Machine Operator appears to have fluctuated between 1s -1.5. Etiology seems suspicious for pre-renal given urine studies (low U Na) along with GI bleeding and previous received diuretics versus sepsis. Much less likely ATN. Given worsening renal
function some concern for HRS.
- Started IV Albumin challenge (10/20 - )
- IV 25% Albumin 25 grams q 6 hours for 48 hours
- Hold of on further IVF given pulmonary edema seen on recent MRI and CXR
- Continue Midodrine 5 mg TiD given chronic hypotension, but defer Octreotide at this time until completion of IV Albumin
- HOLD all diuretics, stop lasix
- Please track strict I/Os while inpatient, reports making adequate UOP
- Ensure all medications are renally-dosed
- Nephrology consulted, appreciate recs. D/w Nephrology as well given worsening renal function, would defer transfer at this time pending completion of IV albumin challenge. However, if renal function continues to decline and concern for evolving
HRS would have low threshold to transfer to OLT center
Discussed plan with both patient and primary internal medicine team this AM.
Subjective
Subjective
Date of Service: October 21, 2024
- Started on IV Albumin challenge on 10/20, no UOP documented
- Repeat AM labs with Tape Recording Machine Operator 2.2 -> 1.9 along with slight drift in Hgb but roughly stable with Hgb 7.3 -> 7.6 -> 7.0 without signs of overt GI bleeding
- Remains on IV abx, no recent fevers in over 48 hours, blood cultures remain NGTD x 48 hrs
- Otherwise, no acute events overnight
Feeling well and continues to deny any abdominal pain, nausea or vomiting. Still with SOB and ongoing dry cough. Denies any chest pain. No other fevers, chills or night sweats and reports feeling better. Denies any rectal bleeding or bloody stools.
Having brown BMs and reports making good UOP.
Objective
Data Reviewed
Laboratory Data:
Laboratory Results
10/21/24 04:38
10/21/24 04:38
Laboratory Results
PT 16.6 Sec (11.4-14.6) H 10/18/24 04:16
INR 1.28 10/18/24 04:16
APTT 29.6 Sec (23.4-35.0) 10/17/24 20:20
Magnesium 1.8 mg/dl (1.6-2.3) 10/21/24 04:38
Total Bilirubin 1.8 mg/dl (0.2-1.3) H 10/21/24 04:38
AST 30 U/L (14-36) 10/21/24 04:38
ALT 20 U/L (0-35) 10/21/24 04:38
Alkaline Phosphatase 89 U/L (38-126) 10/21/24 04:38
Lipase 646 U/L (23-300) H 10/20/24 03:59
Vital Signs and I&O:
Vital Signs
Temp Pulse Resp BP Pulse Ox
99.4 F 85 20 151/59 96
10/21/24 03:00 10/21/24 06:22 10/21/24 06:22 10/21/24 06:22 10/21/24 06:22
I&O
10/19/24 10/20/24 10/21/24
06:59 06:59 06:59
Intake Total 3232 / 3232 1612 / 1612 758.7 / 758.7
Balance 3232 / 3232 1612 / 1612 758.7 / 758.7
Physical Exam
Physical Exam
HEENT: Anicteric and Moist mucous membranes
Cardiology: Other (RR on tele)
Pulmonary: Other (Normal WOB on supplemental O2)
GI: Soft, Distended and Non Tender
Extremities: Warm
Neuro: Non Focal and Other (AAOx3 ; no asterixis)
[2024-10-21 07:35] LABS: % Neutrophils 57.8 % (42.2-75.2)
[2024-10-21 07:36] LABS: % Basophils 0.4 % (0-2); % Eosinophils 4.4 % (0-6); % Immature Granulocytes 0.6 % (0-0.5); % Lymphocytes 24.8 % (20.5-51.1); Absolute Eosinophils 0.2 10^3/uL (0-0.7); Absolute Lymphocytes 1.2 10^3/uL (1.2-3.4); Absolute Monocytes 0.6 10^3/uL (0.1-0.6); Absolute Neutrophils 2.9 10^3/uL (1.4-6.5); Nucleated Red Blood Cells % 0 %
[2024-10-21] MEDS: DUONEB 3 ML INH ×4 (07:42→20:59)
--- NOTE | 2024-10-21 08:14 | W.PN.HOSP.TC ---
Today's Communication/Plan
-
replete electrolytes
cont Zosyn pending ID and sputum Cx
Transfuse 1 unit
Call GI for possible colonoscopy this admission
Lasix, pending Echo
Wean off O2
Assessment / Plan
Assessment / Plan
68yo F with PMHx of osteoporosis, alcoholic liver cirrhosis, hepatic encephalopathy, chronic hypotension, HLD, varices, GAVE, GERD, cecal AVM, lower extremely chronic edema came with 2 episodes of bloody bowel movement and found Hgb of 3.2 with
dizziness on ambulation.
Developed ESTRELLITA with pulmonary edema, concern for hepatorenal vs cardiorenal syndrome and cannot rule out pneumonia
A/P:
#Acute blood loss symptomatic anemia with PMHx of GAVE anc cecal AVM with iron deficiency and Hx of b12 and folate deficiency
#Esophageal varices
#Chronic transaminitis and Alk.phos elevation
#Hx of hepatic encephalopathy
Serial Hgb, transfuse to keep Hgb >7, s/p 6 units PRBC
PPI drip, Octreotide drip
GI consult: S/P EGD on 10/19/24 - no bleeding seen. Colonoscopy deferred due to fevers, ESTRELLITA, since Hgb still dropping - might still need it
Iron, Folate IV
not deficient in B12, folate
FOllow LFT
Bili WNL, mo abd pain at this time
ammonia WNL
Cont Rifaximin
avoid antiplatelets, anticoag and NSAIDs
#Fever, cannot exclude CAP with unspecified organism
MRSA neg -stop Vanco
with Hx of pulmonary infiltrates and possible FUO on last admission with lymphadenopathy
patient is unaware of fever, so questionable duration
Not enough fluid for paracentesis
XR with possible pneumonitis
UA neg for UTI
Zosyn (MRSA screen neg)
Bcx NTD
Sputum Cx if able
ID consult
#Acute respiratory insufficiency with pulmonary edema
Lasix
follow Cr
Echo
Daily weight and follow electrolytes
#ESTRELLITA on CKD stage 3b
#Mild hypernatremia
#Hypocalcemia
#Hypokalemia
Replete electrolytes
Cr improving with diuresis and after albumin
Cr baseline 1.5 as per drug department worker
possibly ESTRELLITA developed on the basis of severe anemia
#R cephalic vein thrombosis
superficial vein thrombosis 2/2 peripheral catheter - avoid R extremity for IV
Risk for AC overweights benefit with superficial thrombosis (as AC in such cases debatable) and recent severe anemia
#Acute pancreatitis
resolving. No abd pain
#Indirect bilirubinemia
#Thrombocytopenia
recurrent 2/2 liver cirrhosis
MRCP: poor imaging, no gross findings of cholecystitis or choledocholithiasis
Zosyn
#Chronic hypotension
increase midodrine
#Osteoporosis
#HLD
#Neuropathy
cont home meds
DVT ppx SCDs
Full code
I have spent at least 55min reviewing chart, test results, communication with consultants, family and providing direct patient care
Anticipated Discharge: > 48 hours
Subjective/Interval History
-
Date of Service: October 21, 2024
Objective Data
-
Labs:
Laboratory Results
10/21/24
04:38
WBC 5.0
Hgb 7.0 L
Hct 21.7 L
Plt Count 88 L
Sodium 145
Potassium 3.0 L
Chloride 112 H
Carbon Dioxide 19 L
BUN 31 H
Creatinine 1.9 H
Glucose 97
Calcium 7.5 L
Total Bilirubin 1.8 H
AST 30
ALT 20
Alkaline Phosphatase 89
Vital Signs:
Vital Signs
Temp Pulse Resp BP Pulse Ox
99.4 F 86 16 151/59 96
10/21/24 03:00 10/21/24 07:43 10/21/24 07:43 10/21/24 06:22 10/21/24 07:43
I&O
10/20/24 10/21/24 10/22/24
06:59 06:59 06:59
Intake Total 1612 / 1612 758.7 / 758.7
Balance 1612 / 1612 758.7 / 758.7
Review of Systems
-
History Source: Patient
All other systems: Reviewed and negative
Respiratory: Reports Cough
Physical Exam
-
General: No Apparent Distress
Respiratory: Crackles
Cardiac: Regular Rhythm
GI: Soft, Nontender and Nondistended
Musculoskeletal: No Clubbing, No Cyanosis and No Edema
Neuro: Awake, Alert, Oriented and AO x 3
Psych: Calm
[2024-10-21] MEDS: LYRICA 150 MG PO ×2 (08:38→19:55)
[2024-10-21] MEDS: LASIX 40 MG IV (08:38)
[2024-10-21] MEDS: ProAmatine 5 MG PO (08:38)
[2024-10-21] MEDS: FOLVITE 50.2 MG IV (08:38)
[2024-10-21] MEDS: XIFAXAN 550 MG PO ×2 (08:39→19:55)
--- NOTE | 2024-10-21 10:34 | PTCARENOTE ---
Assumed care of patient this morning. She is aaox3. Pt denies any pain. I recieved her on 6L NC, pt titrated to 4L. While patient is stationary, SPO2 stable but when patient is mobile, spo2 drops to 86-87%. Pt ordered a unit of PRBCs this morning,
currently infusing, no reactions noted. Pt urinating in BSC, pt is OOB x1, but patient is weak. Assessment, care and VS as charted.
[2024-10-21 11:40] LABS: Haptoglobin 119 mg/dL (30-200)
--- NOTE | 2024-10-21 12:18 | W.PN.NEPH.PH ---
Today's Communication / Plan
-
recheck labs later, replace k prn
additional dose of lasix if needed
Assessment/Plan
-
IMP:
Izzy with CKD3-baseline cr mid 1s-1.5
Acute blood loss symptomatic anemia with
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
Hx of b12 and folate deficiency
Esophageal varicies
liver cirrhosis
Chronic transaminitis and Alk.phos elevation
Hx of hepatic encephalopathy
Acute pancreatitis
Indirect bilirubinemia
Thrombocytopenia
Chronic hypotension
Neuropathy
hypoalbuminemia
Hyperlipidemia
Osteoporosis
Anxiety
Plan:
A/w GIB, anemia hb 3.2 s/p 4 PRBCs
UA bland with low U na suggest prerenal, can not r/o HRS
CT with out hydro, follow bladder scan
cr improving to 1.9 today, UOP not measured
wheezing on exam still, cxr shows pulm edema-cont diuresis and nebs
wt is sig high not sure if accurate
replace k, recheck labs later today
IV alb per GI
Bp are high, hold midodrine
mild non gap met acidosis -stable
mild hypernatremia-monitor
PRBC today for anemia, on IV Fe course per primary
avoid nephrotoxins
abx per primary
dose meds renally
d/w pt and nursing
-
-
Date of Service: October 21, 2024
CC / HPI / ROS
-
Chief Complaint:
IZZY with CKD
History of Present Illness:
cr down to 1.9, UOP not measured
BP high , no fever
bicarb at 19
Review of Systems:
no cp , has cough and wheezing
no abd pain
no n/v
Labs
-
Labs:
WBC 5.0 10^3/uL (4.8-10.8) 10/21/24 04:38
RBC 2.51 10^6/uL (4.20-5.40) L 10/21/24 04:38
Hgb 7.0 g/dL (12.0-16.0) L 10/21/24 04:38
Hct 21.7 % (37.0-47.0) L 10/21/24 04:38
Plt Count 88 10^3/uL (130-400) L 10/21/24 04:38
Sodium 145 mmol/L (135-145) 10/21/24 04:38
Potassium 3.0 mmol/L (3.5-5.1) L 10/21/24 04:38
Chloride 112 mmol/L (98-107) H 10/21/24 04:38
Carbon Dioxide 19 mmol/L (22-30) L 10/21/24 04:38
BUN 31 mg/dl (7-17) H 10/21/24 04:38
Creatinine 1.9 mg/dL (0.6-1.0) H 10/21/24 04:38
eGFR 28.41 10/21/24 04:38
Glucose 97 mg/dl (70-99) 10/21/24 04:38
Calcium 7.5 mg/dl (8.4-10.2) L 10/21/24 04:38
Yhm-D-Yxwrucaxvii Pept 34267 pg/ml 10/20/24 03:59
Albumin 3.6 g/dl (3.5-5.0) 10/21/24 04:38
Physical Exam
-
Vital Signs:
Vital Signs
Temp Pulse Resp BP Pulse Ox
98.2 F 91 16 186/70 98
10/21/24 09:48 10/21/24 11:28 10/21/24 11:28 10/21/24 09:48 10/21/24 11:28
Cardiovascular:: Regular rate and rhythm
Respiratory:: Bilateral: Wheeze
Lung Excursion:: Normal
Abdomen:: Distended, Nontender and Soft
Extremity Edema:: None: Bilateral:
Hoover Catheter: No
--- NOTE | 2024-10-21 12:46 | PTCARENOTE ---
Patient more short of breath than this morning, lungs sound slightly more coarse with crackles. Patient remains 4L NC SPO2 is 95%. Patient reports she feels no more short of breath than she has the past couple of days but crackles/wheezing is
audible. Lungs with wheezing despite respiratory treatment at 1200. BP is also elevated but the BP cuff is on her calf due to clot in R arm and IV's in left. She is also slightly tachycardic, HRs 100s was 80s-90s this morning. TT to ,
orders for Lasix and steroids.
[2024-10-21] MEDS: SOLU-MEDROL PF 40 MG IV (12:57)
[2024-10-21] MEDS: LASIX 60 MG IV (12:57)
[2024-10-21] MEDS: FERRLECIT 110 MG IV (15:28)
--- NOTE | 2024-10-21 15:44 | W.PN.UPDATE ---
Update Note
Progress Note Update
Informed by RN that pt now has swelling in her left upper extremity.
Check LUE US for DVT eval.
--- NOTE | 2024-10-21 15:57 | PTCARENOTE ---
L arm slightly swollen, medial aspect near elbow. Both IV's patent, confirmed by VAT team coming to bedside. VAT team contacted hospitalist infrastructure solutions architect and order for US of L arm.
--- NOTE | 2024-10-21 16:21 | VATNOTE ---
Left medial upper arm swelling, new since this AM, not near PIV site. PIV flushing and painless. Distal circulation intact. Dr Starks aware, US ordered.
[2024-10-21 16:37] LABS: Blood Urea Nitrogen 25 mg/dl (7-17); Calcium 8.1 mg/dl (8.4-10.2); Carbon Dioxide 20 mmol/L (22-30); Chloride 113 mmol/L (98-107); Estimated Creatinine Clearance 23 ml/min; Glucose 138 mg/dl (70-99); Potassium 4.8 mmol/L (3.5-5.1); Sodium 146 mmol/L (135-145); eGFR 32.46
[2024-10-21] MEDS: CRESTOR 20 MG PO (21:55)
[2024-10-21] MEDS: DUPHALAC/CHRONULAC 20 GRAMS PO (21:55)
[2024-10-22] VITALS (15 sets, daily range): BP systolic 82–171; BP diastolic 56–81; BMI 23.2
[2024-10-22] MEDS: FLEXBUMIN 100 IV ×3 (01:40→23:28)
[2024-10-22] MEDS: SOLU-MEDROL PF 40 MG IV ×2 (01:40→23:28)
[2024-10-22] MEDS: ZOSYN 50 IV ×2 (05:35→20:27)
[2024-10-22] MEDS: NSS (PRESERVATIVE FREE) 10 ML IV ×2 (05:57→17:14)
[2024-10-22] MEDS: PROTONIX IV 40 MG IV ×2 (05:57→17:14)
--- NOTE | 2024-10-22 06:10 | W.PN.GI.CBS2 ---
Today's Communication / Plan
-
No further signs of GI bleeding over weekend, s/p 5 uPRBCs this admission. Avoid over-transfusions given pulmonary edema/cirrhosis, okay to transfuse for goal Hgb > 7.0. Will consider colonoscopy later this week if respiratory status and renal
function continue to improve. See rest of care as outlined below.
Assessment / Plan
-
Ms. Putnam is a 68-year-old female with a past medical history of alcoholic cirrhosis decompensated with ascites, (last paracentesis 07/08/2024), esophageal varices, portal hypertensive gastropathy, GAVE, GERD, celiac disease, HTN, CKD, neuropathy,
depression, cecal AVMs, and colon polyps who was recently admitted at the end of August into September (08/29 to 09/06/2024) for GI bleed secondary to GAVE with bleeding seen on EGD 08/30/24, treated with APC, who now presents with rectal bleeding and
significant symptomatic anemia with Hgb of 3.2 and concern for worsening renal function with ESTRELLITA.
#Severe Acute Anemia
#Acute Blood Loss Anemia
#Multiple Admissions with GI Bleeding
#Hx of GAVE (s/p prior endoscopic therapy) #Hx of Grade 1 EV
#Hx of Bleeding Cecal AVM
Rectal bleeding/severe acute anemia/multiple admissions with GI bleed-admission Hb 3.2 ( prior hb 09/2024- 8.8 ) and s/p total of 5 units PRBC since admission. Likely lower GI bleeding- prior hx of cecal AVM given her presentation and last
colonoscopy 2022 with previous cecal AVM. Last EGD 08/2024-reviewed. Grade 1 varices. Bleeding GAVE+. S/p recent EGD on 10/19 which was unrevealing given her transfusion requirements and without any bleeding varices, old/fresh blood or other
significant findings throughout the examined upper GI tract to account for her blood loss. No further signs of recurrent hematochezia or rectal bleeding since admission.
Recommendations:
- Okay for for 2 gm Na+ restricted diet today
- Trend Hgb with serial CBC, transfuse for goal Hgb > 7.0
- Continue empiric IV PPI BiD
- IV antibiotics for 7-day course given GIB
- S/p additional 1 uPRBC on 10/21 with stable CBC (s/p 5 uPRBCs this admission)
- If recurrent hematochezia, would consider tagged RBC scan as would avoid further IV contrast with CTA given her renal function
- Would benefit from a colonoscopy this admission, if respiratory status and renal function continue to improve will consider prepping tomorrow for Colonoscopy on Tuesday, 10/24
- Monitor for signs of recurrent GI bleeding while inpatient and notify GI on-call
- Strict avoidance of all NSAIDs
#Fevers- Resolved
#C/f CAP
#Biliary Dilation
Concern for sepsis given persistent fevers and now slight bump in LFTs and recent CT imaging revealing mild CBD dilatation concerning for choledocholithiasis although denies any abdominal pain. However, given previously elevated lipase and bump in
LFTs concern for potential biliary source versus sepsis 2/2 CAP given previous pulmonary infiltrates and possible FUO on last admission with lymphadenopathy. CXR with concern for potential pneumonitis
- S/p MRI/MRCP 10/19/24 (limited due to patient movement) distended gallbladder and CBD dilation up to 9 mm without intrahepatic biliary ductal dilatation; no obvious intraluminal filling defect within the CBD, however small filling defects or CBD
stenosis difficult to exclude; cirrhotic liver morphology with mild ascites and splenomegaly, no hydronephrosis; R pleural effusion and bibasilar pulmonary consolidation
- LFTs improving along with T Bili
- Elevated lipase, but without abdominal pain or imaging. Thus, does not meet criteria for pancreatitis
- Rest of infectious w/u has been unrevealing with (-) blood cultures, and unremarkable prior imaging. No appreciable ascites on US to r/o SBP and much less likely
- Continue IV Zosyn, ensure renally-dosed for suspected pneumonia
- No plans for an ERCP at this time, would consider EUS an eventual this admission if LFTs rise or ongoing concern for potential biliary source but less likely. Would consider an EUS as an outpatient
#Decompensated EtOH Cirrhosis
Patient follows closely with Dr. Vaca and felt to have decompensated EtOH cirrhosis but has been abstaining since 04/2024. MELD-Na on admission 10/18. Main decompensations largely driven by ascites, varices (previous badning), GAVE, along with
HE. No other new decompensations although concern for worsening renal function
- Trend daily MELD 3.0 labs q daily
- HOLD all diuretics given worsening renal function
- S/p 48 hr IV Albumin challenge 25% 25 grams q 6 hrs for 48 hour challenge (10/20-10/21)
- Will give additional IV Albumin for 24 hrs given ongoing renal recovery
- Stop all IVF given anasarca and pulmonary edema, careful diuresis as needed with IV lasix as needed
- Continue Midodrine 5 mg TiD for chronic hypotension, defer starting Octreotide
- No appreciable ascites to perform paracentesis, thus low c/f SBP. Consider repeat paracentesis tomorrow prior to colonoscopy
- HCC: No suspicious lesions on recent MRI although limited due to motion, will obtain AFP
- HE: Continue Rifaximin for now, okay to continue lactulose. Titrate to 2-3 BMs while inpatient
- She has never had a prior formal OLT evaluation in the past, has abstained from EtOH since 04/2024. Would benefit from an OLT evaluation as an outpatient
- Strict avoidance of all NSAIDs, minimize/avoid benzos/narcotics
#Nonoliguric ESTRELLITA on CKD- Improving
Baseline Software Technician appears to have fluctuated between 1s -1.5. Etiology seems suspicious for pre-renal given urine studies (low U Na) along with GI bleeding and previous received diuretics versus sepsis. Much less likely ATN. Given worsening renal
function some concern for HRS. Now with improving renal function and making adequate UOP
- S/p 48 hr IV albumin challenge (10/20-10/21)
- Given additional IV albumin today for 24 hrs
- Continue Midodrine 5 mg TiD given chronic hypotension
- Hold all oral diuretics
- Please track strict I/Os while inpatient, reports making adequate UOP
- Ensure all medications are renally-dosed
- Nephrology consulted, appreciate recs
Discussed plan with both patient and primary internal medicine team this AM. GI will continue to follow.
Subjective
Subjective
Date of Service: October 22, 2024
- Renal function improving with Software Technician 2.2 -> 1.9 -> 1.7
- RUE US 10/20/24 with distal cephalic nonocclusive thrombus
- Receiving intermittent lasix as needed given pulmonary edema on 4L NC
- Previously ordered 1 uPBRC for Hgb 7s without signs of recurrent GI bleeding, repeat CBC with Hgb 7.7
Feeling well, resting comfortably this AM. Notes significant improvement in regards to her breathing and improving cough, on less supplemental O2 this AM. Continues to deny any further bloody bowel movements or rectal bleeding or other abdominal
pain.
Objective
Data Reviewed
Laboratory Data:
Laboratory Results
PT 16.6 Sec (11.4-14.6) H 10/18/24 04:16
INR 1.28 10/18/24 04:16
APTT 29.6 Sec (23.4-35.0) 10/17/24 20:20
Magnesium 1.8 mg/dl (1.6-2.3) 10/21/24 04:38
Total Bilirubin 1.8 mg/dl (0.2-1.3) H 10/21/24 04:38
AST 30 U/L (14-36) 10/21/24 04:38
ALT 20 U/L (0-35) 10/21/24 04:38
Alkaline Phosphatase 89 U/L (38-126) 10/21/24 04:38
Lipase 646 U/L (23-300) H 10/20/24 03:59
Vital Signs and I&O:
Vital Signs
Temp Pulse Resp BP Pulse Ox
98.5 F 88 16 167/67 98
10/22/24 03:39 10/21/24 21:00 10/21/24 21:00 10/21/24 20:00 10/21/24 21:43
I&O
10/20/24 10/21/24 10/22/24
06:59 06:59 06:59
Intake Total 1612 / 1612 758.7 / 758.7 840 / 840
Output Total 1000 / 1000
Balance 1612 / 1612 758.7 / 758.7 -160 / -160
Physical Exam
Physical Exam
HEENT: Anicteric and Moist mucous membranes
Cardiology: Other (RR on tele)
Pulmonary: Other (Normal WOB on supplemental O2)
GI: Soft, Non Distended and Non Tender
Extremities: No Edema
Neuro: Non Focal
[2024-10-22 06:15] LABS: % Basophils 0.4 % (0-2); % Immature Granulocytes 1.7 % (0-0.5); % Lymphocytes 16.7 % (20.5-51.1); % Monocytes 3.9 % (1.7-9.3); % Neutrophils 77.3 % (42.2-75.2); Absolute Lymphocytes 0.4 10^3/uL (1.2-3.4); Absolute Monocytes 0.1 10^3/uL (0.1-0.6); Absolute Neutrophils 1.8 10^3/uL (1.4-6.5); Hematocrit 23.6 % (37.0-47.0); Hemoglobin 7.7 g/dL (12.0-16.0); Mean Corp Hgb Conc. 32.6 g/dL (33.0-37.0); Mean Corpuscular Hgb 28.7 pg (27.0-31.0); Mean Corpuscular Volume 88.1 fL (81.0-99.0); Mean Platelet Volume 12.5 fL (7.4-10.4); Nucleated Red Blood Cells % 0.9 %; Platelet Count 83 10^3/uL (130-400); Red Blood Cell Count 2.68 10^6/uL (4.20-5.40); Red Cell Dist. Width 18.4 % (11.5-14.5); White Blood Cell Count 2.3 10^3/uL (4.8-10.8)
[2024-10-22] MEDS: DUONEB 3 ML INH ×2 (07:40→19:45)
[2024-10-22 07:47] LABS: ALT (SGPT) 15 U/L (0-35); AST (SGOT) 27 U/L (14-36); Albumin 4.1 g/dl (3.5-5.0); Alkaline Phosphatase 81 U/L (38-126); Blood Urea Nitrogen 23 mg/dl (7-17); Calcium 8.2 mg/dl (8.4-10.2); Carbon Dioxide 22 mmol/L (22-30); Chloride 113 mmol/L (98-107); Estimated Creatinine Clearance 21 ml/min; Glucose 151 mg/dl (70-99); Magnesium 1.7 mg/dl (1.6-2.3); Potassium 3.7 mmol/L (3.5-5.1); Sodium 148 mmol/L (135-145); Total Protein 5.8 g/dl (6.3-8.2); eGFR 30.12
[2024-10-22] MEDS: FOLVITE 50.2 MG IV (08:13)
[2024-10-22] MEDS: XIFAXAN 550 MG PO ×2 (08:14→20:26)
[2024-10-22] MEDS: LYRICA 150 MG PO ×2 (08:14→20:26)
[2024-10-22] MEDS: LASIX 60 MG IV (08:14)
[2024-10-22] MEDS: DUONEB INH ×2 (11:49→16:34)
[2024-10-22] MEDS: ZOSYN IV (12:00)
[2024-10-22] MEDS: FERRLECIT IV ×2 (13:30→14:00)
[2024-10-22] MEDS: SOLU-MEDROL PF IV (13:30)
--- NOTE | 2024-10-22 13:53 | W.PN.HOSP.TC ---
Today's Communication/Plan
-
IRAD consult for PICC vs IJ placement to continue IV treatments; VAT US unavailable
continue current treatment as outlined by GI/Nephrology
Assessment / Plan
Assessment / Plan
68yo F with PMHx of osteoporosis, alcoholic liver cirrhosis, hepatic encephalopathy, chronic hypotension, HLD, varices, GAVE, GERD, cecal AVM, lower extremely chronic edema came with 2 episodes of bloody bowel movement and found Hgb of 3.2 with
dizziness on ambulation.
Developed ESTRELLITA with pulmonary edema, concern for hepatorenal vs cardiorenal syndrome and cannot rule out pneumonia
A/P:
#Acute blood loss symptomatic anemia with PMHx of GAVE and cecal AVM with iron deficiency and Hx of b12 and folate deficiency
#Esophageal varices
#Chronic transaminitis and Alk.phos elevation
#Hx of hepatic encephalopathy
- s/p 5 units PRBC in total
- s/p Octreotide drip
- continue PPI IV BID
- GI following
- s/p EGD 10/19: no bleeding seen
- Colonoscopy in 48 hours
- continue IV iron
- continue Folate
- continue Rifaximin
Febrile illness
- Possible pneumonia vs pneumonitis on CXR
- continue Zosyn x 7 days
- UA, Bcx negative. MRSA negative
Acute respiratory insufficiency with pulmonary edema
- IV Lasix; requires intensive monitoring of I/Os, weights, lytes
- Echo: pending
ESTRELLITA on CKD stage 3b
Mild hypernatremia
Hypocalcemia
Hypokalemia
- Replete electrolytes
- cr improving with diuresis and after albumin
- Cr baseline 1.8 as per international affairs vice president
- possibly ESTRELLITA developed on the basis of severe anemia
- Nephrology following
bilateral cephalic vein thrombosis
- pursue PICC via VAT vs IR for excess
- warm compresses
- risk of AC outweighs benefits (recent anemia, GI bleed)
Acute pancreatitis
- resolving. No abd pain
Indirect bilirubinemia
Thrombocytopenia
- recurrent 2/2 liver cirrhosis
- MRCP: poor imaging, no gross findings of cholecystitis or choledocholithiasis
- continue Zosyn x 7 days
Chronic hypotension
- midodrine
Osteoporosis
HLD
Neuropathy
- cont home meds
DVT ppx: SCDs
Code: Full
Anticipated Discharge: > 48 hours
Subjective/Interval History
-
Date of Service: October 22, 2024
denies any complaints
Objective Data
-
Labs:
Laboratory Results
10/22/24
05:39
WBC 2.3 L*
Hgb 7.7 L
Hct 23.6 L
Plt Count 83 L
Sodium 148 H
Potassium 3.7
Chloride 113 H
Carbon Dioxide 22
BUN 23 H
Creatinine 1.8 H
Glucose 151 H
Calcium 8.2 L
Total Bilirubin 2.0 H
AST 27
ALT 15
Alkaline Phosphatase 81
Vital Signs:
Vital Signs
Temp Pulse Resp BP Pulse Ox
97.4 F 91 18 147/66 94
10/22/24 11:05 10/22/24 10:59 10/22/24 10:59 10/22/24 10:59 10/22/24 10:59
I&O
10/21/24 10/22/24 10/23/24
06:59 06:59 06:59
Intake Total 758.7 / 758.7 840 / 840
Output Total 1000 / 1000
Balance 758.7 / 758.7 -160 / -160
Physical Exam
-
General: No Apparent Distress
HEENT: Normocephalic and Atraumatic
Respiratory: Negative Wheezes
Cardiac: Regular Rhythm and S1/S2
GI: Soft and Nontender
Genito-urinary: No Costovertebral Tender
Musculoskeletal: No Edema
Neuro: AO x 3
Psych: Calm
Data Reviewed
-
Total Time Spent with Patient (in minutes): 44
Labs: Labs Reviewed by me
--- NOTE | 2024-10-22 14:00 | PTCARENOTE ---
Assumed care of patient at 0645. Assessment completed and documented in shift assessment.
Patient is AAOx3, pleasant and cooperative. CRAIG. On 4L humidified nasal cannula. Lungs coarse/rhonchorous throughout. SWAN. SR on monitor. OOB 1-person assist with RW to BSC voiding with . Ordered clears -> upgraded to 2 gram Na.
Post peripheral ultrasound to LUE, concern for thrombus. Both IV's removed. Patient ordered for PICC.
--- NOTE | 2024-10-22 15:13 | VNURNOTE ---
[facility] liaison called patient's cell #- no answer. Liaison spoke with patient's spouse Cullen. Inquired if they would like [facility] to resume services if plan is DC to home. Spouse confirmed they would like to resume [facility] services. Inquired about home
oxygen. Spouse wasn't sure of DME company and confirmed that patient has a portable 02 tank at home. He wasn't sure if home concentrator was picked up 'because she never uses it.' This author reached out to [facility]. Confirmed with rep
that patient is current with them and collections has been calling them to settle outstanding balances. She confirmed patient still has home 02 concentrator and portable tank.
--- NOTE | 2024-10-22 16:11 | CM ---
Patient with Hx alcoholic liver cirrhosis with Dx Acute blood loss anemia, febrile illness - possible PNA, ESTRELLITA, pancreatitis, thrombosis forearm. Plan PICC vs IJ placement. O2 4L. Receiving IV Abx, IV Iron, IV Lasix, IV Albumin, IV Solumedrol.
PT/OT 10/20; recommend skilled rehab v home PT.
Spoke with Dr Link; plan for colonoscioy Wed. Patient will probably be ready for d/c on 10/26.
Met with patient and discussed SNF for short term rehab vs home with resumption VN. Patient states she would prefer to go to SNF and chooses [facility] where she went previously.
Phone call to Cullen, patient's ; left message requesting callback for d/c planning, to confirm he agrees with SNF rehab.
Spoke with [facility]; referral placed.
Plan continue to follow patient's progress with PT/OT.
Plan follow up with [facility] for acceptance.
--- NOTE | 2024-10-22 16:48 | W.PN.NEPH.PH ---
Today's Communication / Plan
-
follow lab s
Assessment/Plan
-
IMP:
Izzy with CKD3-baseline cr mid 1s-1.5
Acute blood loss symptomatic anemia with
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
Hx of b12 and folate deficiency
Esophageal varicies
liver cirrhosis
Chronic transaminitis and Alk.phos elevation
Hx of hepatic encephalopathy
Acute pancreatitis
Indirect bilirubinemia
Thrombocytopenia
Chronic hypotension
Neuropathy
hypoalbuminemia
Hyperlipidemia
Osteoporosis
Anxiety
Plan:
A/w GIB, anemia hb 3.2 s/p 4 PRBCs
UA bland with low U na suggest prerenal, can not r/o HRS
CT with out hydro, follow bladder scan
cr improving to 1.8 today, UOP not measured
improving wt on daily lasix per primary
hypernatremia-increase free water intake
IV alb per GI
Bp are high, holding midodrine
mild non gap met acidosis -improving
h/h stable on IV Fe course per primary
bilat sup vein thrombosis now with IJ line for access
avoid nephrotoxins
abx per primary
dose meds renally
d/w pt and nursing
-
-
Date of Service: October 22, 2024
CC / HPI / ROS
-
Chief Complaint:
IZZY with CKD
History of Present Illness:
cr down to 1.8, UOP not measured, nonoliguric
BP high improving , no fever
bicarb at 22 better
wt is down
Review of Systems:
no cp , no sob today
no abd pain
no n/v
Labs
-
Labs:
WBC 2.3 10^3/uL (4.8-10.8) L* 04/21/25 05:39
RBC 2.68 10^6/uL (4.20-5.40) L 10/22/24 05:39
Hgb 7.7 g/dL (12.0-16.0) L 10/22/24 05:39
Hct 23.6 % (37.0-47.0) L 10/22/24 05:39
Plt Count 83 10^3/uL (130-400) L 10/22/24 05:39
Sodium 148 mmol/L (135-145) H 10/22/24 05:39
Potassium 3.7 mmol/L (3.5-5.1) 10/22/24 05:39
Chloride 113 mmol/L (98-107) H 10/22/24 05:39
Carbon Dioxide 22 mmol/L (22-30) 10/22/24 05:39
BUN 23 mg/dl (7-17) H 10/22/24 05:39
Creatinine 1.8 mg/dL (0.6-1.0) H 10/22/24 05:39
eGFR 30.12 10/22/24 05:39
Glucose 151 mg/dl (70-99) H 10/22/24 05:39
Calcium 8.2 mg/dl (8.4-10.2) L 10/22/24 05:39
Hyw-C-Ucccshqzbbm Pept 42087 pg/ml 10/20/24 03:59
Albumin 4.1 g/dl (3.5-5.0) 10/22/24 05:39
Physical Exam
-
Vital Signs:
Vital Signs
Temp Pulse Resp BP Pulse Ox
97.9 F 82 16 144/57 100
10/22/24 15:50 10/22/24 16:30 10/22/24 16:30 10/22/24 16:30 10/22/24 16:30
Cardiovascular:: Regular rate and rhythm
Respiratory:: Bilateral: Coarse
Lung Excursion:: Normal
Abdomen:: Distended, Nontender and Soft
Extremity Edema:: None: Bilateral:
Hoover Catheter: No
[2024-10-22] MEDS: FERRLECIT 110 MG IV (17:25)
[2024-10-22] MEDS: CRESTOR 20 MG PO (20:26)
[2024-10-22] MEDS: TYLENOL 650 MG PO (20:40)
[2024-10-22] MEDS: MELATONIN 5 MG PO (20:40)
[2024-10-23] VITALS (12 sets, daily range): BP systolic 139–183; BP diastolic 51–94; PULSE 94; O2SAT 96; BMI 23.8
--- NOTE | 2024-10-23 02:12 | PTCARENOTE ---
assumed care of patient. pt is AAOx3, [place]. able to make needs known. VSS. on 4L 96%. able to use BSCx1 assist to have loose BM's all throughout the night. bilateral arms with some swollen areas where clot is. some pain to left calf from BP cuff. BP
cuff moved to right leg and patient stated pain was immediately better. care ongoing.
[2024-10-23] MEDS: ZOSYN 50 IV ×3 (03:34→20:18)
[2024-10-23] MEDS: NSS (PRESERVATIVE FREE) 10 ML IV ×2 (05:29→18:21)
[2024-10-23] MEDS: FLEXBUMIN 100 IV ×2 (05:29→11:23)
[2024-10-23] MEDS: PROTONIX IV 40 MG IV ×2 (05:30→18:21)
[2024-10-23 05:52] LABS: % Immature Granulocytes 1.3 % (0-0.5); % Lymphocytes 12.5 % (20.5-51.1); % Monocytes 4.4 % (1.7-9.3); % Neutrophils 81.8 % (42.2-75.2); Absolute Immature Granulocytes 0.1 10^3/uL (0-0.05); Absolute Lymphocytes 0.5 10^3/uL (1.2-3.4); Absolute Monocytes 0.2 10^3/uL (0.1-0.6); Absolute Neutrophils 3.1 10^3/uL (1.4-6.5); Hematocrit 22.4 % (37.0-47.0); Hemoglobin 7.2 g/dL (12.0-16.0); Mean Corp Hgb Conc. 32.1 g/dL (33.0-37.0); Mean Corpuscular Hgb 28.6 pg (27.0-31.0); Mean Corpuscular Volume 88.9 fL (81.0-99.0); Mean Platelet Volume 11.2 fL (7.4-10.4); Nucleated Red Blood Cells % 0 %; Platelet Count 77 10^3/uL (130-400); Red Blood Cell Count 2.52 10^6/uL (4.20-5.40); Red Cell Dist. Width 19.4 % (11.5-14.5); White Blood Cell Count 3.8 10^3/uL (4.8-10.8)
[2024-10-23 06:03] LABS: ALT (SGPT) 20 U/L (0-35); AST (SGOT) 39 U/L (14-36); Albumin 4.6 g/dl (3.5-5.0); Alkaline Phosphatase 81 U/L (38-126); Blood Urea Nitrogen 25 mg/dl (7-17); Calcium 8.2 mg/dl (8.4-10.2); Carbon Dioxide 22 mmol/L (22-30); Chloride 110 mmol/L (98-107); Estimated Creatinine Clearance 19 ml/min; Glucose 157 mg/dl (70-99); Potassium 3.2 mmol/L (3.5-5.1); Sodium 147 mmol/L (135-145); Total Bilirubin 1.6 mg/dl (0.2-1.3); eGFR 26.54
--- NOTE | 2024-10-23 06:07 | W.PN.GI.CBS2 ---
Today's Communication / Plan
-
Slight drift in Hgb, but without any signs of recurrent GI bleeding. Start bowel prep this afternoon with plans for colonoscopy tomorrow, 10/24/24. Continue IV albumin to help with renal function while prepping for colonoscopy. See rest of care as
outlined below.
Assessment / Plan
-
Ms. Putnam is a 68-year-old female with a past medical history of alcoholic cirrhosis decompensated with ascites, (last paracentesis 07/08/2024), esophageal varices, portal hypertensive gastropathy, GAVE, GERD, celiac disease, HTN, CKD, neuropathy,
depression, cecal AVMs, and colon polyps who was recently admitted at the end of August into September (08/29 to 09/06/2024) for GI bleed secondary to GAVE with bleeding seen on EGD 08/30/24, treated with APC, who now presents with rectal bleeding and
significant symptomatic anemia with Hgb of 3.2 and concern for worsening renal function with ESTRELLITA.
#Severe Acute Anemia
#Acute Blood Loss Anemia
#Multiple Admissions with GI Bleeding
#Hx of GAVE (s/p prior endoscopic therapy) #Hx of Grade 1 EV
#Hx of Bleeding Cecal AVM
Rectal bleeding/severe acute anemia/multiple admissions with GI bleed-admission Hb 3.2 ( prior hb 09/2024- 8.8 ) and s/p total of 5 units PRBC since admission. Likely lower GI bleeding- prior hx of cecal AVM given her presentation and last
colonoscopy 2022 with previous cecal AVM. Last EGD 08/2024-reviewed. Grade 1 varices. Bleeding GAVE+. S/p recent EGD on 10/19 which was unrevealing given her transfusion requirements and without any bleeding varices, old/fresh blood or other
significant findings throughout the examined upper GI tract to account for her blood loss. No further signs of recurrent hematochezia or rectal bleeding since admission.
Recommendations:
- CLD today given plans for bowel prep, keep NPO at MN
- Trend Hgb with serial CBC, transfuse for goal Hgb > 7.0
- Continue empiric IV PPI BiD
- S/p antibiotics for 7-day course given GIB
- S/p additional 1 uPRBC on 10/21 with stable CBC (s/p 5 uPRBCs this admission)
- If recurrent hematochezia, would consider tagged RBC scan as would avoid further IV contrast with CTA given her renal function
- Start gentle prep with Gavilyte with plans for a colonoscopy tomorrow, 10/24/24, given improved respiratory status and renal function
- Monitor for signs of recurrent GI bleeding while inpatient and notify GI on-call
- Strict avoidance of all NSAIDs
#Fevers- Resolved
#C/f CAP
#Biliary Dilation
Concern for sepsis given persistent fevers and now slight bump in LFTs and recent CT imaging revealing mild CBD dilatation concerning for choledocholithiasis although denies any abdominal pain. However, given previously elevated lipase and bump in
LFTs concern for potential biliary source versus sepsis 2/2 CAP given previous pulmonary infiltrates and possible FUO on last admission with lymphadenopathy. CXR with concern for potential pneumonitis
- S/p MRI/MRCP 10/19/24 (limited due to patient movement) distended gallbladder and CBD dilation up to 9 mm without intrahepatic biliary ductal dilatation; no obvious intraluminal filling defect within the CBD, however small filling defects or CBD
stenosis difficult to exclude; cirrhotic liver morphology with mild ascites and splenomegaly, no hydronephrosis; R pleural effusion and bibasilar pulmonary consolidation
- LFTs improving along with T Bili
- Elevated lipase, but without abdominal pain or imaging. Thus, does not meet criteria for pancreatitis
- Rest of infectious w/u has been unrevealing with (-) blood cultures, and unremarkable prior imaging. No appreciable ascites on US to r/o SBP and much less likely
- Continue IV Zosyn, ensure renally-dosed for suspected pneumonia
- No plans for an ERCP at this time, would consider EUS an eventual this admission if LFTs rise or ongoing concern for potential biliary source but less likely. Would consider an EUS as an outpatient, will d/w Dr. Thomason
#Decompensated EtOH Cirrhosis
Patient follows closely with Dr. Vaca and felt to have decompensated EtOH cirrhosis but has been abstaining since 04/2024. MELD-Na on admission 10/18. Main decompensations largely driven by ascites, varices (previous badning), GAVE, along with
HE. No other new decompensations although concern for worsening renal function
- Trend daily MELD 3.0 labs q daily
- Continue to hold all diuretics
- S/p 48 hr IV Albumin challenge 25% 25 grams q 6 hrs for 48 hour challenge (10/20-10/21)
- Continue additional IV Albumin for 24 hrs given ongoing renal recovery
- Stop all IVF given anasarca and pulmonary edema, careful diuresis as needed with IV lasix as needed
- Continue Midodrine 5 mg TiD for chronic hypotension, defer starting Octreotide
- No appreciable ascites to perform paracentesis, thus low c/f SBP
- HCC: No suspicious lesions on recent MRI although limited due to motion, check AFP
- HE: Continue Rifaximin for now, okay to continue lactulose. Titrate to 2-3 BMs while inpatient
- She has never had a prior formal OLT evaluation in the past, has abstained from EtOH since 04/2024. Would benefit from an OLT evaluation as an outpatient
- Strict avoidance of all NSAIDs, minimize/avoid benzos/narcotics
#Nonoliguric ESTRELLITA on CKD- Improving
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 Etiology seems suspicious for pre-renal given urine studies (low U Na) along with GI bleeding and previous received diuretics versus sepsis. Much less likely ATN. Given worsening renal
function some concern for HRS. Now with improving renal function and making adequate UOP
- S/p 48 hr IV albumin challenge (10/20-10/21)
- Given additional IV albumin today for 24 hrs
- Continue Midodrine 5 mg TiD given chronic hypotension
- Hold all oral diuretics
- Please track strict I/Os while inpatient, reports making adequate UOP
- Ensure all medications are renally-dosed
- Nephrology consulted, appreciate recs
Discussed with primary internal medicine team this AM. GI will continue to follow.
Subjective
Subjective
Date of Service: October 23, 2024
- Started on IV albumin on 10/22
- Slight drift in Hgb to 7.2, but without signs of recurrent GI bleeding
- Otherwise, no acute events overnight
Resting comfortably in bed, denies any further bloody stools or rectal bleeding. Reports breathing much improved without significant SOB or chest pain. No fevers or chills.
Objective
Data Reviewed
Laboratory Data:
Laboratory Results
10/23/24 05:38
10/23/24 05:38
Laboratory Results
PT 16.6 Sec (11.4-14.6) H 10/18/24 04:16
INR 1.28 10/18/24 04:16
APTT 29.6 Sec (23.4-35.0) 10/17/24 20:20
Magnesium 1.7 mg/dl (1.6-2.3) 10/22/24 05:39
Total Bilirubin 1.6 mg/dl (0.2-1.3) H 10/23/24 05:38
AST 39 U/L (14-36) H 10/23/24 05:38
ALT 20 U/L (0-35) 10/23/24 05:38
Alkaline Phosphatase 81 U/L (38-126) 10/23/24 05:38
Lipase 646 U/L (23-300) H 10/20/24 03:59
Vital Signs and I&O:
Vital Signs
Temp Pulse Resp BP Pulse Ox
97.8 F 80 12 159/61 98
10/23/24 03:37 10/23/24 04:00 10/23/24 04:00 10/23/24 04:00 10/23/24 04:00
I&O
10/21/24 10/22/24 10/23/24
06:59 06:59 06:59
Intake Total 758.7 / 758.7 840 / 840 440 / 440
Output Total 1000 / 1000 2 / 2
Balance 758.7 / 758.7 -160 / -160 438 / 438
Physical Exam
Physical Exam
HEENT: Anicteric and Moist mucous membranes
Cardiology: Other (RR on tele)
Pulmonary: Other (Normal WOB on supplemental O2)
GI: Soft, Non Distended and Non Tender
Extremities: No Edema and Warm
Neuro: Non Focal
[2024-10-23] MEDS: DUONEB 3 ML INH ×4 (07:01→19:21)
[2024-10-23] MEDS: LASIX 60 MG IV (08:09)
[2024-10-23] MEDS: XIFAXAN 550 MG PO ×2 (08:10→20:17)
[2024-10-23] MEDS: LYRICA 150 MG PO ×2 (08:10→20:18)
[2024-10-23] MEDS: FOLVITE 50.2 MG IV (08:10)
--- NOTE | 2024-10-23 09:04 | PN.CDI ---
CDI
- -
CDI:
Physician Documentation Request
Admit Date: 10/17/24 20:58
Dear Doctor Fariba,
Please review the following and provide your response in the progress notes.
Clinical Indicators:
Pt admitted with GI bleed/rectal bleeding/ABLA/Acute Pancreatitis/PNA /ESTRELLITA
Progress note 10/20,' #Fever, cannot exclude CAP with unspecified organism...XR with possible pneumonitis....'
Progress note 10/22, ' Febrile illness Possible pneumonia vs pneumonitis on CXR continue Zosyn x 7 days...'
Tmax 10/17 @ 2343- 102.9, HR 103 ( 10/18),Respirations( 10/17)-35
Please clarify which of the following most accurately describes the status of the patient's infection:
Sepsis -POA
- Systemic manifestations of infection, with 2 or more SIRS criteria which include:
- Fever >100.4 degrees F or hypothermia < 96.8 degrees F
- Leukocytosis - WBC > 12,000 or leukopenia - WBC < 4,000 or > 10% bands
- Tachycardia > 90 beats per minute
- Tachypnea - RR > 20 breaths per minute or PaCO2 , 32mmHg
Source: Merck Manual 2013
Sepsis-Evolved during hospitalization
PNA/Pneumonitis only Without Systemic Illness
Other ( please specify)
Use of terms such as suspected, likely, concern for, or probable (associated with a specific diagnosis that is being evaluated, monitored, or treated as if it exists) are acceptable and can be coded in the inpatient setting, when documented at the
time of discharge.
Thank you,
Naty Nunez RN
CDI Specialist
[place] [facility]
Please use your independent medical judgment in providing your response.
--- NOTE | 2024-10-23 09:13 | PN.CDI ---
CDI
- -
CDI:
Physician Documentation Request
Admit Date: 10/17/24 20:58
Dear Doctor Fariba,
Please review the following and provide your response in the progress notes.
Clinical Indicators:
Pt admitted with GI bleed/rectal bleeding/ABLA/Acute Pancreatitis/PNA /ESTRELLITA
Documented per progress notes 10/20-10/22, ' Acute respiratory insufficiency with pulmonary edema...'
10/17/24
20:35 10/17/24
22:26 10/17/24
23:42
Resp Rate 35
SaO2 85
Nasal Cannula flow liters per minute 2 4
10/17/24
23:43 10/17/24
23:55 10/18/24
00:00
Resp Rate 34 35
Nasal Cannula flow liters per minute 6 6
10/18/24
00:00 10/18/24
07:30 10/18/24
16:00
Resp Rate 28 26
Nasal Cannula flow liters per minute 6
10/19/24
08:00 10/19/24
10:30 10/19/24
16:00
Resp Rate 31
Nasal Cannula flow liters per minute 4 4
Please clarify which of the following accurately represents the patient's respiratory status:
Acute Hypoxic Respiratory failure
Hypoxia-Only
Other ( please specify)
Additional information for Respiratory Failure:
Recognized criteria for Respiratory Failure (Source: [employer] [facility] May 2013)
ABGs: (1 or more) Symptoms Please indicate type if known
1. p)2 <60 or RA SPO2 <91% on RA 1. Tachypnea, SOB, dyspnea Hypoxic
2. pCO2 50 and pH <7.35 2. Use of accessory muscles Hypercapnic
3. pO2 decrease of pCO2 increase by 3. Pallor or cyanosis Hypoxic and Hypercapnic
10 mmHg from baseline if known 4. Anxiety or restlessness Unable to determine
5. Unable to speak in full sentences
Supplemental O2 of > 40% (5LPM) Intubation is not required
Use of terms such as suspected, likely, concern for, or probable (associated with a specific diagnosis that is being evaluated, monitored, or treated as if it exists) are acceptable and can be coded in the inpatient setting, when documented at the
time of discharge.
Thank you,
Naty Nunez RN
CDI Specialist
[place] [facility]
Please use your independent medical judgment in providing your response.
--- NOTE | 2024-10-23 09:19 | W.PN.HOSP.TC ---
Today's Communication/Plan
-
prep today for colonoscopy tomorrow
Assessment / Plan
Assessment / Plan
68yo F with PMHx of osteoporosis, alcoholic liver cirrhosis, hepatic encephalopathy, chronic hypotension, HLD, varices, GAVE, GERD, cecal AVM, lower extremely chronic edema came with 2 episodes of bloody bowel movement and found Hgb of 3.2 with
dizziness on ambulation.
Developed ESTRELLITA with pulmonary edema, concern for hepatorenal vs cardiorenal syndrome and cannot rule out pneumonia
A/P:
#Acute blood loss symptomatic anemia with PMHx of GAVE and cecal AVM with iron deficiency and Hx of b12 and folate deficiency
#Esophageal varices
#Chronic transaminitis and Alk.phos elevation
#Hx of hepatic encephalopathy, decompensated cirrhosis
- s/p 5 units PRBC in total
- s/p Octreotide drip
- continue PPI IV BID
- GI following
- s/p EGD 10/19: no bleeding seen
- Colonoscopy tomorrow
- continue IV iron
- continue Folate
- continue Rifaximin/lactulose
Sepsis POA (fever, tachycardia, tachypnea)
Febrile illness
- Possible pneumonia vs pneumonitis on CXR
- continue Zosyn x 7 days, end date 10/26
- UA, Bcx negative. MRSA negative
Acute hypoxic respiratory failure with pulmonary edema
- IV Lasix; requires intensive monitoring of I/Os, weights, lytes
- Echo: Normal biventricular size and systolic function without regional wall motion abnormality. Stage II diastolic dysfunction suggestive of abnormal relaxation and increased filling pressures. Moderate mitral regurgitation.
Mild aortic regurgitation. Moderate pulmonary hypertension.
ESTRELLITA on CKD stage 3b
Mild hypernatremia
Hypocalcemia
Hypokalemia
- Replete electrolytes
- cr improving with diuresis and after albumin
- Cr baseline 1.8 as per carpenter railcar
- possibly ESTRELLITA developed on the basis of severe anemia
- Nephrology following
bilateral cephalic vein thrombosis
- warm compresses
- risk of AC outweighs benefits (recent anemia, GI bleed)
Acute pancreatitis
- resolving. No abd pain
Indirect bilirubinemia
Thrombocytopenia
- recurrent 2/2 liver cirrhosis
- MRCP: poor imaging, no gross findings of cholecystitis or choledocholithiasis
- continue Zosyn x 7 days, end date 10/26
Chronic hypotension
- midodrine
Osteoporosis
HLD
Neuropathy
- cont home meds
DVT ppx: SCDs
Code: Full
Anticipated Discharge: > 48 hours
Subjective/Interval History
-
Date of Service: October 23, 2024
Hb 7.2
no evidence of bleeding
Objective Data
-
Labs:
Laboratory Results
10/23/24
05:38
WBC 3.8 L
Hgb 7.2 L
Hct 22.4 L
Plt Count 77 L
Sodium 147 H
Potassium 3.2 L
Chloride 110 H
Carbon Dioxide 22
BUN 25 H
Creatinine 2.0 H
Glucose 157 H
Calcium 8.2 L
Total Bilirubin 1.6 H
AST 39 H
ALT 20
Alkaline Phosphatase 81
Vital Signs:
Vital Signs
Temp Pulse Resp BP Pulse Ox
97.8 F 82 16 159/62 99
10/23/24 03:37 10/23/24 08:09 10/23/24 07:03 10/23/24 08:09 10/23/24 07:03
I&O
10/22/24 10/23/24 10/24/24
06:59 06:59 06:59
Intake Total 840 / 840 440 / 440
Output Total 1000 / 1000 2 /
Balance -160 / -160 438 / 438
Physical Exam
-
General: No Apparent Distress
HEENT: Normocephalic and Atraumatic
Respiratory: Negative Wheezes
Cardiac: Regular Rhythm and S1/S2
GI: Soft and Nontender
Genito-urinary: No Costovertebral Tender
Neuro: AO x 3
Psych: Calm
Data Reviewed
-
Total Time Spent with Patient (in minutes): 44
Labs: Labs Reviewed by me
--- NOTE | 2024-10-23 09:58 | W.PN.NEPH.PH ---
Today's Communication / Plan
-
Maintain diuresis
Follow BMP
Replete potassium
Assessment/Plan
-
IMP:
Izzy with CKD3-baseline cr mid 1s-1.5-1.9
Acute blood loss symptomatic anemia with
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
Hx of b12 and folate deficiency
Esophageal varicies
liver cirrhosis
Chronic transaminitis and Alk.phos elevation
Hx of hepatic encephalopathy
Acute pancreatitis
Indirect bilirubinemia
Thrombocytopenia
Chronic hypotension
Neuropathy
hypoalbuminemia
Hyperlipidemia
Osteoporosis
Anxiety
Plan:
A/w GIB, anemia hb 3.2 s/p 4 PRBCs, now 7.2
UA bland with low U na suggest prerenal, can not r/o HRS , however bp stable at this time
Remains on 60 mg IV Lasix daily, I's and O's not recorded
CT with out hydro, follow bladder scan
Creatinine up to 2
hypernatremia persists-increase free water intake
IV alb per GI
Bp are high, holding midodrine
mild non gap met acidosis -improving
h/h stable on IV Fe course per primary
bilateral sup vein thrombosis now with IJ line for access
avoid nephrotoxins
abx per primary
dose meds renally
d/w pt and nursing
-
-
Date of Service: October 23, 2024
CC / HPI / ROS
-
Chief Complaint:
IZZY with CKD
History of Present Illness:
cr up to 2, UOP not measured, nonoliguric
BP high improving , no fever
bicarb at 22 better
wt is down
Potassium low at 3 point
Review of Systems:
no cp , no sob today
no abd pain
no n/v
Labs
-
Labs:
WBC 3.8 10^3/uL (4.8-10.8) L 10/23/24 05:38
RBC 2.52 10^6/uL (4.20-5.40) L 10/23/24 05:38
Hgb 7.2 g/dL (12.0-16.0) L 10/23/24 05:38
Hct 22.4 % (37.0-47.0) L 10/23/24 05:38
Plt Count 77 10^3/uL (130-400) L 10/23/24 05:38
Sodium 147 mmol/L (135-145) H 10/23/24 05:38
Potassium 3.2 mmol/L (3.5-5.1) L 10/23/24 05:38
Chloride 110 mmol/L (98-107) H 10/23/24 05:38
Carbon Dioxide 22 mmol/L (22-30) 10/23/24 05:38
BUN 25 mg/dl (7-17) H 10/23/24 05:38
Creatinine 2.0 mg/dL (0.6-1.0) H 10/23/24 05:38
eGFR 26.54 10/23/24 05:38
Glucose 157 mg/dl (70-99) H 10/23/24 05:38
Calcium 8.2 mg/dl (8.4-10.2) L 10/23/24 05:38
Yfn-F-Gjrjmolacak Pept 40715 pg/ml 10/20/24 03:59
Albumin 4.6 g/dl (3.5-5.0) 10/23/24 05:38
Physical Exam
-
Vital Signs:
Vital Signs
Temp Pulse Resp BP Pulse Ox
97.8 F 82 16 159/62 99
10/23/24 03:37 10/23/24 08:09 10/23/24 07:03 10/23/24 08:09 10/23/24 07:03
Cardiovascular:: Regular rate and rhythm
Respiratory:: Bilateral: Coarse
Lung Excursion:: Normal
Abdomen:: Distended, Nontender and Soft
Extremity Edema:: None: Bilateral:
Hoover Catheter: No
[2024-10-23] MEDS: KLOR-CON 20 MEQ PO (10:59)
[2024-10-23] MEDS: NULYTELY SOLUTION 4 LITERS PO (16:04)
--- NOTE | 2024-10-23 17:08 | CM ---
Patient with Hx alcoholic liver cirrhosis with Dx GI bleed, sepsis poss pneumonia, pulmonary edema. Plan colonoscopy tomorrow. O2 2L. Receiving IV Lasix, IV Abx. PT/OT 10/23; skilled v home. Per nursing; A/O x3.
Patient accepted by [facility]. Will need insurance auth for SNF rehab.
Plan [facility] when medically ready and insurance approves.
--- NOTE | 2024-10-23 18:39 | PTCARENOTE ---
Rec'd pt this AM. OOB x1 to chair and bathroom. Currently tolerating bowel prep well.
[2024-10-23] MEDS: CRESTOR 20 MG PO (22:03)
[2024-10-23] MEDS: DUPHALAC/CHRONULAC 20 GRAMS PO (22:03)
--- NOTE | 2024-10-23 22:41 | PTCARENOTE ---
Report received from santana RN. care assumed of Pt by this RN. Pt is currently drinking bowel prep. Bms have started. loose, remaining brown in color at this time. using bscx1. Pt using call light appropriately. gait is strong and steady.
assessment as documented. call light in reach.
[2024-10-24] VITALS (14 sets, daily range): BP systolic 130–169; BP diastolic 53–137; BMI 23.6
[2024-10-24] MEDS: ZOSYN 50 IV ×3 (04:34→19:51)
[2024-10-24 04:56] LABS: % Basophils 0.2 % (0-2); % Eosinophils 0.3 % (0-6); % Immature Granulocytes 1.9 % (0-0.5); % Monocytes 10.9 % (1.7-9.3); % Neutrophils 66.7 % (42.2-75.2); Absolute Immature Granulocytes 0.1 10^3/uL (0-0.05); Absolute Lymphocytes 1.3 10^3/uL (1.2-3.4); Absolute Monocytes 0.7 10^3/uL (0.1-0.6); Absolute Neutrophils 4.2 10^3/uL (1.4-6.5); Hematocrit 22.4 % (37.0-47.0); Hemoglobin 7.2 g/dL (12.0-16.0); Mean Corp Hgb Conc. 32.1 g/dL (33.0-37.0); Mean Corpuscular Hgb 28.6 pg (27.0-31.0); Mean Corpuscular Volume 88.9 fL (81.0-99.0); Mean Platelet Volume 11.9 fL (7.4-10.4); Nucleated Red Blood Cells % 0 %; Platelet Count 83 10^3/uL (130-400); Red Blood Cell Count 2.52 10^6/uL (4.20-5.40); Red Cell Dist. Width 19.9 % (11.5-14.5); White Blood Cell Count 6.3 10^3/uL (4.8-10.8)
[2024-10-24 05:14] LABS: ALT (SGPT) 27 U/L (0-35); AST (SGOT) 56 U/L (14-36); Albumin 4.7 g/dl (3.5-5.0); Alkaline Phosphatase 68 U/L (38-126); Blood Urea Nitrogen 22 mg/dl (7-17); Calcium 8.6 mg/dl (8.4-10.2); Carbon Dioxide 26 mmol/L (22-30); Chloride 105 mmol/L (98-107); Estimated Creatinine Clearance 18 ml/min; Glucose 104 mg/dl (70-99); Potassium 2.9 mmol/L (3.5-5.1); Sodium 145 mmol/L (135-145); Total Bilirubin 2.1 mg/dl (0.2-1.3); Total Protein 6.3 g/dl (6.3-8.2); eGFR 25.04
[2024-10-24] MEDS: NSS (PRESERVATIVE FREE) 10 ML IV ×2 (05:50→16:32)
[2024-10-24] MEDS: PROTONIX IV 40 MG IV ×2 (05:51→16:32)
[2024-10-24] MEDS: KCL 270 MEQ IV (05:59)
--- NOTE | 2024-10-24 06:05 | PTCARENOTE ---
K with am labs 2.9. Secondary Art Teacher made aware. order received for 40 meq [facility] in N[place]. medication administered. to infuse IV over 4hrs.
[2024-10-24] MEDS: KCL 40 MEQ PO (06:26)
[2024-10-24] MEDS: DUONEB 3 ML INH ×4 (07:19→19:58)
[2024-10-24] MEDS: LASIX 60 MG IV (08:57)
[2024-10-24] MEDS: FOLVITE 50.2 MG IV (08:57)
--- NOTE | 2024-10-24 09:00 | PN.CDI ---
CDI
- -
CDI:
Physician Documentation Request
Admit Date: 10/17/24 20:58
Dear Doctor Fariba,
Please review the following and provide your response in the progress notes.
Clinical Indicators:
Pt admitted with GI bleed/rectal bleeding/ABLA/Acute Pancreatitis/PNA /ESTRELLITA
Progress note 10/20-10/23,' Acute hypoxic respiratory failure with pulmonary edema...IV Lasix....'
Progress note 10/23 ' ... Echo: Normal biventricular size and systolic function without regional wall motion abnormality. Stage II diastolic dysfunction suggestive of abnormal relaxation and increased filling pressures. Moderate mitral
regurgitation.Mild aortic regurgitation. Moderate pulmonary hypertension.'
Remains on 60 mg IV Lasix daily /BNP [id number]
Please further specify the diagnosis associated with IV Lasix use/above findings:
Acute Pulmonary edema
Acute Diastolic CHF
Other ( please specify)
Use of terms such as suspected, likely, concern for, or probable (associated with a specific diagnosis that is being evaluated, monitored, or treated as if it exists) are acceptable and can be coded in the inpatient setting, when documented at the
time of discharge.
Thank you,
Naty Nunez RN
CDI Specialist
[place] [facility]
Please use your independent medical judgment in providing your response.
[2024-10-24] MEDS: LYRICA 150 MG PO ×2 (09:01→19:51)
[2024-10-24] MEDS: XIFAXAN 550 MG PO ×2 (09:01→19:51)
--- NOTE | 2024-10-24 09:20 | W.PN.HOSP.TC ---
Today's Communication/Plan
-
Colonoscopy today
repleted K+
continue IV Lasix
continue IV abx
Assessment / Plan
Assessment / Plan
68yo F with PMHx of osteoporosis, alcoholic liver cirrhosis, hepatic encephalopathy, chronic hypotension, HLD, varices, GAVE, GERD, cecal AVM, lower extremely chronic edema came with 2 episodes of bloody bowel movement and found Hgb of 3.2 with
dizziness on ambulation.
Developed ESTRELLITA with pulmonary edema, concern for hepatorenal vs cardiorenal syndrome and cannot rule out pneumonia
A/P:
#Acute blood loss symptomatic anemia with PMHx of GAVE and cecal AVM with iron deficiency and Hx of b12 and folate deficiency
#Esophageal varices
#Chronic transaminitis and Alk.phos elevation
#Hx of hepatic encephalopathy, decompensated cirrhosis
- s/p 5 units PRBC in total
- s/p Octreotide drip
- continue PPI IV BID
- GI following
- s/p EGD 10/19: no bleeding seen
- Colonoscopy today
- s/p IV iron course
- continue Folate
- continue Rifaximin/lactulose
Sepsis POA (fever, tachycardia, tachypnea)
Febrile illness
- Possible pneumonia vs pneumonitis on CXR
- continue Zosyn x 7 days, end date 10/26
- UA, Bcx negative. MRSA negative
Acute hypoxic respiratory failure with pulmonary edema (acute diastolic CHF)
- IV Lasix; requires intensive monitoring of I/Os, weights, lytes
- Echo: Normal biventricular size and systolic function without regional wall motion abnormality. Stage II diastolic dysfunction suggestive of abnormal relaxation and increased filling pressures. Moderate mitral regurgitation.
Mild aortic regurgitation. Moderate pulmonary hypertension.
ESTRELLITA on CKD stage 3b
Mild hypernatremia
Hypocalcemia
Hypokalemia
- Replete electrolytes
- cr improving with diuresis and after albumin
- Cr baseline 1.8 as per hotel operation manager
- possibly ESTRELLITA developed on the basis of severe anemia
- Nephrology following
bilateral cephalic vein thrombosis
- warm compresses
- risk of AC outweighs benefits (recent anemia, GI bleed)
Acute pancreatitis
- resolving. No abd pain
Indirect bilirubinemia
Thrombocytopenia
- recurrent 2/2 liver cirrhosis
- MRCP: poor imaging, no gross findings of cholecystitis or choledocholithiasis
- continue Zosyn x 7 days, end date 10/26
Chronic hypotension
- midodrine
Osteoporosis
HLD
Neuropathy
- cont home meds
DVT ppx: SCDs
Code: Full
Anticipated Discharge: > 48 hours
Subjective/Interval History
-
Date of Service: October 24, 2024
denies any new complaints at present
awaiting colonoscopy
Objective Data
-
Labs:
Laboratory Results
10/24/24 10/24/24
04:32 11:00
WBC 6.3
Hgb 7.2 L
Hct 22.4 L
Plt Count 83 L
Sodium 145 Pending
Potassium 2.9 L Pending
Chloride 105 Pending
Carbon Dioxide 26 Pending
BUN 22 H Pending
Creatinine 2.1 H Pending
Glucose 104 H Pending
Calcium 8.6 Pending
Total Bilirubin 2.1 H
AST 56 H
ALT 27
Alkaline Phosphatase 68
Vital Signs:
Vital Signs
Temp Pulse Resp BP Pulse Ox
97.5 F 88 18 133/61 100
10/24/24 07:59 10/24/24 08:57 10/24/24 07:22 10/24/24 08:57 10/24/24 06:00
I&O
10/23/24 10/24/24 10/25/24
06:59 06:59 06:59
Intake Total 440 / 440
Output Total 2 / 2 300 / 300
Balance 438 / 438 -300 / -300
Physical Exam
-
General: No Apparent Distress
HEENT: Normocephalic and Atraumatic
Respiratory: Negative Wheezes
Cardiac: Regular Rhythm and S1/S2
GI: Soft
Musculoskeletal: No Edema
Neuro: AO x 3
Psych: Calm
Data Reviewed
-
Total Time Spent with Patient (in minutes): 41
Labs: Labs Reviewed by me
--- NOTE | 2024-10-24 10:38 | W.PN.NEPH.PH ---
Today's Communication / Plan
-
Potassium repletion
Continue IV Lasix
Assessment/Plan
-
IMP:
Izzy with CKD3-baseline cr mid 1s-1.5-1.9
Acute blood loss symptomatic anemia with
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
Hx of b12 and folate deficiency
Esophageal varicies
liver cirrhosis
Chronic transaminitis and Alk.phos elevation
Hx of hepatic encephalopathy
Acute pancreatitis
Indirect bilirubinemia
Thrombocytopenia
Chronic hypotension
Neuropathy
hypoalbuminemia
Hyperlipidemia
Osteoporosis
Anxiety
Plan:
A/w GIB, anemia hb 3.2 s/p 4 PRBCs,
UA bland with low U na suggest prerenal, can not r/o HRS , however bp stable at this time
Remains on 60 mg IV Lasix daily, I's and O's not recorded
CT with out hydro, follow bladder scan
IV alb per GI
Bp are high, holding midodrine
mild non gap met acidosis -improving
h/h stable on IV Fe course per primary
bilateral sup vein thrombosis now with IJ line for access
avoid nephrotoxins
abx per primary
dose meds renally
Pending colonoscopy today GI prep with potassium 2.9 status post 80 mEq with 40 p.o. and 40 IV. Pending recheck. Suspect she will need more with anesthesia needing it at 3.5 or greater
Receiving Lasix 60 mg IV daily with increased weights since admission
d/w pt and nursing
-
-
Date of Service: October 24, 2024
CC / HPI / ROS
-
Chief Complaint:
IZZY with CKD
History of Present Illness:
cr up to 2, stable status post GI bleed transfusion with initial hemoglobin of 3.2
BP high improving , no fever
Review of Systems:
no cp , no sob today
no abd pain
no n/v
Labs
-
Labs:
WBC 6.3 10^3/uL (4.8-10.8) 10/24/24 04:32
RBC 2.52 10^6/uL (4.20-5.40) L 10/24/24 04:32
Hgb 7.2 g/dL (12.0-16.0) L 10/24/24 04:32
Hct 22.4 % (37.0-47.0) L 10/24/24 04:32
Plt Count 83 10^3/uL (130-400) L 10/24/24 04:32
eGFR 25.04 10/24/24 04:32
Bbm-T-Xykeauvhpwy Pept 89570 pg/ml 10/20/24 03:59
Albumin 4.7 g/dl (3.5-5.0) 10/24/24 04:32
Physical Exam
-
Vital Signs:
Vital Signs
Temp Pulse Resp BP Pulse Ox
97.5 F 88 18 133/61 100
10/24/24 07:59 10/24/24 08:57 10/24/24 07:22 10/24/24 08:57 10/24/24 06:00
Cardiovascular:: Regular rate and rhythm
Respiratory:: Bilateral: Coarse
Lung Excursion:: Normal
Abdomen:: Distended, Nontender and Soft
Extremity Edema:: None: Bilateral:
Hoover Catheter: No
[2024-10-24 11:32] LABS: Blood Urea Nitrogen 24 mg/dl (7-17); Calcium 8.4 mg/dl (8.4-10.2); Carbon Dioxide 24 mmol/L (22-30); Chloride 107 mmol/L (98-107); Estimated Creatinine Clearance 18 ml/min; Glucose 81 mg/dl (70-99); Potassium 3.6 mmol/L (3.5-5.1); Sodium 145 mmol/L (135-145); eGFR 25.04
[2024-10-24] MEDS: FLEXBUMIN 100 IV ×2 (16:31→21:48)
--- NOTE | 2024-10-24 19:04 | PTCARENOTE ---
RTC from Pt's spouse very upset that no provider contacted him after the patient's colonoscopy today to review the results of the procedure. RN stated that this info will be shared with provider. Spouse remained angry, demanding a call from the
provider tonight and then promptly hung up on RN. Will update provider
--- NOTE | 2024-10-24 20:30 | PTCARENOTE ---
received TT from Dr. Henriquez responding to a message sent to him earlier by the [facility] RN to which this RN was added to the message chain, the message sent communicating that the Pts had called expressing angrily a desire to be updated
regarding the procedure the Pt received today. The message expressed that the provider had not received a request for information from the care team or Pts before this event. Dr. henriquez communicated to this RN that he called the Pts
four times and was sent to voicemail each time.
[2024-10-24] MEDS: CRESTOR 20 MG PO (21:47)
[2024-10-24] MEDS: MELATONIN 5 MG PO (21:47)
[2024-10-25] VITALS (44 sets, daily range): BP systolic 109–196; BP diastolic 54–91; BMI 22.0
[2024-10-25] MEDS: FLEXBUMIN 100 IV (03:23)
[2024-10-25 04:35] LABS: INR 1.78; PT 21.2 Sec (11.4-14.6)
[2024-10-25] MEDS: LASIX 60 MG IV (04:48)
[2024-10-25] MEDS: DUONEB 3 ML INH ×5 (04:57→20:39)
[2024-10-25 05:01] LABS: ALT (SGPT) 30 U/L (0-35); AST (SGOT) 53 U/L (14-36); Albumin 4.8 g/dl (3.5-5.0); Alkaline Phosphatase 72 U/L (38-126); Blood Urea Nitrogen 31 mg/dl (7-17); Calcium 9.5 mg/dl (8.4-10.2); Carbon Dioxide 29 mmol/L (22-30); Chloride 106 mmol/L (98-107); Estimated Creatinine Clearance 17 ml/min; Glucose 76 mg/dl (70-99); Potassium 3.3 mmol/L (3.5-5.1); Sodium 150 mmol/L (135-145); Total Bilirubin 3.1 mg/dl (0.2-1.3); Total Protein 6.5 g/dl (6.3-8.2); eGFR 22.45
--- NOTE | 2024-10-25 05:03 | W.PN.UPDATE ---
Update Note
Progress Note Update
RN reported patient requiring more oxygen via NC and increase work of breathing, VS P 180's/ 80, HR 120's, 38, 81-88% 4L O2 via NC, placed on mid flow, continuos to de-sat now on High flow, skin pale, dusky, crackles on bases, using accessary
muscles regular rate, IV Lasix, Morphine 0.5 mg IV given. Labs, VBG, Chest Xray.
BP 180's/90's HR 130's-140's, Metoprolol 5mg IV ordered
lab results noted, Na 150, K 3.3 creat 2.3, K-rider ordered, Data Lead nurse's companion made aware, no new orders at present.
unable to do ABG, VBG resulted, Hospitalist and ICU BOILERMAKER ASSEMBLY AND ERECTION made aware,
plan to transfer patient to ICU on Bi pap or possible NIV
made aware
[2024-10-25 05:08] LABS: % Basophils 0.3 % (0-2); % Immature Granulocytes 1.3 % (0-0.5); % Lymphocytes 20.3 % (20.5-51.1); % Monocytes 10.6 % (1.7-9.3); % Neutrophils 65.5 % (42.2-75.2); Absolute Eosinophils 0.1 10^3/uL (0-0.7); Absolute Immature Granulocytes 0.1 10^3/uL (0-0.05); Absolute Lymphocytes 1.3 10^3/uL (1.2-3.4); Absolute Monocytes 0.7 10^3/uL (0.1-0.6); Hematocrit 22.7 % (37.0-47.0); Hemoglobin 7.3 g/dL (12.0-16.0); Mean Corp Hgb Conc. 32.2 g/dL (33.0-37.0); Mean Corpuscular Volume 90.1 fL (81.0-99.0); Mean Platelet Volume 12.6 fL (7.4-10.4); Nucleated Red Blood Cells % 0 %; Platelet Count 79 10^3/uL (130-400); Red Blood Cell Count 2.52 10^6/uL (4.20-5.40); Red Cell Dist. Width 20.4 % (11.5-14.5); White Blood Cell Count 6.2 10^3/uL (4.8-10.8)
[2024-10-25] MEDS: ZOSYN 50 IV ×3 (05:10→19:52)
[2024-10-25] MEDS: MORPHINE SULFATE 0.5 MG IV (05:14)
--- NOTE | 2024-10-25 05:26 | RESPNOTE ---
PT was ordered for an ABG which cannot be done. PT has a double limb alert for DVTs in both arms, VBG will be collected instead.
--- NOTE | 2024-10-25 05:42 | PTCARENOTE ---
Pt increasingly SOB, dyspneic, lungs audibly coarse throughout, frequent moist harsh cough. Pt restless. HR 130, RR30, sat reading 81% on 4L. Assessment communicated to WINDOWS TECHNICAL SPECIALIST. and RT. both to bedside. NRB applied at 15L. orders received and labs sent
cbc, mag, bmp, ddimer, vbg. flu and covid swab sent. ordered lasix given, see mar. order received for morphine, med given, see mar. stat cxr done at bedside.
[2024-10-25 05:47] LABS: COVID-19 Antigen Negative (Negative)
--- NOTE | 2024-10-25 05:47 | PTCARENOTE ---
Pt on hiflow oxygen 55L 100%.
[2024-10-25] MEDS: PROTONIX IV 40 MG IV ×2 (05:55→17:35)
[2024-10-25] MEDS: NSS (PRESERVATIVE FREE) 10 ML IV ×2 (05:55→17:35)
[2024-10-25 05:57] LABS: Venous Blood Gas B.E. 0.8 mmol/L (-4 to +4); Venous Blood Gas HCO3 27.9 mmol/L (22-27); Venous Blood Gas O2 Sat % 99.2 %; Venous Blood Gas pCO2 58 mmHg (35-48); Venous Blood Gas pH 7.29 (7.32-7.43); Venous Blood Gas pO2 147 mmHg (30-50)
[2024-10-25] MEDS: LOPRESSOR 5 MG IV (06:02)
[2024-10-25 06:09] LABS: Hemoglobin 7.8 g/dL (12.0-16.0); Mean Corp Hgb Conc. 31.2 g/dL (33.0-37.0); Mean Corpuscular Hgb 28.5 pg (27.0-31.0); Mean Corpuscular Volume 91.2 fL (81.0-99.0); Platelet Count 134 10^3/uL (130-400); Red Blood Cell Count 2.74 10^6/uL (4.20-5.40); White Blood Cell Count 13.4 10^3/uL (4.8-10.8)
[2024-10-25 06:15] LABS: D-Dimer 5.68 ug/mlFEU (0.00-0.50)
[2024-10-25] MEDS: KCL 270 MEQ IV (06:22)
--- NOTE | 2024-10-25 06:24 | PTCARENOTE ---
orders received for tsf to icu. report given to interior horticulturist, pt tsf to icu.
--- NOTE | 2024-10-25 06:24 | W.PN.GI.CBS2 ---
Today's Communication / Plan
-
Continue maximal supportive care as per primary ICU team given her respiratory distress and renal function. Diuresis as per Nephrology and would continue IV albumin while receiving Bumex. Agree with IV abx given c/f sepsis. Given her MELD 3.0 score
of 27 and worsening renal function, discussed transfer to OLT center early this AM with Dr. Arleth Tsai. Patient has been accepted to ICU (Dr. Charly Stack sports team marketing intern) at [place], pending bed availability. Will continue to follow closely while
patient remains inpatient. See rest of care as outlined below.
Assessment / Plan
-
Ms. Putnam is a 68-year-old female with a past medical history of alcoholic cirrhosis decompensated with ascites, (last paracentesis 07/08/2024), esophageal varices, portal hypertensive gastropathy, GAVE, GERD, celiac disease, HTN, CKD, neuropathy,
depression, cecal AVMs, and colon polyps who was recently admitted at the end of August into September (08/29 to 09/06/2024) for GI bleed secondary to GAVE with bleeding seen on EGD 08/30/24, treated with APC, who now presents with rectal bleeding and
significant symptomatic anemia with Hgb of 3.2 and concern for worsening renal function with ESTRELLITA on admission. Course further complicated on 10/25 with worsening ESTRELLITA with pulmonary edema and acute hypoxic respiratory failure.
#Respiratory Distress
#Hypoxic Respiratory Failure
Concern for aspiration during colonoscopy as patient developed subsequent nausea/vomiting during procedure on 10/24. Suspect component of pulmonary edema secondary to previous transfusions as well and volume overload. Recent CXR revealing
interstitial prominence, with a patchy distribution concerning for pulmonary edema with scattered foci of interstitial and alveolar edema, and interstitial pneumonitis along with small bilateral pleural effusions. Stepped up to ICU given worsening
respiratory distress on 10/24 for BiPAP
- Remains on BiPAP
- Diuresis as per Nephrology with Bumex
- Favor continuing empiric IV Abx with Zosyn given c/f potential aspiration
- Ongoing management as per primary ICU team
#ESTRELLITA on CKD
#Concern for HRS-CKD
Baseline Boot And Shoe Repairman appears to have fluctuated with baseline Boot And Shoe Repairman 1s but has become progressively slowly worse over the past few months given her recurrent admissions for GI bleeding with Boot And Shoe Repairman between 1.5 - 1.9. Etiology seems suspicious for pre-renal given
urine studies (low U Na) along with GI bleeding and previous received diuretics versus sepsis. Much less likely ATN. Previously completed 48 hr IV albumin challenge on 10/20 - 10/21 with improvement. However, course further complicated by worsening
ESTRELLITA on CKD on 10/25. 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
- Monitor strict I/Os, please track UOP
- Okay with IV Bumex as needed for diuresis
- Caution with ongoing diuretics and favor IV albumin for assisted diuresis as suspect patient is intravascularly dry
- Midodrine on hold given HTN
- Nephrology following, appreciate recs
#Acute Blood Loss Anemia (requiring 5 uPRBCs)
#Multiple Admissions with GI Bleeding (fourth admission)
#Hx of GAVE (s/p prior endoscopic therapy) #Hx of Grade 1 EV
#Hx of Bleeding Cecal AVM (s/p APC)
Patient initially presenting with bleeding/severe acute anemia and prior multiple admissions with GI bleed-admission. P/w Hb 3.2 (baseline 7-8s ) and s/p total of 5 units PRBC since admission. Likely lower GI bleeding- prior hx of cecal AVM given
her presentation and last colonoscopy 2022 with previous cecal AVM. Last EGD 08/2024-reviewed. Grade 1 varices. Bleeding GAVE+. S/p EGD on 10/19 which was unrevealing given her transfusion requirements and without any bleeding varices, old/fresh
blood or other significant findings throughout the examined upper GI tract to account for her blood loss. No further signs of recurrent hematochezia or rectal bleeding since admission.
- S/p recent colonoscopy AVMs in cecum/proximal AC s/p APC, procedure ultimately aborted due to worsening resp distress and n/v concerning for potential aspiration
- No further signs of overt GI bleeding this admission
- Trend Hgb with serial CBC, transfuse for goal Hgb > 7.0. Avoid over-transfusions given pulmonary edema and cirrhosis
- IV PPI BiD given known refractory GAVE
- Continue empiric IV abx given c/f sepsis
- Monitor for signs of recurrent GI bleeding
#Fevers c/f Sepsis
#Leukocytosis
Previous concern for potential sepsis on admission with with prior CXR concerning for potential CAP given prior pulmonary infiltrates and pneumonitis. Prior MRI/MRCP 10/19/24 also performed which revealed (limited due to patient movement) distended
gallbladder and CBD dilation up to 9 mm without intrahepatic biliary ductal dilatation; no obvious intraluminal filling defect within the CBD, however small filling defects or CBD stenosis difficult to exclude; cirrhotic liver morphology with mild
ascites and splenomegaly, no hydronephrosis; R pleural effusion and bibasilar pulmonary consolidation. Now with fever and worsening leukocytosis with recent CXR concerning for pneumonia versus pneumonitis
- Continue IV Zosyn, ensure renally dosed for eGFR
- No appreciable ascites on prior imaging and no ascites during previous IR attempt on 10/19, much less likely SBP
- Previous blood cultures NGTD
- C/f previous elevated lipase lvl, but no c/f pancreatitis as without any abd pain or prior imaging to suggest pancreatitis
- Prior MRI/MRCP limited due to motion but no other c/f cholangitis as patient asymptomatic and hyperbilirubinemia in setting of sepsis/cirrhosis. Would consider an eventual repeat MRI/MRCP pending clinical course but would defer at this time
#Decompensated EtOH Cirrhosis
Patient follows closely with Dr. Vaca and felt to have decompensated EtOH cirrhosis but has been abstaining since 04/2024. No recent PETH level as outpatient but reports abstinence for over 6 months. MELD-Na on admission 10/18. Baseline MELD
appears to be in low 20s on outpatient labs. Main decompensations largely driven by ascites (last paracentesis on 07/2024, (-) SBP), varices (previous banding), GAVE, along with HE. No other new decompensations although concern for worsening renal
function and respiratory distress now with MELD 3.0 score of 27. No previous OLT evaluation in the past, however given her MELD of 27 and worsening renal function and respiratory status discussed transfer to OLT center
- Trend daily MELD 3.0 labs q daily
- Caution with diuretics and favor IV albumin as needed
- Hold all oral diuretics for now
- Midodrine on hold given HTN
- Treatment of sepsis as above
- No appreciable ascites to perform paracentesis on 10/19, thus low c/f SBP
- HCC: No suspicious lesions on recent MRI although limited due to motion, AFP lvl pending
- HE: Continue Rifaximin for now, okay to continue lactulose. Titrate to 2-3 BMs while inpatient, continues to mentate appropriately without signs of HE
- EV/GV: S/p prior EGD with small grade 1 EV on 10/19
- Ascites/SBP: No prior hx of SBP, last paracentesis on 07/2024. Hold all oral diuretics while inpatient
- HRS: As above concern for HRS-CKD given progressive worsening renal function with each admission for GI bleeding, now with ESTRELLITA on CKD. Nephrology following
- Contacted OLT center at [place] this AM given her MELD 27 and worsening renal function and respiratory status for consideration of OLT evaluation
- Of note, patient has never had a prior formal OLT evaluation in the past, has abstained from EtOH since 04/2024
- Strict avoidance of all NSAIDs, minimize/avoid benzos/narcotics
Discussed with primary internal medicine, ICU attending and patient's this AM. GI will continue to follow while patient remains inpatient.
Subjective
Subjective
Date of Service: October 25, 2024
- S/p colonoscopy (anemia requiring 5 uPRBCs, unremarkable prior EGD, rectal bleeding) 10/24/24: Poor prep and old blood in colon, few AVMs in cecum/R colon treated with APC, mild diverticulosis in sigmoid colon, procedure ultimately aborted due to
respiratory instability and subsequent nausea/vomiting resulting in aborted procedure upon withdrawal no signs of active GI bleeding or obvious large polyps/masses were visualized
- No further signs of GI bleeding with yellow/brown stools
- Boot And Shoe Repairman 2.1 -> 2.3 with MELD 3.0 score of 27 this AM on 10/25
- Worsening, increased WOB early this AM, stepped up to ICU and started on BiPAP early AM
- Otherwise, no acute events overnight
Appears comfortable on BiPAP, although still with some labored breathing. No further signs of GI bleeding since admission. Denies any fevers, chills or other constitutional symptoms. No abdominal pain or discomfort or other complaints/concerns this
AM. Discussed findings of patient's recent colonoscopy with her this AM. Additionally, given concern for worsening renal function, acute hypoxic respiratory failure along with increasing MELD 3.0 up to 27 discussed with OLT center at
[place] with Dr. Arleth Tsai.
Objective
Data Reviewed
Laboratory Data:
Laboratory Results
10/25/24 05:31
10/25/24 03:57
Laboratory Results
PT 21.2 Sec (11.4-14.6) H 10/25/24 03:57
INR 1.78 10/25/24 03:57
APTT 29.6 Sec (23.4-35.0) 10/17/24 20:20
Magnesium 1.7 mg/dl (1.6-2.3) 10/22/24 05:39
Total Bilirubin 3.1 mg/dl (0.2-1.3) H 10/25/24 03:57
AST 53 U/L (14-36) H 10/25/24 03:57
ALT 30 U/L (0-35) 10/25/24 03:57
Alkaline Phosphatase 72 U/L (38-126) 10/25/24 03:57
Lipase 646 U/L (23-300) H 10/20/24 03:59
Vital Signs and I&O:
Vital Signs
Temp Pulse Resp BP Pulse Ox
98.4 F 102 17 159/82 85
10/25/24 03:00 10/25/24 06:21 10/25/24 06:21 10/25/24 06:21 10/25/24 06:21
I&O
10/23/24 10/24/24 10/25/24
06:59 06:59 06:59
Intake Total 440 / 440 480 / 480
Output Total 2 / 300 / 300
Balance 438 / 438 -300 / -300 480 / 480
Physical Exam
Physical Exam
HEENT: Moist mucous membranes
Cardiology: Other (Tachycardic on tele)
Pulmonary: Other (Comfortable on BiPAP)
GI: Soft, Distended (Mild distension but without any appreciable fluid wave) and Non Tender
Extremities: No Edema
Neuro: Non Focal and Other (AAOx4, no asterixis)
[2024-10-25] MEDS: KCL 100 IV (06:36)
--- NOTE | 2024-10-25 06:39 | PTCARENOTE ---
Received pt from IMU RN. Pt on 55L 100% on highflow, O2 sat 88%. Asked pt if she would be able to tolerate NIV, education provided. Pt placed on NIV, 16/02 100%, pt O2 sat 98%. Pt lungs are coarse. States she is feeling better. KCL infusing at 25
ml/hr (see MAR). Call ko in reach. Safe environment maintained.
[2024-10-25] MEDS: XIFAXAN PO ×2 (07:50→19:52)
[2024-10-25] MEDS: LYRICA PO (07:50)
[2024-10-25] MEDS: FOLVITE 50.2 MG IV (07:50)
[2024-10-25 07:53] LABS: Glucose - Point of Care 86 mg/dl (70-99)
[2024-10-25 08:05] LABS: B.E. 2.6 mmol/L; HCO3 28.3 mmol/L (21-28); O2 Saturation % 99.2 % (94-98); PCO2 49 mmHg (32-35); PO2 221 mmHg (83-108); pH 7.37 (7.35-7.45)
[2024-10-25 08:07] LABS: O2 Therapy NRM
--- NOTE | 2024-10-25 08:29 | CON.INTV ---
Addendum entered and electronically signed by Floyd Madrid MD 10/25/24 15:50:
-Fibrinogen level noted to be low. In view of oozing from central line site, ordered 10 units of Cryoprecipitate in addition to 10 mg IV Vit K
-1 ltr diuresis since Bumex. Repeat another dose 2 mg IV, as patient had to be placed back on BIPAP after break due to tachypnea.
Additional 20 minutes of critical care time spent.
Addendum entered and electronically signed by Floyd Madrid MD 10/25/24 15:45:
.
Original Note:
Consultation
Consultation Request
Date/Time Consultation Requested: 10/25/2024
Date/Time Consultation Performed: 10/25/2024
Medical History
-
Chief Complaint: GI bleed
History of Present Illness:
Ms. Asha Rosenbaum is a 69yo F pmh cirrhosis, portal hypertensive gastropathy, hepatic encephalopathy, GERD, celiac disease, CKD (baseline Cr 1.5), recent admission for upper GI bleed admitted on 10/17 for another GI bleed. No bleed found on endoscopy
10/19 or colonoscopy 10/24, though the colonoscopy was aborted due to pt's respiratory instability and N/V. Pt has required 5 units pRBCs throughout her stay. Overnight, the pt's O2 requirements increased with hypertension and tachycardia. CXR
positive for interstitial prominence and small b/l pleural effusions. Additionally, D-dimer is elevated. Pt is accepted at [facility] with consultation for transplant hepatology
Past Medical History
Past Medical History: GERD
Past Surgical History: Gynecological (hysterectomy)
Social History
Tobacco: Smoker (1/4ppd x1 year. Previously 1ppd for 52 years)
Alcohol: Former (sober since April 2024)
Drug: None
Personal:
Living: With Family
Employment: Retired
Family History
Family History: Reviewed & Not Pertinent
Allergies / Home Medications
Allergies
Allergy/AdvReac Type Severity Reaction Status Date / Time
olmesartan [From Benicar] Allergy anemia Verified 08/30/24 09:54
Sulfa (Sulfonamide Allergy lip Verified 08/30/24 09:54
Antibiotics) Swelling
venlafaxine [From Effexor] Allergy patient Verified 10/17/24 21:43
states
this may
have
caused
respiratory
failure
Home Medications
�Medication �Instructions �Recorded �Confirmed �Last Taken �Type
loratadine 10 mg tablet 10 mg PO DAILYPRN PRN seasonal 05/30/18 10/17/24 03/21/23 11:00 History
allergies
melatonin 3 mg tablet 3 mg PO HS 30 days #0 tabs 01/05/22 10/17/24 10/16/24 Rx
metoprolol succinate 50 mg 50 mg PO DAILY Blood Pressure 07/22/22 10/17/24 10/17/24 History
tablet,extended release 24 hr
rosuvastatin 20 mg tablet 20 mg PO HS High Cholesterol 07/06/24 10/17/24 10/16/24 History
alendronate 10 mg tablet 10 mg PO BOCANEGRA osteoporosis 07/07/24 10/17/24 10/14/24 History
cholecalciferol (vitamin D3) 25 25 mcg PO DAILY Supplement 07/07/24 10/17/24 10/17/24 History
mcg (1,000 unit) tablet (Vitamin
D3)
cyanocobalamin (vitamin B-12) 1,000 mcg PO DAILY Supplement 07/07/24 10/17/24 10/17/24 History
1,000 mcg tablet
diphenhydramine HCl 25 mg capsule 25 mg PO HS Allergies 07/07/24 10/17/24 10/16/24 History
(Benadryl)
lactulose 10 gram/15 mL oral 20 g PO Q48H hepatic encephalopathy 07/07/24 10/17/24 Unknown History
solution
furosemide 40 mg tablet (Lasix) 40 mg PO DAILY Gastrointestinal 07/11/24 10/17/24 10/17/24 Rx
issue 1 month #30 tabs
midodrine 2.5 mg tablet 2.5 mg PO TID@0800,1300,1800 Blood 07/11/24 10/17/24 10/17/24 Rx
pressure 1 month #90 tabs
pantoprazole 40 mg tablet,delayed 40 mg PO BID Gastrointestinal 07/11/24 10/17/24 10/17/24 Rx
release issue 1 month #60 tabs
rifaximin 550 mg tablet (Xifaxan) 550 mg PO BID Gastrointestinal 07/11/24 10/17/24 10/17/24 Rx
issue 1 month #60 tabs
escitalopram oxalate 10 mg tablet 10 mg PO DAILY depression/anxiety 08/30/24 10/17/24 10/17/24 History
(Lexapro)
folic acid 1 mg tablet 1 mg PO DAILY Supplement 10/17/24 10/17/24 10/17/24 History
pregabalin 150 mg capsule 150 mg PO BID Neurological 10/17/24 10/17/24 10/17/24 History
Condition
Review of Systems
-
Unable to Obtain full review of systems at this time due to: Other
History Source: Patient
Vitals / Labs / Diagnostic Testing
Vital Signs
Temp Pulse Resp BP Pulse Ox
98.4 F 97 14 159/82 100
10/25/24 03:00 10/25/24 07:52 10/25/24 07:52 10/25/24 06:21 10/25/24 07:52
Lab Data
10/25/24 05:31
10/25/24 03:57
Laboratory Results
10/25/24 10/25/24 10/25/24
03:57 07:59 08:03
PT 21.2 H
INR 1.78
pH 7.37 Cancelled
pCO2 49 H Cancelled
pO2 221 H Cancelled
HCO3 28.3 H Cancelled
O2 Delivery Level Nrm Cancelled
Microbiology
10/25/24 05:16 Nasal Swab Influenza Types A & B (NIKKI) - Final
Negative for Influenza A & B, NAAT
Negative results must be combined with clinical observations
and patient history.
Nucleic Acid Amplification test (NAAT)performed on the
71lbs platform.
10/18/24 15:46 Blood/Venous Blood Culture - Final
No Growth - Final Report
10/18/24 15:45 Blood/Venous Blood Culture - Final
No Growth - Final Report
Diagnostic Testing:
Physical Exam
-
HEENT: Normocephalic
Cardiovascular: S1/S2 and Regular Rhythm
Respiratory: Wheeze
GI: Distended and Normal Bowel Sounds
Skin: Warm, Other (jaundice) and Other (blood oozing from catheter site)
General: Comfortable
Assessment
-
69yo F pmh cirrhosis portal hypertensive gastropathy, hepatic encephalopathy, GERD, celiac disease, CKD (baseline Cr 1.5), recent admission for upper GI bleed admitted on 10/17 for another GI bleed. No bleed found on endoscopy 10/19 or colonoscopy
10/24, though the colonoscopy was aborted due to pt's respiratory instability and N/V. Pt has required 5 units pRBCs throughout her stay. Overnight, the pt's O2 requirements increased and required 4L O2 midflow, with hypertension and tachycardia. CXR
positive for interstitial prominence and small b/l pleural effusions. Additionally, D-dimer is elevated. Admitted to the ICU for further respiratory management.
Plan
Acute respiratory distress
Sepsis POA (fever, tachycardia, tachypnea)
Febrile illness
- flu/covid/MRSA negative
- u/a, blood cx negative for growth
- CXR: Interstitial prominence, with a patchy distribution. Differential diagnosis includes pulmonary edema with scattered foci of interstitial and alveolar edema, and interstitial pneumonitis. Small bilateral pleural effusions.
- likely secondary to fluid overload
- on BiPAP
- diurese w lasix
Cirrhosis
Portal hypertensive gastropathy
Hx hepatic encephalopathy
Acute blood loss symptomatic anemia with PMHx of GAVE and cecal AVM with iron deficiency and Hx of b12 and folate deficiency
Esophageal varices
Chronic transaminitis and Alk.phos elevation
- blood oozing from catheter site
- required 5 units pRBCs during this admission
- PPI
- No bleed found on endoscopy 10/19 or colonoscopy 10/24, though the colonoscopy was aborted due to pt's respiratory instability and N/V
- GI following
- accepted in transfer to [facility] with consult for transplant hepatology
ESTRELLITA on CKD stage 3b
Mild hypernatremia
Hypocalcemia
Hypokalemia
- replete electrolytes as needed
- Cr baseline 1.8, Cr worsening
Acute pancreatitis
- resolving
Indirect bilirubinemia
Thrombocytopenia
- secondary to liver cirrhosis
- MRCP: poor imaging, no gross findings of choledocholithiasis or cholecystitis
Chronic HoTN
- cont midodrin
Osteoporosis
HLD
Neuropathy
- cont home meds
Diet: NPO
DVT ppx: SCDs
Code status: FULL CODE
--- NOTE | 2024-10-25 08:45 | PTCARENOTE ---
Assumed care of pt at 0700. Assessment as noted. On NIV 16//100% with SpO2 100%. States she is feeling much better. Teaching Associate to bedside. ABG drawn, levine ordered and placed, made strict NPO. Dr Henriquez states he will attempt to transfer pt to
tertiary facility. Dr. Henriquez updated by phone.
[2024-10-25] MEDS: SOLU-MEDROL PF 40 MG IV (08:57)
[2024-10-25] MEDS: BUMEX 2 MG IV ×3 (08:57→19:55)
[2024-10-25 09:16] LABS: Urine Sodium 118 mmol/L (30-90)
[2024-10-25 09:28] LABS: Fibrinogen 110 MG/DL (199-459)
--- NOTE | 2024-10-25 09:36 | W.PN.HOSP.TC ---
Addendum entered and electronically signed by Madison Link MD 10/25/24 09:54:
d/w case with Dr. Charly Stack - ICU - [facility]. Accepted in transfer, priority level 1 to MICU with consultation to Dr. Arleth Tsai (transplant Hepatology)
Family made aware and transfer forms completed
Updated GI/Nephrology/ICU/RN/CM.
Original Note:
Today's Communication/Plan
-
continue IV Lasix, IV Albumin, IV Zosyn
pursue transfer to [facility] for liver transplant eval
Assessment / Plan
Assessment / Plan
68yo F with PMHx of osteoporosis, alcoholic liver cirrhosis, hepatic encephalopathy, chronic hypotension, HLD, varices, GAVE, GERD, cecal AVM, lower extremely chronic edema came with 2 episodes of bloody bowel movement and found Hgb of 3.2 with
dizziness on ambulation.
Developed ESTRELLITA with pulmonary edema, concern for hepatorenal vs cardiorenal syndrome and cannot rule out pneumonia
A/P:
Respiratory distress 10/24 during colonoscopy
- suspected aspiration event. CXR Interstitial prominence, with a patchy distribution. Differential diagnosis includes pulmonary edema with scattered foci of interstitial and alveolar edema, and interstitial pneumonitis.
- continue ongoing Zosyn
- on BiPAP 06/07, 80%
- ICU following
#Acute blood loss symptomatic anemia with PMHx of GAVE and cecal AVM with iron deficiency and Hx of b12 and folate deficiency
#Esophageal varices
#Chronic transaminitis and Alk.phos elevation
#Hx of hepatic encephalopathy, decompensated cirrhosis
- s/p 5 units PRBC in total
- s/p Octreotide drip
- continue PPI IV BID
- GI following
- s/p EGD 10/19: no bleeding seen
- s/p Colonoscopy 10/24: APC to AVMs, aborted early to due vomiting, respiratory distress
- s/p IV iron course
- continue Folate
- continue Rifaximin/lactulose
Sepsis POA (fever, tachycardia, tachypnea)
Febrile illness
- Possible pneumonia vs pneumonitis on CXR
- continue Zosyn
- UA, Bcx negative. MRSA negative
Acute hypoxic respiratory failure with pulmonary edema (acute diastolic CHF)
- IV Lasix; requires intensive monitoring of I/Os, weights, lytes
- Echo: Normal biventricular size and systolic function without regional wall motion abnormality. Stage II diastolic dysfunction suggestive of abnormal relaxation and increased filling pressures. Moderate mitral regurgitation.
Mild aortic regurgitation. Moderate pulmonary hypertension.
ESTRELLITA on CKD stage 3b
Mild hypernatremia
Hypocalcemia
Hypokalemia
- Replete electrolytes
- cr improving with diuresis and after albumin
- Cr baseline 1.8 as per batting machine operator
- possibly ESTRELLITA developed on the basis of severe anemia
- Nephrology following
bilateral cephalic vein thrombosis
- warm compresses
- risk of AC outweighs benefits (recent anemia, GI bleed)
Acute pancreatitis
- resolving. No abd pain
Indirect bilirubinemia
Thrombocytopenia
- recurrent 2/2 liver cirrhosis
- MRCP: poor imaging, no gross findings of cholecystitis or choledocholithiasis
- continue Zosyn
Chronic hypotension
- midodrine
Osteoporosis
HLD
Neuropathy
- cont home meds
DVT ppx: SCDs
Code: Full
Total Critical Care Time 45 minutes. I was immediately available to the patient and staff. I personally examined, reviewed labs, diagnostic images/reports, interpretations, treatment plans, discussed patient care with other providers and family
or caregivers (if patient is unable to make decisions), entered orders as appropriate and documented the medical record.
Anticipated Discharge: > 48 hours
Subjective/Interval History
-
Date of Service: October 25, 2024
s/p colonoscopy 10/24 with APC to AVMs, aborted due to respiratory distress and vomiting, with likel aspiration
overnight with further respiratory distress prompting BIPAP and ICU transfer
Remains on BiPAP, comfortable, no complaints at present.
Objective Data
-
Labs:
Laboratory Results
10/25/24 10/25/24 10/25/24
03:57 05:31 07:59
WBC 6.2 13.4 H
Hgb 7.3 L 7.8 L
Hct 22.7 L 25.0 L
Plt Count 79 L 134 D
PT 21.2 H
INR 1.78
HCO3 28.3 H
Sodium 150 H
Potassium 3.3 L
Chloride 106
Carbon Dioxide 29
BUN 31 H
Creatinine 2.3 H
Glucose 76
Calcium 9.5
Total Bilirubin 3.1 H
AST 53 H
ALT 30
Alkaline Phosphatase 72
10/25/24
08:03
WBC
Hgb
Hct
Plt Count
PT
INR
HCO3 Cancelled
Sodium
Potassium
Chloride
Carbon Dioxide
BUN
Creatinine
Glucose
Calcium
Total Bilirubin
AST
ALT
Alkaline Phosphatase
Vital Signs:
Vital Signs
Temp Pulse Resp BP Pulse Ox
97.7 F 94 14 109/72 100
10/25/24 08:00 10/25/24 09:30 10/25/24 09:30 10/25/24 09:30 10/25/24 09:30
I&O
10/24/24 10/25/24 10/26/24
06:59 06:59 06:59
Intake Total 780 / 780 50 / 50
Output Total 300 / 300 250 / 250 260 / 260
Balance -300 / -300 530 / 530 -210 / -210
Physical Exam
-
General: Respiratory Distress (mild)
Respiratory: Rhonchi and Crackles
Cardiac: Regular Rhythm and S1/S2
GI: Soft
Musculoskeletal: Edema, Right Lower Extrem and Edema, Left Lower Extrem
Neuro: AO x 3
Psych: Calm
Data Reviewed
-
Critical Care Time (in minutes): 45
Labs: Labs Reviewed by me
[2024-10-25 11:08] LABS: NT-proBNP > 27000 pg/ml
[2024-10-25 11:31] LABS: Lactic Acid 0.9 mmol/L (0.7-2.0)
--- NOTE | 2024-10-25 11:37 | W.PN.NEPH.PH ---
Today's Communication / Plan
-
Bumex
Assessment/Plan
-
IMP:
Izzy with CKD3-baseline cr mid 1s-1.5-1.9
Acute blood loss symptomatic anemia with
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
Hx of b12 and folate deficiency
Esophageal varicies
liver cirrhosis
Chronic transaminitis and Alk.phos elevation
Hx of hepatic encephalopathy
Acute pancreatitis
Indirect bilirubinemia
Thrombocytopenia
Chronic hypotension
Neuropathy
hypoalbuminemia
Hyperlipidemia
Osteoporosis
Anxiety
Plan:
A/w GIB, anemia hb 3.2 s/p 4 PRBCs,
UA bland with low U na suggest prerenal, can not r/o HRS , however bp stable at this time
Remains on 60 mg IV Lasix daily, I's and O's not recorded
CT with out hydro, follow bladder scan
IV alb per GI
Bp are high, holding midodrine
mild non gap met acidosis -improving
h/h stable on IV Fe course per primary
bilateral sup vein thrombosis now with IJ line for access
avoid nephrotoxins
abx per primary
dose meds renally
Status post respiratory distress overnight on BiPAP
Chest x-ray showed pulmonary edema
Patient is oliguric
2 mg Bumex given this morning
Will increase the dose to 4 mg pending urine output
Patient to be transferred to tertiary care
No acute need for dialysis
d/w critical care team
-
-
Date of Service: October 25, 2024
CC / HPI / ROS
-
Chief Complaint:
IZZY with CKD
History of Present Illness:
cr up to 2, stable status post GI bleed transfusion with initial hemoglobin of 3.2
BP high improving , no fever
Review of Systems:
no cp , no sob today
no abd pain
no n/v
Labs
-
Labs:
WBC 13.4 10^3/uL (4.8-10.8) H 10/25/24 05:31
RBC 2.74 10^6/uL (4.20-5.40) L 10/25/24 05:31
Hgb 7.8 g/dL (12.0-16.0) L 10/25/24 05:31
Hct 25.0 % (37.0-47.0) L 10/25/24 05:31
Plt Count 134 10^3/uL (130-400) D 10/25/24 05:31
Sodium 150 mmol/L (135-145) H 10/25/24 03:57
Potassium 3.3 mmol/L (3.5-5.1) L 10/25/24 03:57
Chloride 106 mmol/L (98-107) 10/25/24 03:57
Carbon Dioxide 29 mmol/L (22-30) 10/25/24 03:57
BUN 31 mg/dl (7-17) H 10/25/24 03:57
Creatinine 2.3 mg/dL (0.6-1.0) H 10/25/24 03:57
eGFR 22.45 10/25/24 03:57
Glucose 76 mg/dl (70-99) 10/25/24 03:57
Calcium 9.5 mg/dl (8.4-10.2) 10/25/24 03:57
Noi-R-Pljicbncpir Pept > 63921 pg/ml 10/25/24 03:57
Albumin 4.8 g/dl (3.5-5.0) 10/25/24 03:57
Physical Exam
-
Vital Signs:
Vital Signs
Temp Pulse Resp BP Pulse Ox
97.7 F 95 20 123/74 100
10/25/24 11:20 10/25/24 10:30 10/25/24 10:30 10/25/24 10:30 10/25/24 10:31
Cardiovascular:: Regular rate and rhythm
Respiratory:: Bilateral: Coarse
Lung Excursion:: Normal
Abdomen:: Distended, Nontender and Soft
Extremity Edema:: None: Bilateral:
Hoover Catheter: No
--- NOTE | 2024-10-25 11:49 | PTCARENOTE ---
Pt changed to HF NC currently 80% 55L. SpO2 98%
--- NOTE | 2024-10-25 13:03 | PTCARENOTE ---
Changed back to NIV after approx 3hr on HF NC due to elevated RR and SpO2 to 86%
--- NOTE | 2024-10-25 14:20 | CM ---
CM following re: discharge planning.
Reviewed pt's chart,met with pt and pt's sister in law at bedside.
Per MD, pt is accepted for transfer to [facility] for liver transplant. Awaiting for a bed
D/C plan: transfer to [facility]
CM to follow to assist pt with transfer to [facility]
[2024-10-25] MEDS: AQUAMEPHYTON 51 MG IV (14:28)
[2024-10-25 16:47] LABS: Hematocrit 23.2 % (37.0-47.0); Hemoglobin 7.3 g/dL (12.0-16.0); Mean Corp Hgb Conc. 31.5 g/dL (33.0-37.0); Mean Corpuscular Hgb 28.9 pg (27.0-31.0); Mean Corpuscular Volume 91.7 fL (81.0-99.0); Mean Platelet Volume 12.8 fL (7.4-10.4); Platelet Count 74 10^3/uL (130-400); Red Blood Cell Count 2.53 10^6/uL (4.20-5.40); Red Cell Dist. Width 20.9 % (11.5-14.5); White Blood Cell Count 5.6 10^3/uL (4.8-10.8)
[2024-10-25 16:58] LABS: ALT (SGPT) 31 U/L (0-35); AST (SGOT) 46 U/L (14-36); Albumin 4.8 g/dl (3.5-5.0); Alkaline Phosphatase 73 U/L (38-126); Blood Urea Nitrogen 38 mg/dl (7-17); Calcium 9.4 mg/dl (8.4-10.2); Carbon Dioxide 26 mmol/L (22-30); Chloride 104 mmol/L (98-107); Estimated Creatinine Clearance 17 ml/min; Glucose 121 mg/dl (70-99); Magnesium 1.4 mg/dl (1.6-2.3); Potassium 4.3 mmol/L (3.5-5.1); Sodium 147 mmol/L (135-145); Total Bilirubin 3.7 mg/dl (0.2-1.3); Total Protein 6.4 g/dl (6.3-8.2); eGFR 22.45
--- NOTE | 2024-10-25 19:30 | PTCARENOTE ---
Patient received sitting up in bed, she appears to be sleeping comfortably with eyes closed, lying still, respirations non labored. On 60L/80% FiO2. Sats 100%. Rouses easily to name called, A&Ox4. She currently denies pain. SR with 1st degree AVB.
S1S2 regular with positive murmur. RUL with coarse crackles, rhonchi and pleural rub. RML, right base and left t/o with good aeration but coarse crackles t/o. Abdomen distended but nontender, positive bowel sounds. Hoover catheter patent draining
clear straw yellow urine. Limbs very thin. Positive pulses x 4 extremities, BLE pedal/ankle edema 2+. HOB up 45-60degrees. Bed in low and locked position, call ko within reach.
[2024-10-25] MEDS: MAGNESIUM SULFATE 50 IV (19:52)
[2024-10-25 21:12] LABS: AFP Male/Tumor Marker 3.48 ng/ml
[2024-10-25] MEDS: CRESTOR PO (22:03)
[2024-10-25] MEDS: DUPHALAC/CHRONULAC PO (22:03)
--- NOTE | 2024-10-25 23:49 | PTCARENOTE ---
"Received call from [facility] with regard to patient transfer. Bed received. Patient's Kory notified and provided hospital address, phone number and patient room number she will be transferred. Called Floor and spoke with nurse "Mark"Laura. Verbal report given, questions answered."
[2024-10-26] VITALS: BP 120/58
--- NOTE | 2024-10-26 | PTCARENOTE ---
Essentially no change in patient's physical assessment. She is tolerating NIV 16/8 with 50% FiO2. She appears to be sleeping comfortably when undisturbed but rouses easily. Afebrile, VSS.
[2024-10-26 01:00] VITALS: BP 121/55
[2024-10-26 02:00] VITALS: BP 132/59
[2024-10-26 03:00] VITALS: BP 119/54
[2024-10-26] MEDS: ZOSYN 50 IV (03:42)
--- NOTE | 2024-10-26 03:55 | PTCARENOTE ---
Patient stable. BBS with scattered crackles t/o. Good UO. Afebrile, VSS. Has been sleeping well t/o night. No complaints offered.
[2024-10-26 04:00] VITALS: BP 115/52
[2024-10-26 05:00] VITALS: BP 114/52
[2024-10-26] MEDS: NSS (PRESERVATIVE FREE) 10 ML IV (05:01)
[2024-10-26] MEDS: PROTONIX IV 40 MG IV (05:01)
--- NOTE | 2024-10-26 05:05 | PTCARENOTE ---
Am labs drawn. Morning meds given. [facility] arrived to transport Asha to [facility] in [place]. Placed on CM and equipment from Critical care transport. Hoover catheter emptied. Placed on
50L/50% FiO2 high flow oxygen, sats 99%. Patient transferred to stretcher. To transport ambulance via stretcher accompanied by [facility] team x 2 and RESTAURANT MAINTENANCE TECHNICIAN. Belongings sent. Copy of chart and imaging sent.
[2024-10-26 05:36] LABS: % Immature Granulocytes 1.1 % (0-0.5); % Lymphocytes 18.4 % (20.5-51.1); % Monocytes 8.2 % (1.7-9.3); % Neutrophils 72.3 % (42.2-75.2); Absolute Lymphocytes 0.7 10^3/uL (1.2-3.4); Absolute Monocytes 0.3 10^3/uL (0.1-0.6); Absolute Neutrophils 2.6 10^3/uL (1.4-6.5); Hematocrit 22.2 % (37.0-47.0); Hemoglobin 6.8 g/dL (12.0-16.0); Mean Corp Hgb Conc. 30.6 g/dL (33.0-37.0); Mean Corpuscular Hgb 28.1 pg (27.0-31.0); Mean Corpuscular Volume 91.7 fL (81.0-99.0); Nucleated Red Blood Cells % 0 %; Platelet Count 62 10^3/uL (130-400); Red Blood Cell Count 2.42 10^6/uL (4.20-5.40); Red Cell Dist. Width 20.7 % (11.5-14.5); White Blood Cell Count 3.5 10^3/uL (4.8-10.8)
[2024-10-26 05:51] LABS: ALT (SGPT) 28 U/L (0-35); AST (SGOT) 38 U/L (14-36); Albumin 4.7 g/dl (3.5-5.0); Alkaline Phosphatase 70 U/L (38-126); Blood Urea Nitrogen 49 mg/dl (7-17); Calcium 9.3 mg/dl (8.4-10.2); Carbon Dioxide 30 mmol/L (22-30); Chloride 102 mmol/L (98-107); Estimated Creatinine Clearance 15 ml/min; Glucose 132 mg/dl (70-99); Potassium 3.8 mmol/L (3.5-5.1); Sodium 150 mmol/L (135-145); eGFR 19.38
== END 2024-10-26 05:40 | disposition short-term general hospital (02) | DRG 871 ==
LOC: ICU 20:58
PROVIDERS: Emergency Medicine; Internal Medicine; Nurse Practitioner Gerontology; Physician Assistant; Radiology Vascular & Interventional Radiology; Student in an Organized Health Care Education/Training Program; ADMITTING PHYSICIAN Internal Medicine; ATTENDING PHYSICIAN Internal Medicine; CONSULT PHYSICIAN Internal Medicine; EMERGENCY PHYSICIAN Emergency Medicine; FAMILY PHYSICIAN Family Medicine; OTHER PHYSICIAN Internal Medicine
PROC: 30233N1 Transfusion of Nonautologous Red Blood Cells into Peripheral Vein, Percutaneous Approach (ICD-10-PCS; 2024-10-17)
PROC: 0DJ08ZZ Inspection of Upper Intestinal Tract, Via Natural or Artificial Opening Endoscopic (ICD-10-PCS; 2024-10-19)
PROC: 02HV33Z Insertion of Infusion Device into Superior Vena Cava, Percutaneous Approach (ICD-10-PCS; 2024-10-22)
PROC: 0W3P8ZZ Control Bleeding in Gastrointestinal Tract, Via Natural or Artificial Opening Endoscopic (ICD-10-PCS; 2024-10-24)
DX: A41.9 Sepsis, unspecified organism (principal); I50.31 Acute diastolic (congestive) heart failure; J96.01 Acute respiratory failure with hypoxia; K31.811 Angiodysplasia of stomach and duodenum with bleeding; K85.90 Acute pancreatitis without necrosis or infection, unspecified; K76.7 Hepatorenal syndrome; D62 Acute posthemorrhagic anemia; N17.9 Acute kidney failure, unspecified; E87.0 Hyperosmolality and hypernatremia; K76.6 Portal hypertension; E87.20 Acidosis, unspecified; I85.10 Secondary esophageal varices without bleeding; F17.200 Nicotine dependence, unspecified, uncomplicated; N18.30 Chronic kidney disease, stage 3 unspecified; E83.51 Hypocalcemia; E87.6 Hypokalemia; D69.6 Thrombocytopenia, unspecified; K31.89 Other diseases of stomach and duodenum; K55.20 Angiodysplasia of colon without hemorrhage; K70.31 Alcoholic cirrhosis of liver with ascites; I95.89 Other hypotension; M81.0 Age-related osteoporosis without current pathological fracture; E78.00 Pure hypercholesterolemia, unspecified; G62.9 Polyneuropathy, unspecified; F41.9 Anxiety disorder, unspecified; Z11.52 Encounter for screening for COVID-19
CPT/HCPCS: 36430; 36556; 71045; 74176; 74181; 76705; 76937; 77001; 80048; 80053; 80202; 81003; 81015; 82105; 82140; 82248; 82570; 82607; 82728; 82746; 82805; 82962; 83010; 83540; 83550; 83605; 83615; 83690; 83735; 83880; 84300; 85014; 85018; 85025; 85027; 85045; 85379; 85384; 85610; 85730; 86850; 86880; 86900; 86901; 86920; 87040; 87070; 87449; 87502; 87641; 87811; 87899; 93306; 93971; 94640; 94660; 96365; 96375; 97116; 97163; 97167; 97535; 99291; C1751; J2916; P9012; P9016; P9047

== ENCOUNTER → 2025-01-31 12:20 | Outpatient (REF) | payer OTHER, SELFPAY | LOC: RAD 12:20 | PROVIDERS: ATTENDING PHYSICIAN Physician Assistant; FAMILY PHYSICIAN Family Medicine | DX: R60.0 Localized edema (principal) | CPT/HCPCS: 71046 ==

== ENCOUNTER 2025-03-14 06:06 | Day surgery (SDC) | payer OTHER, SELFPAY ==
[2025-03-14] VITALS (7 sets, daily range): BP systolic 108–124; BP diastolic 50–57; BMI 23.7
== END 2025-03-14 17:25 | disposition home or self-care (01) ==
LOC: SDS 06:06
PROVIDERS: ATTENDING PHYSICIAN Internal Medicine Gastroenterology
DX: Z12.11 Encounter for screening for malignant neoplasm of colon (principal); K57.30 Diverticulosis of large intestine without perforation or abscess without bleeding; K64.8 Other hemorrhoids; Z86.0100 Personal history of colon polyps, unspecified
CPT/HCPCS: G0105

== ENCOUNTER → 2025-05-07 11:19 | Outpatient (REF) | payer OTHER, SELFPAY | LOC: HWRAD 11:19 | PROVIDERS: ATTENDING PHYSICIAN Internal Medicine Gastroenterology; FAMILY PHYSICIAN Family Medicine | DX: K70.30 Alcoholic cirrhosis of liver without ascites (principal) | CPT/HCPCS: 76700 ==